=== PATIENT | female | born 1965 | race Caucasian/White ===

== ENCOUNTER 2017-03-25 22:04 | Emergency (ER) | payer OTHER ==
[~2017-03-25] VITALS: Ht 170.2 cm; Wt 72.7 kg
[~2017-03-25 22:04] MED LIST: IBUP-1050 PO; TRAM-10 PO
[2017-03-25 22:07] VITALS: TEMP 36.7; Ht 170.2 cm; Wt 72.7 kg
[2017-03-25] MEDS ORDERED: KETOROLAC TROMETHAMINE 60 MG/2 ML VIAL IM STA (22:15)
[2017-03-25] MEDS ORDERED: MoRPHine SULFATE 10 MG/ML CARP/VIAL IM STA (22:15)
--- NOTE | 2017-03-25 22:40 | EMERGENCY ROOM VISIT NOTE ---
History First contact with patient: 22:10 Chief Complaint: BACK PAIN Stated Complaint: LOW BACK AND LEFT LEG PAIN History of Present Illness The patient is a 52 year old female who presents to the Emergency Room with complaints of low back pain with radiation into the left leg. The patient states that her low back has felt "tight" for the past few days. She states that the pain worsened today and became severe approximately 5 hours prior to arrival. She states that the pain is in the left lower back and radiates into the hip and mid thigh. She states the pain is constant and describes it as a burning sensation. She denies any abdominal pain, urinary symptoms, bowel or bladder dysfunction, numbness or weakness. She does have an extensive history of back issues and states she has had 5 prior laminectomies performed by a surgeon at [place]. She has not had any back issues for the past 1.5 years. She does report a history of renal cell carcinoma and follows with Dr. Murillo locally. She states she has had surgery previously, but had a scan in September of last year which showed "some cancer cells coming back." She denies any fevers/chills. Review of Systems A complete 10 point review of systems was reviewed with the patient with pertinent positives and negatives as per history of present illness. All else were negative. Past Medical/Surgical History Medical Problems: (1) Duodenitis (2) Fall on steps (3) Fall on steps (4) Localized, primary osteoarthritis of the lower leg (5) Prescription refill (6) Renal cell carcinoma of right kidney (7) Right wrist pain (8) Upper abdominal pain Surgical Problems: (1) H/O total knee replacement (2) History of appendectomy Family History Cancer FH: heart disease Kidney disease Kidney stones Social History Smoking Status: Current Every Day Smoker Alcohol Use: occasionally Drug Use: none Marital Status: Housing Status: lives with family Occupation Status: employed Current/Historical Medications Scheduled Acetaminophen (Tylenol), 1,000 MG PO PRN Ibuprofen (Advil), 400 MG PO PRN Allergies Coded Allergies: No Known Allergies (Unverified , 12/07/15) Physical Exam Vital Signs Date Time Temp Pulse Resp B/P Pulse Ox O2 Delivery O2 Flow Rate FiO2 03/25/17 23:11 93 03/25/17 22:07 36.7 19 18 152/93 95 Room Air Physical Exam VITALS: Vitals are noted on the nurse's note and reviewed by myself. No abnormalities noted. GENERAL: This is a 52-year-old female, tearful, appears to be in pain, nondiaphoretic, well-developed well-nourished. SKIN: The skin was without rashes, erythema, edema, or bruising. NECK: Supple without nuchal rigidity. No cervical spine tenderness. HEART: Regular rate and rhythm without murmurs gallops or rubs. LUNGS: Clear to auscultation bilaterally without wheezes, rales or rhonchi. ABDOMEN: Soft, nontender to palpation. MUSCULOSKELETAL: No muscle atrophy, erythema, or edema noted of the back. There is no tenderness over the lumbar spinous processes. There is tenderness over the left lumbar paraspinous muscles. There is no tenderness over the thoracic spine or paraspinous muscles. There are XX muscle spasms present. The patient is slow to move around, but has full range of motion of the spine. Negative straight leg raise test. NEURO: Patient was alert and oriented to person place and time. Normal sensation to light and sharp touch. Deep tendon reflexes 2+ in the lower extremities. Dorsalis pedis pulse 2+ bilaterally. Gait is normal. Medical Decision & Procedures ER Provider Diagnostic Interpretation: CT LUMBAR SPINE: No acute fracture or dislocation. There is multilevel lumbar spondylosis with varying degrees of neural foraminal stenosis, most marked at the left L5-S1 level. Arterial calcifications. Osteoarthritic changes of both sacroiliac joints, left greater than right. Radiologist: Romie Paniagua M.D. Medications Administered Medications (Trade) Dose Ordered Sig/Lucero Route Start Time Stop Time Status Last Admin Dose Admin Ketorolac Tromethamine (Toradol Inj) 60 mg NOW STAT IM 03/25/17 22:15 03/25/17 22:17 DC 03/25/17 22:23 60 MG Morphine Sulfate (MoRPHine SULFATE INJ) 8 mg NOW STAT IM 03/25/17 22:15 03/25/17 22:17 DC 03/25/17 22:23 8 MG ED Course The patient was evaluated as above. Patient was medicated with 8 mg morphine IM and [address] of the lumbar spine was performed and read by radiology as above. Patient was reevaluated and felt much better. Findings were discussed with the patient. Discharge instructions were reviewed with the patient. The patient verbalized understanding of my assessment and treatment plan and was discharged home in good condition. Medical Decision Differential diagnosis includes sciatica, epidural abscess, malignancy, compression fracture, cauda equina syndrome, cord compression, muscular strain, among others. The patient is a 52-year-old female who presents today complaining of left back pain with radiation into the left leg. Her history and physical exam are consistent with left-sided sciatica. However, given the patient's history of renal cell carcinoma, I did choose to perform a CT scan of the lumbar spine to rule out metastasis. This showed neuroforaminal stenosis, most pronounced at L5 -S1, which is consistent with the patient's symptoms. There is no cord compression. There is no evidence of infection. The patient was informed of the findings. She felt much better after being given morphine and Toradol. She will be discharged home on a steroid and with pain medication. She will follow-up with [facility], who she has seen in the past. She was instructed to return here for any numbness, weakness, bowel or bladder incontinence. Based on the patient's presentation and work up, I feel the patient is stable for outpatient treatment. The patient was educated to return to the emergency department for any worsening of their current condition or new/concerning symptoms. She will follow up with her primary care provider and [facility]. [place] Drug Monitoring [place] Search Results: patient reviewed within database, no issues identified Impression Primary Impression: Left lumbar radiculopathy Departure Information Dispostion Home / Self-Care Condition GOOD Prescriptions Oxycodone Ir (Roxicodone Ir) 5 Mg Tab 1-2 TAB PO Q4H Y for Pain, #24 TAB For Initial Treatment Prov: Aleshia Jeffery PA-C 03/25/17 Prednisone (Prednisone) 20 Mg Tab 0 PO DAILY, #18 TAB 3 DAILY FOR 3 DAYS, THEN 2 DAILY FOR 3 DAYS, THEN 1 DAILY FOR 3 DAYS. Prov: Aleshia Jeffery PA-C 03/25/17 Referrals Loraine Murillo MD (PCP) Johnathon Barrios D.O. Patient Instructions My [facility] Additional Instructions You have been treated in the Emergency Department for Back Pain. You have received pain medicine in the emergency department which impairs your ability to operate a vehicle. It is illegal for you to drive after receiving these medicines. You have been prescribed OxyIR to be used for pain control. This is a narcotic medication. You cannot drive or consume alcohol while on this medicine. This medicine should only be used for pain that cannot be controlled with over-the- counter pain medicines. Prednisone as prescribed. Take this medication in the morning as it may make sleeping difficult. For pain control, you can use the following [id number] medicines (if >12 yo): - Regular strength (325mg/tab) Tylenol (acetaminophen) 2 tabs every 4-6 hours as needed. Do not exceed 12 tablets in a 24 hour period. Avoid taking more than 4 grams (4000 mg) of Tylenol per day. This includes any other sources of acetaminophen you may take on a regular basis. - Regular strength (200 mg/tab) Advil (ibuprofen) 1-2 tabs every 4-6 hours as needed. Do not exceed a dose of 3200 mg per day. Apply heating pad to the area of pain. Follow-up with [facility] for further evaluation. Return to the Emergency Department if your current symptoms worsen despite treatment course outlined above, or if you develop any of the following symptoms : intractable pain despite aforementioned treatment course, loss of control of your bowel or bladder, numbness or tingling in your groin, or development of a fever.
[2017-03-25] MEDS ORDERED: PRED20TA PO (23:58)
[2017-03-25] MEDS ORDERED: OXYC1TAB3 PO (23:58)
[2017-03-26] MEDS ORDERED: OXYCODONE IR HOME PACK PO ONE
[2017-03-26 00:07] VITALS: BP 134/70; PULSE 78; O2SAT 98
--- NOTE | 2017-03-26 07:28 | DIAGNOSTIC IMAGING REPORT ---
LUMBAR SPINE CT CT DOSE: 774.87 mGy.cm HISTORY: lumbar radiculopathy, hx renal cell ca TECHNIQUE: Multiaxial CT images of the lumbar spine were performed and reformatted in the sagittal and coronal plane without the use of contrast. COMPARISON: Lumbar spine 12/07/2015. FINDINGS: Straightening of the lumbar spine. No acute fracture or subluxation. Severe disc space narrowing at L3-L4 and L4-L5. Moderate disc space narrowing at L5-S1. Mild to moderate facet degenerative changes seen within the lower lumbar spine. Best seen on axial image 500 there is a 3 mm focal erosion along the right side of the L4 spinous process. This was present on a [address] and therefore is likely benign.. There is a sacrum appears intact. Right-sided nephrolithiasis. No hydronephrosis. Mild/moderate bilateral neural foraminal narrowing at L4-L5 and L5-S1. IMPRESSION: 1. No acute fracture or subluxation within the lumbar spine. 2. Degenerative changes as described above.. 3. There is a 3 mm focal erosion along the right side of the L4 spinous process. This was present on a [address] and therefore is likely benign. Electronically signed by: Anatoly Chaidez M.D. 03/26/2017 7:26 AM Dictated Date/Time: 03/26/2017 7:20 AM
[2017-04-15] MEDS ORDERED: ASPI-428 PO (11:03)
[2017-04-15] MEDS ORDERED: METH4PAK PO (11:03)
[2017-04-15] MEDS ORDERED: GABA1CAP4 PO (11:03)
[2017-04-15] MEDS ORDERED: OXYC-57 PO (11:03)
== END 2017-03-26 00:09 | disposition home or self-care (01) ==
LOC: C.EDB 22:05 → C.EDA 03-26 00:09
DX: M54.16 Radiculopathy, lumbar region (principal); K29.80 Duodenitis without bleeding; C64.1 Malignant neoplasm of right kidney, except renal pelvis; Z82.49 Family history of ischemic heart disease and other diseases of the circulatory system; F17.200 Nicotine dependence, unspecified, uncomplicated

== ENCOUNTER 2017-04-05 06:11 | Emergency (ER) | payer OTHER ==
[~2017-04-05] VITALS: Ht 170.2 cm; Wt 78.0 kg
[~2017-04-05 06:11] MED LIST changes: -IBUP-1050 PO; +OXYC1TAB3 PO; +PRED20TA PO; -TRAM-10 PO
[2017-04-05 06:16] VITALS: TEMP 36.4; Ht 170.2 cm; Wt 78.0 kg
[2017-04-05] MEDS ORDERED: ONDANSETRON INJ 2 MG/ML 2 ML VIAL IV STA (06:32)
[2017-04-05] MEDS ORDERED: MoRPHine SULFATE 10 MG/ML CARP/VIAL IV STA (06:32)
--- NOTE | 2017-04-05 06:33 | EMERGENCY ROOM VISIT NOTE ---
ED Visit Note First contact with patient: 06:28 Resident Physician Supervision Note: I interviewed and examined the patient. Discussed with Dr. Arguelles and agree with findings and plan as documented in the note. Documented By: Philip aTvera Problem List Medical Problems: (1) Duodenitis Status: Chronic (2) Fall on steps Status: Resolved (3) Fall on steps Status: Resolved (4) Localized, primary osteoarthritis of the lower leg Status: Resolved (5) Prescription refill Status: Resolved (6) Renal cell carcinoma of right kidney Status: Chronic (7) Right wrist pain Status: Chronic (8) Upper abdominal pain Status: Chronic Surgical Problems: (1) H/O total knee replacement Status: Resolved (2) History of appendectomy Status: Resolved Current/Historical Medications Scheduled Acetaminophen (Tylenol), 1,000 MG PO PRN Ibuprofen (Advil), 400 MG PO PRN Prednisone (Prednisone), 0 PO DAILY Scheduled PRN Oxycodone Ir (Roxicodone Ir), 1-2 TAB PO Q4H PRN for Pain Allergies Coded Allergies: No Known Allergies (Unverified , 12/07/15) Vital Signs Date Time Temp Pulse Resp B/P Pulse Ox O2 Delivery O2 Flow Rate FiO2 04/05/17 06:16 36.4 61 16 134/94 97 Room Air Departure Information Referrals Loraine Murillo MD (PCP) Patient Instructions My [facility]
[2017-04-05] MEDS ORDERED: OXYC-57 PO (07:06)
--- NOTE | 2017-04-05 07:13 | EMERGENCY ROOM VISIT NOTE ---
History First contact with patient: 06:32 Chief Complaint: BACK PAIN Stated Complaint: BACK PAIN History of Present Illness The patient is a 52 year old female who presents to the Emergency Room with complaints of left sided back pain. The patient was seen in the ED last week and was found to have spinal stenosis on CT scan with no compression. She has a history of 5 spinal surgeries as has a follow up with Dr. Barrios on 04/19/17. She was discharged home with Oxycodone as well as a 9 day steroid taper. The patient said she felt well after 5 days and was standing at work for 4 hours and even moving her desk. She woke up last week and felt like she had just tweaked her back when she woke up in the morning. The pain gradually worsened to the point this morning where she is in excruciating 10/10 pain that radiates down her leg. She denies any loss of bladder or any other next symptoms, just worsening of the previous pain. Review of Systems See HPI for pertinent positives and negatives. A total of ten systems were reviewed and were otherwise negative. Past Medical/Surgical History Medical Problems: (1) Duodenitis (2) Fall on steps (3) Fall on steps (4) Localized, primary osteoarthritis of the lower leg (5) Prescription refill (6) Renal cell carcinoma of right kidney (7) Right wrist pain (8) Upper abdominal pain Surgical Problems: (1) H/O total knee replacement (2) History of appendectomy Family History Cancer FH: heart disease Kidney disease Kidney stones Social History Smoking Status: Current Every Day Smoker Alcohol Use: occasionally Drug Use: none Marital Status: Housing Status: lives with family Occupation Status: employed Current/Historical Medications Scheduled Acetaminophen (Tylenol), 1,000 MG PO PRN Ibuprofen (Advil), 400 MG PO PRN Prednisone (Prednisone), 0 PO DAILY Scheduled PRN Oxycodone Ir (Roxicodone Ir), 1-2 TAB PO Q4H PRN for Pain Oxycodone/Acetaminophen 5MG/325MG (Percocet 5MG/325MG), 1-2 TAB PO Q4H PRN for Pain Allergies Coded Allergies: No Known Allergies (Unverified , 12/07/15) Physical Exam Vital Signs Date Time Temp Pulse Resp B/P Pulse Ox O2 Delivery O2 Flow Rate FiO2 04/05/17 06:16 36.4 61 16 134/94 97 Room Air Physical Exam GENERAL: Awake, alert, in moderate distress HENT: Normocephalic, atraumatic. EYES: Normal conjunctiva. Sclera non-icteric. NECK: Supple. Trachea midline. RESPIRATORY: Clear to auscultation. CARDIAC: Regular rate, normal rhythm. Extremities warm and well perfused. Pulses equal. ABDOMEN: Soft, non-distended. No tenderness to palpation. RECTAL: Deferred. MUSCULOSKELETAL: Severe tenderness with movement. Patient in position and will no straighten legs due to severe pain. Tenderness over paravertebral region of lower back that is consistent with recent imaging. LOWER EXTREMITIES: Calves are equal size bilaterally and non-tender. No edema. No discoloration. NEURO: Normal sensorium. No sensory deficits noted. Unable to obtain motor strength exam due to severe tenderness. SKIN: No rash or jaundice noted. Medical Decision & Procedures Medications Administered Medications (Trade) Dose Ordered Sig/Lucero Route Start Time Stop Time Status Last Admin Dose Admin Morphine Sulfate (MoRPHine SULFATE INJ) 8 mg NOW STAT IV 04/05/17 06:32 04/05/17 06:34 DC 04/05/17 06:56 8 MG Ondansetron HCl (Zofran Inj) 4 mg NOW STAT IV 04/05/17 06:32 04/05/17 06:34 DC 04/05/17 06:56 4 MG Dexamethasone Sodium Phosphate (Decadron Inj) 10 mg NOW ONCE IV 04/05/17 07:15 04/05/17 07:16 DC 04/05/17 07:14 10 MG Medical Decision Patient is a 52 year old female that presents with chronic left sided back pain - Patient given 8mg IV Morphine and 4mg IV Zofran - After given pain medication, pain appears well controlled and patient able to walk on heels as well as toes. Patient denies any saddle anesthesia on exam. - Patient given 10mg IV Decadron - Patient states pain well controlled Patient discharged home with Percocet and instructions to follow up with Dr. Barrios at scheduled appointment Impression Primary Impression: Sciatica Departure Information Dispostion Home / Self-Care Condition GOOD Prescriptions Oxycodone/Acetaminophen 5MG/325MG (PERCOCET 5MG/325MG) Tab 1-2 TAB PO Q4H Y for Pain, #14 TAB Prov: Philip Tavera MD 04/05/17 Referrals Loraine Murillo MD (PCP) Patient Instructions ED Sciatica, My [facility] Problem Qualifiers Primary Impression: Sciatica Laterality: left Qualified Codes: M54.32 - Sciatica, left side
[2017-04-05] MEDS ORDERED: DEXAMETHASONE SOD INJ 10 MG/ML VIAL IV ONE (07:15)
[2017-04-05 08:16] VITALS: BP 107/68; PULSE 73; O2SAT 97
[2017-04-15] MEDS ORDERED: METH4PAK PO (11:03)
[2017-04-15] MEDS ORDERED: ASPI-428 PO (11:03)
[2017-04-15] MEDS ORDERED: GABA1CAP4 PO (11:03)
[2017-04-15] MEDS ORDERED: OXYC-57 PO (11:03)
== END 2017-04-05 08:18 | disposition home or self-care (01) ==
LOC: C.EDB 06:13
DX: M54.32 Sciatica, left side (principal); Z85.528 Personal history of other malignant neoplasm of kidney; Z80.9 Family history of malignant neoplasm, unspecified; Z82.49 Family history of ischemic heart disease and other diseases of the circulatory system; Z84.1 Family history of disorders of kidney and ureter; F17.210 Nicotine dependence, cigarettes, uncomplicated; Z79.52 Long term (current) use of systemic steroids

== ENCOUNTER 2017-04-07 05:50 | Emergency (ER) | payer OTHER ==
[~2017-04-07] VITALS: Ht 170.2 cm; Wt 71.0 kg
[~2017-04-07 05:50] MED LIST changes: +OXYC-57 PO
[2017-04-07 05:53] VITALS: TEMP 36.8; Ht 170.2 cm; Wt 71.0 kg
[2017-04-07] MEDS ORDERED: HYDROmorphone INJ 2 MG/ML SYR/VIAL IM STA (06:03)
[2017-04-07] MEDS ORDERED: KETOROLAC TROMETHAMINE 60 MG/2 ML VIAL IM STA (06:03)
--- NOTE | 2017-04-07 06:12 | EMERGENCY ROOM VISIT NOTE ---
History First contact with patient: 05:58 Chief Complaint: BACK PAIN Stated Complaint: BACK PAIN History of Present Illness The patient is a 52 year old female who presents to the Emergency Room with complaints of ongoing low back pain for the past 2 weeks that radiates down her left leg describes aching, ranging in severity 8 out of 10. Movement makes it worse and nothing makes it better. She has had multiple back surgeries with Dr. Barrios. She has a follow-up appointment on 19 of April for her ongoing back pain. This is the patient's third ER visit for this. Patient denies loss of bowel or bladder control, saddle anesthesia, fever, chills, leg weakness, IV drug abuse, chest pain, dyspnea, abdominal pain. Review of Systems See HPI for pertinent positives & negatives. A total of 10 systems reviewed and were otherwise negative. Past Medical/Surgical History Medical Problems: (1) Duodenitis (2) Fall on steps (3) Fall on steps (4) Localized, primary osteoarthritis of the lower leg (5) Prescription refill (6) Renal cell carcinoma of right kidney (7) Right wrist pain (8) Upper abdominal pain Surgical Problems: (1) H/O total knee replacement (2) History of appendectomy Family History Cancer FH: heart disease Kidney disease Kidney stones Social History Smoking Status: Current Every Day Smoker Alcohol Use: occasionally Drug Use: none Marital Status: Housing Status: lives with family Occupation Status: employed Current/Historical Medications Scheduled Acetaminophen (Tylenol), 1,000 MG PO PRN Ibuprofen (Advil), 400 MG PO PRN Prednisone (Prednisone), 0 PO DAILY Scheduled PRN Oxycodone Ir (Roxicodone Ir), 1-2 TAB PO Q4H PRN for Pain Oxycodone/Acetaminophen 5MG/325MG (Percocet 5MG/325MG), 1-2 TAB PO Q4H PRN for Pain Allergies Coded Allergies: No Known Allergies (Unverified , 12/07/15) Physical Exam Vital Signs Date Time Temp Pulse Resp B/P Pulse Ox O2 Delivery O2 Flow Rate FiO2 04/07/17 05:53 36.8 124 20 155/112 94 Room Air Physical Exam VITALS: Vitals are noted on the nurse's note and reviewed by myself. Vital signs tachycardic. GENERAL: Pleasant female crying in pain, in no acute distress, nondiaphoretic, well-developed well-nourished. SKIN: Capillary reflex less than 2 seconds. HEENT: Normocephalic. PERRLA. EOMI. Nares patent. Mucous membranes moist. Neck is supple without nuchal rigidity. HEART: Regular rate and rhythm without murmurs gallops or rubs. LUNGS: Clear to auscultation bilaterally without wheezes, rales or rhonchi. No retractions or accessory muscle use. ABDOMEN: Positive bowel sounds x 4. Normal tympanic percussion. Soft, nontender, without masses or organomegaly. Helton sign negative. No guarding or rebound tenderness. MUSCULOSKELETAL: No gross musculoskeletal defects. No pedal edema. No calf tenderness. No thoracic or lumbar tenderness on exam. Positive straight leg raise on the left. Patient can walk on toes and heels. NEURO: Patient was alert and oriented to person place and time. Normal sensation to light and sharp touch. Deep tendon reflexes 2+ patella bilaterally. No focal neurological deficits. Medical Decision & Procedures ED Course Prior records/ancillary studies reviewed. Triage Nursing notes reviewed. Additional history obtained from family. The patient's history was concerning for back pain. Differential diagnosis: Etiologies such as musculoskeletal, disc herniation, fracture, aortic disease, metastatic disease, cord compression, discitis, infection, renal colic, gastrointestinal, acute exacerbation of chronic back pain, sciatica, cauda equina, as well as others were entertained. Physical findings: As above. No focal neurologic findings noted. ER treatment provided: Toradol, Dilaudid On reassessment the patient felt better. Diagnostics interpreted by me: Deferred This appears to be consistent with lumbar radiculopathy. This is the patient's third ER visit for this. I had case management consulted in order to contact the patient's back doctor to get an earlier appointment. Patient was advised to stretch the area out take medicines as needed. She is advised to follow-up with her orthopedic spine doctor in a few days or here in the ER sooner for severe pain, inability to walk, worsening signs or symptoms or as needed. Patient was neurovascularly and neurologically intact. No deficits on exam. No fever. No IV drug abuse.. The patient's physical examination and detailed history did not reveal any red flags for back pain such as those listed in the differential diagnosis. Therefore advanced diagnostics and consultations were felt to be unwarranted. By the evaluation outlined above emergent etiologies such as fracture, aortic disease, metastatic disease, infection, renal colic, gastrointestinal, cord compression, cauda equina, as well as others were deemed relatively unlikely. The pt informed about the findings as listed above. All questions were answered and pleased with the treatment. Return instructions were outlined and the patient was discharged in stable condition. Outpatient prescription management: Oxy IR 5mg 1-2 po Q4 hrs prn Referral: The patient was referred back to orthopedic spine and/or primary care physician for follow-up in 2 to 3 days for a recheck of the current condition. Medical Decision As above [place] Drug Monitoring Program Search Results: patient reviewed within database, no issues identified Impression Primary Impression: Lumbar radiculopathy Departure Information Dispostion Home / Self-Care Condition GOOD Referrals Loraine Murillo MD (PCP) Patient Instructions My [facility] Additional Instructions DO NOT drive, drink alcohol, operate machinery, or perform dangerous activities today. You were given medications in the ER that can affect your ability to safely function or operate a vehicle. Oxycodone (OxyIR) 5mg: Take 1-2 pills every four hours for breakthrough pain. Avoid alcohol, operating machinery or dangerous equipment, working on ladders or roofs, DRIVING, or situations where being under the influence may be dangerous. It is recommended to use an [id number] stool softener such as Colace, 100mg twice daily while taking this medication to avoid constipation. Ibuprofen(Motrin, Advil) may be used for fever or pain. Use 600mg every six hours as needed. Take with food. Avoid using more than 2400mg in a 24 hour period. Do not use 2400mg per day for more than three consecutive days without physician direction. Prolonged inappropriate use can lead to stomach upset or ulcers. This medication can be taken if you need to drive, work, or perform activities which may be dangerous when taking narcotic pain medication. (AND/OR) Acetaminophen(Tylenol) may be used for fever or pain. Use 1000mg every six hours as needed. Avoid using more than 3000mg in a 24 hour period. This medication can be taken if you need to drive, work, or perform activities which may be dangerous when taking narcotic pain medication. Rest and avoid heavy lifting until your symptoms resolve and then gradually return to full activity. A good rule of thumb is if it hurts your back to perform a certain activity, then it should be avoided until you are healthy again. A heating pad, warm compresses, or a hot shower may help with tight muscles and can be done several times a day as needed. Continue current medications. Return to the ER immediately for any numbness, tingling, severe pain, loss of control of your bowels or bladder, inability to walk, or as needed. Follow up with your primary care physician/orthopedics spine within 3-5 days for a recheck of your current condition.
[2017-04-07] MEDS ORDERED: OXYCODONE IR HOME PACK PO ONE (06:15)
[2017-04-07 06:38] VITALS: BP 118/77; PULSE 72; O2SAT 94
[2017-04-15] MEDS ORDERED: GABA1CAP4 PO (11:03)
[2017-04-15] MEDS ORDERED: OXYC-57 PO (11:03)
[2017-04-15] MEDS ORDERED: ASPI-428 PO (11:03)
[2017-04-15] MEDS ORDERED: METH4PAK PO (11:03)
== END 2017-04-07 06:40 | disposition home or self-care (01) ==
LOC: C.EDB 05:54
DX: M54.16 Radiculopathy, lumbar region (principal); Z85.528 Personal history of other malignant neoplasm of kidney; Z80.9 Family history of malignant neoplasm, unspecified; Z82.49 Family history of ischemic heart disease and other diseases of the circulatory system; Z84.1 Family history of disorders of kidney and ureter; F17.210 Nicotine dependence, cigarettes, uncomplicated

== ENCOUNTER → 2017-04-08 | Outpatient (CLI) | payer OTHER ==
[~2017-04-08] MED LIST changes: +ACET-1256 PO; +ASPI-428 PO; +CARI350T28 PO; +GABA1CAP4 PO; +GADAVIST IV PRN; +IBUP-1050 PO; +KETO10TA PO; +METH4PAK PO; -OXYC1TAB3 PO
--- NOTE | 2017-04-08 15:56 | DIAGNOSTIC IMAGING REPORT ---
MRI LUMBAR SPINE COMBO CLINICAL HISTORY: Lumbar radiculopathy. COMPARISON STUDY: CT scan of lumbar spine dated 03/25/2017. Abdominal CT dated 01/12/2015. TECHNIQUE: MRI of the lumbar spine is performed utilizing various T1 and T2-weighted sequences in the axial and sagittal planes. Contrast-enhanced images were acquired following the IV administration of 7 cc of Gadavist. FINDINGS: Lumbar spine: Vertebral body height is maintained throughout the lumbar spine. There is minimal retrolisthesis at L4-L5. Alignment is otherwise preserved. There is straightening of the lumbar lordosis. There is no evidence of spondylolysis. Findings suggest previous right hemilaminectomy at L5-S1. A portion of the spinous process at L5 has likely been resected. The remaining spinous processes and transverse processes appear intact. Chronic degenerative endplate change is seen at L4-L5. Milder chronic endplate change is noted at L3-L4 and L5-S1. Tiny anterior osteophytes are seen throughout. No destructive bony process is seen. Intervertebral discs: There is degenerative disc desiccation seen throughout the lumbar spine. Advanced loss of height is present at L3-L4 and L4-L5. Spinal cord: The partially imaged spinal cord is normal in morphology and signal intensity. The conus medullaris terminates at the level of L1. The nerve roots of the cauda equina are normal in morphology. No abnormal cord enhancement is seen. Fatty filum terminale is incidentally noted. L1-L2: There is a small disc extrusion eccentric to the left with annular fissure. There is no significant acquired compromise of the central canal. The neural foramina are patent. L2-L3: There is broad-based disc bulge with a large disc herniation eccentric to the left with a superiorly extruded fragment. The disc fragment measures up to 2.5 cm, this is best seen on axial image 9. The disc herniation abuts the transiting left-sided nerve roots at this level as well as the exiting left L2 nerve root. There is only mild acquired compromise in the central canal at this level with a minimum AP diameter of 9 mm. Bilateral subarticular stenosis is noted. The right neural foramen is widely patent. The disc herniation causes left neural foraminal stenosis. L3-L4: There is a large posterior disc bulge eccentric to the right with annular fissure. The disc bulge likely impinges the exiting right L3 and the transiting right L4 nerve roots. This causes mild acquired compromise of the central canal with a minimum AP diameter of 10 mm. There is bilateral subarticular stenosis, right greater than left. Facet arthropathy causes mild neural foraminal stenosis. L4-L5: There is a small posterior disc bulge with annular fissure. There is no significant acquired compromise of the central canal. Minimal subarticular stenosis is seen. Facet arthropathy causes minimal left neural foraminal stenosis. L5-S1: There is minimal posterior disc bulge. The central canal is patent. Facet arthropathy causes moderate bilateral neural foraminal stenosis. There is mild left-sided subarticular stenosis. Sacrum: The visualized sacrum is normal in morphology and signal intensity. Soft tissues: There is mild fatty atrophy of the paraspinous musculature. The kidneys demonstrate cortical atrophy. Postoperative change is suggested in the right kidney. There is patchy abnormal enhancement within the interpolar right kidney which is of indeterminant significance. No retroperitoneal lymphadenopathy is identified. IMPRESSION: 1. There is a disc herniation eccentric to the left at L2-L3 with a large superiorly extruded fragment. This impinges on the exiting left L2 and the transiting left-sided nerve roots of this level. 2. Multilevel lumbosacral spondylosis at additional levels as detailed above with multilevel acquired compromise of the central canal. See discussion for detailed level by level analysis. 3. Degenerative disc disease with chronic degenerative endplate change as above, greatest at L4-L5. 4. Findings suggest previous right hemilaminotomy at L5-S1. Correlation with the operative history will be required. 5. Postoperative changes are consistent with a history of right partial nephrectomy. There is patchy nonspecific enhancement at the operative site, likely representing scarring. Correlation with any recent abdominal CT scan imaging is recommended. Dictated: 04/08/2017 3:22 PM Transcribed: 04/08/2017 3:55 PM [email or web address]_Dale Electronically signed by: Biju Katz M.D. 04/08/2017 4:00 PM Dictated Date/Time: 04/08/2017 3:22 PM
== END | disposition home or self-care (01) ==
LOC: C.MRI 13:37
PROVIDERS: ATTEND Family Medicine
DX: M54.16 Radiculopathy, lumbar region (principal); M51.26 Other intervertebral disc displacement, lumbar region; M47.27 Other spondylosis with radiculopathy, lumbosacral region; M51.36 Other intervertebral disc degeneration, lumbar region

== ENCOUNTER 2017-04-13 20:22 | Observation (INO) | payer OTHER ==
[~2017-04-13] VITALS: Ht 170.2 cm; Wt 81.3 kg
[~2017-04-13 20:22] MED LIST changes: -ACET-1256 PO; -ASPI-428 PO; -CARI350T28 PO; -GABA1CAP4 PO; -GADAVIST IV PRN; -IBUP-1050 PO; -KETO10TA PO; -METH4PAK PO
[2017-04-13] MEDS ORDERED: CARI350T28 PO (21:33)
[2017-04-13] MEDS ORDERED: PRED20TA PO (21:33)
[2017-04-13] MEDS ORDERED: KETO10TA PO (21:33)
[2017-04-13 21:34] LABS: BASO % 0.5 %; BASO ABS # 0.05 K/uL (0-0.2); COMPLETE YES; EOS % 0.5 %; HEMATOCRIT 42.3 % (37-47); IG% 0.2 %; LYMPH % 26.3 %; LYMPH ABS # 2.88 K/uL (1.2-3.4); MEAN CELL VOLUME 97.9 fL (80-100); MEAN CORPUSCULAR HEMOGLOBIN 32.6 pg (25-34); MEAN CORPUSCULAR HGB CONC 33.3 g/dl (32-36); MEAN PLATELET VOLUME 9.4 fL (7.4-10.4); MONO % 4.2 %; NEUT % 68.3 %; PLATELET COUNT 409 K/uL (130-400); RED BLOOD COUNT 4.32 M/uL (4.2-5.4); WHITE BLOOD COUNT 10.97 K/uL (4.8-10.8)
--- NOTE | 2017-04-13 21:42 | DIAGNOSTIC IMAGING REPORT ---
CT HEAD WITHOUT CONTRAST (CT) CLINICAL HISTORY: Confusion. Hallucinations. COMPARISON STUDY: No previous studies for comparison. TECHNIQUE: Axial CT of the brain is performed from the vertex to the skull base. IV contrast was not administered for this examination. CT DOSE: 537.48 mGy.cm FINDINGS: No intra or extra-axial mass lesions are visualized. There is no CT evidence of acute cortical infarction. There is no evidence of midline shift. There is no acute hemorrhage. No calvarial fractures are visualized. There are minimal white matter hypodensities likely on a small vessel basis. There is no evidence of pathologic ventricular dilatation. There is no evidence of acute sinusitis IMPRESSION: No acute intracranial findings Electronically signed by: Jaren Love M.D. 04/13/2017 9:41 PM Dictated Date/Time: 04/13/2017 9:40 PM
[2017-04-13 21:44] LABS: INR 0.9 (0.9-1.1); PARTIAL THROMBOPLASTIN RATIO 0.9
[2017-04-13 21:56] LABS: ALT/SGPT 24 U/L (12-78); BLOOD UREA NITROGEN 18 mg/dl (7-18); BUN/CREATININE RATIO 19.5 (10-20); CARBON DIOXIDE 25 mmol/L (21-32); CHLORIDE 108 mmol/L (98-107); CREATININE 0.93 mg/dl (0.60-1.20); GLUCOSE 92 mg/dl (70-99); MAGNESIUM 2.4 mg/dl (1.8-2.4); SODIUM 142 mmol/L (136-145)
[2017-04-13 22:03] LABS: CALCIUM 8.4 mg/dl (8.5-10.1)
[2017-04-13 22:07] LABS: ALKALINE PHOSPHATASE 85 U/L (45-117); AST/SGOT 11 U/L (15-37); THYROID STIMULATING HORMONE 0.768 uIu/ml (0.300-4.500)
[2017-04-13] MEDS ORDERED: HYDROmorphone INJ 0.5 MG/0.5 ML SYR IV STA (22:10)
[2017-04-13] MEDS ORDERED: ACET-1256 PO (22:25)
[2017-04-13] MEDS ORDERED: IBUP-1050 PO (22:25)
[2017-04-13] MEDS ORDERED: SODIUM CHLORIDE 0.9% 1000ML 1,000 ML IV STA (23:29)
[2017-04-14] VITALS (12 sets, daily range): BP systolic 119–147; BP diastolic 76–94; PULSE 67–91; TEMP 36.7–37; O2SAT 92–98; Ht 170.2 cm; Wt 81.3 kg
[2017-04-14] MEDS ORDERED: KETOROLAC TROMETHAMINE 30 MG/ML VIAL IV STA (00:28)
[2017-04-14] MEDS ORDERED: KETOROLAC TROMETHAMINE 30 MG/ML VIAL IV PRN (00:30)
[2017-04-14] MEDS ORDERED: PHARMACIST DISCHARGE MED REC CONSULT PRN (01:45)
[2017-04-14] MEDS ORDERED: ACETAMINOPHEN 325 MG TAB PO PRN (01:45)
[2017-04-14] MEDS ORDERED: NITROGLYCERIN 0.4 MG SL PER TAB CHARGE SL PRN (01:45)
[2017-04-14] MEDS ORDERED: IV FLUIDS COMPLETED PRN (03:30)
[2017-04-14] MEDS ORDERED: OXYCODONE/ACETAMINOPHEN 5-325 TAB ONE (03:31)
[2017-04-14] MEDS ORDERED: ASPIRIN 81 MG ECTAB PO ONE (03:51)
[2017-04-14] MEDS ORDERED: LIDODERM (LIDOCAINE) PATCH 5% TD ONE (03:51)
[2017-04-14 04:20] LABS: URINE APPEARANCE CLEAR (CLEAR); URINE BILIRUBIN NEG (NEG); URINE COLOR YELLOW; URINE NITRITE NEG (NEG); URINE SPECIFIC GRAVITY 1.022 (1.000-1.030); UROBILINOGEN NEG (NEG); ZZUR CULT IF INDIC CLEAN CATCH NO
[2017-04-14 04:37] LABS: BENZODIAZEPINE, URINE NEG (NEG); COCAINE,URINE NEG (NEG); PHENCYCLIDINE, URINE NEG (NEG)
[2017-04-14 04:42] LABS: MANUAL MICROSCOPIC REQUIRED? NO; REVIEW REQ? NO
[2017-04-14] MEDS ORDERED: IBUPROFEN 200 MG TAB PO PRN (05:00)
[2017-04-14] MEDS ORDERED: SODIUM CHLORIDE 0.45% 1000ML 1,000 ML IV SCH (05:00)
[2017-04-14] MEDS ORDERED: LORAZEPAM INJ 0.5 MG in SYRINGE 0.75 ML IV PRN (05:00)
[2017-04-14] MEDS ORDERED: ONDANSETRON INJ 2 MG/ML 2 ML VIAL IV PRN (05:00)
[2017-04-14] MEDS ORDERED: LORAZEPAM 2 MG/ML 1 ML VIAL IV PRN (05:00)
[2017-04-14 06:19] LABS: HEMATOCRIT 41.4 % (37-47); MEAN CELL VOLUME 98.6 fL (80-100); MEAN CORPUSCULAR HEMOGLOBIN 32.4 pg (25-34); MEAN CORPUSCULAR HGB CONC 32.9 g/dl (32-36); MEAN PLATELET VOLUME 9.6 fL (7.4-10.4); PLATELET COUNT 405 K/uL (130-400)
[2017-04-14 07:01] LABS: CHOLESTEROL/HDL RATIO 3.7
[2017-04-14] MEDS: ENOXAPARIN 40 MG/0.4 ML SYR SC SCH (07:56)
--- NOTE | 2017-04-14 07:56 | HISTORY & PHYSICAL EXAMINATION ---
DATE OF ADMISSION: 04/14/2017 PRIMARY CARE PHYSICIAN: Dr. Thompson. CHIEF COMPLAINT: Disorientation, hallucinations. HISTORY OF PRESENT ILLNESS: Hx obtained from px and records. Medical history significant for renal cell cancer of right status post partial nephrectomy, chronic back pain status post surgery, ? hx ovarian cancer sp radiation as per records, ongoing tobacco abuse. About 2 weeks ago, the patient noted achy low back pain going down to both knees, more on the left. worse w/ motion No weakness, no numbness or incontinence. No fever, no chills. No hematuria, weight loss. No recent trauma recollection. Px has had 3 Emergency Room visits since for back pain. Recent lumbar spine MRI showed disc herniation eccentric to L2, L3 with large fragment impinging on exiting L2 nerve root, lumbosacral spondylosis, previous right nephrectomy noted. Patient discharged on Oxy-IR. Patient has seen an orthopedic monitoring specialist. Soma, prednisone course later added to px regimen. Patient has a up Ortho spine appointment today to schedule surgery as per px. Some improvement of back pain. Last night, the patient was at a restaurant with a friend, had something to drink, transient disorientation and hallucinating about her father, transient loss of strength on the right arm. No headache, no chest pain, no shortness of breath. Worsening of back pain during transport to the hospital w/c she attributes to "some jessica pulling my leg." MEDICAL HISTORY: As above. SURGERIES: Nephrectomy, lymphadenectomy, back surgery, knee surgery. HOME MEDICATIONS: Include Tylenol, Soma, Advil, Toradol, prednisone. ALLERGIES: No known drug allergies. FAMILY HISTORY: Cancer. PERSONAL AND SOCIAL HISTORY: One-fourth to a half pack daily. No chronic alcoholic beverages. 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 REVIEW OF SYSTEMS: As per HPI, all other ROS negative. PHYSICAL EXAMINATION: VITAL SIGNS: Blood pressure was noted to be 125/86, pulse rate 95, RR 20, temperature 36.7, sats 98TA , no respiratory distress. irate, lying on her R side SKIN: Normal color. HEENT: [place] palpebral conjunctivae. Dry mucosa. NECK: No JVD. Supple. CHEST: Clear to auscultation. HEART: Regular rate and rhythm. ABDOMEN: Soft. BACK : Low back tenderness. NEUROLOGIC: No gross focality. LABS: Hemoglobin was noted to be 14.1, hematocrit 40, white cell count 10.9, platelets 409. Sodium 140, potassium 4, chloride 108, CO2 25, BUN 18, creatinine 0.9, glucose was noted to be 92. alcohol was 45. IMAGING: CT head, no acute intracranial findings, ASSESSMENT: 1. Transient right upper extremity weakness rule out transient ischemic attack 2. transient disorientation/hallucinations possibly from medications (Soma, steroids) w/ concomitant alcohol intake. 3. Worsening low back pain post hospital transport hx back surgery disc herniation recent outpx MRI elective surgery contemplated ff recent outpx Spine Ortho eval 4. History of renal cell cancer, right, sp surgery in 2014. Follow up CT from 2016 did not show any problems as per records. 5. ongoing tobacco abuse PLAN: Observation PCU, neuro checks ASA for now for stroke prevention until stroke ruled out by MRI/MRA brain. Hold Soma for now. analgesia, Lidoderm patch trial. Orthopedics consult. RE Followup eval for worsening of back pain. Nicotine patch. DVT prophylaxis with Lovenox subQ. Full code. MTDD
[2017-04-14] MEDS: HYDROmorphone INJ 1 MG/ML SYR IV PRN ×4 (08:01→22:15)
[2017-04-14] MEDS: OXYCODONE/ACETAMINOPHEN 5-325 TAB PO PRN ×3 (11:47→20:50)
--- NOTE | 2017-04-14 14:03 | CONSULTATION REPORT ---
DATE OF CONSULTATION: 04/14/2017 CHIEF COMPLAINT: Orthopedically and from a spinal perspective, a back and left lower extremity difficulty. She has a documented MRI scan demonstrating a disk herniation at L-L3 with a free fragment on the exiting L3 and possibly L2 nerve root as well. She also has lumbar spondylosis, previous laminectomy and previous surgery, I am not sure of her surgeon, I think they were out of town. Undigested at our patient in the office approximately 48 hours ago discharged from the office on Soma and a Medrol Dosepak along with some Toradol. Evidently, she was at a restaurant yesterday according to the H&P had something to drink and some transient disorientation, hallucination and loss of strength. She is currently being worked up for a TIA as well. PAST MEDICAL HISTORY: Positive for kidney carcinoma. PAST SURGICAL HISTORY: Nephrectomy, lumpectomy, back surgery x3 and knee surgery. HOME MEDICATIONS: Tylenol, Soma, Advil, Toradol and Medrol. FAMILY HISTORY: Carcinoma. ALLERGIES: None. REVIEW OF SYSTEMS: Denies any blurred vision, double vision here to seeing her today around 1:00 in the afternoon. No evidence of chest pain, shortness of breath. No nausea, vomiting. She mostly had back pain and lower extremity difficulty. NEUROLOGIC: She has 5/5 strength of both lower extremities, can lift and both dorsiflexion intact. Good range of motion of the hip and knee. She does have diminished knee jerk reflex on the left compared to the right, the left be graded 1/4, the right 2/4 or even may be 3/4. IMAGES: Reviewed in detail, which was an MRI scan. ASSESSMENT: Disk herniation of the lumbar spine L2-L3 with also other medical concerns. DISPOSITION: We are not moving ahead with surgical intervention, at least in a short run and want to get her quieted down, treated as an outpatient and see her back in the office in 1 week to 2 weeks for evaluation. I will be ordering a consultation with pain management with Dr. Rahman and Dr. Gayle, an injection today or tomorrow may be of benefit as well and I will continue to follow her during her hospital stay. AGUSTINA
--- NOTE | 2017-04-14 14:49 | DIAGNOSTIC IMAGING REPORT ---
MRA OF THE INTRACRANIAL CIRCULATION WITHOUT CONTRAST CLINICAL HISTORY: Possible stroke. Hallucinations. COMPARISON STUDY: Head CT April 13, 2017. TECHNIQUE: Utilizing a 1.5 Ruthann magnet and 3-D [id number] technique, unenhanced MRA of the intracranial circulation was obtained. FINDINGS: The bilateral M1, M2, A1 and A2 segments are patent. There is no abrupt vessel cut off. No intracranial aneurysm is identified on this examination. The posterior circulation is intact. No significant stenosis identified within the major intracranial vessels. IMPRESSION: Normal MRA of the intracranial circulation. Electronically signed by: Hussain Mccain M.D. 04/14/2017 2:47 PM Dictated Date/Time: 04/14/2017 2:45 PM
--- NOTE | 2017-04-14 14:54 | DIAGNOSTIC IMAGING REPORT ---
MRI OF THE BRAIN WITHOUT CONTRAST CLINICAL HISTORY: Possible stroke. Reaction to medication. Hallucinations. COMPARISON STUDY: Head CT April 13, 2017. TECHNIQUE: Utilizing a 1.5 Ruthann magnet and dedicated coil, multiplanar, multiecho imaging of the brain was performed without IV contrast. FINDINGS: There are no areas restricted diffusion. No acute intracranial hemorrhage, midline shift or mass effect is present. Ventricular system is normal. Basilar cisterns are patent. Flow-voids for the major intracranial vessels are present. There is no intracranial mass on this unenhanced exam. There are a few small white matter T2 hyperintense foci which could reflect minimal small vessel disease or sequela of migraine headaches. Calvarial signal is normal. Orbits are unremarkable. Sinuses are clear. IMPRESSION: No acute intracranial findings. Electronically signed by: Hussain Mccain M.D. 04/14/2017 2:53 PM Dictated Date/Time: 04/14/2017 2:49 PM
--- NOTE | 2017-04-14 21:46 | Progress Note ---
Medicine Progress Note Date & Time of Visit: Apr 14, 2017 at 20:30 . Subjective Admitted last night due to altered mental status. No recurrence of symptoms. No headache, visual changes, speech difficulties, focal weakness. Persistent severe low back pain radiating to her left lower extremity. . Objective Last 8 Hrs Date Time Temp Pulse Resp B/P (MAP) Pulse Ox O2 Delivery O2 Flow Rate FiO2 04/14/17 20:34 36.8 69 18 133/88 (103) 94 Room Air 04/14/17 20:00 94 Room Air 04/14/17 19:56 97 04/14/17 15:56 92 Room Air 04/14/17 15:12 36.8 70 20 119/79 (92) 92 Room Air Physical Exam: General- no distress, but uncomfortable with movement Lungs- clear Heart- regular rate and rhythm Abdomen- normal bowel sounds, soft, nontender Back- severe low back pain with left straight leg raising @ 20 degrees Extremities- no pretibial edema or calf tenderness Neuro- alert, oriented; PERRL, EOMI; no facial palsy; no dysarthria; upper extremity motor strength 5/5; motor testing of lower extremities limited due to severe back pain . Laboratory Results: Last 24 Hours Test 04/13/17 23:35 04/14/17 05:55 Urine Color YELLOW Urine Appearance CLEAR Urine pH 5.0 Urine Specific Allred 1.022 Urine Protein NEG Urine Glucose (UA) NEG Urine Ketones NEG Urine Occult Blood NEG Urine Nitrite NEG Urine Bilirubin NEG Urine Urobilinogen NEG Urine Leukocyte Esterase NEG Urine Opiates Screen POS Urine Methadone, Qualitative NEG Urine Barbiturates NEG Urine Phencyclidine (PCP) Level NEG Ur Amphetamine/Methamphetamine NEG MDMA (Ecstasy) Screen NEG Urine Benzodiazepines Screen NEG Urine Cocaine Metabolite NEG Urine Marijuana (THC) NEG White Blood Count 11.20 K/uL Red Blood Count 4.20 M/uL Hemoglobin 13.6 g/dL Hematocrit 41.4 % Mean Corpuscular Volume 98.6 fL Mean Corpuscular Hemoglobin 32.4 pg Mean Corpuscular Hemoglobin Concent 32.9 g/dl RDW Standard Deviation 48.3 fL RDW Coefficient of Variation 13.4 % Platelet Count 405 K/uL Mean Platelet Volume 9.6 fL Triglycerides Level 147 mg/dl Cholesterol Level 202 mg/dl HDL Cholesterol 54 mg/dl LDL Cholesterol, Calculated 119 mg/dl VLDL Cholesterol, Calculated 29 mg/dl Cholesterol/HDL Ratio 3.7 Date/Time Source Procedure Growth Status 04/13/17 23:35 Urine , Clean Catch Urine Culture Pending Received Assessment & Plan ALTERED MENTAL STATUS Patient presented to ED with altered mental status. She was confused and had trouble with word finding. The was concern about possible transient right upper extremity weakness. She just started new medications for her back pain the day prior to admission ( prednisone, Toradol, Soma). The evening of admission she drank less than 1 alcoholic beverage; blood alcohol level was 45 mg/dL. Neuroimaging by CT and MRI did not show any acute vascular event or other abnormalities- minimal small vessel ischemic changes were noted. Altered mental status most likely secondary to combination of meds + alcohol. Neuro status now back to baseline. Patient is a bit young to have small vessel ischemic changes. Consider aspirin, lipid lowering therapy. Recommend smoking cessation. LOW BACK PAIN Experiencing severe low back pain radiating to the left lower extremity. MRI of the lumbar spine demonstrated disc herniation eccentric to the left at L2 -L3 with a large superiorly extruded fragment. Multilevel lumbosacral spondylosis, DJD, postsurgical changes noted. Patient had been seen by Dr. Quiñones for outpatient orthopedic consultation. He started prednisone taper, Toradol, Soma the day prior to admission. Suspect that altered mental status discussed above due to combination of Soma and alcohol consumption. Patient seen earlier today by Dr. Quiñones. He does not recommend surgical intervention at this time. Pain Management consultation ordered. SMOKING Will offer smoking cessation counseling. VTE PROPHYLAXIS SQ enoxaparin. DISPOSITION Probable discharge to home. Outpatient follow-up with Dr. Thompson. . Current Inpatient Medications: Current Inpatient Medications Medications (Trade) Dose Ordered Sig/Lucero Route Start Time Stop Time Status Last Admin Dose Admin Ketorolac Tromethamine (Toradol Inj) 30 mg Q6H PRN IV 04/14/17 00:30 04/19/17 00:29 Miscellaneous Information (Pharmacist Discharge Med Rec Consult) 1 ea UD PRN N/A 04/14/17 01:45 05/14/17 01:44 Enoxaparin Sodium (Lovenox Inj) 40 mg Q24H SC 04/14/17 09:00 05/14/17 08:59 04/14/17 07:56 40 MG Acetaminophen (Tylenol Tab) 650 mg Q4H PRN PO 04/14/17 01:45 05/14/17 01:44 Nitroglycerin (Nitrostat Tab) 0.4 mg UD PRN SL 04/14/17 01:45 05/14/17 01:44 Miscellaneous (Iv Fluids Completed) 1 ea PRN PRN N/A 04/14/17 03:30 04/14/18 03:29 Aspirin (Ecotrin Tab) 81 mg QAM PO 04/15/17 09:00 05/15/17 08:59 Lidocaine (Lidoderm Patch 5%) 1 patch QAM TD 04/15/17 09:00 05/15/17 08:59 Miscellaneous (Remove Lidoderm Patch) 1 ea DAILY@21 N/A 04/14/17 21:00 05/14/17 20:59 04/14/17 21:06 1 EA Ondansetron HCl (Zofran Inj) 4 mg Q4H PRN IV 04/14/17 05:00 05/14/17 04:59 Oxycodone/ Acetaminophen (Percocet 5-325mg Tab) `1-2 tabs for pain 1 tab ... Q4H PRN PO 04/14/17 05:00 04/28/17 04:59 04/14/17 20:50 2 TAB Ibuprofen (Advil Tab) 200 mg Q6H PRN PO 04/14/17 05:00 05/14/17 04:59 Hydromorphone HCl (Dilaudid Inj) 1 mg Q3H PRN IV 04/14/17 05:00 04/28/17 04:59 04/14/17 18:59 1 MG Lorazepam 0.5 mg/ Syringe 1 ml @ 1 mls/min Q4H PRN IV 04/14/17 05:00 05/14/17 04:59 Lorazepam (Ativan Inj) 0.5 mg Q4H PRN IV 04/14/17 05:00 05/14/17 04:59
[2017-04-15] MEDS: OXYCODONE/ACETAMINOPHEN 5-325 TAB PO PRN ×4 (01:30→12:23)
[2017-04-15 03:33] VITALS: O2SAT 94
[2017-04-15] MEDS: HYDROmorphone INJ 1 MG/ML SYR IV PRN ×2 (03:44→08:25)
[2017-04-15 04:00] VITALS: BP 116/71; PULSE 72; TEMP 36.5; O2SAT 92
[2017-04-15 07:51] VITALS: BP 111/70; PULSE 69; TEMP 36.9; O2SAT 91
[2017-04-15] MEDS: ENOXAPARIN 40 MG/0.4 ML SYR SC SCH (08:06)
--- NOTE | 2017-04-15 08:27 | PROGRESS NOTE ---
DATE: 04/15/2017 DATE: 04/15/2017. SUBJECTIVE: She seems moderately comfortable here today. Of course, she is at bedrest. Seems oriented to person, place, time. Pain controlled. No confusion. Denies chest pain, shortness of breath. OBJECTIVE: Still pain with straight leg raising on the left hand side, negative on the right hand side. No neurological deficit. IMAGING demonstrating disc herniation L2-L3 lumbar spine. IMPRESSION: Disc herniation L2-L3 lumbar. DISPOSITION: We are hoping to treat her conservatively. I will try pain management, I am very thankful they can try to see the patient today or tomorrow. If she fails pain management techniques, both in and outpatient procedures, she will be a candidate for surgery for discectomy L2-3 of the lumbar spine. This will be scheduled as an outpatient. Appropriate time for surgery on my skeletal is approximately 12-14 days.
[2017-04-15] MEDS ORDERED: LIDODERM (LIDOCAINE) PATCH 5% TD SCH (09:00)
[2017-04-15] MEDS ORDERED: ASPIRIN 81 MG ECTAB PO SCH (09:00)
[2017-04-15] MEDS ORDERED: METHYLPREDNISOLONE 4MG TAB, 6 DAY TAPER PO SCH (09:00)
[2017-04-15] MEDS ORDERED: GABAPENTIN 300 MG CAP PO SCH (09:00)
--- NOTE | 2017-04-15 10:15 | Pain Management Consultation ---
Pain Management Consultation Date of Consultation Apr 15, 2017. Reason for Consultation Lumbar radiculopathy History Mrs. Gross is a 52 year old white female that is being seen in consultation for lumbar radiculopathy that has been ongoing for 3 weeks without any known injury. Patient states that she has a previous history of low back pain which has required an L5-S1 hemilaminectomy. Patient states that this pain is different. She reports approximately 75% left low back pain and 25% radicular pain along the left lateral thigh. No radiation of pain past the knee. She describes a sharp, burning, and stabbing pain. Patient states that sitting aggravates the pain. Laying supine and standing decrease the pain. She has been seen in the Emergency Department 3 times for the acute low back pain and prescribed Oxycodone and oral steroids. She has been referred to Dr. Quiñones for surgical consultation and it was agreed to try conservative measures first. He prescribed her Toradol, Soma, and Medrol Felipe. Patient admitted to drinking a beer while starting the medications and described extremity weakness and confusion. TIA/CVA workup has been negative and the "episode" is thought to be from taking the prescribed medication with alcohol. Patient rates her pain a 4/10 when laying supine and 9/10 with sitting. She is currently taking Percocet 5/325mg 1-2 tablets PO x 4 hours, lidocaine patch, and has IV Dilaudid for breakthrough pain. She states that her pain is controlled with the current regimen. She denies any leg weakness, foot drop, saddle anesthesia, bowel/ bladder incontinence, or falls. Case discussed with Dr. 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) Allergies Coded Allergies: No Known Allergies (Unverified , 04/07/17) Medications Current Inpatient Medications Medications (Trade) Dose Ordered Sig/Lucero Route Start Time Stop Time Status Last Admin Dose Admin Ketorolac Tromethamine (Toradol Inj) 30 mg Q6H PRN IV 04/14/17 00:30 04/19/17 00:29 Miscellaneous Information (Pharmacist Discharge Med Rec Consult) 1 ea UD PRN N/A 04/14/17 01:45 05/14/17 01:44 Enoxaparin Sodium (Lovenox Inj) 40 mg Q24H SC 04/14/17 09:00 05/14/17 08:59 04/15/17 08:06 40 MG Acetaminophen (Tylenol Tab) 650 mg Q4H PRN PO 04/14/17 01:45 05/14/17 01:44 Nitroglycerin (Nitrostat Tab) 0.4 mg UD PRN SL 04/14/17 01:45 05/14/17 01:44 Miscellaneous (Iv Fluids Completed) 1 ea PRN PRN N/A 04/14/17 03:30 04/14/18 03:29 Aspirin (Ecotrin Tab) 81 mg QAM PO 04/15/17 09:00 05/15/17 08:59 04/15/17 08:05 81 MG Lidocaine (Lidoderm Patch 5%) 1 patch QAM TD 04/15/17 09:00 05/15/17 08:59 04/15/17 08:06 1 PATCH Miscellaneous (Remove Lidoderm Patch) 1 ea DAILY@21 N/A 04/14/17 21:00 05/14/17 20:59 04/14/17 21:06 1 EA Ondansetron HCl (Zofran Inj) 4 mg Q4H PRN IV 04/14/17 05:00 05/14/17 04:59 Oxycodone/ Acetaminophen (Percocet 5-325mg Tab) `1-2 tabs for pain 1 tab ... Q4H PRN PO 04/14/17 05:00 04/28/17 04:59 04/15/17 06:44 2 TAB Ibuprofen (Advil Tab) 200 mg Q6H PRN PO 04/14/17 05:00 05/14/17 04:59 Hydromorphone HCl (Dilaudid Inj) 1 mg Q3H PRN IV 04/14/17 05:00 04/28/17 04:59 04/15/17 08:25 1 MG Lorazepam 0.5 mg/ Syringe 1 ml @ 1 mls/min Q4H PRN IV 04/14/17 05:00 05/14/17 04:59 Lorazepam (Ativan Inj) 0.5 mg Q4H PRN IV 04/14/17 05:00 05/14/17 04:59 Gabapentin (Neurontin Cap) 300 mg BID PO 04/15/17 09:00 05/15/17 08:59 UNV Methylprednisolone (Medrol Dosepak 4mg Tab, 6 Day Taper) 1 ea UD PO 04/15/17 09:00 05/15/17 08:59 UNV Review of Systems Denies any constitutional, cardiac, pulmonary, neurological, GI, , extremity, endocrine, neuro, ENT, dermatological, or musculoskeletal complaints other than stated in HPI Physical Exam Height & Weight: Height 5 feet, 7.00 inches. Weight 81.300 (Kilograms) 179 (Pounds) Last Vital Signs Documentation Date Time Temp Pulse Resp B/P (MAP) Pulse Ox O2 Delivery O2 Flow Rate FiO2 04/15/17 07:51 36.9 69 18 111/70 (84) 91 04/15/17 04:00 Room Air Exam: GENERAL: Mrs. Gross is a 52 y/o white female that appears her stated age. Speech and cognition is intact. Mood and affect is appropriate. She is laying in the hospital bed, in no acute distress. She does appear moderately uncomfortable with positional changes. HEAD: Normocephalic; atraumatic. EYES: Pupils are round, equal, and reactive to light; EOM intact. ENT: No external ear discharge or lesions. No rhinorrhea or epistaxis. No mucosal lesions. CHEST: Regular chest respiration and excursion. EXTREMITIES: 5/5 strength olf the bilateral lower extremities. Positive SLR on the right at 15 degrees. Negative SLR on the left. No tenderness of the bilateral greater trochanters. BACK: Well healed surgical incision of the lumbar spine. There is focal tenderness along the left L2-4 region. No midline or SI joint tenderness. There is no paravertebral, quadratus lumborum muscle spasm or myoneural trigger points. NEURO: CN II-XII grossly intact with no focal deficits noted. SKIN: No lesions, erythema, or rashes noted. Laboratory Laboratory Results (Last CBC): 04/14/17 05:55 Imaging MRI Findings 04/08/17 Lumbar MRI: There is a disc herniation eccentric to the left at L2-L3 with a large superiorly extruded fragment. This impinges on the exiting left L2 and the transiting left-sided nerve roots of this level. [place] Drug Monitoring Program Search Results: patient reviewed within database (There are multiple different prescribers of Percocet, Tramadol, Oxycodone over the last 2 weeks. ) Assessment 1. 2.5cm disc fragment at the left L2-3 region 2. Lumbar radiculitis 3. History of renal and ovarian ca 4. Episode of confusion which is likely related to alcohol consumption and medications Recommendations 1. Recommend a left L2-L3 transforaminal epidural steroid injection for the patient. Risks and benefits were reviewed with the patient. The procedure was explained to the patient and she is understanding. Patient would like to proceed with the procedure. As the patient has already received aspirin and Lovenox this morning the procedure will not be performed today in the hospital. She feels comfortable going home for the weekend with medications and coming into our office for an epidural steroid injection on Tuesday morning. She has been given procedure instructions. She will continue Percocet for pain relief over the weekend. 2. Medrol pack and gabapentin 300 mg twice daily has also been added to the patient's regimen. Thank you for the consultation and should the patient had any questions she has been given our contact information to reach us with any questions or concerns. [employer] Voice Recognition This chart was completed in part utilizing [employer] Voice Recognition Software. Random word insertions, pronoun errors, and incomplete sentences are an occasional consequence of this system due to software limitations and ambient noise. Any questions or concerns about the content, text or information contained within the body of this dictation should be directly addressed to the provider for clarification. Additional Copies To Wagner Thompson III, M.D.
--- NOTE | 2017-04-15 10:58 | Progress Note ---
Medicine Progress Note Date & Time of Visit: Apr 15, 2017 at 10:58 . Subjective No headaches, confusion, or other neurologic symptoms. Low back pain tolerable with Percocet. Seen this morning by Pain Management; arrangements being made for follow-up in Pain Clinic for epidural injection. . Objective Last 8 Hrs Date Time Temp Pulse Resp B/P (MAP) Pulse Ox O2 Delivery O2 Flow Rate FiO2 04/15/17 08:00 Room Air 04/15/17 07:51 36.9 69 18 111/70 (84) 91 04/15/17 04:00 Room Air 04/15/17 04:00 36.5 72 16 116/71 (86) 92 Room Air 04/15/17 03:33 94 Room Air Physical Exam: General- no distress Neuro- alert, oriented; PERRL, EOMI; no facial palsy; no dysarthria; upper extremity motor strength 5/5; motor testing of lower extremities limited due to severe back pain . Assessment & Plan ALTERED MENTAL STATUS Patient presented to ED with altered mental status. She was confused and had trouble with word finding. The was concern about possible transient right upper extremity weakness. She just started new medications for her back pain the day prior to admission ( prednisone, Toradol, Soma). The evening of admission she drank less than 1 alcoholic beverage; blood alcohol level was 45 mg/dL. Neuroimaging by CT and MRI did not show any acute vascular event or other abnormalities- minimal small vessel ischemic changes were noted. Altered mental status most likely secondary to combination of meds + alcohol. Soma discontinued. Neuro status returned to baseline. ABNORMAL NEUROIMAGING CT and MRI demonstrated a few small white matter lesions consistent with minimal small vessel ischemic disease or migraine headaches. Patient is a bit young to have small vessel ischemic changes. Low-dose aspirin and smoking cessation recommended. LDL cholesterol slightly elevated. Will defer lipid management to PCP.. LOW BACK PAIN Has been experiencing severe low back pain radiating to the left lower extremity. MRI of the lumbar spine 04/08/70 demonstrated disc herniation eccentric to the left at L2-L3 with a large superiorly extruded fragment. Multilevel lumbosacral spondylosis, DJD, postsurgical changes also noted. Patient been seen by Dr. Quiñones for outpatient orthopedic consultation. He started prednisone taper, Toradol, Soma the day prior to admission. Suspect that altered mental status discussed above due to combination of Soma and alcohol consumption. Patient seen in consultation by Dr. Quiñones. He does not recommend surgical intervention at this time. Pain Management consulted. Short course of Percocet and initiation of Medrol Dosepak and gabapentin 300 mg twice a day recommended. Arrangements being made for follow-up in Pain Clinic early next week for further management, probable epidural injection. SMOKING Importance of smoking cessation discussed. Patient will reach out to her PCP if she needs assistance. VTE PROPHYLAXIS SQ enoxaparin. DISPOSITION Discharge to home. Outpatient follow-up with Dr. Thompson. Orthopedics follow-up with Dr. Quiñones. Pain Management follow-up with Nakia Turner PA-C. . Consultants: Ortho- Dr. Quiñones Pain Management- CHONG Weber Procedures: CT head MRI brain MRA head . Current Inpatient Medications: Current Inpatient Medications Medications (Trade) Dose Ordered Sig/Lucero Route Start Time Stop Time Status Last Admin Dose Admin Ketorolac Tromethamine (Toradol Inj) 30 mg Q6H PRN IV 04/14/17 00:30 04/19/17 00:29 Miscellaneous Information (Pharmacist Discharge Med Rec Consult) 1 ea UD PRN N/A 04/14/17 01:45 05/14/17 01:44 Enoxaparin Sodium (Lovenox Inj) 40 mg Q24H SC 04/14/17 09:00 05/14/17 08:59 04/15/17 08:06 40 MG Acetaminophen (Tylenol Tab) 650 mg Q4H PRN PO 04/14/17 01:45 05/14/17 01:44 Nitroglycerin (Nitrostat Tab) 0.4 mg UD PRN SL 04/14/17 01:45 05/14/17 01:44 Miscellaneous (Iv Fluids Completed) 1 ea PRN PRN N/A 04/14/17 03:30 04/14/18 03:29 Aspirin (Ecotrin Tab) 81 mg QAM PO 04/15/17 09:00 05/15/17 08:59 04/15/17 08:05 81 MG Lidocaine (Lidoderm Patch 5%) 1 patch QAM TD 04/15/17 09:00 05/15/17 08:59 04/15/17 08:06 1 PATCH Miscellaneous (Remove Lidoderm Patch) 1 ea DAILY@21 N/A 04/14/17 21:00 05/14/17 20:59 04/14/17 21:06 1 EA Ondansetron HCl (Zofran Inj) 4 mg Q4H PRN IV 04/14/17 05:00 05/14/17 04:59 Oxycodone/ Acetaminophen (Percocet 5-325mg Tab) `1-2 tabs for pain 1 tab ... Q4H PRN PO 04/14/17 05:00 04/28/17 04:59 04/15/17 06:44 2 TAB Ibuprofen (Advil Tab) 200 mg Q6H PRN PO 04/14/17 05:00 05/14/17 04:59 Hydromorphone HCl (Dilaudid Inj) 1 mg Q3H PRN IV 04/14/17 05:00 04/28/17 04:59 04/15/17 08:25 1 MG Lorazepam 0.5 mg/ Syringe 1 ml @ 1 mls/min Q4H PRN IV 04/14/17 05:00 05/14/17 04:59 Lorazepam (Ativan Inj) 0.5 mg Q4H PRN IV 04/14/17 05:00 05/14/17 04:59 Gabapentin (Neurontin Cap) 300 mg BID PO 04/15/17 09:00 05/15/17 08:59 UNV Methylprednisolone (Medrol Dosepak 4mg Tab, 6 Day Taper) 1 ea UD PO 04/15/17 09:00 05/15/17 08:59 UNV
[2017-04-15] MEDS ORDERED: ASPI-428 PO (11:03)
[2017-04-15] MEDS ORDERED: METH4PAK PO (11:03)
[2017-04-15] MEDS ORDERED: GABA1CAP4 PO (11:03)
[2017-04-15] MEDS ORDERED: OXYC-57 PO (11:03)
[2017-04-15 11:09] VITALS: BP 111/70; PULSE 69; TEMP 36.9; O2SAT 91
--- NOTE | 2017-04-15 11:32 | Discharge Instructions ---
Discharge Instructions Date of Service Apr 15, 2017. Admission Reason for Admission: confusion . Discharge Discharge Diagnosis / Problem: confusion- no sign of a stroke or ministroke, probably related to meds Discharge Goals Goal(s): Decrease discomfort, Improve function, Increase independence Activity Recommendations Activity Limitations: as noted below Lifting Limitations: no more than 10 pounds Exercise/Sports Limitations: gradually increase as tolerated . Instructions / Follow-Up Instructions / Follow-Up APPOINTMENTS: FAMILY MEDICINE Dr. Thompson as needed. ORTHOPEDICS Dr. Quiñones as scheduled. PAIN MANAGEMENT Nakia Turner PA-C 04/18/17 as scheduled. INSTRUCTIONS: Stop carisoprodol (Soma). It probably caused your confusion. Stop prednisone taper. Use methylprednisolone taper (Medrol Dosepak) as instructed. Start gabapentin (Neurontin) 300 mg twice a day to help with pain. As needed pain medicines: moderate pain acetaminophen (Tylenol Extra Strength) 500 mg pills, 1 pill every 6 hours as needed severe pain ketorolac (Toradol) 10 mg, 1 pill every 6 hours as needed very severe pain acetaminophen / oxycodone (Percocet) 325/5, 2 pills every 6 hours as needed Precautions with pain medicines: Don't use ketorolac (Toradol) and other anti-inflammatory medicines like ibuprofen (Advil) or naproxen (Aleve) at the same time- increased risk of side effects. Don't take more than 3000 mg of acetaminophen in a 24 hour period (present in both Tylenol and Percocet). Don't drive after taking Percocet. Please quit smoking. Dr. Thompson can help you if needed. Suggest taking coated aspirin (Ecotrin) 81 mg daily to help prevent disease in small blood vessels in brain. Hold for scheduled procedures like back injections or back surgery. Seek medical attention if you have: * worsening pain / weakness * abdominal pain, nausea, vomiting * diarrhea, dark stools or bloody stools * any unanswered questions or concerns Call 451 if symptoms are severe. Call if you have any questions or problems. My cell # is [phone]. You can also reach a [facility] hospitalist on duty at [facility] 24 hours a day by calling [phone]. Please take good care of yourself. Wagner Arrington . Current Hospital Diet Patient's current hospital diet: AHA Diet (Heart Healthy) Discharge Diet Recommended Diet: AHA Diet (Heart Healthy) Pending Studies Studies pending at discharge: no Laboratory Results Lipid Panel Test 04/14/17 05:55 Range/Units Triglycerides Level 147 0-150 mg/dl Cholesterol Level 202 H 0-200 mg/dl HDL Cholesterol 54 mg/dl Cholesterol/HDL Ratio 3.7 LDL Cholesterol, Calculated 119 mg/dl Medical Emergencies . Who to Call and When: Medical Emergencies: If at any time you feel your situation is an emergency, please call 911 immediately. . Non-Emergent Contact Non-Emergency issues call your: Primary Care Provider, Hospital Doctor . . "Provider Documentation" section prepared by Wagner Arrington. . VTE Core Measure Inpt VTE Proph given/why not?: Enoxaparin (Lovenox)SQ
[2017-04-15] MEDS ORDERED: METHYLPREDNISOLONE 4 MG TAB PO SCH ×2 (12:00→13:00)
[2017-04-16] MEDS ORDERED: METHYLPREDNISOLONE 4 MG TAB PO SCH ×2 (07:00→21:00)
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
[2017-04-17 03:17] LABS: COD UR NEGATIVE NG/ML (CUTOFF=50); HYDROCOD UR NEGATIVE NG/ML (CUTOFF=50); HYDROMOR UR 992 NG/ML (CUTOFF=50); MORPHINE UR NEGATIVE NG/ML (CUTOFF=50); NORHYDROCODONE CONF UR NEGATIVE NG/ML (CUTOFF=50); OXYMORPH UR 271 NG/ML (CUTOFF=50)
[2017-04-17] MEDS ORDERED: METHYLPREDNISOLONE 4 MG TAB PO SCH (07:00)
[2017-04-18] MEDS ORDERED: METHYLPREDNISOLONE 4 MG TAB PO SCH (07:00)
[2017-04-19] MEDS ORDERED: METHYLPREDNISOLONE 4 MG TAB PO SCH (07:00)
[2017-04-20] MEDS ORDERED: METHYLPREDNISOLONE 4 MG TAB PO SCH (07:00)
--- NOTE | 2017-05-23 23:36 | EMERGENCY ROOM VISIT NOTE ---
History Report prepared by Alessandro: Mehreen Dudley Under the Supervision of: Dr. Wagner Borges M.D. First contact with patient: 20:46 Chief Complaint: OTHER COMPLAINT Stated Complaint: REACTION TO MEDICATION, HALLUCINATIONS History of Present Illness The patient is a 52 year old female who presents to the Emergency Room with complaints of resolved chills and shakiness occurring a few minutes prior to arrival. As per friend, the patient was at baseline around 1915. A few minutes prior to arrival, the patient had been at the bar for about 5 minutes when she started having some shakiness, chills, trouble finding words, and confusion. The episode lasted for about 10-15 minutes. The patient did not lose consciousness. She currently feels at baseline. She denies any history of similar symptoms. She had a small sip of alcohol today at the bar but otherwise denies having any alcoholic drinks. She has been having back pain for the past month. She has a history of herniated discs. She was evaluated by Dr. Quiñones yesterday who placed her on Prednisone, Toradol, and Soma. She is no longer on oxycodone. Pt denies headache, fevers, diaphoresis, visual changes, neck pain, chest pain, breathing difficulties, nausea, vomiting, abdominal pain, melena, hematochezia, urinary symptoms, numbness, weakness, lymphadenopathy, rash, or other complaints. Source of History: patient, friend Onset: a few minutes prior to arrival Position: other (global) Quality: other (chills and shakiness) Timing: resolved Associated Symptoms: + back pain Review of Systems See HPI for pertinent positives and negatives. A total of ten systems were reviewed and were otherwise negative. Past Medical & Surgical Medical Problems: (1) History of ovarian carcinoma (2) History of renal cell carcinoma (3) Lumbar disc disease with radiculopathy (4) Renal cell carcinoma of right kidney Surgical Problems: (1) H/O total knee replacement (2) Status post arthroscopic knee surgery (3) Status post lumbar laminectomy (4) Status post partial nephrectomy Family History Cancer FH: heart disease Kidney disease Kidney stones Social History Smoking Status: Former Smoker Alcohol Use: occasionally Drug Use: none Marital Status: Housing Status: lives with family Occupation Status: employed Current/Historical Medications Scheduled Aspirin (Ecotrin Low Strength), 81 MG PO DAILY Gabapentin (Gabapentin), 300 MG PO BID Scheduled PRN Acetaminophen (Tylenol), 1,000 MG PO Q6H PRN for Pain Ketorolac Tromethamine (Toradol), 10 MG PO UD PRN for Pain Oxycodone/Acetaminophen 5MG/325MG (Percocet 5MG/325MG), 2 TABLETS PO Q6H PRN for severe pain Allergies Coded Allergies: No Known Allergies (Unverified , 04/07/17) Physical Exam Vital Signs Date Time Temp Pulse Resp B/P (MAP) Pulse Ox O2 Delivery O2 Flow Rate FiO2 04/14/17 01:29 68 20 123/94 95 Room Air 04/14/17 00:38 81 20 135/95 95 04/13/17 22:59 95 20 125/86 98 04/13/17 21:12 100 20 123/88 96 Room Air 04/13/17 21:00 96 Room Air 04/13/17 20:39 36.5 108 20 124/85 97 Room Air 04/13/17 20:36 110 Physical Exam GENERAL: Awake, alert, uncomfortable-appearing, in no distress HENT: Normocephalic, atraumatic. Oropharynx unremarkable. EYES: Normal conjunctiva. Sclera non-icteric. NECK: Supple. No nuchal rigidity. FROM. No JVD. RESPIRATORY: Clear to auscultation. CARDIAC: Tachycardic rate, normal rhythm. Extremities warm and well perfused. Pulses equal. ABDOMEN: Soft, non-distended. No tenderness to palpation. No rebound or guarding. No masses. RECTAL: Deferred. MUSCULOSKELETAL: Chest examination reveals no tenderness. The back is symmetrical on inspection without obvious abnormality. There is no CVA tenderness to palpation. No joint edema. LOWER EXTREMITIES: Calves are equal size bilaterally and non-tender. No edema. No discoloration. NEURO: Normal sensorium. No sensory or motor deficits noted. GCS: 15. SKIN: No rash or jaundice noted. Medical Decision & Procedures ER Provider Diagnostic Interpretation: CT: Radiology results as stated below per my review and radiologist interpretation CT HEAD WITHOUT CONTRAST (CT) CLINICAL HISTORY: Confusion. Hallucinations. COMPARISON STUDY: No previous studies for comparison. TECHNIQUE: Axial CT of the brain is performed from the vertex to the skull base. IV contrast was not administered for this examination. CT DOSE: 537.48 mGy.cm FINDINGS: No intra or extra-axial mass lesions are visualized. There is no CT evidence of acute cortical infarction. There is no evidence of midline shift. There is no acute hemorrhage. No calvarial fractures are visualized. There are minimal white matter hypodensities likely on a small vessel basis. There is no evidence of pathologic ventricular dilatation. There is no evidence of acute sinusitis IMPRESSION: No acute intracranial findings Electronically signed by: Jaren Love M.D. 04/13/2017 9:41 PM Dictated Date/Time: 04/13/2017 9:40 PM Laboratory Results 04/13/17 21:24 Test 04/13/17 21:24 04/13/17 23:35 Immature Granulocyte % (Auto) 0.2 % White Blood Count 10.97 K/uL (4.8-10.8) Red Blood Count 4.32 M/uL (4.2-5.4) Hemoglobin 14.1 g/dL (12.0-16.0) Hematocrit 42.3 % (37-47) Mean Corpuscular Volume 97.9 fL (80-100) Mean Corpuscular Hemoglobin 32.6 pg (25-34) Mean Corpuscular Hemoglobin Concent 33.3 g/dl (32-36) Platelet Count 409 K/uL (130-400) Mean Platelet Volume 9.4 fL (7.4-10.4) Neutrophils (%) (Auto) 68.3 % Lymphocytes (%) (Auto) 26.3 % Monocytes (%) (Auto) 4.2 % Eosinophils (%) (Auto) 0.5 % Basophils (%) (Auto) 0.5 % Neutrophils # (Auto) 7.51 K/uL (1.4-6.5) Lymphocytes # (Auto) 2.88 K/uL (1.2-3.4) Monocytes # (Auto) 0.46 K/uL (0.11-0.59) Eosinophils # (Auto) 0.05 K/uL (0-0.5) Basophils # (Auto) 0.05 K/uL (0-0.2) Immature Granulocyte # (Auto) 0.02 K/uL (0.00-0.02) Prothrombin Time 10.0 SECONDS (9.0-12.0) Prothromb Time International Ratio 0.9 (0.9-1.1) Activated Partial Thromboplast Time 24.5 SECONDS (21.0-31.0) Partial Thromboplastin Ratio 0.9 Anion Gap 9.0 mmol/L (3-11) Est Creatinine Clear Calc Drug Dose 74.1 ml/min Estimated GFR () 80.8 Estimated GFR (Non- 69.7 BUN/Creatinine Ratio 19.5 (10-20) Calcium Level 8.4 mg/dl (8.5-10.1) Magnesium Level 2.4 mg/dl (1.8-2.4) Total Bilirubin 0.2 mg/dl (0.2-1) Direct Bilirubin < 0.1 mg/dl (0-0.2) Aspartate Amino Transf (AST/SGOT) 11 U/L (15-37) Alanine Aminotransferase (ALT/SGPT) 24 U/L (12-78) Alkaline Phosphatase 85 U/L (45-117) Troponin I < 0.015 ng/ml (0-0.045) Total Protein 6.8 gm/dl (6.4-8.2) Albumin 3.3 gm/dl (3.4-5.0) Lipase 112 U/L (73-393) Thyroid Stimulating Hormone (TSH) 0.768 uIu/ml (0.300-4.500) Ethyl Alcohol mg/dL 45.0 mg/dl (0-3) Urine Color YELLOW Urine Appearance CLEAR (CLEAR) Urine pH 5.0 (4.5-7.5) Urine Specific [place] 1.022 (1.000-1.030) Urine Protein NEG (NEG) Urine Glucose (UA) NEG (NEG) Urine Ketones NEG (NEG) Urine Occult Blood NEG (NEG) Urine Nitrite NEG (NEG) Urine Bilirubin NEG (NEG) Urine Urobilinogen NEG (NEG) Urine Leukocyte Esterase NEG (NEG) Urine Opiates Screen POS (NEG) Urine Codeine Confirmation (GC/MS) NEGATIVE NG/ML (CUTOFF=50) Urine Morphine Confirm (GC/MS) NEGATIVE NG/ML (CUTOFF=50) Urine Hydrocodone Confirm (GC/MS) NEGATIVE NG/ML (CUTOFF=50) Urine Norhydrocodone NEGATIVE NG/ML (CUTOFF=50) Urine Noroxycodone 170 NG/ML (CUTOFF=50) Urine Oxycodone Confirm (GC/MS) NEGATIVE NG/ML (CUTOFF=50) Urine Oxymorphone Confirm (GC/MS) 271 NG/ML (CUTOFF=50) Urine Methadone, Qualitative NEG (NEG) Urine Hydromorphone Confirm (GC/MS) 992 NG/ML (CUTOFF=50) Urine Barbiturates NEG (NEG) Urine Phencyclidine (PCP) Level NEG (NEG) Ur Amphetamine/Methamphetamine NEG (NEG) MDMA (Ecstasy) Screen NEG (NEG) Urine Benzodiazepines Screen NEG (NEG) Urine Cocaine Metabolite NEG (NEG) Urine Marijuana (THC) NEG (NEG) Date/Time Source Procedure Growth Status 04/13/17 23:35 Urine , Clean Catch Urine Culture - Final MORE THAN THREE TYPES OF ORGANISMS AR... Complete Laboratory results reviewed by me Medications Administered Medications (Trade) Dose Ordered Sig/Lucero Route Start Time Stop Time Status Last Admin Dose Admin Hydromorphone HCl (Dilaudid Inj) 0.5 mg NOW STAT IV 04/13/17 22:10 04/13/17 22:11 DC 04/13/17 22:10 0.5 MG Sodium Chloride 1,000 ml @ 125 mls/hr Q8H STAT IV 04/13/17 23:29 04/14/17 02:29 DC 04/13/17 23:29 125 MLS/HR Ketorolac Tromethamine (Toradol Inj) 30 mg NOW STAT IV 04/14/17 00:28 04/14/17 00:31 DC 04/14/17 00:28 30 MG ECG Indication: other (resolved confusion) Rate (beats per minute): 103 Rhythm: sinus tachycardia Findings: no acute ischemic change, no ectopy ED Course 2045: The patient was evaluated in room B12A. A complete history and physical exam was performed. Medication Reconciliation: I attest that I have personally reviewed the patient' s current medication list 2210: Dilaudid Inj 0.5 mg IV 2158: I reevaluated the patient who is still at baseline. 2329: Sodium Chloride 1000 ml @ 125 mls/hr IV 2333: Upon reexamination, the patient was feeling better. I discussed the test results and treatment plan with her. She is worried about the whole event because it was completely unusual for her. The patient will be evaluated for further management. 2340: I discussed the patient's case with Dr. Yeager, from [facility]. Medical Decision Nursing notes reviewed and agree them. The patient's history was concerning for altered mental status. Differential diagnosis: Etiologies such as CVA, infection, hypoglycemia, electrolyte abnormalities, cardiac sources, intracerebral event, toxicologic, neurologic, as well as others were entertained. Physical examination: As above ER treatment provided: IV Lock Normal saline hydration. Dilaudid On reassessment the patient felt better. Diagnostics interpretation by me: ECG: Sinus tachycardia The labs revealed an unremarkable CBC and chemistry panel. Imaging studies: CT as above. The patient had experienced an episode of expressive aphasia and confusion. A consultation will placed with Internal medicine. Consultation: A consultation was placed with the hospitalist. The case was discussed and diagnostics were reviewed. The patient was evaluated in the ER for further treatment. The chart was completed utilizing [employer] Speech voice recognition software. Grammatical errors, random word insertions, pronoun errors, and incomplete sentences are an occasional consequence of this system due to software limitations, ambient noise, and hardware issues. Any formal questions or concerns about the content, text, or information contained within the body of this dictation should be directly addressed to the physician for clarification. Consults Time Called: 2337 Consulting Physician: Dr. Yeager, from [facility] Returned Call: 2340 I discussed the patient's case with Dr. Yeager, from [facility]. Impression Primary Impression: Altered mental status Scribe Attestation The scribe's documentation has been prepared under my direction and personally reviewed by me in its entirety. I confirm that the note above accurately reflects all work, treatment, procedures, and medical decision making performed by me. Departure Information Dispostion Being Evaluated By Hospitalist Prescriptions Oxycodone/Acetaminophen 5MG/325MG (PERCOCET 5MG/325MG) Tab 2 TABLETS PO Q6H Y for severe pain, #40 TAB Prov: Wagner Arrington M.D. 04/15/17 Aspirin (ECOTRIN LOW STRENGTH) 81 Mg Tab 81 MG PO DAILY, #30 TAB 11 Refills Prov: Wagner Arrington M.D. 04/15/17 Gabapentin (Gabapentin) 300 Mg Cap 300 MG PO BID, #60 CAP 1 Refill Prov: Wagner Arrington M.D. 04/15/17 Referrals Loraine Murillo MD (PCP) Patient Instructions My [facility]
== END 2017-04-15 13:20 | disposition home or self-care (01) ==
LOC: EDBD 20:22 → C.EDB 20:24 → C.MED 04-14 01:43
PROVIDERS: ADMIT Hospitalist; ATTEND Hospitalist
DX: R41.82 Altered mental status, unspecified (principal); M51.16 Intervertebral disc disorders with radiculopathy, lumbar region; F17.210 Nicotine dependence, cigarettes, uncomplicated; Z85.43 Personal history of malignant neoplasm of ovary; Z85.528 Personal history of other malignant neoplasm of kidney; Z79.899 Other long term (current) drug therapy

== ENCOUNTER 2021-09-22 00:31 | Inpatient (IN) ==
[2021-09-22] MEDS ORDERED: KETOROLAC TROMETHAMINE 60 MG/2 ML VIAL IM STA (01:00)
--- NOTE | 2021-09-22 01:09 | Emergency Department Note ---
History of Present Illness General Chief complaint: Back Injury/Pain Stated complaint: RT SIDED LWR BACK PAIN RADIATING DOWN RT LG Time Seen by Provider: 09/22/21 00:46 History of Present Illness Maximum Pain Intensity: 8 This is a 56-year-old female presenting to the emergency department for evaluation of right-sided low back pain radiating down her right leg. The patient has a history of sciatica and this seems consistent with her bad flareups. She has had injections through interventional pain management as well as multiple surgical interventions. The patient states that she had a mechanical fall in her bathroom 1 week ago. She had difficulty getting out of bed for the first few days, but over the weekend she did improve. She takes Percocet on a daily basis, but states that she has not taken any of this in the past 12 hours. She has not had fevers or chills. No difficulty controlling her bladder or bowel movements. Movement makes her symptoms worse. She rates the discomfort an 8/10. Home Medications Medication Instructions Recorded Confirmed Type amlodipine 5 mg tablet 5 mg PO DAILY 09/22/21 09/22/21 History aspirin 81 mg tablet,delayed 81 mg PO DAILY 09/22/21 09/22/21 History release (Aspirin Low Dose) cyclobenzaprine 10 mg tablet 10 mg PO TID 09/22/21 09/22/21 History lisinopril 5 mg tablet 5 mg PO DAILY 09/22/21 09/22/21 History multivit with 1 tab PO DAILY 09/22/21 09/22/21 History vrclkkqo-otzy-MI-lutein 8 mg iron-400 mcg-300 mcg tablet (Multivitamin Women 50 Plus) oxycodone-acetaminophen 5 mg-325 1 - 2 tab PO Q8 PRN MDD 5 tabs 09/22/2108/04 History mg tablet Allergies Allergy/AdvReac Type Severity Reaction Status Date / Time carisoprodol Allergy Unknown Seizure Verified 09/22/21 02:08 Past Med/Surg History Medical History History of renal cell carcinoma "status post partial nephrectomy 2014" Lumbar disc disease with radiculopathy Renal cell carcinoma of right kidney Surgical History Status post arthroscopic knee surgery Status post lumbar laminectomy Social History Smoking Status: Current every day smoker Preferred Language: Latvian Feels Safe at Home: Yes Review of Systems A total of 10 systems reviewed and were otherwise negative Physical Exam Vital Signs Vital Signs - 24 hr 09/22/21 00:34 09/22/21 02:10 09/22/21 05:42 Temperature 36.6 C 36.6 C 36.4 C L Temperature Source Temporal Artery Scan Oral Oral Pulse Rate 99 H Pulse Rate [Right Finger] 78 82 Pulse Rhythm Regular Pulse Rhythm [Right Finger] Regular Regular Pulse Strength Normal Pulse Strength [Right Finger] Normal Normal Respiratory Rate 100 H 16 18 Respiratory Effort / Characteristics Non-Labored Spontaneous Non-Labored Spontaneous Non-Labored Spontaneous Respiratory Depth Normal Normal Normal Respiratory Pattern Regular Blood Pressure 135/87 Blood Pressure [Right Arm] 105/77 139/100 Blood Pressure Mean 103 Blood Pressure Mean [Right Arm] 86 113 Blood Pressure Position Sitting Blood Pressure Position [Right Arm] Lying Pulse Oximetry 98 98 95 Oxygen Delivery Method Room Air Room Air Room Air Sepsis Recent Fever Within 48 Hours No Sepsis New/Unexplained Change in Mental Status N/A Sepsis Action Taken by Nursing No Action Required VITALS: Vitals are noted on the nurse's note and reviewed by myself. Vital signs stable. GENERAL: Well-developed, well-nourished, white female, who is mildly uncomfortable appearing but nontoxic. HEAD: Normocephalic atraumatic. MOUTH: Mucous membranes moist. Tonsils are not enlarged. Pharynx without erythema, blood, or exudate. Uvula midline. Airway patent. NECK: Supple without nuchal rigidity. No lymphadenopathy. No thyromegaly. Cervical spine is nontender. HEART: Regular rate and rhythm without murmurs gallops or rubs. LUNGS: Clear to auscultation bilaterally without wheezes, rales or rhonchi. No retractions or accessory muscle use. BACK: Tenderness along the right side lower lumbar spine is noted. No saddle paresthesias. Positive straight leg raise. ABDOMEN: Positive normal bowel sounds x 4. Soft, nontender, without masses or organomegaly. No guarding or rebound tenderness. MUSCULOSKELETAL: No muscle atrophy, erythema, or edema noted. NEURO: Patient was alert and oriented to person place and time. CN II through XII grossly intact. No focal neurological deficits. Deep tendon reflexes 2+ throughout. Course Administered Medications Sodium Chloride (Nss 1000ml) 1,000 mls @ 100 mls/hr IV .Q10H SOPHIA Stop: 10/22/21 06:29 Last Admin: 09/22/21 06:51 Dose: 100 mls/hr Documented by: [id number] Lidocaine (Lidocaine 5% 1 Patch) 1 patch TD QAM SOPHIA Stop: 10/22/21 06:26 Last Admin: 09/22/21 06:40 Dose: 1 patch Documented by: [id number] Discontinued Medications Hydromorphone HCl (Hydromorphone Inj 1 Mg/Ml Syringe) 1 mg IM NOW STA Stop: 09/22/21 02:23 Last Admin: 09/22/21 02:36 Dose: 1 mg Documented by: [id number] Hydromorphone HCl (Hydromorphone Inj 0.5 Mg/0.5 Ml Syr) 0.5 mg IV Q15M PRN PRN Reason: Pain Stop: 10/06/21 05:32 Last Admin: 09/22/21 05:40 Dose: 0.5 mg Documented by: [id number] Ketorolac Tromethamine (Ketorolac Tromethamine 60 Mg/2 Ml Vial) 60 mg IM NOW STA Stop: 09/22/21 01:01 Last Admin: 09/22/21 01:18 Dose: 60 mg Documented by: [id number] Methylprednisolone (Methylprednisolone 40 Mg/Ml Vial) 125 mg IM NOW STA Stop: 09/22/21 01:01 Last Admin: 09/22/21 01:50 Dose: Not Given Documented by: [id number] Methylprednisolone (Methylprednisolone 125 Mg/2 Ml Vial) Confirm Administered D ose 125 mg .ROUTE .STK-MED ONE Stop: 09/22/21 01:15 Last Admin: 09/22/21 01:18 Dose: 125 mg Documented by: [id number] Medical Decision Making Differential Diagnosis Differential diagnosis: Etiologies such as muscular strain, fracture, metastatic disease, disc herniation, sciatica, epidural abscess, vertebral osteomyelitis, discitis, spinal epidural hematoma, cord compression, cauda equina/conus medullaris syndrome, aortic disease, infection, shingles, renal colic UTI/pyelonephritis, gastrointestinal, acute exacerbation of chronic back pain, as well as others were entertained. Laboratory Data Result diagrams: 09/22/21 04:10 09/22/21 04:10 Lab Results 09/22/21 09/22/21 09/22/21 Range/Units 04:10 04:10 04:18 WBC 13.42 H (4.8-10.8) K/uL RBC 4.02 L (4.2-5.4) M/uL Hgb 13.9 (12.0-16.0) g/dL Hct 40.4 (37-47) % MCV 100.5 H (80-100) fL MCH 34.6 H (25-34) pg MCHC 34.4 (32-36) g/dL RDW Std Deviation 46.5 H (36.4-46.3) fL RDW Coeff of Kelly 12.7 (11.5-14.5) % Plt Count 464 H (130-400) K/uL MPV 10.2 (7.4-10.4) fL Immature Gran % (Auto) 0.3 % Neut % (Auto) 83.7 % Lymph % (Auto) 14.5 % [place] % (Auto) 1.0 % Eos % (Auto) 0.2 % Baso % (Auto) 0.3 % Neut # (Auto) 11.23 H (1.4-6.5) K/uL Lymph # (Auto) 1.95 (1.2-3.4) K/uL [place] # (Auto) 0.13 (0.11-0.59) K/uL Eos # (Auto) 0.03 (0-0.5) K/uL Baso # (Auto) 0.04 (0-0.2) K/uL Immature Gran # (Auto) 0.04 H (0.00-0.02) K/uL Sodium 139 (136-145) mmol/L Potassium 4.4 (3.5-5.1) mmol/L Chloride 107 (98-107) mmol/L Carbon Dioxide 28 (21-32) mmol/L Anion Gap 4.0 (3-11) BUN 23 H (7-18) mg/dl Creatinine 0.83 (0.6-1.2) mg/dl Est Cr Clr Drug Dosing 71.8 ml/min Est GFR ( Amer) 90.1 ml/min Est GFR (Non-Af Amer) 77.7 ml/min BUN/Creatinine Ratio 27.8 H (10-20) Glucose 129 H (70-99) mg/dl Calcium 8.9 (8.5-10.1) mg/dl Magnesium 2.4 Cancelled (1.8-2.4) mg/dl Total Bilirubin 0.3 (0.2-1) mg/dl AST 19 (15-37) U/L ALT 48 (12-78) U/L Alkaline Phosphatase 106 (45-117) U/L Total Protein 7.3 (6.4-8.2) gm/dl Albumin 3.4 (3.4-5.0) gm/dl Globulin 3.9 (2.5-4.0) gm/dl Albumin/Globulin Ratio 0.9 (0.9-2) Urine Color Urine Appearance (Clear) Urine pH (4.5-7.5) Ur Specific [place] (1.000-1.030) Urine Protein (Negative) Urine Glucose (UA) (Negative) Urine Ketones (Negative) Urine Blood (Negative) Urine Nitrite (Negative) Urine Bilirubin (Negative) Urine Urobilinogen (Negative) Ur Leukocyte Esterase (Negative) Urine WBC (Auto) (0-5) /hpf Urine RBC (Auto) (0-4) /hpf U Hyaline Cast (Auto) (0-5) /lpf U Epithel Cells (Auto) (0-5) /lpf Urine Bacteria (Auto) (Negative) COVID-19 Eval Order SARS-CoV-2 (PCR) (Negative) 09/22/21 09/22/21 09/22/21 Range/Units 05:00 05:47 05:47 WBC (4.8-10.8) K/uL RBC (4.2-5.4) M/uL Hgb (12.0-16.0) g/dL Hct (37-47) % MCV (80-100) fL MCH (25-34) pg MCHC (32-36) g/dL RDW Std Deviation (36.4-46.3) fL RDW Coeff of Kelly (11.5-14.5) % Plt Count (130-400) K/uL MPV (7.4-10.4) fL Immature Gran % (Auto) % Neut % (Auto) % Lymph % (Auto) % [place] % (Auto) % Eos % (Auto) % Baso % (Auto) % Neut # (Auto) (1.4-6.5) K/uL Lymph # (Auto) (1.2-3.4) K/uL [place] # (Auto) (0.11-0.59) K/uL Eos # (Auto) (0-0.5) K/uL Baso # (Auto) (0-0.2) K/uL Immature Gran # (Auto) (0.00-0.02) K/uL Sodium (136-145) mmol/L Potassium (3.5-5.1) mmol/L Chloride (98-107) mmol/L Carbon Dioxide (21-32) mmol/L Anion Gap (3-11) BUN (7-18) mg/dl Creatinine (0.6-1.2) mg/dl Est Cr Clr Drug Dosing ml/min Est GFR ( Amer) ml/min Est GFR (Non-Af Amer) ml/min BUN/Creatinine Ratio (10-20) Glucose (70-99) mg/dl Calcium (8.5-10.1) mg/dl Magnesium (1.8-2.4) mg/dl Total Bilirubin (0.2-1) mg/dl AST (15-37) U/L ALT (12-78) U/L Alkaline Phosphatase (45-117) U/L Total Protein (6.4-8.2) gm/dl Albumin (3.4-5.0) gm/dl Globulin (2.5-4.0) gm/dl Albumin/Globulin Ratio (0.9-2) Urine Color [place] Urine Appearance Clear (Clear) Urine pH 5.0 (4.5-7.5) Ur Specific [place] 1.018 (1.000-1.030) Urine Protein Trace H (Negative) Urine Glucose (UA) Negative (Negative) Urine Ketones Trace H (Negative) Urine Blood 3+ H (Negative) Urine Nitrite Negative (Negative) Urine Bilirubin Negative (Negative) Urine Urobilinogen Negative (Negative) Ur Leukocyte Esterase Trace H (Negative) Urine WBC (Auto) 5-10 H (0-5) /hpf Urine RBC (Auto) >30 H (0-4) /hpf U Hyaline Cast (Auto) 1-5 (0-5) /lpf U Epithel Cells (Auto) 10-20 H (0-5) /lpf Urine Bacteria (Auto) Negative (Negative) COVID-19 Eval Order Covid19 at [facility] SARS-CoV-2 (PCR) NEGATIVE (Negative) Imaging Data Radiologist's Impression: Preliminary Findings Only See Final Report For Complete Findings CT L SPINE: Comparison to MRI lumbar spine from April 26, 2018. Partial visualization of an at least 8 mm calculus in the lower right ureter with mild to moderate right hydronephrosis and hydroureter. There is a nonobstructive calyceal calculus in the lower pole of the right kidney measuring at least 8 mm. The lumbar spine vertebral body heights are normally maintained. No compression fracture or burst fracture is seen. Moderate to severe multilevel loss of disc space height throughout the lumbar spine as well as mild multilevel degenerative facet arthrosis. Previous laminectomy at L4-5 and L5-S1. No acute lumbar spine fracture or traumatic subluxation is seen. Axial soft tissue images show seen by findings of the following levels: L1-2: Calcified 5 mm left posterior disc bulge or disc marginal osteophyte formation narrowing the thecal sac to 9 mm. L2-3: Broad-based posterior disc bulge measuring 4-5 mm narrowing the thecal sac to 8-9 mm. L3-4: 3 mm posterior disc marginal osteophyte. The thecal sac is widely patent. L4-5: 3 mm posterior disc marginal osteophyte. The thecal sac is widely patent. There is moderate bilateral neural foraminal narrowing. L5-S1: 2 mm posterior disc marginal osteophyte. The thecal sac is widely patent. There is severe bilateral neural foraminal narrowing. MDM Narrative Physical exam and history were performed. Nursing notes, EMR, and Medication List were personally reviewed. Patient appears to have right-sided back pain after a fall several days ago. The patient does seem quite uncomfortable on presentation. She did drive to the ER, and if possible, would like to drive home. The patient was given IM Toradol and IM Solu-Medrol. Because of the possible traumatic nature of her injury CT scan of the lumbar spine was performed. CT scan was reviewed by myself and radiology as above. The patient does not have acute bony pathology, and does appear to have some chronic disc issues. The patient unexpectedly also seems to have an 8 mm obstructing ureteral calculi on the right. She was given IM Dilaudid. I did update the patient regarding this finding, and she states that she has known kidney stones, and is not sure if this is new versus simply her old stones. She does follow with [facility] urology, however this is mostly for her renal cell carcinoma history. She has had some recent blood work and last CT imaging was in 2019, where she states that she had 4 small intrarenal stones on the right side. Initially I was not able to access the [facility] record, t herefore I did have nurses establish IV access and collect labs. Urine was ordered, however did take the patient about 90 minutes to provide a urine sample. The patient's blood work is as above and was reviewed. She does have a slightly elevated white blood cell count of 13,000. She does not have significant anemia or gross electrolyte imbalance. Glucose is 129. Transaminases are not diagnos tic. She does have 3+ blood and trace ketones and trace esterase in her urine. I did ultimately get access to the patient's [facility] record, and the CT scan that she had in February 2020 did show intrarenal calculi, and not ureteral calculi. Therefore I do suspect that the 8 mm ureteral calculi that she has at this point is a new, and independent from her chronic back pain and not related to her fall. The patient was reevaluated multiple times throughout the course of her stay. She initially had much better improvement of her symptoms with the IV Dilaudid, however she did begin to redevelop increased pain and discomfort. I did place an order for as needed pain medication, and she did much better with this. I did discuss options of care with the patient, and she is worried that her at home pain medication will not handle her pain, and based on the size of her stone this is certainly a reasonable consideration. The patient case was discussed with the on-call hospitalist, who will evaluate the patient at bedside. Case was also discussed with the on-call PA for urology, who also e valuated the patient. Please see their dictations for further patient course, plan, disposition. The chart was completed utilizing [employer] Voice Recognition Software. Grammatical errors, random word insertions, pronoun errors, and incomplete sentences are an occasional consequence of this system due to software limitations, ambient noise, and hardware issues. Any formal questions or conc erns about the content, text, or information contained within the body of this dictation should be directly addressed to the provider for clarification. . Impression & Plan Acute right flank pain, Right ureteral calculus, Hydronephrosis with obstructing calculus Discharge Plan Visit Data Chief Complaint: Back Injury/Pain Stated Complaint: RT SIDED LWR BACK PAIN RADIATING DOWN RT LG ED Provider: Flavio Flores ED Midlevel Provider: Thor Leonard Discharge Problem: Acute right flank pain, Right ureteral calculus, Hydronephrosis with obstructing calculus Forms Stand Alone Forms: [facility] [place] [employer] Prescriptions Prescriptions: No Action lisinopril 5 mg tablet 5 mg PO DAILY RF: 0 cyclobenzaprine 10 mg tablet 10 mg PO TID RF: 0 aspirin [Aspirin Low Dose] 81 mg Tablet,Delayed Release (Dr/Ec) 81 mg PO DAILY RF: 0 Multivitamin Women 50 Plus 8 mg iron-400 mcg-300 mcg Tablet 1 tab PO DAILY RF: 0 amlodipine 5 mg tablet 5 mg PO DAILY RF: 0 oxycodone-acetaminophen 5-325 mg tablet 1 - 2 tab PO Q8 MDD 5 tabs PRN (Reason: Pain) RF: 0 Referrals Referrals: Wagner Thompson MD [Primary Care Provider] -
[2021-09-22] MEDS ORDERED: methylPREDNISolone 125 MG/2 ML VIAL ONE (01:14)
[2021-09-22] MEDS ORDERED: HYDROmorphone INJ 1 MG/ML SYRINGE IM STA (02:22)
[2021-09-22 04:25] LABS: Basophils # (auto) 0.04 K/uL (0-0.2); Basophils % (auto) 0.3 %; Eosinophils # (auto) 0.03 K/uL (0-0.5); Eosinophils % (auto) 0.2 %; Hematocrit (blood only) 40.4 % (37-47); Hemoglobin 13.9 g/dL (12.0-16.0); Immature Granulocytes # (auto) 0.04 K/uL (0.00-0.02); Immature Granulocytes % (auto) 0.3 %; Lymphocytes # (auto) 1.95 K/uL (1.2-3.4); Lymphocytes % (auto) 14.5 %; Mean Corpuscular Hemoglobin 34.6 pg (25-34); Mean Corpuscular Hgb Conc 34.4 g/dL (32-36); Mean Corpuscular Volume 100.5 fL (80-100); Mean Platelet Volume 10.2 fL (7.4-10.4); Monocytes # (auto) 0.13 K/uL (0.11-0.59); Neutrophils # (auto) 11.23 K/uL (1.4-6.5); Neutrophils % (auto) 83.7 %; Platelet Count 464 K/uL (130-400); RDW Coefficient of Variation 12.7 % (11.5-14.5); RDW Standard Deviation 46.5 fL (36.4-46.3); Red Blood Count 4.02 M/uL (4.2-5.4); White Blood Count 13.42 K/uL (4.8-10.8)
[2021-09-22 04:47] LABS: Albumin Level 3.4 gm/dl (3.4-5.0); BUN Creatinine Ratio 27.8 (10-20); Calcium 8.9 mg/dl (8.5-10.1); Creatinine Clr Calc Pharmacy 71.8 ml/min; Est GFR (African American) 90.1 ml/min; Est GFR (Non-African American) 77.7 ml/min; Potassium 4.4 mmol/L (3.5-5.1)
[2021-09-22 04:50] LABS: Albumin Globulin Ratio 0.9 (0.9-2); Bilirubin,Total 0.3 mg/dl (0.2-1); Globulin 3.9 gm/dl (2.5-4.0); Total Protein 7.3 gm/dl (6.4-8.2)
[2021-09-22 05:25] LABS: Appearance Urine Clear (Clear); Bacteria Urine Automated Negative (Negative); Bilirubin Urine Negative (Negative); Blood Urine 3+ (Negative); Color Urine Orange; Glucose Urine UA Negative (Negative); Ketones Urine Trace (Negative); Leukocyte Esterase Urine Trace (Negative); Nitrite Urine Negative (Negative); Protein Urine Trace (Negative); RBC Urine Automated >30 /hpf (0-4); Specific Gravity Urine 1.018 (1.000-1.030); Urobilinogen Urine Negative (Negative)
[2021-09-22] MEDS ORDERED: HYDROmorphone INJ 0.5 MG/0.5 ML SYR IV PRN (05:33)
--- NOTE | 2021-09-22 05:56 | Urology Consultation ---
Date of Consultation September 22, 2021 Assessment & Plan (1) Nephrolithiasis: Patient is being made on the hospital service. We recommend proceeding as follows: Provide analgesics Provide antiemetics Consider adding Flomax for expulsive therapy Hydrate with IV fluids Keep n.p.o. until seen by attending urologist this morning as patient may require cystoscopic intervention. Additional recommendations be forthcoming based on her clinical course as it unfolds Supervising Physician Co-Signing Physician Notes agree with above consultation. plan for cysto and stent placement this morning. can then follow up for outpt treatment with Dr. Ventura History of Present Illness Reason for Consultation: Nephrolithiasis History of Present Illness This 56-year-old female who presented to [facility] emergency department secondary to right-sided back/flank pain. She notes that the pain radiates to her groin. She has had some associated nausea vomiting. She also notes some dysuria as well as urinary frequency and at times has noted hematuria. Patient says that she has a known history of kidney stones but she has never required any surgical intervention for these. She also says she has a history of right renal cell carcinoma and she follows with Dr. Clemente Ventura of [facility] urology. She does report that she is scheduled to have a CT scan of the abdomen and pelvis and a cystoscopy by Dr. Ventura later this month. Because of her pain she presented to the emergency department. In the emergency department patient had labs and imaging which I independently reviewed. Because of her back pain it was initially felt that patient was having sciatica problem so she had a CT scan of the lumbar spine. This scan demonstrated partial visualization of an 8 mm kidney stone in the lower right ureter with moderate right hydronephrosis. She did have labs her white blood cell count is elevated at 13.4. Hemoglobin and hematocrit were both noted to be normal. Her platelet count was elevated at 4 and 64,000. Chemistry profile showed sodium and potassium were normal. Her creatinine was within the normal range. A urinalysis showed 3+ blood and was negative for nitrite. She did have trace leukocyte esterase and 5-10 white blood cells per high-power field and was negative for bacteria. A Covid test is pending. At the time my exam she was resting comfortably in bed in no distress. Allergies Allergy/AdvReac Type Severity Reaction Status Date / Time carisoprodol Allergy Unknown Seizure Verified 09/22/21 02:08 Home Medications Medication Instructions Recorded Confirmed Type amlodipine 5 mg tablet 5 mg PO DAILY 09/22/21 09/22/21 History aspirin 81 mg tablet,delayed 81 mg PO DAILY 09/22/21 09/22/21 History release (Aspirin Low Dose) cyclobenzaprine 10 mg tablet 10 mg PO TID 09/22/21 09/22/21 History lisinopril 5 mg tablet 5 mg PO DAILY 09/22/21 09/22/21 History multivit with 1 tab PO DAILY 09/22/21 09/22/21 History bghrqptn-nmvs-OZ-lutein 8 mg iron-400 mcg-300 mcg tablet (Multivitamin Women 50 Plus) oxycodone-acetaminophen 5 mg-325 1 - 2 tab PO Q8 PRN MDD 5 tabs 09/22/21 09/22/21 History mg tablet Patient History Medical History (Updated 09/22/21 @ 09:37 by Leno James MD) Encounter for pre-operative examination History of renal cell carcinoma "status post partial nephrectomy 2014" Lumbar disc disease with radiculopathy Renal cell carcinoma of right kidney Surgical History Status post arthroscopic knee surgery Status post lumbar laminectomy Social History Smoking Status: Current every day smoker Cigarettes Per Day: 5; Hx Alcohol Use: Yes Alcohol type: beer and hard liquor Hx Substance Use: No Preferred Language: Lithuanian Corrosion Prevention Metal Sprayer Required: No Beliefs That Will Affect Care: None Current Living Situation: Spouse Feels Safe at Home: Yes Safety Concerns: Feels Safe At This Time Assistive Devices: Cane, Glasses and Walker Assistive Devices Comment: readers Review of Systems Constitutional: no fever and no chills Eyes: no diplopia Ear, Nose, Mouth, Throat: no ear pain Respiratory: no cough and no dyspnea Cardiovascular: no chest pain Gastrointestinal: + abdominal pain, + nausea and + vomiting Genitourinary: + dysuria, + urinary frequency, + hematuria and + flank pain (Right sided) Musculoskeletal: + back pain (Right-sided flank pain) Integumentary: no rash Neurologic: no localized weakness Physical Exam Constitutional: well developed and well nourished; no acute distress Eyes: Wears glasses ENMT: Ears: no hearing impairment Neck: trachea midline Respiratory: normal respiratory effort; no respiratory distress and no labored breathing Cardiovascular: Rate/Rhythm: regular rate and regular rhythm Gastrointestinal (Abdomen): Soft and nondistended. There is pain noted with palpation in the right side of the abdomen that radiates to her groin. Musculoskeletal: No calf tenderness Skin: no rashes Neurologic: moves all extremities Results & Data ([facility]) Vital Signs (Past 12 Hours) Vital Signs Temp Pulse Pulse Resp BP BP Pulse Ox 09/22/21 05:42 36.4 C L 82 18 139/100 95 09/22/21 02:10 36.6 C 78 16 105/77 98 09/22/21 00:34 36.6 C 99 H 100 H 135/87 98 PG Care Time/CCT Total # of Minutes Spent Total Time Spent with Patient: Total time spent is greater than 50% in coordination of care (as documented) at patient's floor/unit and/or counseling patient: Coding Level of Care Code 13765 Inpt Consult Level 5 Diagnoses Nephrolithiasis N20.0
--- NOTE | 2021-09-22 06:20 | History & Physical Report ---
Date of Service September 22, 2021 Assessment & Plan (1) Renal colic on right side: Plan: Secondary to obstructive uropathy No sepsis for now renal cell cancer of right status post partial nephrectomy, patient to complete work-up outpatient with [facility] chronic back pain status post surgery, some worsening after a slip at home last week ovarian cancer sp radiation ongoing tobacco abuse. [facility] Analgesia, IVF, strain urine Urology consult Re: Obstructive uropathy Patient already seen by urology provider at the ER. N.p.o. status recommended in anticipation of procedure. Lidoderm patch for musculoskeletal pain Nicotine patch as needed DVT prophylaxis per Lovenox subcu Full code Text document was generated using [employer] voice recognition software. It may contain grammatical or spelling errors. Kindly contact undersigned for clarification of any documentation item in question. History of Present Illness Chief Complaint: Worsening back pain Primary Care Provider: Wagner Thompson MD History obtained from patient, family, and records. 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 Last confinement April 2017 for altered mental status. 2 weeks ago, patient noted hematuria symptoms without unusual back pain complaints. No fever, no chills. Patient seen by [facility] urologist last week. Outpatient urine cytology requested. Cystoscopy and CAT scans contemplated. Patient had a slip at home last week causing a little worsening of chronic back pain with radiation to the right lower extremity. No unusual weakness/numbness, no incontinence symptoms. Patient noted some radiation of pain to be right groin the last few days which is kind of unusual. No fever, no chills, no chest pain, no S OB. Intractable pain at the ER. MEDICAL HISTORY: As above. SURGERIES:Partial right nephrectomy, lymphadenectomy, shoulder surgery, appendectomy, back surgery, knee surgery., FAMILY HISTORY:Heart disease, cirrhosis PERSONAL AND SOCIAL HISTORY: One-fourth to a half pack daily. Almost daily alcohol intake (2 beverages per day) patient denies abuse; disabled. Allergies Allergy/AdvReac Type Severity Reaction Status Date / Time carisoprodol Allergy Unknown Seizure Verified 09/22/21 02:08 Home Medications Medication Instructions Recorded Confirmed Type amlodipine 5 mg tablet 5 mg PO DAILY 09/22/21 09/22/21 History aspirin 81 mg tablet,delayed 81 mg PO DAILY 09/22/21 09/22/21 History release (Aspirin Low Dose) cyclobenzaprine 10 mg tablet 10 mg PO TID 09/22/21 09/22/21 History lisinopril 5 mg tablet 5 mg PO DAILY 09/22/21 09/22/21 History multivit with 1 tab PO DAILY 09/22/21 09/22/21 History mjbtcrtx-wntp-YQ-lutein 8 mg iron-400 mcg-300 mcg tablet (Multivitamin Women 50 Plus) oxycodone-acetaminophen 5 mg-325 1 - 2 tab PO Q8 PRN MDD 5 tabs 09/22/21 09/22/21 History mg tablet Past Med/Surg History Medical History (Updated 09/22/21 @ 09:55 by Chriss Yeager MD) Encounter for pre-operative examination History of renal cell carcinoma "status post partial nephrectomy 2014" Lumbar disc disease with radiculopathy Renal cell carcinoma of right kidney Surgical History Status post arthroscopic knee surgery Status post lumbar laminectomy Social History Smoking Status: Current every day smoker Cigarettes Per Day: 5; Hx Alcohol Use: Yes Alcohol type: beer and hard liquor Hx Substance Use: No Preferred Language: Iraqi [employer]il Off Worker Required: No Beliefs That Will Affect Care: None Current Living Situation: Spouse Feels Safe at Home: Yes Safety Concerns: Feels Safe At This Time Assistive Devices: Cane Assistive Devices Comment: readers Review of Systems Review of Systems: As per HPI, all 10 systems reviewed, all other ROS negative Physical Exam Physical Exam: GENERAL: Slightly uncomfortable, no respiratory distress SKIN: Normal color, warm HEENT: [place] palpebral conjunctivae, no ptosis, dry buccal mucosa NECK : Supple, no tenderness CHEST : CTA, no tenderness HEART : RRR, no obvious murmurs ABDOMEN: no distention, nontender BACK right flank tenderness, SLR right EXTREMITIES : No LE swelling/tenderness, no other conspicuous deformities noted NEUROLOGIC : Coherent, no facial asymmetry, no other gross focality Results & Data Results & Data ([facility]) Vital Signs (Past 12 Hours) Vital Signs Temp Pulse Pulse Resp BP BP Pulse Ox 09/22/21 05:42 36.4 C L 82 18 139/100 95 09/22/21 02:10 36.6 C 78 16 105/77 98 09/22/21 00:34 36.6 C 99 H 100 H 135/87 98 Laboratory Results Laboratory Results WBC 13.42 K/uL (4.8-10.8) H 09/22/21 04:10 RBC 4.02 M/uL (4.2-5.4) L 09/22/21 04:10 Hgb 13.9 g/dL (12.0-16.0) 09/22/21 04:10 Hct 40.4 % (37-47) 09/22/21 04:10 MCV 100.5 fL (80-100) H 09/22/21 04:10 MCH 34.6 pg (25-34) H 09/22/21 04:10 MCHC 34.4 g/dL (32-36) 09/22/21 04:10 RDW Std Deviation 46.5 fL (36.4-46.3) H 09/22/21 04:10 RDW Coeff of Kelly 12.7 % (11.5-14.5) 09/22/21 04:10 Plt Count 464 K/uL (130-400) H 09/22/21 04:10 MPV 10.2 fL (7.4-10.4) 09/22/21 04:10 Immature Gran % (Auto) 0.3 % 09/22/21 04:10 Neut % (Auto) 83.7 % 09/22/21 04:10 Lymph % (Auto) 14.5 % 09/22/21 04:10 Ellis % (Auto) 1.0 % 09/22/21 04:10 Eos % (Auto) 0.2 % 09/22/21 04:10 Baso % (Auto) 0.3 % 09/22/21 04:10 Neut # (Auto) 11.23 K/uL (1.4-6.5) H 09/22/21 04:10 Lymph # (Auto) 1.95 K/uL (1.2-3.4) 09/22/21 04:10 Ellis # (Auto) 0.13 K/uL (0.11-0.59) 09/22/21 04:10 Eos # (Auto) 0.03 K/uL (0-0.5) 09/22/21 04:10 Baso # (Auto) 0.04 K/uL (0-0.2) 09/22/21 04:10 Immature Gran # (Auto) 0.04 K/uL (0.00-0.02) H 09/22/21 04:10 Sodium 139 mmol/L (136-145) 09/22/21 04:10 Potassium 4.4 mmol/L (3.5-5.1) 09/22/21 04:10 Chloride 107 mmol/L (98-107) 09/22/21 04:10 Carbon Dioxide 28 mmol/L (21-32) 09/22/21 04:10 Anion Gap 4.0 (3-11) 09/22/21 04:10 BUN 23 mg/dl (7-18) H 09/22/21 04:10 Creatinine 0.83 mg/dl (0.6-1.2) 09/22/21 04:10 Est Cr Clr Drug Dosing 71.8 ml/min 09/22/21 04:10 Est GFR ( Amer) 90.1 ml/min 09/22/21 04:10 Est GFR (Non-Af Amer) 77.7 ml/min 09/22/21 04:10 BUN/Creatinine Ratio 27.8 (10-20) H 09/22/21 04:10 Glucose 129 mg/dl (70-99) H 09/22/21 04:10 Calcium 8.9 mg/dl (8.5-10.1) 09/22/21 04:10 Total Bilirubin 0.3 mg/dl (0.2-1) 09/22/21 04:10 AST 19 U/L (15-37) 09/22/21 04:10 ALT 48 U/L (12-78) 09/22/21 04:10 Alkaline Phosphatase 106 U/L (45-117) 09/22/21 04:10 Total Protein 7.3 gm/dl (6.4-8.2) 09/22/21 04:10 Albumin 3.4 gm/dl (3.4-5.0) 09/22/21 04:10 Globulin 3.9 gm/dl (2.5-4.0) 09/22/21 04:10 Albumin/Globulin Ratio 0.9 (0.9-2) 09/22/21 04:10 Urine Color [place] 09/22/21 05:00 Urine Appearance Clear (Clear) 09/22/21 05:00 Urine pH 5.0 (4.5-7.5) 09/22/21 05:00 Ur Specific [place] 1.018 (1.000-1.030) 09/22/21 05:00 Urine Protein Trace (Negative) H 09/22/21 05:00 Urine Glucose (UA) Negative (Negative) 09/22/21 05:00 Urine Ketones Trace (Negative) H 09/22/21 05:00 Urine Blood 3+ (Negative) H 09/22/21 05:00 Urine Nitrite Negative (Negative) 09/22/21 05:00 Urine Bilirubin Negative (Negative) 09/22/21 05:00 Urine Urobilinogen Negative (Negative) 09/22/21 05:00 Ur Leukocyte Esterase Trace (Negative) H 09/22/21 05:00 Urine WBC (Auto) 5-10 /hpf (0-5) H 09/22/21 05:00 Urine RBC (Auto) >30 /hpf (0-4) H 09/22/21 05:00 U Hyaline Cast (Auto) 1-5 /lpf (0-5) 09/22/21 05:00 U Epithel Cells (Auto) 10-20 /lpf (0-5) H 09/22/21 05:00 Urine Bacteria (Auto) Negative (Negative) 09/22/21 05:00 COVID-19 Eval Order Covid19 at [facility] 09/22/21 05:[address] abdomen pelvis initial read: Comparison to MRI lumbar spine fromApril 26, 2018. Partial visualization of an at least 8 mmcalculus in the lower right ureter with mild to moderate right hydronephrosis and hydroureter. There is a nonobstructive calyceal calculus in the lower pole of the right kidneymeasuring at least 8 mm. The lumbar spine vertebral bodyheights are normallymaintained. No compression fracture or burst fracture is seen. Moderate to severe multilevel loss of disc space height throughout the lumbar spine aswell as mild multilevel degenerative facet arthrosis. Previous laminectomyat L4-5 and L5-S1. No acute lumbar spine fracture or traumatic subluxation is seen. Axial soft tissue images showseen byfindings of the following levels: L1-2:Calcified 5 mmleft posterior disc bulge or disc marginal osteophyte formation narrowing the thecal sac to 9 mm. L2-3:Broad-based posterior disc bulge measuring 4-5 mmnarrowing the thecal sac to 8-9 mm. L3-4: 3 mmposterior disc marginal osteophyte. The thecal sac iswidelypatent. L4-5: 3 mmposterior disc marginal osteophyte. The thecal sac iswidelypatent. There is moderate bilateral neural foraminal narrowing. L5-S1: 2 mmposterior disc marginal osteophyte. The thecal sac iswidelypatent. There is severe bilateral neural foraminal narrowing.
[2021-09-22] MEDS ORDERED: MoRPHine SULFATE 4 MG/ML 1 ML CARP\\VIAL IV PRN (06:27)
[2021-09-22] MEDS ORDERED: ACETAMINOPHEN 325 MG TAB PO PRN ×2 (06:27→11:24)
[2021-09-22] MEDS ORDERED: PROMETHAZINE HCL 12.5 MG in SODIUM CHLORIDE 0.9% 50 ML IV PRN (06:27)
[2021-09-22] MEDS: LIDOCAINE 5% 1 PATCH TD SCH (06:40)
[2021-09-22 06:44] LABS: Magnesium 2.4 mg/dl (1.8-2.4)
[2021-09-22] MEDS: SODIUM CHLORIDE 0.9% 1000ML 1,000 ML IV SCH ×3 (06:51→16:02)
--- NOTE | 2021-09-22 06:57 | CT Scan Report ---
CT OF THE LUMBAR SPINE CLINICAL HISTORY: fall. right side pain with sciatica COMPARISON STUDY: Lumbar spine CT March 25, 2017. Lumbar spine MRI April 26, 2018. TECHNIQUE: Helical axial images of the lumbar spine were obtained. Sagittal and coronal reconstruct ions were viewed. Automated exposure control was utilized for the study. A dose lowering technique was utilized adhering to the principles of ALARA. FINDINGS: For purposes of numbering on this exam, the L5-S1 disc space is assigned to axial image 299 of 361. There is minimal leftward curvature of the lower lumbar spine. Vertebral body heights are ma intained. No acute lumbar spine fracture. There is mild sclerosis along the superior endplate of T12 which is partially imaged on this exam. This is not acute. No suspicious osseous lesions within the l umbar spine are noted. Posterior decompression within the lower lumbar spine is noted. Central canal and neural foramen are suboptimally assessed by CT. There is left paracentral disc osteophyte complex at L1-L2. There is severe multilevel disc space narrowing. There is multilevel endplate osteophytosi s and vacuum disc phenomenon. There is severe multilevel facet arthrosis. Multilevel neural foraminal stenosis is noted. A 9 mm right renal calculus is noted. There are small right renal calculi. There is mild to moderate right hydronephrosis due to a partially visualized mid right ureteral calculus wh ich measures at least 1.3 x 0.3 cm. IMPRESSION: 1. Mild to moderate right hydroureteronephrosis due to a partially visualized right ureteral calculus which measures at least 1.3 x 0.3 cm. Right-sided nephrolithiasis. 2. No acute lumbar spine fracture or subluxation. 3. Moderate multilevel degenerative changes within the lumbar spine. ACT 112: Negative or not required by law. Electronically signed by: Hussain Mccain M.D. 09/22/2021 6:56 AM
--- NOTE | 2021-09-22 08:21 | Urology Progress Note ---
Date of Service September 22, 2021 Assessment & Plan (1) Acute right flank pain: (2) Right ureteral calculus: (3) Hydronephrosis with obstructing calculus: Plan: 56yo F with intractable right flank/back pain secondary to an obstructing ureteral stone - Afebrile - Labs reviewed, Wbc 13.42, Hgb 13.9, Cr 0.83 - Plan of care reviewed with Dr. Gerardo - Given her intractable right flank/back pain in the context of an obstructing right ureteral stone, will proceed with OR for Cystoscopy, Right ureteral stent placement depending on findings. - Risks and benefits to be reviewed with patient by Dr. Gerardo. OR notified. Covid test negative. Will cover with IV Ciprofloxacin preoperatively. - Keep NPO - Expected clinical course reviewed with patient, she is agreeable to plan, all questions were answered. - Will continue to follow Subjective Pt examined at bedside in the ED. Awake, resting in bed on arrival. Continues right flank/back pain, managing with IV medications. No fevers or chills. Denies nausea of vomiting. Some hematuria No dysuria Review of Systems Constitutional: as per Subjective / HPI Gastrointestinal: as per Subjective / HPI Genitourinary: as per Subjective / HPI Physical Exam Constitutional: well developed and well nourished; no acute distress and not ill appearing Respiratory: normal respiratory effort and able to speak in complete sentences ; no labored breathing and no audible wheezes Gastrointestinal (Abdomen): Inspection/Auscultation: abdomen normal to inspection; abdomen not distended Musculoskeletal: Head/Neck/Chest: normocephalic Skin: No visible rashes or lesions to exposed skin areas Neurologic: moves all extremities and awake Psychiatric: Orientation: alert, oriented x 3 and cooperative Results & Data ([facility]) Vital Signs (Past 12 Hours) Vital Signs Temp Pulse Pulse Resp BP BP Pulse Ox 09/22/21 07:55 84 20 116/86 93 09/22/21 07:19 36.7 C 88 19 129/85 91 09/22/21 07:17 83 20 129/85 93 09/22/21 05:42 36.4 C L 82 18 139/100 95 09/22/21 02:10 36.6 C 78 16 105/77 98 09/22/21 00:34 36.6 C 99 H 100 H 135/87 98 PG Care Time/CCT Total # of Minutes Spent Total Time Spent with Patient: Total time spent is greater than 50% in coordination of care (as documented) at patient's floor/unit and/or counseling patient: Coding Level of Care Code None Diagnoses Acute right flank pain R10.9 Right ureteral calculus N20.1 Hydronephrosis with obstructing calculus N13.2
--- NOTE | 2021-09-22 09:37 | Anesthesiology Consultation ---
Date of Service September 22, 2021 Assessment & Plan (1) Encounter for pre-operative examination: Chart Review Chart Review: Acceptable Risk for Surgery and Patient NOT seen in Pre Admission Testing covid neg 09/22/21 Consults Requested none History Surgery Operation Date: 09/22/21 11:00 Proposed Procedures p Cystoscopy, Right Stent Placement - Juan Daniel Gerardo MD Height/Weight Height: 5 ft 7 in Weight: 65.5 kg Allergies Allergy/AdvReac Type Severity Reaction Status Date / Time carisoprodol Allergy Unknown Seizure Verified 09/22/21 02:08 Medications Home Medications Medication Instructions Recorded Confirmed Last Taken amlodipine 5 mg tablet 5 mg PO DAILY 09/22/21 09/22/21 Unknown aspirin 81 mg tablet,delayed 81 mg PO DAILY 09/22/21 09/22/21 Unknown release (Aspirin Low Dose) cyclobenzaprine 10 mg tablet 10 mg PO TID 09/22/21 09/22/21 Unknown lisinopril 5 mg tablet 5 mg PO DAILY 09/22/21 09/22/21 Unknown multivit with 1 tab PO DAILY 09/22/21 09/22/21 Unknown ibvkdgnm-hmtm-AL-lutein 8 mg iron-400 mcg-300 mcg tablet (Multivitamin Women 50 Plus) oxycodone-acetaminophen 5 mg-325 1 - 2 tab PO Q8 PRN MDD 5 tabs 09/22/21 09/22/21 Unknown mg tablet Active Medications Generic Name Dose Route Start Last Admin Trade Name Freq PRN Reason Stop Dose Admin Sodium Chloride 1,000 mls @ 100 mls/hr 09/22/21 06:30 09/22/21 06:51 Nss 1000ml IV 10/22/21 06:29 100 mls/hr .Q10H SOPHIA Administration Lidocaine 1 patch 09/22/21 06:27 09/22/21 06:40 Lidocaine 5% 1 Patch TD 10/22/21 06:26 1 patch QAM SOPHIA Administration Past Medical History Medical History (Updated 09/22/21 @ 09:55 by Chriss Yeager MD) Encounter for pre-operative examination History of renal cell carcinoma "status post partial nephrectomy 2014" Lumbar disc disease with radiculopathy Renal cell carcinoma of right kidney Past Surgical History Surgical History Status post arthroscopic knee surgery Status post lumbar laminectomy Social History Smoking Status: Current every day smoker tobacco type: cigarettes Smoking cigarettes per day: 5 Hx Alcohol Use: Yes Alcohol type: beer and hard liquor alcohol intake frequency: a few times a week Hx Substance Use: No Physical Exam Vital Signs Last Vital Signs Temp 36.7 C 09/22/21 09:58 Pulse 92 H 09/22/21 09:58 Resp 22 09/22/21 09:58 BP 141/95 H 09/22/21 09:58 Pulse Ox 99 09/22/21 09:58 Testing Laboratory Results 09/22/21 04:10 09/22/21 04:10 Urine Color [place] 09/22/21 05:00 Urine Appearance Clear (Clear) 09/22/21 05:00 Urine pH 5.0 (4.5-7.5) 09/22/21 05:00 Ur Specific [place] 1.018 (1.000-1.030) 09/22/21 05:00 Urine Protein Trace (Negative) H 09/22/21 05:00 Urine Glucose (UA) Negative (Negative) 09/22/21 05:00 Urine Ketones Trace (Negative) H 09/22/21 05:00 Urine Nitrite Negative (Negative) 09/22/21 05:00 Ur Leukocyte Esterase Trace (Negative) H 09/22/21 05:00 Urine WBC (Auto) 5-10 /hpf (0-5) H 09/22/21 05:00 Urine RBC (Auto) >30 /hpf (0-4) H 09/22/21 05:00 U Hyaline Cast (Auto) 1-5 /lpf (0-5) 09/22/21 05:00 U Epithel Cells (Auto) 10-20 /lpf (0-5) H 09/22/21 05:00 Urine Bacteria (Auto) Negative (Negative) 09/22/21 05:00
[2021-09-22] MEDS ORDERED: CIPROFLOXACIN / D5W 400 MG/200 ML BAG IV SCH (09:40)
[2021-09-22] MEDS ORDERED: fentaNYL citrate 100 MCG/2 ML VIAL IV PRN (10:02)
[2021-09-22] MEDS ORDERED: PROMETHAZINE HCL 6.25 MG in SODIUM CHLORIDE 0.9% 50 ML IV PRN (10:02)
[2021-09-22] MEDS ORDERED: ePHEDrine sulfate 50 MG/ML AMP IV PRN (10:02)
[2021-09-22] MEDS ORDERED: ATROPINE SULFATE 0.1 MG/ML 10ML SYR IV PRN (10:02)
[2021-09-22] MEDS ORDERED: ONDANSETRON INJ 2 MG/ML 2 ML VIAL ONE (10:02)
[2021-09-22] MEDS ORDERED: ONDANSETRON INJ 2 MG/ML 2 ML VIAL IV PRN (10:02)
[2021-09-22] MEDS ORDERED: HYDROmorphone INJ 1 MG/ML SYRINGE IV PRN (10:02)
[2021-09-22] MEDS ORDERED: LIDOCAINE 2% 2 ML VIAL/AMP(20MG/ML) INFIL ONE (10:02)
[2021-09-22] MEDS ORDERED: PROPOFOL IV EMULSION 10 MG/ML 20 ML VIAL IV ONE ×2 (10:02→10:33)
[2021-09-22] MEDS ORDERED: MIDAZOLAM HCL 1 MG/ML 2ML VIAL ONE (10:03)
[2021-09-22] MEDS ORDERED: fentaNYL citrate 100 MCG/2 ML VIAL ONE (10:03)
[2021-09-22] MEDS: LACTATED RINGER'S 1,000 ML IV SCH (10:10)
--- NOTE | 2021-09-22 10:47 | Operative Report ---
PG Post Operative Report Pre & Post Diagnosis Operation Date: 09/22/21 11:00 Pre-Op Diagnosis: right ureteral stone Post-Op Diagnosis: right ureteral stone I identified the patient and participated in the time-out.: Yes Procedure Operation Date: 09/22/21 11:00 Actual Procedures p Cystoscopy, Right Stent Placement(Right) - Juan Daniel Gerardo MD Surgeon Demarco Gerardo MD Manufacturers Representative none Estimated Blood Loss 0 Findings Consistent with Post-Op Diagnosis Specimens none Description of Procedure The patient was identified in the preoperative holding area, appropriate informed consents were reviewed and completed and the patient was transferred to the operative suite. Upon arrival, appropriate antibiotics and anesthesia were administered and the patient was placed in dorsal lithotomy position and prepped and draped in sterile fashion. To begin the case I passed a 22 Thai cystoscope with 30 degree lens. Full ins pection of the bladder was conducted revealing no abnormalities. Ureteral orifices were in orthotopic position. I turned my attention of the right UO and cannulated with a sensor wire. Wire advanced to the kidney without difficulty. I then placed a 6 Thai by 24 cm double-J stent over the wire. There was a good curl in the kidney as well as the bladder. Of note, the stone was not definitively visible on fluoroscopic evaluation. At the conclusion of the case I emptied her bladder and she was reversed of anesthesia and taken to the recovery room in stable condition. There were no complications. I attest to the content of the Intraoperative Record and any orders documented therein. Any exceptions are noted below.
--- NOTE | 2021-09-22 10:49 | Fluoroscopy Report ---
FL KUB CLINICAL HISTORY: RIGHT STENT PLACEMENT COMPARISON STUDY: CT of the abdomen and pelvis January 12, 2015. FLUOROSCOPY TIME: 4.7 seconds. FLUOROSCOPIC IMAGES: 1 FINDINGS: Fluoroscopy was noted during placement of a right ureteral stent. Proximal aspect of the st ent projects over the right collecting system. A density projects over the right kidney. This could r eflect a right renal calculus. A density along the proximal aspect of the ureteral stent is noted. Th is could be artifactual. IMPRESSION: Fluoroscopy provided during placement of a right ureteral stent. ACT 112: Negative or not required by law. Electronically signed by: Hussain Mccain M.D. 09/22/2021 10:48 AM
[2021-09-22] MEDS: ASPIRIN 81 MG ECTAB PO SCH (12:43)
[2021-09-22] MEDS: amLODIPine BESYLATE 5 MG TAB PO SCH (12:43)
[2021-09-22] MEDS: lisinopril 5 MG TAB PO SCH (12:44)
[2021-09-22] MEDS: CEROVITE ADV FORMULA TAB PO SCH (12:44)
[2021-09-22] MEDS: CYCLOBENZAPRINE HCL 10 MG TAB PO SCH ×3 (12:44→21:17)
[2021-09-22] MEDS: ENOXAPARIN INJ 30 MG/0.3 ML SYR SQ SCH (14:16)
[2021-09-22] MEDS: oxyCODONE HCL IR 5 MG TAB (IMMEDIATE RELEASE) PO PRN ×2 (14:51→21:17)
--- NOTE | 2021-09-22 15:27 | Anesthesiology Progress Note ---
Date of Service September 22, 2021 Anesthesia Post Procedure Vital Signs Vital Signs: Temp Pulse Pulse Pulse Pulse Resp BP 09/22/21 14:40 36.6 C 77 16 09/22/21 13:12 37.0 C 84 16 09/22/21 12:22 36.7 C 74 16 09/22/21 11:55 36.8 C 76 16 09/22/21 11:24 36.8 C 77 16 09/22/21 11:05 36.4 C L 91 H 13 09/22/21 10:55 36.4 C L 87 15 09/22/21 10:45 36.4 C L 92 H 16 09/22/21 09:58 36.7 C 92 H 22 09/22/21 09:38 36.6 C 83 18 09/22/21 09:05 88 20 158/108 H 09/22/21 07:55 84 20 09/22/21 07:19 36.7 C 88 19 09/22/21 07:17 83 20 09/22/21 05:42 36.4 C L 82 18 09/22/21 02:10 36.6 C 78 16 09/22/21 00:34 36.6 C 99 H 100 H 135/87 BP Pulse Ox 09/22/21 14:40 138/92 97 09/22/21 13:12 127/81 96 09/22/21 12:22 125/83 95 09/22/21 11:55 128/83 95 09/22/21 11:24 120/80 96 09/22/21 11:05 122/78 95 09/22/21 10:55 115/91 96 09/22/21 10:45 129/87 96 09/22/21 09:58 141/95 H 99 09/22/21 09:38 157/92 H 96 09/22/21 09:05 97 09/22/21 07:55 116/86 93 09/22/21 07:19 129/85 91 09/22/21 07:17 129/85 93 09/22/21 05:42 139/100 95 09/22/21 02:10 105/77 98 09/22/21 00:34 98 Pain Intensity Right Back: Pain Intensity: 4 Transfer of Care Handoff Completed per policy Notes Mental Status: alert / awake / arousable and participated in evaluation Patient Amnestic to Procedure: Yes Nausea / Vomiting: adequately controlled Pain: adequately controlled Airway Patency, RR, SpO2: stable & adequate BP & HR: stable & adequate Hydration State: stable & adequate Anesthetic Complications: no major complications apparent and Pt Satisfied with anesthetic care
--- NOTE | 2021-09-22 15:46 | Communication Note ---
Reports the pain isDate of Service: September 22, 2021 S/P Cystoscopy, Right Stent Placement(Right) Overall patient is doing okay.. However, recently she had a fall about 1 week ago and has been having worsening back pain. Concerned about going home today. Can be discharged home tomorrow if patient is stable and pain is well controlled.
[2021-09-23] MEDS ORDERED: CIPROFLOXACIN / D5W 400 MG/200 ML BAG IV SCH (06:00)
[2021-09-23] MEDS: oxyCODONE HCL IR 5 MG TAB (IMMEDIATE RELEASE) PO PRN ×2 (06:29→10:29)
[2021-09-23 06:38] LABS: Basophils # (auto) 0.03 K/uL (0-0.2); Basophils % (auto) 0.3 %; Eosinophils # (auto) 0.03 K/uL (0-0.5); Eosinophils % (auto) 0.3 %; Hematocrit (blood only) 35.4 % (37-47); Hemoglobin 12.4 g/dL (12.0-16.0); Immature Granulocytes # (auto) 0.02 K/uL (0.00-0.02); Immature Granulocytes % (auto) 0.2 %; Lymphocytes # (auto) 4.46 K/uL (1.2-3.4); Lymphocytes % (auto) 41.4 %; Mean Platelet Volume 9.7 fL (7.4-10.4); Monocytes # (auto) 0.61 K/uL (0.11-0.59); Monocytes % (auto) 5.7 %; Neutrophils # (auto) 5.62 K/uL (1.4-6.5); Neutrophils % (auto) 52.1 %; Platelet Count 410 K/uL (130-400); RDW Coefficient of Variation 12.8 % (11.5-14.5); Red Blood Count 3.54 M/uL (4.2-5.4); White Blood Count 10.77 K/uL (4.8-10.8)
[2021-09-23 07:06] LABS: BUN Creatinine Ratio 22.9 (10-20); Calcium 8.7 mg/dl (8.5-10.1); Est GFR (African American) 108.8 ml/min; Est GFR (Non-African American) 93.9 ml/min; Potassium 3.8 mmol/L (3.5-5.1)
[2021-09-23] MEDS: LIDOCAINE 5% 1 PATCH TD SCH (08:20)
[2021-09-23] MEDS: lisinopril 5 MG TAB PO SCH (08:21)
[2021-09-23] MEDS: CYCLOBENZAPRINE HCL 10 MG TAB PO SCH ×2 (08:22→13:54)
[2021-09-23] MEDS: amLODIPine BESYLATE 5 MG TAB PO SCH (08:22)
[2021-09-23] MEDS: ASPIRIN 81 MG ECTAB PO SCH (08:22)
[2021-09-23] MEDS: CEROVITE ADV FORMULA TAB PO SCH (08:23)
--- NOTE | 2021-09-23 08:41 | Urology Progress Note ---
Date of Service September 23, 2021 Assessment & Plan (1) Acute right flank pain: (2) Right ureteral calculus: Plan: 56yo F admitted with intractable right flank/back pain secondary to an obstructing right ureteral calculus - POD #1 s/p Cystoscopy, Right Stent Placement with Dr. Gerardo. - Patient feeling well, tolerating the ureteral stent with minimal bother. - Afebrile, VSS. - Labs reviewed- White count and creatinine are stable. - Voiding without difficulty. - OK for discharge from perspective. - Recommend home with prn pain medication, tamsulosin, and prn pyridium for stent discomfort. - Patient follows with [facility], will arrange follow-up with our service or [facility] for definitive stone and stent management per patient preference. - Thank you for allowing us to participate in the acute care of Ms. Mckayla Darden. - Please reconsult us with additional questions, concerns or changes in patient status. Admission and Anticipated Discharge Date Admission Date: September 22, 2021 Subjective Pt examined at bedside this AM. Awake, resting in bed on arrival. Overall feeling better today. No fevers or chills. No abdominal or flank pain. Has chronic back pain and had a fall about 1 week ago and has been having worsening back pain since then. Denies hematuria or dysuria. Some urgency. Feels she is emptying her bladder well. Tolerating diet, no nausea or vomiting. Eager to go home today. Review of Systems Constitutional: as per Subjective / HPI Gastrointestinal: as per Subjective / HPI Genitourinary: as per Subjective / HPI Physical Exam Constitutional: well developed and well nourished; no acute distress and not ill appearing Respiratory: normal respiratory effort and able to speak in complete sentences; no labored breathing and no audible wheezes Gastrointestinal (Abdomen): Inspection/Auscultation: abdomen normal to inspection; abdomen not distended Percussion/Palpation: abdomen soft; abdomen nontender and no guarding Musculoskeletal: Head/Neck/Chest: normocephalic Skin: No visible rashes or lesions to exposed skin areas Neurologic: moves all extremities and awake Psychiatric: Orientation: alert, oriented x 3 and cooperative Results & Data ([facility]) Vital Signs (Past 12 Hours) Vital Signs Temp Pulse Resp BP Pulse Ox 09/23/21 07:45 36.5 C 72 16 129/86 93 09/23/21 03:28 36.6 C 82 15 106/70 91 09/22/21 22:44 36.7 C 79 15 118/77 91 PG Care Time/CCT Total # of Minutes Spent Total Time Spent with Patient: Total time spent is greater than 50% in coordination of care (as documented) at patient's floor/unit and/or counseling patient: Coding Level of Care Code 76073 Subseq Hosp Care Lvl 2 Diagnoses Acute right flank pain R10.9 Right ureteral calculus N20.1
[2021-09-23] MEDS: LACTATED RINGER'S 1,000 ML IV SCH (10:07)
[2021-09-23] MEDS: ENOXAPARIN INJ 30 MG/0.3 ML SYR SQ SCH (13:54)
--- NOTE | 2021-09-23 15:29 | Discharge Summary ---
Date of Service September 23, 2021 Admission HPI Per Admitting Provider History obtained from patient, family, and records. 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 Last confinement April 2017 for altered mental status. 2 weeks ago, patient noted hematuria symptoms without unusual back pain complaints. No fever, no chills. Patient seen by [facility] u[facility]ist last week. Outpatient urine cytology requested. Cystoscopy and CAT scans contemplated. Patient had a slip at home last week causing a little worsening of chronic back pain with radiation to the right lower extremity. No unusual weakness/numbness, no incontinence symptoms. Patient noted some radiation of pain to be right groin the last few days which is kind of unusual. No fever, no chills, no chest pain, no S OB. Intractable pain at the ER. MEDICAL HISTORY: As above. SURGERIES:Partial right nephrectomy, lymphadenectomy, shoulder surgery, appendectomy, back surgery, knee surgery., FAMILY HISTORY:Heart disease, cirrhosis PERSONAL AND SOCIAL HISTORY: One-fourth to a half pack daily. Almost daily alcohol intake (2 beverages per day) patient denies abuse; disabled. Admission Exam Per Admitting Provider GENERAL: Slightly uncomfortable, no respiratory distress SKIN: Normal color, warm HEENT: [place] palpebral conjunctivae, no ptosis, dry buccal mucosa NECK : Supple, no tenderness CHEST : CTA, no tenderness HEART : RRR, no obvious murmurs ABDOMEN: no distention, nontender BACK right flank tenderness, SLR right EXTREMITIES : No LE swelling/tenderness, no other conspicuous deformities noted NEUROLOGIC : Coherent, no facial asymmetry, no other gross focality Principal Diagnosis Renal colic Discharge Exam Constitutional no acute distress Resting in bed Respiratory normal respiratory effort, lungs clear to auscultation Cardiovascular Rate/Rhythm: regular rate and regular rhythm Vessels: normal peripheral pulses Extremities: no edema Gastrointestinal (Abdomen) Percussion/Palpation: abdomen soft; abdomen nontender Skin no rashes, warm and dry Neurologic moves all extremities; no focal motor deficits Psychiatric A+Ox3, euthymic affect Genitourinary no CVA tenderness Discharge Data Allergies Allergy/AdvReac Type Severity Reaction Status Date / Time carisoprodol Allergy Unknown Seizure Verified 09/22/21 02:08 Consultations Urology, Dr. Gerardo Procedures Performed Operation Date: 09/22/21 11:00 Actual Procedures p Cystoscopy, Right Stent Placement(Right) - Juan Daniel Gerardo MD Ordered Studies 09/22/2021 CT ABD/pelvis IMPRESSION: 1. Mild to moderate right hydroureteronephrosis due to a partially visualized right ureteral calculus which measures at least 1.3 x 0.3 cm. Right-sided nephrolithiasis. 2. No acute lumbar spine fracture or subluxation. 3. Moderate multilevel degenerative changes within the lumbar spine. Hospital Course (1) Renal colic on right side: 56-year-old female with PMH renal cell cancer of right status post partial nephrectomy, chronic back pain status post surgery, hx ovarian cancer sp radiation, history nonobstructing kidney stones on CAT scans, ongoing tobacco abuse Who presented to the ED for evaluation of worsening back pain after a slip at home last week. CT ABD/pelvis showed Mild to moderate right hydroureteronephrosis due to a partially visualized right ureteral calculus which measures at least 1.3 x 0.3 cm. Right-sided nephrolithiasis. UA did not strongly suggest UTI, patient afebrile without leukocytosis, no signs of sepsis. Renal functions remained stable. Patient was evaluated by urology and underwent cystoscopy and right ureteral stent placement on 09/22/2021. Patient was started on Flomax. Pain was well controlled with routine home dosing of Percocet. Per patient preference, she will follow up with [facility] urology for definitive stone management and stent follow-up. Attending Addendum: care coordinated with CRAIG Kelly please refer to her notes for full details, I agree with her notes patient seen and examined, records reviewed by myself as well Torito Ferrell MD Total Time Total Time Spent Total Time Spent (In Minutes): 35 Discharge Plan Discharge Items Patient Disposition: Home - Self-Care Reason For Visit: Back Pain Discharge Diagnosis: Kidney Stone Activity: Resume your previous activity Non-emergency contact: Primary Care Provider Call non-emergency contact if: you have any medication questions, your symptoms worsen, your pain is not controlled and you have a fever Follow-up/Referrals: Clemente Ventura MD [Outside Practitioners] - 10/02/21 3:00 pm (please schedule follow up appointment for 1 week) Wagner Thompson MD [Primary Care Provider] - (Date & Time 09/29/2021 11:00 AM Provider Manuela Blankenship Department [facility] ) Diet: Heart Healthy Addtl Attending Provider Instructions: You came to the hospital for evaluation of back pain and were found to have a right-sided kidney stone. You were evaluated by urology and underwent cystoscopy and stent placement on 09/22. You are being prescribed Flomax at discharge to help with kidney stone management and pain. You may also take your previously prescribed Percocet for pain control. If you develop a fever or worsening pain, call your urologist or present to the emergency room. Please make a follow-up appointment with Dr. Clemente Ventura ([facility] urology per your choice) within 1 week for stone and stent management. It was a pleasure taking care of you. If you need to reach a member of the [facility] Hospitalist team, please call [phone]. CRAIG Hunter Pending Studies at Discharge: No Stand-Alone Forms: [facility], Opioid Pain Management, Work/School Release, Smoking Cessation Medications and DC Order Prescriptions: New tamsulosin 0.4 mg capsule 0.4 mg PO DAILY Qty: 14 RF: 0 Continued lisinopril 5 mg tablet 5 mg PO DAILY RF: 0 cyclobenzaprine 10 mg tablet 10 mg PO TID RF: 0 aspirin [Aspirin Low Dose] 81 mg Tablet,Delayed Release (Dr/Ec) 81 mg PO DAILY RF: 0 Multivitamin Women 50 Plus 8 mg iron-400 mcg-300 mcg Tablet 1 tab PO DAILY RF: 0 amlodipine 5 mg tablet 5 mg PO DAILY RF: 0 oxycodone-acetaminophen 5-325 mg tablet 1 - 2 tab PO Q8 MDD 5 tabs PRN (Reason: Pain) RF: 0 Discharge Orders: Discharge Order (Routine); Ordered 09/23/21 Ordered By: Kristin No Admission Data Admit Date/Time: 09/22/21 06:23 Attending Provider: Torito Ferrell Admit Provider: Chriss Yeager Primary Care Provider: Wagner Thompson Other Providers: Juan Daniel Gerardo ; Abisai Brewer ; Daniel Garza Other Interventions: Discharge Summary Assessment (RN) Last Done: 09/23/21 13:28
== END 2021-09-23 14:26 | disposition home or self-care (01) | DRG 661 ==
LOC: ED 00:31 → 3E 06:23 → SUATTDRO 06:23 → 3E 09:05

== ENCOUNTER 2024-09-19 07:50 | Inpatient (IN) ==
--- NOTE | 2024-09-19 08:14 | Emergency Department Note ---
Impression & Plan Bilateral pneumonia, Hypoxia ED Provider Note NAME: EVA ERICKSON AGE: 59 SEX: F : 1965 ARRIVES VIA: Walk-In INFORMANT: Patient, ED PROVIDER(S): Luis Patel DO CHIEF COMPLAINT: Short of breath HPI: The patient is a 59-year-old female who presented to the emergency department for an evaluation of shortness of breath. The patient had been noticing symptoms over the last few weeks. She was seen at [facility] and a clinic for this. She was started on antibiotics as well as a steroid. She has been taking her medications without relief. She has been noticing coughing especially at night. She denies having any chest pain. She does complain of back pain especially because of all the coughing. The patient denies having any fever or hemoptysis. She denies having any leg swelling. She does use tobacco products but states that she has no history of COPD or asthma. The patient does not normally wear oxygen at home. ROS: See above HPI for pertinent positives & negatives. A total of 10 systems reviewed and were otherwise negative. PAST MEDICAL HISTORY: See Below PAST SURGICAL HISTORY: See Below FAMILY HISTORY: See Below SOCIAL HISTORY: See Below HOME MEDICATIONS: See Below ALLERGIES: See Below VITALS: See Below PHYSICAL EXAMINATION: GENERAL: The is awake and alert. She is very anxious and appears to be uncomfortable. EYES: The conjunctivae are clear. The pupils are round and reactive. EARS, NOSE, MOUTH AND THROAT: The nose is without any evidence of any deformity. NECK: The neck is nontender and supple. RESPIRATORY: Diminished breath sounds are noted throughout. There is expiratory wheezing in both upper lung chauhan. There is mild conversational dyspnea. CARDIOVASCULAR: Tachycardic and regular heart sounds were noted to auscultation. There is no definite murmur. GASTROINTESTINAL: The abdomen is soft. Abdomen is nontender. MUSCULOSKELETAL/EXTREMITIES: There is no evidence of gross deformity full range of motion is noted in the hips and shoulders. SKIN: There is no obvious evidence of any rash. There are no petechiae, pallor or cyanosis noted. NEUROLOGIC: Patient is awake alert and oriented x3 MEDICAL DECISION MAKING: The patient is a 59-year-old female who presented to the emergency department for an evaluation of difficulty breathing. The patient's been having symptoms for a few weeks. The patient's physical exam was consistent with abnormal lung sounds. She was hypoxic and tachycardic. She was treated with steroids as well as bronchodilator therapy. She was also treated with IV fluids for hypotension as well as IV antibiotics. I discussed the patient's laboratory and radiographic studies with her. On reevaluation she was significantly improved however still had an oxygen requirement. This reason I [facility] have agreed to evaluate the patient in the emergency department for further management and disposition. Triage Nursing notes reviewed. Prior medical records reviewed Vital Signs: reviewed and remarkable for tachycardia and hypoxia. Differential diagnosis: Reactive airway disease, pneumonia, pneumothorax, COPD, CHF, infections, cardiac ischemia, pulmonary embolism, musculoskeletal, gastrointestinal, as well as other pathologies. ER treatment provided: See below Diagnostics interpreted by me: ECG: EG was obtained in the emergency department. My interpretation is sinus tachycardia at 119 bpm. There was no ectopy. There was no acute ST segment abnormalities noted. This was compared to a tracing from April 14, 2017. There was an increase in the rate otherwise no specific changes were noted. Cardiac Monitoring: An order was placed for continuous cardiac monitoring. The monitor shows a rate of 110 bpm with sinus tachycardia. Laboratory studies: As stated above and show below. Imaging studies: See below. Radiographic imaging was reviewed by myself Consultation(s): Discussed this case with Radha who [facility] ED COURSE: Procedures: none Critical Care: I have personally spent greater than 55 minutes of critical care time in the direct management of this patient. This includes bedside care, interpretation of diagnostic studies, and testing, discussion with consultants, patient, and family members, and other required patient management activities. This 55 minutes is in excess of all separately billable procedures. Past Med/Surg History Problem List (Updated 09/19/24 @ 11:23 by Luis Patel DO) Hypoxia (Acute) Bilateral pneumonia (Acute) Tobacco abuse Acute bronchitis Bilateral pneumonia Acute hypoxic respiratory failure Status post arthroscopic knee surgery (Chronic) Status post lumbar laminectomy (Chronic) Lumbar disc disease with radiculopathy (Chronic) Renal cell carcinoma of right kidney (Chronic) History of renal cell carcinoma (Chronic) "status post partial nephrectomy 2014" Altered mental status (Acute) Medical History Hydronephrosis with obstructing calculus Right ureteral calculus Nephrolithiasis Social History Smoking Status: Current some day smoker Cigarettes Per Day: 5; Hx Alcohol Use: Yes Alcohol type: beer and hard liquor Hx Substance Use: No Preferred Language: [place] Island[place] [employer] Required: No Beliefs That Will Affect Care: None Current Living Situation: Spouse Feels Safe at Home: Yes Assistive Devices: None Allergies Allergies Allergy/AdvReac Type Severity Reaction Status Date / Time carisoprodol Allergy Unknown Seizure Verified 09/22/21 02:08 Home Meds Home Medications Medication Instructions Recorded Confirmed amlodipine 5 mg tablet 5 mg PO DAILY 09/22/21 09/19/24 cyclobenzaprine 10 mg tablet 10 mg PO TID 09/22/21 09/19/24 lisinopril 5 mg tablet 5 mg PO DAILY 09/22/21 09/19/24 [id number] 8 mg-folic 400 1 tab PO DAILY 09/22/21 09/19/24 mcg-K 50 mcg-lutein 300 mcg tablet (Multivitamin Women 50 Plus) oxycodone-acetaminophen 5 mg-325 1 - 2 tab PO Q8 PRN Pain 09/22/21 09/19/24 mg tablet duloxetine 30 mg capsule,delayed 30 mg PO QAM 09/19/24 09/19/24 release duloxetine 60 mg capsule,delayed 60 mg PO QAM 09/19/24 09/19/24 release Results & Data (ED) Vital Signs Vital Signs - 24 hr 09/19/24 07:58 09/19/24 08:30 09/19/24 08:30 Temperature 36.1 C L Temperature Source Temporal Artery Scan Pulse Rate 130 H Pulse Rate [Apical] 110 H Respiratory Rate 30 H 23 Blood Pressure 108/69 Blood Pressure [Left Arm] 102/76 Blood Pressure Mean 82 Blood Pressure Mean [Left Arm] 84 Pulse Oximetry 88 L 93 94 Oxygen Delivery Method Room Air Nasal Cannula Nasal Cannula Oxygen Flow Rate 6 6 Sepsis New/Unexplained Change in Mental Status No Sepsis Action Taken by Nursing Physician Notified 09/19/24 08:30 09/19/24 08:37 09/19/24 08:42 Temperature Temperature Source Pulse Rate 110 H 108 H Pulse Rate [Apical] 108 H Respiratory Rate 23 23 Blood Pressure Blood Pressure [Left Arm] 98/76 L Blood Pressure Mean Blood Pressure Mean [Left Arm] 83 Pulse Oximetry 94 95 Oxygen Delivery Method Nasal Cannula Oxygen Flow Rate 6 6 Sepsis New/Unexplained Change in Mental Status Sepsis Action Taken by Nursing 09/19/24 08:54 09/19/24 09:34 09/19/24 09:47 Temperature Temperature Source Pulse Rate Pulse Rate [Apical] 105 H 96 H 98 H Respiratory Rate 25 H 29 H 18 Blood Pressure Blood Pressure [Left Arm] 107/71 115/75 114/70 Blood Pressure Mean Blood Pressure Mean [Left Arm] 83 88 84 Pulse Oximetry 97 94 97 Oxygen Delivery Method Nebulizer Nasal Cannula Nasal Cannula Oxygen Flow Rate 15 3 6 Sepsis New/Unexplained Change in Mental Status Sepsis Action Taken by Nursing 09/19/24 10:27 09/19/24 10:31 09/19/24 10:45 Temperature Temperature Source Pulse Rate Pulse Rate [Apical] 94 H 93 H 110 H Respiratory Rate 22 15 21 Blood Pressure Blood Pressure [Left Arm] 131/83 94/64 L 120/81 Blood Pressure Mean Blood Pressure Mean [Left Arm] 99 74 94 Pulse Oximetry 93 96 95 Oxygen Delivery Method Nasal Cannula Nasal Cannula Nasal Cannula Oxygen Flow Rate 6 6 6 Sepsis New/Unexplained Change in Mental Status Sepsis Action Taken by Prison Medications Current Medication List: was personally reviewed by me Laboratory Data Attestation: I reviewed the patient's lab results. 09/19/24 08:34 09/19/24 08:34 Lab Results 09/19/24 09/19/24 09/19/24 Range/Units 08:34 08:57 10:27 WBC 28.24 H (4.8-10.8) K/ul RBC 3.82 L (4.20-5.40) M/uL Hgb 13.5 (12.0-16.0) g/dl Hct 38.1 (37.0-47.0) % MCV 99.7 (80.0-100.0) fL MCH 35.3 H (25.0-34.0) pg MCHC 35.4 (32.0-36.0) g/dL RDW Std Deviation 46.5 H (36.4-46.3) fL RDW Coeff of Kelly 13.9 (11.5-14.5) % Plt Count 626 H (130-400) K/uL MPV 9.2 L (9.4-12.4) fL Immature Gran % (Auto) 0.8 % Neut % (Auto) 80.9 % Lymph % (Auto) 9.1 % [place] % (Auto) 8.9 % Eos % (Auto) 0.1 % Baso % (Auto) 0.2 % Neut # (Auto) 22.83 H (1.40-6.50) K/uL Lymph # (Auto) 2.57 (1.20-3.40) K/uL [place] # (Auto) 2.52 H (0.11-0.59) K/uL Eos # (Auto) 0.02 (0.00-0.50) K/uL Baso # (Auto) 0.07 (0.00-0.20) K/uL Immature Gran # (Auto) 0.23 H (0.01-0.20) K/uL Stomatocytes 1+ Rouleaux 1+ PT 9.8 (9.0-12.0) Seconds INR 0.9 (0.9-1.1) APTT 25 (21-31) Seconds PTT Ratio 0.9 VBG pH 7.48 H (7.36-7.41) VBG pCO2 38 (38-50) mmHg VBG pO2 75 mmHg VBG HCO3 28 mmol/L VBG O2 Saturation 97.7 % VBG Base Excess 4.6 mEq/L Sodium 135 L (136-145) mmol/L Potassium 3.8 (3.5-5.1) mmol/L Chloride 100 (98-107) mmol/L Carbon Dioxide 27 (21-32) mmol/L Anion Gap 8 (3-11) BUN 14 (6-23) mg/dl Creatinine 0.69 (0.6-1.2) mg/dl Est Cr Clr Drug Dosing 95.5 ml/min eGFR 98.68 BUN/Creatinine Ratio 20.3 H (10-20) Glucose 119 H (70-99(Fasting)) mg/dl Lactate 1.4 (0.4-2.0) mmol/L Calcium 9.2 (8.6-10.3) mg/dl Magnesium 1.8 (1.7-2.4) mg/dl Total Bilirubin 0.5 (0.2-1.0) mg/dl Direct Bilirubin 0.1 (0-0.2) mg/dl AST 9 L (13-39) U/L ALT 10 (7-52) U/L Alkaline Phosphatase 107 H (34-104) U/L Troponin I High Sens 11.4 (0-14) pg/ml Total Protein 7.2 (6.0-8.3) gm/dl Albumin 3.8 (3.4-5.0) gm/dl Procalcitonin < 0.02 (0-0.5) ng/ml Urine Color Yellow Urine Appearance Clear (Clear) Urine pH 6.5 (4.5-7.5) Ur Specific [place] 1.005 (1.000-1.030) Urine Protein Negative (Negative) Urine Glucose (UA) Negative (Negative) Urine Ketones Negative (Negative) Urine Blood Negative (Negative) Urine Nitrite Negative (Negative) Urine Bilirubin Negative (Negative) Urine Urobilinogen Negative (Negative) Ur Leukocyte Esterase Negative (Negative) Adenovirus (PCR) Not Detected (NotDetected) B. pertussis DNA (PCR) Not Detected (NotDetected) B.parapertussis DNA PCR Not Detected (NotDetected) C. pneumoniae DNA (PCR) Not Detected (NotDetected) Coronavirus OC43 (PCR) Not Detected (NotDetected) Coronavirus HKU1 (PCR) Not Detected (NotDetected) Coronavirus 229E (PCR) Not Detected (NotDetected) SARS-CoV-2 (PCR) Not Detected (NotDetected) Coronavirus NL63 (PCR) Not Detected (NotDetected) Human Metapneumovir PCR Not Detected (NotDetected) Influenza Type A (PCR) Not Detected (NotDetected) Influenza Type B (PCR) Not Detected (NotDetected) M. pneumoniae (PCR) Not Detected (NotDetected) Parainfluenza 1 (PCR) Not Detected (NotDetected) Parainfluenza 2 (PCR) Not Detected (NotDetected) Parainfluenza 3 (PCR) Not Detected (NotDetected) Parainfluenza 4 (PCR) Not Detected (NotDetected) RSV (PCR) Not Detected (NotDetected) Entero/Rhino (PCR) Not Detected (NotDetected) Administered Medications Discontinued Medications Albuterol (Albut/Ipratrop 3mg/0.5mg Neb 3 Ml Vial) 3 ml NEB NOW STA; Protocol Stop: 09/19/24 08:12 Last Admin: 09/19/24 08:47 Dose: 3 ml Documented By: ANDRY Azithromycin (Azithromycin 250 Mg Tab) 500 mg PO NOW ONE Stop: 09/19/24 08:37 Last Admin: 09/19/24 08:47 Dose: 500 mg Documented By: ANDRY Dexamethasone Sodium Phosphate (DexamethasonePf 10 Mg/Ml Vial) 10 mg IV NOW ONE Stop: 09/19/24 08:12 Last Admin: 09/19/24 08:47 Dose: 10 mg Documented By: ANDRY Sodium Chloride (Nss) 1,000 mls @ 999 mls/hr IV .Q1H1M SOPHIA Stop: 09/19/24 10:45 Last Admin: 09/19/24 10:37 Dose: 999 mls/hr Documented By: Infusion: 09/19/24 10:31 Dose: Infused Documented By: Admin: 09/19/24 09:30 Dose: 999 mls/hr Documented By: ANDRY Ceftriaxone Sodium (Rocephin) 2,000 mg in 50 mls @ 100 mls/hr IV NOW STA Stop: 09/19/24 09:05 Last Infusion: 09/19/24 09:24 Dose: Infused Documented By: Admin: 09/19/24 08:47 Dose: 100 mls/hr Documented By: ANDRY Sodium Chloride (Nss) 500 mls @ 999 mls/hr IV .Q31M ONE Stop: 09/19/24 09:50 Last Infusion: 09/19/24 10:09 Dose: Infused Documented By: Admin: 09/19/24 09:34 Dose: 999 mls/hr Documented By: ANDRY Oxycodone HCl (Oxycodone Hcl Ir 5 Mg Tab (Immediate Release)) 5 mg PO NOW STA Stop: 09/19/24 09:52 Last Admin: 09/19/24 10:36 Dose: 5 mg Documented By: ANDRY Imaging Data Attestation: I personally reviewed and interpreted this imaging study as follows: My Impression: 1 view chest x-ray was obtained in the emergency department. My interpretation of the left lower lobe infiltrate, final report below. Radiologist's Impression: Chest X-Ray 09/19/24 08:06 XR chest 1V portable HISTORY: 59 years-old Female Sepsis COMPARISON: 04/26/2018 TECHNIQUE: AP view the chest FINDINGS: Cardiac silhouette is upper limits of normal in size. Mild chronic interstitial coarsening. Ill-defined left greater than right patchy bibasilar opacities. No pneumothorax or large pleural effusion. Bones appear grossly intact. IMPRESSION: Mild patchy left greater than right bibasilar opacities are suspicious for pneumonia. ACT 112: Negative or not required by law. The above report was generated using voice recognition software. It may contain grammatical, syntax or spelling errors. Electronically signed by: Parag Vallecillo M.D. 09/19/2024 8:[address] 09/19/24 10:03 CT OF THE CHEST WITHOUT IV CONTRAST CLINICAL HISTORY: Acute hypoxic respiratory failure. COMPARISON STUDY: Chest radiographs April 26, 2018 and September 19, 2024. CT DOSE: 660.02 mGy.cm TECHNIQUE: Axial images of the chest were obtained without IV contrast. Images were reviewed in the axial, sagittal, and coronal planes. IV contrast was not administered for this examination. Automated exposure control was utilized for the study. A dose lowering technique was utilized adhering to the principles of ALARA. FINDINGS: Several prominent mediastinal lymph nodes are present. AP window lymph node on image 96 of 257 measures 1.1 x 1 cm. Mildly enlarged left hilar lymph node measures approximately 1.6 x 1 cm. The size of the heart is normal. There is no pericardial effusion. No pneumothorax or pleural effusion is present. Lingular and left lower lobe consolidation is present. In addition, there are innumerable small associated tree-in-bud nodules within the lower lobes and lingula. There is mild right middle lobe opacity. Bronchial wall thickening is present. No central obstructing mass is present. There is no cavitation. No pneumothorax or pleural effusion is present. Visualized portions of the upper abdomen are unremarkable. IMPRESSION: 1. Multifocal airspace opacities, including lingular and left lower lobe foci of consolidation and bilateral lower lobe and lingular tree-in-bud nodules with bronchial wall thickening. The findings favor multifocal pneumonia. A chest CT in 2 months to ensure resolution is recommended. 2. Mildly enlarged left hilar and mediastinal lymph nodes. These are likely reactive but should be assessed on follow-up CT to ensure resolution. 3. No pleural effusions. ACT 112: Negative or not required by law. Electronically signed by: Hussain Mccain M.D. 09/19/2024 11:02 AM Discharge Plan Visit Data Chief Complaint: Shortness of Breath/Dyspnea Stated Complaint: BRONCHITIS, SOB, COUGH ED Provider: Luis Patel Discharge Problem: Bilateral pneumonia, Hypoxia Patient Disposition: Being Evaluated by Hospitalist Forms Stand Alone Forms: My [facility] Prescriptions Prescriptions: No Action lisinopril 5 mg tablet 5 mg PO DAILY cyclobenzaprine 10 mg tablet 10 mg PO TID Rx Instructions: 0600, 1200, 1800 Multivitamin Women 50 Plus 8 mg iron-400 mcg-300 mcg Tablet 1 tab PO DAILY amlodipine 5 mg tablet 5 mg PO DAILY oxycodone-acetaminophen 5-325 mg tablet 1 - 2 tab PO Q8 MDD 5 tabs PRN (Reason: Pain) Rx Instructions: may take extra tablet (6) 3 days per week when she has physical therapy duloxetine 30 mg capsule,delayed release(DR/EC) 30 mg PO QAM Rx Instructions: take with 60 mg to equal 90 mg dose duloxetine 60 mg capsule,delayed release(DR/EC) 60 mg PO QAM Rx Instructions: take with 30 mg to equal 90 mg dose Referrals Referrals: Wagner Thompson MD [Primary Care Provider] - Discharge Problem: Bilateral pneumonia Qualifiers: Pneumonia type: due to unspecified organism Lung location: unspecified part of lung Qualified Code(s): J18.9 - Pneumonia, unspecified organism
--- NOTE | 2024-09-19 08:40 | XRay Report ---
XR chest 1V portable HISTORY: 59 years-old Female Sepsis COMPARISON: 04/26/2018 TECHNIQUE: AP view the chest FINDINGS: Cardiac silhouette is upper limits of normal in size. Mild chronic interstitial coarsening. Ill-defin ed left greater than right patchy bibasilar opacities. No pneumothorax or large pleural effusion. Bon es appear grossly intact. IMPRESSION: Mild patchy left greater than right bibasilar opacities are suspicious for pneumonia. ACT 112: Negative or not required by law. The above report was generated using voice recognition software. It may contain grammatical, syntax o r spelling errors. Electronically signed by: Parag Vallecillo M.D. 09/19/2024 8:39 AM
[2024-09-19] MEDS: dexAMETHasone**PF** 10 MG/ML VIAL IV ONE (08:47)
[2024-09-19] MEDS: AZITHROMYCIN 250 MG TAB PO ONE (08:47)
[2024-09-19] MEDS: cefTRIAXone SODIUM 2,000 MG/50 ML BAG IV STA (08:47)
[2024-09-19] MEDS: ALBUT/IPRATROP 3MG/0.5MG NEB 3 ML VIAL NEB STA (08:47)
[2024-09-19 08:49] LABS: Base Excess VBG 4.6 mEq/L; HCO3 VBG 28 mmol/L; Oxygen Saturation VBG 97.7 %; PCO2 VBG 38 mmHg (38-50); PO2 VBG 75 mmHg; pH VBG 7.48 (7.36-7.41)
[2024-09-19 09:12] LABS: Albumin Level 3.8 gm/dl (3.4-5.0); BUN Creatinine Ratio 20.3 (10-20); Bilirubin Direct 0.1 mg/dl (0-0.2); Bilirubin,Total 0.5 mg/dl (0.2-1.0); Calcium 9.2 mg/dl (8.6-10.3); Creatinine Clr Calc Pharmacy 95.5 ml/min; Magnesium 1.8 mg/dl (1.7-2.4); Potassium 3.8 mmol/L (3.5-5.1); Total Protein 7.2 gm/dl (6.0-8.3)
[2024-09-19 09:18] LABS: Troponin I High Sensitivity 11.4 pg/ml (0-14)
[2024-09-19 09:23] LABS: INR 0.9 (0.9-1.1); Partial Thromboplastin Ratio 0.9; Partial Thromboplastin Time 25 Seconds (21-31); Prothrombin Time 9.8 Seconds (9.0-12.0)
[2024-09-19] MEDS: SODIUM CHLORIDE 0.9% 1,000 ML IV SCH (09:30)
[2024-09-19] MEDS: SODIUM CHLORIDE 0.9% 500 ML IV ONE (09:34)
[2024-09-19 09:37] LABS: Hematocrit (blood only) 38.1 % (37.0-47.0); Hemoglobin 13.5 g/dl (12.0-16.0); Mean Corpuscular Hemoglobin 35.3 pg (25.0-34.0); Mean Corpuscular Hgb Conc 35.4 g/dL (32.0-36.0); Mean Corpuscular Volume 99.7 fL (80.0-100.0); Mean Platelet Volume 9.2 fL (9.4-12.4); Platelet Count 626 K/uL (130-400); RDW Coefficient of Variation 13.9 % (11.5-14.5); RDW Standard Deviation 46.5 fL (36.4-46.3); Red Blood Count 3.82 M/uL (4.20-5.40); White Blood Count 28.24 K/ul (4.8-10.8)
[2024-09-19 09:38] LABS: Basophils # (auto) 0.07 K/uL (0.00-0.20); Basophils % (auto) 0.2 %; Eosinophils # (auto) 0.02 K/uL (0.00-0.50); Eosinophils % (auto) 0.1 %; Immature Granulocytes # (auto) 0.23 K/uL (0.01-0.20); Immature Granulocytes % (auto) 0.8 %; Lymphocytes # (auto) 2.57 K/uL (1.20-3.40); Lymphocytes % (auto) 9.1 %; Monocytes # (auto) 2.52 K/uL (0.11-0.59); Monocytes % (auto) 8.9 %; Neutrophils # (auto) 22.83 K/uL (1.40-6.50); Neutrophils % (auto) 80.9 %; Rouleaux 1+; Stomatocytes 1+
[2024-09-19 10:02] LABS: Adenovirus PCR Not Detected (NotDetected); Bordetella parapertussis PCR Not Detected (NotDetected); Bordetella pertussis PCR Not Detected (NotDetected); Chlamydia pneumoniae PCR Not Detected (NotDetected); Coronavirus 229E PCR Not Detected (NotDetected); Coronavirus CoV-2 (COVID19)PCR Not Detected (NotDetected); Coronavirus HKU1 PCR Not Detected (NotDetected); Coronavirus NL63 PCR Not Detected (NotDetected); Coronavirus OC43PCR Not Detected (NotDetected); Human Metapneumovirus PCR Not Detected (NotDetected); Influenza A PCR Not Detected (NotDetected); Influenza B PCR Not Detected (NotDetected); Mycoplasma pneumoniae PCR Not Detected (NotDetected); Parainfluenza Virus 1 PCR Not Detected (NotDetected); Parainfluenza Virus 2 PCR Not Detected (NotDetected); Parainfluenza Virus 3 PCR Not Detected (NotDetected); Parainfluenza Virus 4 PCR Not Detected (NotDetected); Respiratory Syncytial VirusPCR Not Detected (NotDetected); Rhinovirus/Enterovirus PCR Not Detected (NotDetected)
--- NOTE | 2024-09-19 10:10 | History & Physical Report ---
Date of Service September 19, 2024 Assessment & Plan (1) Acute hypoxic respiratory failure: (2) Bilateral pneumonia: (3) Acute bronchitis: (4) Tobacco abuse: Plan This is a 59-year-old female who has significant past medical history of hypertension, abdominal aortic ectasia, history of renal cell carcinoma status post right nephrectomy in 2014, history of ovarian cancer status post radiation in 1987, chronic pain in setting of multiple chronic injuries on long-term opiates and tobacco abuse who presents to ED secondary to respiratory symptoms x 2 weeks. Pt meets Sepsis criteria 2/2 leukocytosis, tachycardia and evidence of PNA on CXR. Leukocytosis likely exac due to taking oral prednisone. HR elevated likely in setting of respiratory failure Acute hypoxic respiratory failure Possible Sepsis Bilateral pneumonia Acute bronchitis Tobacco abuse admit to PCU continue O2 supplementation, freq respiratory monitoring pulmonary toilet with scheduled nebs, ISP, flutter valve sputum culture, blood culture, urine for legionella IV ceftriaxone 2g daily and Azithromycin 500mg daily x 3 days IV Solumedrol 40mg daily given multifocal PNA encourage smoking cessation Chest CT ordered: . Multifocal airspace opacities, including lingular and left lower lobe foci of consolidation and bilateral lower lobe and lingular tree-in-bud nodules with bronchial wall thickening. The findings favor multifocal pneumonia. A chest CT in 2 months to ensure resolution is recommended. 2. Mildly enlarged left hilar and mediastinal lymph nodes. These are likely reactive but should be assessed on follow-up CT to ensure resolution. ? underlying COPD given life long smoker - recommend pft as outpt when recovered HTN: chronic, stable, hold amlodipine/lisinopril for now as BP adequate, resume as soon as able Thrombocytosis: repeat in a.m., likely reactive, if remains significantly elevated may need heme referral at d/c Chronic pain 2/2 multiple injuries: continue pain regimen, duloxetine, flexeril Hx of RCC s/p R nephrectomy in 2014, hx of Ovarian ca in 1987 s/p XRT DVT ppx: SQ Lovenox FULL CODE PCP: Jay Dispo: admit to PCU Pt was seen and examined in collaboration with Dr. lLoyd, please see addendum I spent a total of 76 minutes reviewing notes, outpatient records, labs, medication, coordinating, documenting and providing care for this patient excluding time spent in the performance of separately billed services. History of Present Illness Chief Complaint: Respiratory sx x 2 weeks. Primary Care Provider: Wagner Thompson MD This is a 59-year-old female who has significant past medical history of hypertension, abdominal aortic ectasia, history of renal cell carcinoma status post right nephrectomy in 2014, history of ovarian cancer status post radiation in 1987, chronic pain in setting of multiple chronic injuries on long-term opiates and tobacco abuse who presents to ED secondary to respiratory symptoms x 2 weeks. Approximately 2 weeks ago she started with a scratchy throat and postnasal drip. They progressed into feeling feverish, chills and then a cough. Her cough has been persistent resulting in wheezing, productive purulent sputum and shortness of breath with chest heaviness while coughing. On 09/10 she went to see her primary care provider who prescribed her oral cefdinir as well as prednisone taper. She has been taking this as prescribed which is to finish in 2 days. Her symptoms have been progressively worsening without any improvement. She denies ever having anything like this in the past. She reports having a bronchitis as a child. She denies being diagnosed with any history of asthma or COPD. She is a lifelong smoker. She reports staying in a hotel 1 month ago, but other than that no recent travel. She denies sick contacts. Allergies Allergy/AdvReac Type Severity Reaction Status Date / Time carisoprodol Allergy Unknown Seizure Verified 09/22/21 02:08 Home Medications Medication Instructions Recorded Confirmed Type amlodipine 5 mg tablet 5 mg PO DAILY 09/22/21 09/19/24 History cyclobenzaprine 10 mg tablet 10 mg PO TID 09/22/21 09/19/24 History lisinopril 5 mg tablet 5 mg PO DAILY 09/22/21 09/19/24 History yhdazpme-qwnl-pdnc 8 mg-folic 400 1 tab PO DAILY 09/22/21 09/19/24 History mcg-K 50 mcg-lutein 300 mcg tablet (Multivitamin Women 50 Plus) oxycodone-acetaminophen 5 mg-325 1 - 2 tab PO Q8 PRN Pain 09/22/21 09/19/24 History mg tablet duloxetine 30 mg capsule,delayed 30 mg PO QAM 09/19/24 09/19/24 History release duloxetine 60 mg capsule,delayed 60 mg PO QAM 09/19/24 09/19/24 History release Past Med/Surg History Problem List (Updated 09/19/24 @ 11:23 by Luis Patel DO) Hypoxia (Acute) Bilateral pneumonia (Acute) Tobacco abuse Acute bronchitis Bilateral pneumonia Acute hypoxic respiratory failure Status post arthroscopic knee surgery (Chronic) Status post lumbar laminectomy (Chronic) Lumbar disc disease with radiculopathy (Chronic) Renal cell carcinoma of right kidney (Chronic) History of renal cell carcinoma (Chronic) "status post partial nephrectomy 2015" Altered mental status (Acute) Medical History Hydronephrosis with obstructing calculus Right ureteral calculus Nephrolithiasis Social History Smoking Status: Current some day smoker Cigarettes Per Day: 5; Hx Alcohol Use: Yes Alcohol type: beer and hard liquor Hx Substance Use: No Preferred Language: Pashto Order Processing Specialist Required: No Beliefs That Will Affect Care: None Current Living Situation: Spouse Feels Safe at Home: Yes Assistive Devices: None Review of Systems Review of Systems: All systems reviewed & are unremarkable except as noted in HPI & below Physical Exam Physical Exam: Constitutional: WD/WN, vitals as above, NAD, sitting up in bed, pleasant, conversing easily Head: Normocephalic, Atraumatic Eyes: PERRL, conjunctivae normal, anicteric sclerae ENMT: external ear and nose normal, oropharynx normal Neck: trachea midline, no thyromegaly normal visual inspection Respiratory: normal respiratory effort on 6L O2 via NC, b/l exp wheeze with b/l rhonchi throughout. no accessory muscle use Cardiovascular: Tachycardic rate, RR, no murmur, no edema Vessels: no JVD or carotid bruit Chest: normal inspection of chest Abdomen: normal bowel sounds, soft, nontender, no hepatosplenomegaly Musculoskeletal: no cyanosis or clubbing, extremities motor strength 5/5 Skin: no rashes, warm and dry normal turgor Neurologic: PERRL, EOMI, accommodation nl, no face palsy, no dysarthria CN's II-XI intact bilaterally and moves all extremities Psychiatric: A+Ox3, euthymic affect Lymphatic: no cervical or axillary lymphadenopathy : deferred Results & Data Results & Data Vital Signs (Past 12 Hours) Vital Signs Temp Pulse Pulse Resp BP BP Pulse Ox 09/19/24 09:47 98 H 18 114/70 97 09/19/24 09:34 96 H 29 H 115/75 94 09/19/24 08:54 105 H 25 H 107/71 97 09/19/24 08:42 108 H 09/19/24 08:37 108 H 23 98/76 L 95 09/19/24 08:30 110 H 23 94 09/19/24 08:30 110 H 23 102/76 94 09/19/24 08:30 93 09/19/24 07:58 36.1 C L 130 H 30 H 108/69 88 L O2 Del Method O2 Flow Rate 09/19/24 09:47 Nasal Cannula 6 09/19/24 09:34 Nasal Cannula 3 09/19/24 08:54 Nebulizer 15 09/19/24 08:42 09/19/24 08:37 Nasal Cannula 6 09/19/24 08:30 6 09/19/24 08:30 Nasal Cannula 6 09/19/24 08:30 Nasal Cannula 6 09/19/24 07:58 Room Air Laboratory Results I have independently reviewed and interpreted patient's admitting labs including CBC, CMP, vbg, lactate, procal, biofire Diagnostic Findings Chest X-Ray 09/19/24 08:06 XR chest 1V portable HISTORY: 59 years-old Female Sepsis COMPARISON: 04/26/2018 TECHNIQUE: AP view the chest FINDINGS: Cardiac silhouette is upper limits of normal in size. Mild chronic interstitial coarsening. Ill-defined left greater than right patchy bibasilar opacities. No pneumothorax or large pleural effusion. Bones appear grossly intact. IMPRESSION: Mild patchy left greater than right bibasilar opacities are suspicious for pneumonia. ACT 112: Negative or not required by law. The above report was generated using voice recognition software. It may contain grammatical, syntax or spelling errors. Electronically signed by: Parag Vallecillo M.D. 09/19/2024 8:39 AM Medications Administered Medication List Sodium Chloride (Nss) 1,000 mls @ 999 mls/hr IV .Q1H1M SOPHIA Stop: 09/19/24 10:45 Last Admin: 09/19/24 09:30 Dose: 999 mls/hr Documented By: ANDRY Discontinued Medications Albuterol (Albut/Ipratrop 3mg/0.5mg Neb 3 Ml Vial) 3 ml NEB NOW STA; Protocol Stop: 09/19/24 08:12 Last Admin: 09/19/24 08:47 Dose: 3 ml Documented By: ANDRY Azithromycin (Azithromycin 250 Mg Tab) 500 mg PO NOW ONE Stop: 09/19/24 08:37 Last Admin: 09/19/24 08:47 Dose: 500 mg Documented By: ANDRY Dexamethasone Sodium Phosphate (DexamethasonePf 10 Mg/Ml Vial) 10 mg IV NOW ONE Stop: 09/19/24 08:12 Last Admin: 09/19/24 08:47 Dose: 10 mg Documented By: ANDRY Ceftriaxone Sodium (Rocephin) 2,000 mg in 50 mls @ 100 mls/hr IV NOW STA Stop: 09/19/24 09:05 Last Infusion: 09/19/24 09:24 Dose: Infused Documented By: Admin: 09/19/24 08:47 Dose: 100 mls/hr Documented By: ANDRY Sodium Chloride (Nss) 500 mls @ 999 mls/hr IV .Q31M ONE Stop: 09/19/24 09:50 Last Infusion: 09/19/24 10:09 Dose: Infused Documented By: Admin: 09/19/24 09:34 Dose: 999 mls/hr Documented By: ANDRY ECG Additional Comments: I have independently reviewed and interpreted patient's admitting EKG which revealed: 118 ST, no st or t wave changes COVID-19 Results Results COVID-19 Adm Lab Results: RBC 3.82 M/uL (4.20-5.40) L 09/19/24 WBC 28.24 K/ul (4.8-10.8) H 09/19/24 Hgb 13.5 g/dl (12.0-16.0) 09/19/24 Hct 38.1 % (37.0-47.0) 09/19/24 Plt Count 626 K/uL (130-400) H 09/19/24 Neutrophils (%) (Auto) 80.9 % 09/19/24 Lymphocytes (%) (Auto) 9.1 % 09/19/24 Monocytes # (Auto) 2.52 K/uL (0.11-0.59) H 09/19/24 Eosinophils # (Auto) 0.02 K/uL (0.00-0.50) 09/19/24 Immature Granulocyte % (Auto) 0.8 % 09/19/24 Neutrophils # (Auto) 22.83 K/uL (1.40-6.50) H 09/19/24 Lymphocytes # (Auto) 2.57 K/uL (1.20-3.40) 09/19/24 Monocytes # (Auto) 2.52 K/uL (0.11-0.59) H 09/19/24 Eosinophils # (Auto) 0.02 K/uL (0.00-0.50) 09/19/24 Basophils # (Auto) 0.07 K/uL (0.00-0.20) 09/19/24 Immature Granulocyte # (Auto) 0.23 K/uL (0.01-0.20) H 09/19 Stomatocytes 1+ 09/19/24 Rouleau 1+ 09/19/24 Na 135 mmol/L (136-145) L 09/19/24 K 3.8 mmol/L (3.5-5.1) 09/19/24 Cl 100 mmol/L (98-107) 09/19/24 CO2 27 mmol/L (21-32) 09/19/24 Anion Gap 8 (3-11) 09/19/24 BUN 14 mg/dl (6-23) 09/19/24 Creatinine 0.69 mg/dl (0.6-1.2) 09/19/24 BUN/Creatinine Ratio 20.3 (10-20) H 09/19/24 Glucose Level 119 mg/dl (70-99(Fasting)) H 09/19/24 Ca 9.2 mg/dl (8.6-10.3) 09/19/24 Total Bilirubin 0.5 mg/dl (0.2-1.0) 09/19/24 Direct Bilirubin 0.1 mg/dl (0-0.2) 09/19/24 AST/SGOT 9 U/L (13-39) L 09/19/24 ALT/SGPT 10 U/L (7-52) 09/19/24 Alkaline Phosphatase 107 U/L (34-104) H 09/19/24 Total Protein 7.2 gm/dl (6.0-8.3) 09/19/24 Albumin 3.8 gm/dl (3.4-5.0) 09/19/24 Procalcitonin < 0.02 ng/ml (0-0.5) 09/19/24 PTT 25 Seconds (21-31) 09/19/24 INR 0.9 (0.9-1.1) 09/19/24 Adenovirus (PCR) Not Detected (NotDetected) 09/19/24 B. parapertussis DNA (PCR) Not Detected (NotDetected) 05/07 B. pertussis DNA (PCR) Not Detected (NotDetected) 09/19/24 C. pneumoniae DNA (PCR) Not Detected (NotDetected) 4 Coronavirus Type OC43 (PCR) Not Detected (NotDetected) 05/07 Coronavirus Type HKU1 (PCR) Not Detected (NotDetected) 05/07 Coronavirus Type 229E (PCR) Not Detected (NotDetected) 05/07 COVID-19 PCR Not Detected (NotDetected) 09/19/24 Coronavirus Type NL63 (PCR) Not Detected (NotDetected) 05/07 Human Metapneumovirus (PCR) Not Detected (NotDetected) 05/07 Influenza Virus Type A (PCR) Not Detected (NotDetected) Influenza Virus Type B (PCR) Not Detected (NotDetected) M. pneumoniae (PCR) Not Detected (NotDetected) 09/19/24 Parainfluenza Type 1 (PCR) Not Detected (NotDetected) 05/07 Parainfluenza Type 2 (PCR) Not Detected (NotDetected) 05/07 Parainfluenza Type 3 (PCR) Not Detected (NotDetected) 05/07 Parainfluenza Type 4 (PCR) Not Detected (NotDetected) 05/07 RSV (PCR) Not Detected (NotDetected) 09/19/24 Enterovirus/Rhinovirus (PCR) Not Detected (NotDetected) Chest CT 09/19/24 Chest X-Ray 09/19/24 Code Status & VTE Plan Code Status FULL CODE VTE Prophylaxis Plan VTE Prophylaxis will be ordered: Yes Supervising Physician Co-Signing Physician Notes Patient is a 59-year-old female with history of hypertension, renal cell carcinoma, ovarian cancer, tobacco use disorder and other medical problems presents with worsening shortness of breath associated with cough and expectoration, chest discomfort with cough and postnasal drip since 2 weeks duration. Also reports intermittent fever and currently on cefdinir, prednisone taper course prescribed by PCP. While in ED patient was found to be hypoxic in 80s and requiring 4 to 5 L supplemental oxygen to maintain saturations. Please review HPI for complete details of presentation. I personally reviewed blood work, imaging studies and EKG. Chest CT suggestive of multifocal pneumonia, enlarged hilar, mediastinal lymph nodes. Normal lactate, procalcitonin levels. EKG showed findings suggestive of sinus tachycardia, nonspecific ST-T wave changes. Physical Exam: Vitals signs as noted above General Appearance:Moderately built and nourished, no apparent distress Head: normocephalic, Atraumatic Eyes: normal inspection, EOMI Neck: supple, Trachea midline Respiratory/Chest: Decreased breath sounds, scattered wheezes, crackles No accessory muscle use Cardiovascular: S1, S2, No murmur, tachycardia Abdomen/GI:Soft, Non tender, Bowel sounds present Extremities/Musculoskeletal:normal inspection, no edema Neurologic/Psych:AAOX3, grossly no focal neurological deficits Skin: normal color, warm Acute respiratory failure with hypoxia Sepsis secondary to multifocal pneumonia Ongoing tobacco use Clinically dehydrated BioFire negative Blood, sputum cultures pending Check MRSA screen Agree with IV antibiotics, nebs, Solu-Medrol Received IV fluids Hold antihypertensives as blood pressure relatively low Pulmonary hygiene with Mucinex, incentive spirometer, flutter Will recheck EKG tomorrow I personally interviewed and examined at bedside. Patient's care is coordinated with Radha Brandt PA-C. I have reviewed the advanced practitioner's documentation, and I agree with plan of care. Please refer to the documentation above for details of patient's presentation and for discussion of other issues. I spent a total of36 minutes coordinating, documenting, and providing care for this patient excluding time spent in the performance of separately billed services.
[2024-09-19 10:36] LABS: Appearance Urine Clear (Clear); Bilirubin Urine Negative (Negative); Blood Urine Negative (Negative); Color Urine Yellow; Glucose Urine UA Negative (Negative); Ketones Urine Negative (Negative); Leukocyte Esterase Urine Negative (Negative); Nitrite Urine Negative (Negative); Protein Urine Negative (Negative); Specific Gravity Urine 1.005 (1.000-1.030); Urobilinogen Urine Negative (Negative); pH Urine 6.5 (4.5-7.5)
[2024-09-19] MEDS: oxyCODONE HCL IR 5 MG TAB (IMMEDIATE RELEASE) PO STA (10:36)
--- NOTE | 2024-09-19 11:04 | CT Scan Report ---
CT OF THE CHEST WITHOUT IV CONTRAST CLINICAL HISTORY: Acute hypoxic respiratory failure. COMPARISON STUDY: Chest radiographs April 26, 2018 and September 19, 2024. CT DOSE: 660.02 mGy.cm TECHNIQUE: Axial images of the chest were obtained without IV contrast. Images were reviewed in the axial, sagittal, and coronal planes. IV contrast was not administered for this examination. Automat ed exposure control was utilized for the study. A dose lowering technique was utilized adhering to t he principles of ALARA. FINDINGS: Several prominent mediastinal lymph nodes are present. AP window lymph node on image 96 of 257 measures 1.1 x 1 cm. Mildly enlarged left hilar lymph node measures approximately 1.6 x 1 cm. Th e size of the heart is normal. There is no pericardial effusion. No pneumothorax or pleural effusion is present. Lingular and left lower lobe consolidation is present. In addition, there are innumerable small associated tree-in-bud nodules within the lower lobes and lingula. There is mild right middle lobe opacity. Bronchial wall thickening is present. No central obstructing mass is present. There is no cavitation. No pneumothorax or pleural effusion is present. Visualized portions of the upper abdom en are unremarkable. IMPRESSION: 1. Multifocal airspace opacities, including lingular and left lower lobe foci of consolidation and bi lateral lower lobe and lingular tree-in-bud nodules with bronchial wall thickening. The findings favo r multifocal pneumonia. A chest CT in 2 months to ensure resolution is recommended. 2. Mildly enlarged left hilar and mediastinal lymph nodes. These are likely reactive but should be as sessed on follow-up CT to ensure resolution. 3. No pleural effusions. ACT 112: Negative or not required by law. Electronically signed by: Hussain Mccain M.D. 09/19/2024 11:02 AM
[2024-09-19] MEDS ORDERED: FAMOTIDINE 20 MG TAB PO PRN (13:15)
[2024-09-19] MEDS ORDERED: ONDANSETRON INJ 2 MG/ML 2 ML VIAL IV PRN (13:15)
[2024-09-19] MEDS ORDERED: ACETAMINOPHEN 325 MG TAB PO PRN (13:15)
[2024-09-19] MEDS ORDERED: POLYETHYLENE (MIRALAX) 17 GM PACK PO PRN (13:15)
--- OUTSIDE RECORDS SUMMARY | 2024-09-19 13:17 | External Medical Summary | Summary of Care ---
Author Name Unknown Organization [facility] Address [address] [place] [address] Phone [phone] Care Team Providers Care Portfolio Manager Name Role Phone Jay KAMARA MD, Wagner Goldman Primary Care Provider [phone] Reason for Visit * Reason Comments Dosage Adjustment Via Phone (anticoag Cl inic) Encounter Details Date Type Department Care Team (Late st Contact Info) Description 09/12/2024 6:10 PM EDT Pharmacy Pharmacy, [facility] [address] [facility] [place] [place] [address] Pharmacist2, [facility] [address] [facility] [place] [address] Encounter for long-term (current) use of medications* Allergies Active Allergy Reactions Criticality Noted Date Comments Carisoprodol Seizure High 03/12/2019 documented as of this encounter (statuses as of 09/12/2024) Medications Medication Sig Dispensed Refills Start Date End Date Status Acetaminophen 325 MG Oral Tablet 2 tablets as needed for pain Active Multiple Vitamins-Minerals (MULTIVITAMIN WOMENS 50+ ADV) TABS Take by mouth daily. Active DULoxetine HCl 30 MG Oral Capsule Delayed Release Particles (Cymbalta)Indication s:Lumbar degenerative disc disease Take 1 Capsule by mouth in the morning. Take in addition to 60mg dose for 90mg total.. 30 Capsule 11 01/11/2024 Active DULoxetine HCl 60 MG Oral Capsule Delayed Release Particles (Cymbalta)Indication s:Lumbar degenerative disc disease Take 1 Capsule by mouth in the morning. Take in addition to 30mg dose for 90mg total.. 30 Capsule 11 02/08/2024 Active Lisinopril 5 MG Oral Tablet (Prinivil) TAKE 1 TABLET BY MOUTH EVERY DAY IN THE MORNING 90 Tablet 3 04/03/2024 Active amLODIPine Besylate 5 MG Oral Tablet (Norvasc) TAKE 1 TABLET BY MOUTH EVERY DAY IN THE MORNING 90 Tablet 1 04/13/2024 Active Cyclobenzaprine HCl 10 MG Oral Tablet (Flexeril)Indication s:Lumbar degenerative disc disease,Sacroiliitis , not elsewhere classified (HCC) TAKE 1 TABLET BY MOUTH IN THE MORNING AT AT NOON AND BEFORE BEDTIME 30 Tablet 1 08/28/2024 Active oxyCODONE-Acetaminop hen 5-325 MG Oral Tablet (Endocet)Indications :Lumbar degenerative disc disease,Lumbar radiculopathy Take 1-2 Tablets by mouth every 8 hours as needed for Pain, Moderate or Pain, Severe. max 5 per day- may take extra tablet (6) 3 days per week when she has physical therapy - earliest fill 08/30/24 81 Tablet 08/28/2024 Active Cefdinir 300 MG Oral Capsule (Omnicef)Indications :Acute bronchitis, unspecified organism Take 1 Capsule by mouth in the morning and 1 Capsule before bedtime. Do all this for 10 days. 20 Capsule 09/10/2024 09/20/2024 Active predniSONE 10 MG Oral Tablet (Deltasone)Indicatio ns:Acute bronchitis, unspecified organism 4tab x 3d, 3tab x 3d, 2tab x 3d, 1tab x 3d 30 Tablet 09/10/2024 Active Benzonatate 200 MG Oral CapsuleIndications:A cute bronchitis, unspecified organism Take 1 Capsule by mouth 3 times a day as needed for Cough. 30 Capsule 1 09/10/2024 Active Ventolin HFA 108 (90 Base) MCG/ACT Inhalation Aerosol SolutionIndications: Acute bronchitis, unspecified organism Inhale 2 Puffs by mouth every 4 hours as needed for Wheezing. 18 g 09/10/2024 Active documented as of this encounter (statuses as of 09/12/2024) Active Problems Problem Noted Date Diagnosed Date Abdominal aortic ectasia 03/16/2023 Atherosclerosis of aorta 03/16/2023 HTN, goal below 130/80 11/16/2021 History of kidney stones 09/14/2021 Sacroiliitis, not elsewhere classified 0 H/O laminectomy 06/23/2018 Lumbar degenerative disc disease 06/23/2018 Controlled substance agreement signed 09/06/2017 History of renal carcinoma 09/06/2017 documented as of this encounter (statuses as of 09/12/2024) Resolved Problems Problem Noted Date Diagnosed Date Resolved Date Nephrolithiasis 09/29/2021 10/12/2023 Cancer of right kidney 03/12/201902/04 Low back pain radiating to left leg 09/06/2017 11/16/2021 Renal cell cancer 09/03/2015 09/06/2017 Renal mass 02/11/2015 09/06/2017 documented as of this encounter (statuses as of 09/12/2024) Immunizations Name Administration Dates Next Due COVID-19 mRNA, LNP-s, No Pre serve, 2-Dose Series (ExceleraRx) 02/12/2021,01/22/2021 COVID-19, mRNA, LNP-s, PF, B ooster, 100mcg/0.5mg (Moderna) 11/02/2021 Covid-19, Mrna, Lnp-s, Pf, B ivalent, 50 Mcg, IM, 12 yrs and above (Moderna) 08/08/2022 Pneumococcal Conjugate Vaccine, 20-valent (Prevn ar20) 12/14/2022 Seasonal Influenza, PF, 6 M & above, IM , (FluLaval or Fluzone) 09/12/2022 Seasonal Influenza, QUAD, wi th Preserv, 6 mons & Above, 0.5 mL, IM 08/23/2021 Seasonal Influenza, Quadrivalent, No Preserve, I M 08/14/2020 TD, Preservative Free 09/06/2017 Zoster Vaccine Recombinant (Shingrix) 12/19/2021 ,03/28/2021 documented as of this encounter Social History Tobacco Use Types Packs/Day Years Used Date Smoking Tobacco: Every Day Cigarettes 0.3 26 Smokeless Tobacco: Never Alcohol Use Standard Drinks/Week Comments Yes 0 (1 standard drink = 0.6 oz pur e alcohol) once a week PHQ-2 Answer Date Recorded PHQ Adult Total Score 1 02/04/2021 Hunger Vital Sign Answer Date Recorded Within the past 12 months, y ou worried that your food would run out before you got the money to buy more. Never true 06/06/20 23 Within the past 12 months, t he food you bought just didn't last and you didn't have money to get more. Never true 06/06/2023 Childcare Answer Date Recorded Do you feel overwhelmed with taking care of a child, family member or friend? No 06/06/2023 Does your family need help f inding childcare? (Household - for ages 0-17 years) Not on file 06/06/2023 Clothing Answer Date Recorded Have you been unable to get clothing when it was really needed? No 06/06/2023 Is your family able to get c lothes or diapers when needed? (Household - for ages 0-17 years) Not on file 06/06/2023 Personal Safety Answer Date Recorded Do you feel unsafe or have concerns for your saf ety? No 06/06/2023 Do you have concerns for you r family's safety? (Household - for ages 0-17 years) Not on file 06/06/2023 Utilities Answer Date Recorded Do you have trouble paying y our heating, water, or electric bill? (Adult - for ages 18 years and over) Not on file 06/07/2024 Is your family able to pay t he heat, water, or electric bill? (Household - for ages 0-17 years) Not on file 06/07/2024 Does your family have access to good internet? (Household - for ages 0-17 years) Not on file 06/07/2024 Employment Status Answer Date Recorded Are you unemployed or without regular income? No 06/06/2023 Does the household have a re gular source of income? (Household - for ages 0-17 years) Not on file 06/06/2023 Social Connections Answer Date Recorded How often do you feel lonely or isolated from those around you? (Adult - for ages 18 years and over) Not on file 06/07/2024 Financial Resource Strain Answer Date R ecorded Do you have any trouble payi ng for your medications, or do you think you might in the future? No 06/06/2023 Does your family have troubl e paying for medicine? (Household - for ages 0-17 years) Not on file 06/06/2023 Transportation Needs Answer Date Record ed READ ONLY Do you have troubl e getting a ride to medical visits or work? Sometimes True 06/06/2023 Does your family have a hard time getting a ride to doctors visits? (Household - for ages 0-17 years) Not on file 06/06/2023 Has lack of transportation k ept you from medical appointments, meetings, work, or from getting things needed for daily living? Check all that apply. (Adult - for ages 18 years and over) Not on file 06/06/2023 Do you (or your family) have trouble finding or paying for a ride (transportation)? (Household - for ages 0-17 years) Not on file 06/06/2023 Housing Stability Answer Date Recorded Do you currently live in a s helter or have no steady place to sleep at night? No 06/06/2023 READ ONLY Do you think you a re at risk of becoming homeless? No 06/06/2023 Does your family worry about paying for your home or becoming homeless? (Household - for ages 0-17 years) Not on file 0 06/06/2023 Are you homeless or worried that you might be in the future? (Adult - for ages 18 years and over) Not on file Are you (or your family) masha eless or worried that you might be in the future? (Household - for ages 0-17 years) Not on file Food Insecurity Answer Date Recorded Do you need food for this week? No 06/06/2023 Are you able to get enough f ood for your family? (Household - for ages 0-17 years) Not on file 06/06/2023 Does your family need food t his week? (Household - for ages 0-17 years) Not on file 06/06/2023 Do you always have enough fo od for your family? (Household - for ages 0-17 years) Not on file 06/06/2023 Sex and Gender Information Value Date Recorded Sex Assigned at Female 04/13/2022 10:49 AM EDT Gender Identity Female 04/13/2022 10:49 AM EDT Sexual Orientation Straight 04/13/2022 10 :49 AM EDT Job Start Date Occupation Industry Not on file Not on file Not on file documented as of this encounter Functional Status Functional Status Response Date of Assess ment Are you deaf or do you have serious difficulty h earing? No 02/11/2015 Are you blind or do you have serious difficulty seeing, even when wearing glasses? No 02/11/2015 Do you have serious difficul ty walking or climbing stairs? (5 years old or older) No 02/11/2015 Do you have difficulty dress ing or bathing? (5 years old or older) No 02/11/2015 Because of a physical, menta l, or emotional condition, do you have difficulty doing errands alone such as visiting a doctor s office or shopping? (15 years old or older) No 02/12/20 15 Cognitive Status Response Date of Assessm ent Because of a physical, menta l, or emotional condition, do you have serious difficulty concentrating, remembering, or making decisions? (5 years old or older) No 02/11/2015 documented as of this encounter Progress Notes * Nerissa Gamboa CPhT - 09/12/2024 10:31 AM EDT Patient Phone Numbers Spoke with patient to schedule MTDM appointment for pain management. Appointment scheduled as notedbelow. 09/26/2024 Thank you, Nerissa Gamboa CPhT [facility] [address] [place] [address] [address] S[place] Finn [address] [id number] 09/12/2024,10:31 AM documented in this encounter Plan of Treatment Upcoming Encounters Date Type Department Care Team (Late st Contact Info) Description 09/26/2024 7:30 AM EST Office Visit Pharmacy, [facility] [address] [place] [address] Pharmacist2, [facility] [address] [place] [address] 02/04/2025 9:45 AM EDT Imaging Radiology [facility] 2nd [facility] [place] [address] [facility] [place] [id number] Scheduled Procedures Name Priority Associated Diagnoses Date/Ti me COLONOSCOPY FLEXIBLE PROXIMAL DIAGNOSTIC Recall History of colon polyps Health Maintenance Due Date Last Done Comments Pap Smear 01/28/1984 Cervical Cancer Screening 1993 HPV/Co-Test 1993 Fecal Occult Blood Test 01/28/2008 Sigmoidoscopy 01/28/2008 Depression Screening 02/04/2022 02/04/2021 Mammogram 01/01/2023 01/01/2022, 12/15, 12/01/2021, Additional history exists Cologuard 06/27/2023 06/27/2020, 03/2020, 06/18/2020 Colonoscopy 07/17/2023 07/17/2020, 07/17/2020 Colorectal Cancer Screening 07/17/2023 COVID-19 Vaccine ( season) 2024 08/08/2022, 11/02/2021, 02/12/2021, Additional history exists Influenza Vaccine (FLU shot) (#1) 2024 09/12/2022, 08/23/2021, 08/14/2020 GFR 07/04/2025 07/04/2024, 08/14, 12/14/2022, Additional history exists Albumin/Creatinine Ratio 08/10/2025 08/10/2022 Diabetes Screening 07/04/2027 07/04/2024, 1 , 12/14/2022, Additional history exists DTap/Tdap Vaccines (3 - Td or Tdap) 09/06/2027 09/06/2017, 01/21/2015 (Done elsewhere) Zoster Vaccines Completed 12/19/2021, 03/28/2021 Pneumococcal Vaccine: Pediatrics (0 to 5 Years) and At-Risk Patients (6 to 64 Years) Completed 12/14/2022 HPV (Gardasil) Vaccine Aged Out No lo nger eligible based on patient's age to complete this topic Hepatitis B Vaccine Aged Out No longe r eligible based on patient's age to complete this topic MENINGOCOCCAL (MENACTRA/MENVEO) Aged Out No longer eligible based on patient's age to complete this topic documented as of this encounter Medical Devices Not on filedocumented as of this encounter Visit Diagnoses Diagnosis Encounter for long-term (current) use of medications- Primary Encounter for long-term (current) use of other medications documented in this encounter Advance Directives * Full Code (Latest Code Status on File) Date Activated Date Inactivated Comments 10/12/2021 12:12 PM 10/12/2021 5:23 PM This ord er reflects the patients wishes and were consensually agreed upon. * Full Code Date Activated Date Inactivated Comments 10/12/2021 9:45 AM 10/12/2021 12:12 PM This orde r reflects the patients wishes and were consensually agreed upon. * Full Code Date Activated Date Inactivated Comments 02/11/2015 1:14 PM 02/14/2015 4:36 PM This order re flects the patients wishes and were consensually agreed upon. Care Teams Portfolio Manager Relationship Specialty Start Date End Date Wagner Thompson III, MD [address] [place] [address] PCP - General Family Medicine 07/13/23 documented as of this encounter
--- OUTSIDE RECORDS SUMMARY | 2024-09-19 13:17 | External Medical Summary | Summary of Care ---
Author Name Unknown Organization [facility] Address [address] [place] [address] Phone [phone] Care Team Providers Care Diamond Wheel Molder Name Role Phone Jay KAMARA MD, Wagner Goldman Primary Care Provider [phone] Reason for Visit * Reason Onset Date Comments Med Request 09/12/2024 Encounter Details Date Type Department Care Team (Late st Contact Info) Description 09/12/2024 Telephone General Internal Medicine [facility] [address] [facility] [place] [address] Chriss Nguyen [address] [place] [address] Med Request Allergies Active Allergy Reactions Criticality Noted Date [...] mRNA, LNP-s, No Pre serve, 2-Dose Series (MMIT) 02/12/2021,01/22/2021 COVID-19, mRNA, LNP-s, PF, B ooster, [...] No 02/11/2015 documented as of this encounter Miscellaneous Notes * Telephone Encounter - Tiny De Luna CPhT - 09/12/2024 9:31 AM EDT Pt is calling regarding Benzonatate 200 MG Oral Capsule that was recently sent to the pharmacy. Caller states her insurance will not cover that medication and it is too expensive. Pt is asking if there is an alternative that can be sent instead. Please send if appropriate. Thank you, Cyn De Luna CPhT Pricing Clerk III [facility] [address] [place] [address], [address] [place] [phone] documented in this encounter Plan of Treatment Upcoming Encounters Date Type Department Care Team (Late st Contact Info) Description 09/12/2024 6:10 PM EDT Pharmacy Pharmacy, [facility] [address] [place] [address] Pharmacist2, [facility] [address] [place] [address] 02/04/2025 9:45 AM EDT Imaging Radiology [facility] 2nd [facility], [place] [address] [facility] [place] [id number] Scheduled Procedures Name Priority Associated Diagnoses Date/Ti [...] Not on filedocumented as of this encounter Advance Directives * Full Code (Latest Code Status on File) Date Activated Date Inactivated Comments 10/12/2021 12:12 PM 10/12/2021 5:23 PM This orde r reflects the patients [...] and were consensually agreed upon. Care Teams Diamond Wheel Molder Relationship Specialty Start Date End Date Wagner Thompson III, MD [address] [place] [address] PCP - General Family Medicine 07/13/23 documented as of this encounter
--- OUTSIDE RECORDS SUMMARY | 2024-09-19 13:17 | External Medical Summary | Summary of Care ---
Author Name Unknown Organization [facility] Address [address] [facility] [place] [address] Phone [phone] Care Team Providers Care Range Examiner Name Role Phone Jay KAMARA MD, Wagner Goldman Primary Care Provider [phone] Reason for Visit * Reason Onset Date Comments Med Request 09/12/2024 Encounter Details Date Type Department Care Team (Late st Contact Info) Description 09/12/2024 Telephone General Internal Medicine [facility] [address] [facility] [address] Chriss Nguyen [address] [place] [address] Med Request Allergies Active Allergy Reactions Criticality Noted Date Comments Carisoprodol Seizure High 03/12/2019 documented as of this encounter (statuses as of 09/17/2024) Medications Medication Sig Dispensed Refills Start Date End Date Status Acetaminophen 325 MG Oral Tablet 2 tablets as needed for pain Active Multiple Vitamins-Minerals (MULTIVITAMIN WOMENS 50+ ADV) TABS Take by mouth daily. Active DULoxetine HCl 30 MG Oral Capsule Delayed Release Particles (Cymbalta)Indicatio ns:Lumbar degenerative disc disease Take 1 Capsule by mouth in the morning. Take in addition to 60mg dose for 90mg total.. 30 Capsule 11 01/11/2024 Active DULoxetine HCl 60 MG Oral Capsule Delayed Release Particles (Cymbalta)Indicatio ns:Lumbar degenerative disc disease Take 1 Capsule by [...] Active Cyclobenzaprine HCl 10 MG Oral Tablet (Flexeril)Indicatio ns:Lumbar degenerative disc disease,Sacroiliiti s, not elsewhere classified (HCC) TAKE 1 TABLET BY MOUTH IN THE MORNING AT AT NOON AND BEFORE BEDTIME 30 Tablet 1 08/28/2024 Active Cefdinir 300 MG Oral Capsule (Omnicef)Indication s:Acute bronchitis, unspecified organism Take 1 Capsule by mouth in the morning and 1 Capsule before bedtime. Do all this for 10 days. 20 Capsule 09/10/2024 4 Active predniSONE 10 MG Oral Tablet (Deltasone)Indicati ons:Acute bronchitis, unspecified organism 4tab x 3d, 3tab x 3d, 2tab x 3d, 1tab x 3d 30 Tablet 09/10/2024 Active Benzonatate 200 MG Oral CapsuleIndications: Acute bronchitis, unspecified organism Take 1 Capsule by mouth 3 times a day as needed for Cough. 30 Capsule 1 09/10/2024 Active Ventolin HFA 108 (90 Base) MCG/ACT Inhalation Aerosol SolutionIndications :Acute bronchitis, unspecified organism Inhale 2 Puffs by mouth every 4 hours as needed for Wheezing. 18 g 09/10/2024 Active oxyCODONE-Acetamino phen 5-325 MG Oral Tablet (Endocet)Indication s:Lumbar degenerative disc disease,Lumbar radiculopathy Take 1-2 Tablets by mouth every 8 hours as needed for Pain, Moderate or Pain, Severe. max 5 per day- may take extra tablet (6) 3 days per week when she has physical therapy - earliest fill 08/30/24 81 Tablet 08/28/2024 4 Discontinue d(Refill) documented as of this encounter (statuses as of 09/17/2024) Active Problems Problem Noted Date Diagnosed Date Abdominal aortic ectasia 03/16/2023 Atherosclerosis of aorta 03/16/2023 HTN, goal below 130/80 11/16/2021 History of kidney stones 09/14/2021 Sacroiliitis, not elsewhere classified 0 H/O laminectomy 06/23/2018 Lumbar degenerative disc disease 06/23/2018 Controlled substance agreement signed 09/06/2017 History of renal carcinoma 09/06/2017 documented as of this encounter (statuses as of 09/17/2024) Resolved Problems Problem Noted Date Diagnosed Date Resolved Date Nephrolithiasis 09/29/2021 10/12/2023 Cancer of right kidney 03/12/201902/04 Low back pain radiating to left leg 09/06/2017 11/16/2021 Renal cell cancer 09/03/2015 09/06/2017 Renal mass 02/11/2015 09/06/2017 documented as of this encounter (statuses as of 09/17/2024) Immunizations Name Administration Dates Next Due COVID-19 mRNA, LNP-s, No Pre serve, 2-Dose Series (EzFlop - A First of Its Kind Flip Flop) 02/12/2021,01/22/2021 COVID-19, mRNA, LNP-s, PF, B ooster, [...] encounter Miscellaneous Notes * Telephone Encounter - Gerri Ricci LPN - 09/17/2024 3:12 PM EST Left message for pt to call back. Please see how pt is feeling & if she still needs a different cough medicine * Telephone Encounter - Jeny Galarza RN - 09/12/2024 3:[address] Nguyen on 09/10/24. * Telephone Encounter - Tiny De Luna [...] appropriate. Thank you, Cyn De Luna CPhT Geophysical Manager III [facility] [address] [place] [address], [address] [place] [phone] documented in this encounter Plan of Treatment Upcoming Encounters Date Type Department Care Team (Late st Contact Info) Description 09/26/2024 7:30 AM EST Office Visit Pharmacy, [facility] [address] [facility] [place] [address] Pharmacist2, [facility] [address] [facility] [place] [address] 09/28/2024 7:40 AM EST Office Visit Family Practice [facility] [address] [facility] [place] [address] Wagner Thompson III, MD [address] [facility] [place] [address] 02/04/2025 9:45 AM EDT Imaging Radiology [facility] 2nd [facility] [place] [address] [facility] [place] [address] Scheduled Procedures Name Priority Associated Diagnoses Date/Ti [...] and were consensually agreed upon. Care Teams Range Examiner Relationship Specialty Start Date End Date Wagner Thompson III, MD [address] [facility] [address] PCP - General Family Medicine 07/13/23 documented as of this encounter
--- OUTSIDE RECORDS SUMMARY | 2024-09-19 13:17 | External Medical Summary | Summary of Care ---
Author Name Unknown Organization [facility] Address [address] [place] [place] [facility] [place] [address] Phone [phone] Care Team Providers Care Complaint Inspector Name Role Phone Jay KAMARA MD, Wagner Goldman Primary Care Provider [phone] Reason for Visit * Reason Onset Date Comments Med Request 09/12/2024 Encounter Details Date Type Department Care Team (Late st Contact Info) Description 09/12/2024 Telephone General Internal Medicine [facility] [address] [facility] [place] [address] Chriss Nguyen [address] [place] [address] Med Request Allergies Active Allergy Reactions Criticality [...] mRNA, LNP-s, No Pre serve, 2-Dose Series (RotaBan) 02/12/2021,01/22/2021 COVID-19, mRNA, LNP-s, PF, B ooster, [...] encounter Miscellaneous Notes * Telephone Encounter - Jeny Galarza RN [...] appropriate. Thank you, Cyn De Luna CPhT Occ Therapy Asst III [facility] [address] [place] [address], [address] [place] [phone] documented in this encounter Plan of Treatment Upcoming Encounters Date Type Department Care Team (Late st Contact Info) Description 09/12/2024 6:10 PM EDT Pharmacy Pharmacy, [facility] [place] [address] [address] Pharmacist2, [facility] [address] [facility] [place] [address] Encounter for long-term (current) use of medications* 09/26/2024 7:30 AM EST Office Visit Pharmacy, [facility] [address] [facility] [place] [address] Pharmacist2, [facility] [address] [facility] [place] [address] 02/04/2025 9:45 AM EDT Imaging Radiology [address] [place] [address] Scheduled Procedures Name Priority Associated Diagnoses Date/Ti [...] and were consensually agreed upon. Care Teams Complaint Inspector Relationship Specialty Start Date End Date Wagner Thompson III, MD [address] [place] [address] PCP - General Family Medicine 07/13/23 documented as of this encounter
--- OUTSIDE RECORDS SUMMARY | 2024-09-19 13:17 | External Medical Summary | Summary of Care ---
Author Name Unknown Organization [facility] Address [address] [place] [address] Phone [phone] Care Team Providers Care Heavy Duty Mechanic Farm Equipment Name Role Phone Jay KAMARA MD, Wagner Goldman Primary Care Provider [phone] Reason for Visit * Reason Onset Date Comments Med Request 09/12/2024 Encounter Details Date Type Department Care Team (Late st Contact Info) Description 09/12/2024 Telephone General Internal Medicine [facility] 200 [facility] [place] [address] Chriss Nguyen 200 [place] [address] Med Request Allergies Active Allergy Reactions Criticality [...] mRNA, LNP-s, No Pre serve, 2-Dose Series ([employer]) 02/12/2021,01/22/2021 COVID-19, mRNA, LNP-s, PF, B ooster, [...] encounter Miscellaneous Notes * Telephone Encounter - Richie Weaver LPN - 09/17/2024 4:08 PM EST Patient returning call. She is still on Cefdinir and Prednisone and cough continues. Insurance will not cover Benzonatate. Please send new cough medication to pharmacy [facility] #[id number] * Telephone Encounter - Gerri Ricci LPN [...] appropriate. Thank you, Cyn De Luna CPhT Drier Operator Head III [facility] [address] [place] [address], [address] [place] [address] [phone] documented in this encounter Plan of Treatment Upcoming Encounters Date Type Department Care Team (Late st Contact Info) Description 09/26/2024 7:30 AM EST Office Visit Pharmacy, [facility] [address] [facility] [place] [address] Pharmacist2, [facility] [address] [facility] [place] [address] 09/28/2024 7:40 AM EST Office Visit Family Practice [facility] [address] [facility] [place] [address] Wagner Thompson III, MD 200 [facility] [place] [address] 02/04/2025 9:45 AM EDT Imaging Radiology [facility] 2nd [facility] [address] Scheduled Procedures Name Priority Associated Diagnoses Date/Ti [...] and were consensually agreed upon. Care Teams Heavy Duty Mechanic Farm Equipment Relationship Specialty Start Date End Date Wagner Thompson III, MD 200 [facility] [place] [address] PCP - General Family Medicine 07/13/23 documented as of this encounter
--- OUTSIDE RECORDS SUMMARY | 2024-09-19 13:17 | External Medical Summary | Summary of Care ---
Author Name Unknown Organization [facility] Address [address] [facility] [place] [address] Phone [phone] Care Team Providers Care Applications Programmer Name Role Phone Jay KAMARA MD, Wagner Goldman Primary Care Provider [phone] Reason for Visit * Reason Onset Date Comments Med Request 09/12/2024 Encounter Details Date Type Department Care Team (Late st Contact Info) Description 09/12/2024 Telephone General Internal Medicine [facility] 200 [facility] [place] [address] Chriss Hunt 200 [place] [address] Med Request Allergies Active Allergy Reactions Criticality [...] 1tab x 3d 30 Tablet 09/10/2024 Active Ventolin HFA 108 (90 Base) MCG/ACT Inhalation Aerosol SolutionIndications :Acute bronchitis, unspecified organism Inhale 2 Puffs by mouth every 4 hours as needed for Wheezing. 18 g 09/10/2024 Active Promethazine-DM 6.25-15 MG/5ML Oral SyrupIndications:Ac [place] bronchitis, unspecified organism Take 5 mL by mouth 4 times a day as needed for Cough. 120 mL 1 09/17/2024 Active oxyCODONE-Acetamino phen 5-325 MG Oral Tablet (Endocet)Indication s:Lumbar degenerative disc disease,Lumbar radiculopathy Take 1-2 Tablets by mouth every 8 hours as needed for Pain, Moderate or Pain, Severe. max 5 per day- may take extra tablet (6) 3 days per week when she has physical therapy - earliest fill 08/30/24 81 Tablet 08/28/2024 4 Discontinue d(Refill) Benzonatate 200 MG Oral CapsuleIndications: Acute bronchitis, unspecified organism Take 1 Capsule by mouth 3 times a day as needed for Cough. 30 Capsule 1 09/10/2024 4 Discontinue d(Medicatio n List Clean Up) documented as of this encounter (statuses as [...] mRNA, LNP-s, No Pre serve, 2-Dose Series ([employer]) 02/12/2021,01/22/2021 COVID-19, mRNA, LNP-s, PF, B ooster, [...] as of this encounter Miscellaneous Notes * Addendum Note - Chriss Hunt DO - 09/17/2024 6:05 PM ESTAddended by: CHRISS HUNT on: 09/17/2024 06:05 PM Modules accepted: Orders * Telephone Encounter - Chriss Hunt DO - 09/17/2024 6:04 PM EST Promethazine DM cough syrup called into pharmacy. 5 mL up to 4 times daily as needed for cough. Should monitor for any drowsiness * Telephone Encounter - Richie Weaver LPN - 09/17/2024 4:08 PM EST Patient returning call. She is still on Cefdinir and Prednisone and cough continues. Insurance will not cover Benzonatate. Please send new cough medication to pharmacy [facility][id number] [address] [facility] * Telephone Encounter - Gerri Ricci LPN - 09/17/2024 3:12 PM EST Left message for pt to call back. Please see how pt is feeling & if she still needs a different cough medicine * Telephone Encounter - Jeny Galarza RN - 09/12/2024 3:[address] Hunt on 09/10/24. * Telephone Encounter - Tiny [...] appropriate. Thank you, Cyn De Luna CPhT Plywood Patcher III [facility]) [address] [place] [address], [address] [phone] documented in this encounter Plan of Treatment Upcoming Encounters Date Type Department Care Team (Late st Contact Info) Description 09/26/2024 7:30 AM EST Office Visit Pharmacy, [facility] [place] [address] [place] [address] [address] Pharmacist2, [facility] [address] [place] [address] 09/28/2024 7:40 AM EST Office Visit Family Practice [facility] 200 [facility] [place] [address] Wagner Thompson III, MD [address] [place] [facility] [place] [address] 02/04/2025 9:45 AM EDT Imaging Radiology [facility] 2nd [facility], [place] 132 [facility] [place] [address] Scheduled Procedures Name Priority Associated Diagnoses Date/Ti [...] as of this encounter Visit Diagnoses Diagnosis Acute bronchitis, unspecified organism- Primary documented in this encounter Advance Directives * [...] and were consensually agreed upon. Care Teams Applications Programmer Relationship Specialty Start Date End Date Wagner Thompson III, MD 200 [place] [address] PCP - General Family Medicine 07/13/23 documented as of this encounter
--- OUTSIDE RECORDS SUMMARY | 2024-09-19 13:17 | External Medical Summary | Summary of Care ---
Author Name Unknown Organization [facility] Address [address] [place] [address] Phone [phone] Care Team Providers Care Radar Air Traffic Controller Name Role Phone Jay KAMARA MD, Noemi Goldman Primary Care Provider [phone] Reason for Referral * Medication Prior Authorization - Closed Specialty Diagnoses / Procedures Referred By Contcrow t Referred To Contact Diagnoses Lumbar degenerative disc disease Lumbar radiculopathy Noemi Mondragon III, MD 200 [facility] [place], [place] [address] Referral ID Status Reason Start Date Expiration Date Visits Re quested Visits Authorized [id number] Closed 999 999 Reason for Visit * Reason Onset Date Comments Medication Refill 09/11/2024 Encounter Details Date Type Department Care Team (Late st Contact Info) Description 09/11/2024 Refill [facility] [address] [place] [address] Noemi Mondragon III, MD 200 [facility] [place] [address] Lumbar degenerative disc disease; Lumbar radiculopathy Allergies Active Allergy Reactions Criticality Noted Date [...] this for 10 days. 20 Capsule 09/10/2024 Active predniSONE 10 MG Oral Tablet (Deltasone)Indicati [...] therapy - earliest fill 08/30/24 81 Tablet 09/12/2024 Active oxyCODONE-Acetamino phen 5-325 MG Oral Tablet [...] mRNA, LNP-s, No Pre serve, 2-Dose Series ([employer]) 02/12/2021,01/22/2021 COVID-19, mRNA, LNP-s, PF, B ooster, [...] 18 years and over) Not on file 07/24/202 3 Are you (or your family) masha eless [...] encounter Miscellaneous Notes * Telephone Encounter - Noemi Mondragon III, MD - 09/12/2024 10:59 AM EDTSigned Prescriptions: Disp Refills oxyCODONE-Acetaminophen 5-325 MG Oral Tabl*81 Tab*0 Sig: Take 1-2 Tablets by mouth every 8 hours as needed for Pain, Moderate or Pain, Severe. max 5 per day- may take extra tablet (6) 3 days per week when she has physical therapy - earliest fill 08/30/24Authorizing Provider: NOEMI MONDRAGON III * Telephone Encounter - Shabbir Smith, [facility] - 09/12/2024 10:46 AM EDT Pending Prescriptions: Disp Refills oxyCODONE-Acetaminophen 5-325 MG Oral Tabl*81 Tab*0 Sig: Take 1-2 Tablets by mouth every 8 hours as needed for Pain, Moderate or Pain, Severe. max 5 per day- may take extra tablet (6) 3 days per week when she has physical therapy - earliest fill 08/30/24 < BR> * Telephone Encounter - Sherry Diane [facility] - 09/12/2024 8:34 AM EDTPending Prescriptions: Disp Refills oxyCODONE-Acetaminophen 5-325 MG Oral Tabl*81 Tab*0 Sig: Take 1-2 Tablets by mouth every 8 hours as needed for Pain, Moderate or Pain, Severe. max 5 per day- may take extra tablet (6) 3 days per week when she has physical therapy - earliest fill 08/30/24 < BR> * Telephone Encounter - Sherry Diane RPh - 09/12/2024 8:34 AM EDT I have reviewed the patients controlled substance dispensing history in the Prescription Drug Monitoring Program in compliance with the [facility] regulations before prescribing a controlled substance. PDMP checked on 09/12/2024. Pending Prescriptions: Disp Refills oxyCODONE-Acetaminophen 5-325 MG Oral Tab*81 Tab*0 Sig: Take 1-2 Tablets by mouth every 8 hours as needed for Pain, Moderate or Pain, Severe. max 5 per day- may take extra tablet (6) 3 days per week when she has physical therapy - earliest fill 08/30/24 Last Visit: 10/31/2023 (in office), 11/06/2020 (telemedicine) Next Visit: Visit date not found Date medication was last filled: 08/30/24 Date medication is due for refill: 09/13/24 Pharmacy: [facility][id number][facility] [address] [facility] Is this request for a controlled substance? Yes and Urine Drug Screen was completed Toxicology results: Results for orders placed or performed in visit on 05/02/24 PAIN MANAGEMENT DRUG PANEL, URINE W/ INTERPRETATION Result Value Compliance Interpretation Based on the medication information provided: The positive oxycodone screening result is CONSISTENT with oxycodone use. Confirmatory testing is available upon request. Amphetamines Screen, U Negative Benzodiazepines Screen, U Negative Cannabinoids Screen, U Negative Cocaine Metabolite Screen, U Negative Fentanyl Screen, U Negative Hydrocodone Screen, U Negative Methadone Metabolite Screen, U Negative Morphine/Codeine Screen, U Negative Oxycodone Screen, U Positive (A) Valid Interpretation Normal Creatinine, U 117 Narrative Cutoff Concentrations: Drug Level Amphetamines 500 ng/mL Benzodiazepines 100 ng/mL Cannabinoids 50 ng/mL Cocaine Metabolite 150 ng/mL Fentanyl 1 ng/mL Hydrocodone / Hydromorphone 300 ng/mL Methadone Metabolite 100 ng/mL Morphine / Codeine 300 ng/mL Oxycodone / Oxymorphone 100 ng/mL Screening results are presumptive and can only be used for medical purposes. Confirmatory testing is available upon request. Results for orders placed or performed in visit on 05/11/21 TOXICOLOGY, URINE SCREEN W/ CONFIRMATION Result Value Amphetamines Screen, U Negative Benzodiazepines Screen, U Negative Cannabinoids Screen, U Negative Cocaine Metabolite Screen, U Negative Hydrocodone Screen, U Positive (A) Methadone Metabolite Screen, U Negative Morphine/Codeine Screen, U Negative Oxycodone Screen, U Positive (A) Narrative Cutoff Concentrations: Drug Level Amphetamines 500 ng/mL Benzodiazepines 100 ng/mL Cannabinoids 50 ng/mL Cocaine Metabolite 150 ng/mL Hydrocodone / Hydromorphone 100 ng/mL Methadone Metabolite 100 ng/mL Morphine / Codeine 300 ng/mL Oxycodone / Oxymorphone 100 ng/mL Screening results are presumptive and can only be used for medical purposes. Positive screening results are reflexed to confirmatory testing. Please approve if appropriate. Thanks, Sherry Diane Clinical Pharmacist [facility]) [phone] 09/12/2024, 8:34 AM * Telephone Encounter - Brianne Marroquin CPhT - 09/12/2024 8:21 AM EDT Pt is leaving [facility]. Pt calling to check on status of rx. Caller can be reached at [phone]. Thank you, Brianne Marroquin CPhT Solder Sprayer II [facility]) 09/12/2024,8:21 AM * Telephone Encounter - Warren Donnelly criminal justice department chair - 09/11/2024 7:35 AM EDT Did you pend patient's preferred pharmacy and medication before forwarding?yes Pharmacy: [id number] [address] [place] [address] Pending Prescriptions: Disp Refills oxyCODONE-Acetaminophen 5-325 MG Oral Tab*81 Tab*0 Sig: Take 1-2 Tablets by mouth every 8 hours as needed for Pain, Moderate or Pain, Severe. max 5 per day- may take extra tablet (6) 3 days per week when she has physical therapy - earliest fill 08/30/24 Last Visit: 10/31/2023 (in office), 11/06/2020 (telemedicine) Next Visit: Visit date not found If no future appointments scheduled, and last appointment is greater than a year ago, please schedule patient for a follow-up appointment Last date the medication was ordered: 08/28/24 Is this request for a controlled substance?Yes, What was the last refill date 08/28/24 w/ quantity 81 and dosage 5-325 mg and Urine Drug Screen was completed Urine Drug Screen: Results for orders placed or performed in visit on 05/02/24 PAIN MANAGEMENT DRUG PANEL, URINE W/ INTERPRETATION Result Value Compliance Interpretation Based on the medication information provided: The positive oxycodone screening result is CONSISTENT with oxycodone use. Confirmatory testing is available upon request. Amphetamines Screen, U Negative Benzodiazepines Screen, U Negative Cannabinoids Screen, U Negative Cocaine Metabolite Screen, U Negative Fentanyl Screen, U Negative Hydrocodone Screen, U Negative Methadone Metabolite Screen, U Negative Morphine/Codeine Screen, U Negative Oxycodone Screen, U Positive (A) Valid Interpretation Normal Creatinine, U 117 Narrative Cutoff Concentrations: Drug Level Amphetamines 500 ng/mL Benzodiazepines 100 ng/mL Cannabinoids 50 ng/mL Cocaine Metabolite 150 ng/mL Fentanyl 1 ng/mL Hydrocodone / Hydromorphone 300 ng/mL Methadone Metabolite 100 ng/mL Morphine / Codeine 300 ng/mL Oxycodone / Oxymorphone 100 ng/mL Screening results are presumptive and can only be used for medical purposes. Confirmatory testing is available upon request. Results for orders placed or performed in visit on 05/11/21 TOXICOLOGY, URINE SCREEN W/ CONFIRMATION Result Value Amphetamines Screen, U Negative Benzodiazepines Screen, U Negative Cannabinoids Screen, U Negative Cocaine Metabolite Screen, U Negative Hydrocodone Screen, U Positive (A) Methadone Metabolite Screen, U Negative Morphine/Codeine Screen, U Negative Oxycodone Screen, U Positive (A) Narrative Cutoff Concentrations: Drug Level Amphetamines 500 ng/mL Benzodiazepines 100 ng/mL Cannabinoids 50 ng/mL Cocaine Metabolite 150 ng/mL Hydrocodone / Hydromorphone 100 ng/mL Methadone Metabolite 100 ng/mL Morphine / Codeine 300 ng/mL Oxycodone / Oxymorphone 100 ng/mL Screening results are presumptive and can only be used for medical purposes. Positive screening results are reflexed to confirmatory testing. Patient Phone Numbers Labs: Lab Results Component Value Date/Time CREAT 0.8 07/04/2024 08:16 AM CREAT 0.83 09/22/2021 12:00 AM CREAT 0.8 02/14/2020 09:54 AM POTASSIUM 4.9 07/04/2024 08:16 AM POTASSIUM 4.4 09/22/2021 12:00 AM POTASSIUM 5.1 02/14/2020 09:54 AM LDL 164 (H) 09/01/2023 10:30 AM LDL 139 (H) 11/04/2017 11:26 AM LDL NOT APPLICABLE 11/04/2017 11:26 AM ALT 21 09/01/2023 10:30 AM ALT 13 11/04/2017 11:21 AM documented in this encounter Plan of Treatment Upcoming Encounters Date Type Department Care Team (Late st Contact Info) Description 09/12/2024 6:10 PM EDT Pharmacy Pharmacy, [facility] 200 [facility] [place] [address] Pharmacist2, [facility] [address] [place] [address] Encounter for long-term (current) use of medications* 09/26/2024 7:30 AM EST Office Visit Pharmacy, [facility] [address] [place] [address] Pharmacist2, [facility] [address] [place] [address] 02/04/2025 9:45 AM EDT Imaging Radiology [facility] 2nd [facility], [place] 132 [facility] [place] [address] Scheduled Procedures Name Priority Associated Diagnoses Date/Ti me COLONOSCOPY FLEXIBLE PROXIMAL DIAGNOSTIC Recall History of colon polyps Health Maintenance Due Date Last Done Comments Pap Smear 01/28/1984 Cervical Cancer Screening 1993 HPV/Co-Test 1993 Fecal Occult Blood Test 01/28/2008 Sigmoidoscopy 01/28/2008 Depression Screening 02/04/2022 02/04/2021 Mammogram 01/01/2023 01/01/2022, 12/15, 12/01/2021, Additional history exists Cologuard 06/27/2023 06/27/2020, 0803/2020, 06/18/2020 Colonoscopy 07/17/2023 07/17/2020, 07/17/2020 Colorectal Cancer [...] as of this encounter Visit Diagnoses Diagnosis Lumbar degenerative disc disease Degeneration of lumbar or lumbosacral intervertebral disc Lumbar radiculopathy Thoracic or lumbosacral neuritis or radiculitis, unspecified Encounter for long-term (current) use of medications- [...] and were consensually agreed upon. Care Teams Radar Air Traffic Controller Relationship Specialty Start Date End Date Noemi Mondragon III, MD 200 [place] [address] PCP - General Family Medicine 07/13/23 documented as of this encounter
--- OUTSIDE RECORDS SUMMARY | 2024-09-19 13:18 | External Medical Summary | Summary of Care ---
Author Name Unknown Organization [facility] Address [address] [place] [address] Phone [phone] Care Team Providers Care Vice President Global Digital Marketing Name Role Phone Jay KAMARA MD, Wagner Goldman Primary Care Provider [phone] Reason for Referral * Medication Prior Authorization - Closed Specialty Diagnoses / Procedures Referred By Contac t Referred To Contact Diagnoses Lumbar degenerative disc disease Lumbar radiculopathy Elyse Pereira MD [address] [place] [address] Referral ID Status Reason Start Date Expiration Date Visits Re quested Visits Authorized [id number] Closed 999 999 Reason for Visit * Reason Onset Date Comments Medication Refill 08/28/2024 Status Check 08/29/2024 Encounter Details Date Type Department Care Team (Late st Contact Info) Description 08/28/2024 Refill Family Practice State [facility] [address] [place] [address] Wagner Thompson III, MD [address] [place] [address] Lumbar degenerative disc disease; Lumbar radiculopathy Allergies Active Allergy Reactions Criticality Noted Date Comments Carisoprodol Seizure High 03/12/2019 documented as of this encounter (statuses as of 08/29/2024) Medications Medication Sig Dispensed Refills Start Date End Date Status Acetaminophen 325 MG Oral Tablet 2 tablets as needed for pain Active Multiple Vitamins-Minerals (MULTIVITAMIN WOMENS 50+ ADV) TABS Take by mouth daily. Active Aspirin Low Dose 81 MG Oral Tablet Delayed Release (aspirin enteric coated) TAKE 1 TABLET BY MOUTH EVERY DAY 100 Tab 3 07/15/2021 Active Additional Information Patient not taking.Reported on 12/26/2023 DULoxetine HCl 30 MG Oral Capsule Delayed Release Particles (Cymbalta)Indicati ons:Lumbar degenerative disc disease Take 1 Capsule by mouth in the morning. Take in addition to 60mg dose for 90mg total.. 30 Capsule 11 01/11/2024 Active DULoxetine HCl 60 MG Oral Capsule Delayed Release Particles (Cymbalta)Indicati ons:Lumbar degenerative disc disease Take 1 Capsule by [...] THE MORNING 90 Tablet 1 04/13/2024 Active oxyCODONE-Acetamin ophen 5-325 MG Oral Tablet (Endocet)Indicatio ns:Lumbar degenerative disc disease,Lumbar radiculopathy Take 1-2 Tablets by mouth every 8 hours as needed for Pain, Moderate or Pain, Severe. max 5 per day- may take extra tablet (6) 3 days per week when she has physical therapy - earliest fill 08/30/24 81 Tablet 08/28/2024 Active oxyCODONE-Acetamin ophen 5-325 MG Oral Tablet (Endocet)Indicatio ns:Lumbar degenerative disc disease,Lumbar radiculopathy Take 1-2 Tablets by mouth every 8 hours as needed for Pain, Moderate or Pain, Severe. max 5 per day- may take extra tablet (6) 3 days per week when she has physical therpy 81 Tablet 08/02/2024 4 Discontinue d(Refill) documented as of this encounter (statuses as of 08/29/2024) Active Problems Problem Noted Date Diagnosed Date Abdominal aortic ectasia 03/16/2023 Atherosclerosis of aorta 03/16/2023 HTN, goal below 130/80 11/16/2021 History of kidney stones 09/14/2021 Sacroiliitis, not elsewhere classified 0 H/O laminectomy 06/23/2018 Lumbar degenerative disc disease 06/23/2018 Controlled substance agreement signed 09/06/2017 History of renal carcinoma 09/06/2017 documented as of this encounter (statuses as of 08/29/2024) Resolved Problems Problem Noted Date Diagnosed Date Resolved Date Nephrolithiasis 09/29/2021 10/12/2023 Cancer of right kidney 03/12/201902/04 Low back pain radiating to left leg 09/06/2017 11/16/2021 Renal cell cancer 09/03/2015 09/06/2017 Renal mass 02/11/2015 09/06/2017 documented as of this encounter (statuses as of 08/29/2024) Immunizations Name Administration Dates Next Due COVID-19 mRNA, LNP-s, No Pre serve, 2-Dose Series ([employer]) 02/12/2021,01/22/2021 COVID-19, mRNA, LNP-s, PF, B ooster, [...] encounter Miscellaneous Notes * Telephone Encounter - Enrique Alvarez online advertising manager - 08/29/2024 1:43 PM EDT Patient calling to check on status of new prescription/early refill. Pt will be leaving [facility] by 0600 tomorrow to fly out of [place]. Pt's pharmacy open until 8pm tonight. Thank you, Enrique Alvarez Passenger Conductor I [facility] 08/29/2024,1:43 PM * Telephone Encounter - Tanya Aragon CPhT - 08/29/2024 10:44 AM EDT Patient calling to have fill date on oxyCODONE-Acetaminophen 5-325 MG Oral Tablet (Endocet) RX changed to be able to fill today , she has a flight tomorrow AM and needs her med Thank you, Tanay Aragon Book Salesman II [facility] ([facility] (formerly Telepharmacy) 08/29/2024 10:44 AM * Telephone Encounter - Lyle Ramirez [facility] - 08/29/2024 5:11 AM EDT Signed Prescriptions: Disp Refills oxyCODONE-Acetaminophen 5-325 MG Oral Tabl*81 Tab*0 Sig: Take 1-2 Tablets by mouth every 8 hours as needed for Pain, Moderate or Pain, Severe. max 5 per day- may take extra tablet (6) 3 days per week when she has physical therapy - earliest fill 08/30/24Authorizing Provider: ELYSE PEREIRA * Telephone Encounter - Elyse Pereira MD - 08/28/2024 6:59 PM EDTSigned Prescriptions: Disp Refills oxyCODONE-Acetaminophen 5-325 MG Oral Tabl*81 Tab*0 Sig: Take 1-2 Tablets by mouth every 8 hours as needed for Pain, Moderate or Pain, Severe. max 5 per day- may take extra tablet (6) 3 days per week when she has physical therapy - earliest fill 08/30/24 Authorizing Provider: ELYSE PEREIRA * Telephone Encounter - Richard Vee [facility] - 08/28/2024 3:28 PM EDTPending Prescriptions: Disp Refills oxyCODONE-Acetaminophen 5-325 MG Oral Tabl*81 Tab*0 Sig: Take 1-2 Tablets by mouth every 8 hours as needed for Pain, Moderate or Pain, Severe. max 5 per day- may take extra tablet (6) 3 days per week when she has physical therpy * Telephone Encounter - Richard Vee [facility] - 08/28/2024 3:27 PM EDT I have reviewed the patients controlled substance dispensing history in the Prescription Drug Monitoring Program in compliance with the [facility] regulations before prescribing a controlled substance. PDMP checked on 08/28/2024. Pending Prescriptions: Disp Refills oxyCODONE-Acetaminophen 5-325 MG Oral Tab*81 Tab*0 Sig: Take 1-2 Tablets by mouth every 8 hours as needed for Pain, Moderate or Pain, Severe. max 5 per day- may take extra tablet (6) 3 days per week when she has physical therpy Last Visit: 10/31/2023 (in office), 11/06/2020 (telemedicine) Next Visit: Visit date not found Date medication was last filled: 08/16/24 Date medication is due for refill: 08/30/24 Pharmacy: [id number] Is this request for a controlled substance? [...] to confirmatory testing. Please approve if appropriate. Thank You, Richard Ulloa [facility] Clinical Pharmacist [facility] 08/28/2024, 3:27 PM * Telephone Encounter - Jenny Griffith online advertising manager - 08/28/2024 3:24 PM EDT Patient calling in because she needs this sent in as soon as possible due to going on vacation. Jenny Davis Book Salesman II [facility] 08/28/2024 3:24 PM * Telephone Encounter - Christine Almeida CPhT - 08/28/2024 7:32 AM EDT Did you pend patient's preferred pharmacy and medication before forwarding?yes Pharmacy: [id number] [address] [place] [address] Pending Prescriptions: Disp Refills oxyCODONE-Acetaminophen 5-325 MG Oral Tab*81 Tab*0 Sig: Take 1-2 Tablets by mouth every 8 hours as needed for Pain, Moderate or Pain, Severe. max 5 per day- may take extra tablet (6) 3 days per week when she has physical therpy Last Visit: 10/31/2023 (in office), 11/06/2020 (telemedicine) Next Visit: Visit date not found If no future appointments scheduled, and last appointment is greater than a year ago, please schedule patient for a follow-up appointment Last date the medication was ordered: 08/02/24 Is this request for a controlled substance?Yes, What was the last refill date 08/02/24 w/ quantity 81 and dosage 1-2 tabs every 8 hrs prn and Urine Drug Screen was completed Urine [...] Care Team (Late st Contact Info) Description 02/04/2025 9:45 AM EDT Imaging Radiology [address] [address] Scheduled Procedures Name Priority Associated Diagnoses Date/Ti [...] Thoracic or lumbosacral neuritis or radiculitis, unspecified documented in this encounter Advance Directives * [...] and were consensually agreed upon. Care Teams Vice President Global Digital Marketing Relationship Specialty Start Date End Date Wagner Thompson III, MD [address] [facility] [place] [address] PCP - General Family Medicine 07/13/23 documented as of this encounter
--- OUTSIDE RECORDS SUMMARY | 2024-09-19 13:18 | External Medical Summary | Summary of Care ---
Author Name Unknown Organization [facility] Address [address] [place] [address] Phone [phone] Care Team Providers Care Terra Cotta Mason Name Role Phone Jay KAMARA MD, Wagner Goldman Primary Care Provider [phone] Reason for Referral * Medication Prior Authorization - Closed Specialty Diagnoses / Procedures Referred By Contac t Referred To Contact Diagnoses Lumbar degenerative disc disease Lumbar radiculopathy Vania Pereira MD [address] [facility] [place] [address] Referral ID Status Reason Start Date Expiration Date Visits Re quested Visits Authorized [id number] Closed [phone] Reason for Visit * Reason Onset Date Comments Medication Refill 08/28/2024 Encounter Details Date Type Department Care Team (Late st Contact Info) Description 08/28/2024 Refill Family Practice State [facility] [address] [place] [address] Wagner Thompson III, MD [address] [facility] [place] [address] Lumbar degenerative disc disease; Lumbar radiculopathy Allergies [...] mRNA, LNP-s, No Pre serve, 2-Dose Series ([employer]) 02/12/2021,01/22/2021 COVID-19, mRNA, LNP-s, PF, B ooster, [...] encounter Miscellaneous Notes * Telephone Encounter - Tanya Aragon CPhT - 08/29/2024 10:44 AM EDT Patient calling to have fill date on oxyCODONE-Acetaminophen 5-325 MG Oral Tablet (Endocet) RX changed to be able to fill today , she has a flight tomorrow AM and needs her med Thank you, Tanya Aragon Environmental Resource Specialist II [facility] (formerly Tele[facility]acy) 08/29/2024 10:44 AM * Telephone Encounter - Lyle Ramirez [facility] - 08/29/2024 5:11 AM EDT Signed Prescriptions: Disp Refills oxyCODONE-Acetaminophen 5-325 MG Oral Tabl*81 Tab*0 Sig: Take 1-2 Tablets by mouth every 8 hours as needed for Pain, Moderate or Pain, Severe. max 5 per day- may take extra tablet (6) 3 days per week when she has physical therapy - earliest fill 08/30/24Authorizing Provider: VANIA PEREIRA * Telephone Encounter - Vania Pereira MD - 08/28/2024 6:59 PM EDTSigned Prescriptions: Disp Refills oxyCODONE-Acetaminophen 5-325 MG Oral Tabl*81 Tab*0 Sig: Take 1-2 Tablets by mouth every 8 hours as needed for Pain, Moderate or Pain, Severe. max 5 per day- may take extra tablet (6) 3 days per week when she has physical therapy - earliest fill 08/30/24 Authorizing Provider: VANIA PEREIRA * Telephone Encounter - Richard Vee [facility] - 08/28/2024 3:28 PM EDTPending Prescriptions: Disp Refills oxyCODONE-Acetaminophen 5-325 MG Oral Tabl*81 Tab*0 Sig: Take 1-2 Tablets by mouth every 8 hours as needed for Pain, Moderate or Pain, Severe. max 5 per day- may take extra tablet (6) 3 days per week when she has physical therpy * Telephone Encounter - Richard Vee [facility] - 08/28/2024 3:27 PM EDT I have reviewed the patients controlled substance dispensing history in the Prescription Drug Monitoring Program in compliance with the [facility] regulations before prescribing a controlled substance. PDMP [...] is due for refill: 08/30/24 [id number] [address] [place] [address] Is this request for a controlled substance? [...] approve if appropriate. Thank You, Richard Ulloa [facility] Clinical Pharmacist [facility]) 08/28/2024, 3:27 PM * Telephone Encounter - Jenny Griffith PHARM Tech - 08/28/2024 3:24 PM EDT Patient calling in because she needs this sent in as soon as possible due to going on vacation. Jenny Davis Environmental Resource Specialist II [facility] 08/28/2024 3:24 PM * Telephone Encounter - Christine Almeida CPhT - 08/28/2024 7:32 AM EDT Did you pend patient's preferred pharmacy and medication before forwarding?yes Pharmacy: [id number] [address] [facility] Pending Prescriptions: Disp Refills oxyCODONE-Acetaminophen 5-325 MG [...] reflexed to confirmatory testing. Patient Phone Numbers [employer] [phone] Labs: Lab Results Component Value Date/Time CREAT [...] Description 02/04/2025 9:45 AM EDT Imaging Radiology [address] [place] [address] Scheduled Procedures Name Priority Associated Diagnoses Date/Ti [...] and were consensually agreed upon. Care Teams Terra Cotta Mason Relationship Specialty Start Date End Date Wagner Thompson III, MD [address] [place] [address] PCP - General Family Medicine 07/13/23 documented as of this encounter
--- OUTSIDE RECORDS SUMMARY | 2024-09-19 13:18 | External Medical Summary | Summary of Care ---
Author Name Unknown Organization [facility] Address [address] [place] [address] Phone [phone] Care Team Providers Care Electrical Controls Assembler Name Role Phone Jay KAMARA MD, John E Primary Care Provider [phone] Reason for Visit * Reason Onset Date Comments Medication Refill 08/01/2024 Encounter Details Date Type Department Care Team (Late st Contact Info) Description 08/01/2024 Refill Family Practice [facility] [address] [facility] [place] [address] Noemi Mondragon III, MD [address] [place] [address] Lumbar degenerative disc disease; Lumbar radiculopathy Allergies Active Allergy Reactions Criticality Noted Date Comments Carisoprodol Seizure High 03/12/2019 documented as of this encounter (statuses as of 08/02/2024) Medications Medication Sig Dispensed Refills Start Date [...] Active Cyclobenzaprine HCl 10 MG Oral Tablet (Flexeril)Indicati ons:Lumbar degenerative disc disease,Sacroiliit is, not elsewhere classified (HCC) Take 1 Tablet by mouth in the morning and 1 Tablet at noon and 1 Tablet before bedtime. 30 Tablet 1 07/18/2024 Active oxyCODONE-Acetamin ophen 5-325 MG Oral Tablet (Endocet)Indicatio ns:Lumbar degenerative disc disease,Lumbar radiculopathy Take 1-2 Tablets by mouth every 8 hours as needed for Pain, Moderate or Pain, Severe. max 5 per day- may take extra tablet (6) 3 days per week when she has physical therpy 81 Tablet 08/02/2024 Active oxyCODONE-Acetamin ophen 5-325 MG Oral Tablet (Endocet)Indicatio ns:Lumbar degenerative disc disease,Lumbar radiculopathy Take 1-2 Tablets by mouth every 8 hours as needed for Pain, Moderate or Pain, Severe. max 5 per day- may take extra tablet(6) 3 days per week when she has physical therpy 81 Tablet 07/21/2024 4 Discontinue d(Refill) oxyCODONE-Acetamin ophen 5-325 MG Oral Tablet (Endocet)Indicatio ns:Lumbar degenerative disc disease,Lumbar radiculopathy Take 1-2 Tablets by mouth every 8 hours as needed for Pain, Moderate or Pain, Severe. max 5 per day- may take extra tablet(6) 3 days per week when she has physical therpy 81 Tablet 08/02/2024 4 Discontinue d(Refill) oxyCODONE-Acetamin ophen 5-325 MG Oral Tablet (Endocet)Indicatio ns:Lumbar degenerative disc disease,Lumbar radiculopathy Take 1-2 Tablets by mouth every 8 hours as needed for Pain, Moderate or Pain, Severe. max 5 per day- may take extra tablet(6) 3 days per week when she has physical therpy 81 Tablet 08/02/2024 4 Discontinue d(Refill) documented as of this encounter (statuses as of 08/02/2024) Active Problems Problem Noted Date Diagnosed Date Abdominal aortic ectasia 03/16/2023 Atherosclerosis of aorta 03/16/2023 HTN, goal below 130/80 11/16/2021 History of kidney stones 09/14/2021 Sacroiliitis, not elsewhere classified 0 H/O laminectomy 06/23/2018 Lumbar degenerative disc disease 06/23/2018 Controlled substance agreement signed 09/06/2017 History of renal carcinoma 09/06/2017 documented as of this encounter (statuses as of 08/02/2024) Resolved Problems Problem Noted Date Diagnosed Date Resolved Date Nephrolithiasis 09/29/2021 10/12/2023 Cancer of right kidney 03/12/201902/04 Low back pain radiating to left leg 09/06/2017 11/16/2021 Renal cell cancer 09/03/2015 09/06/2017 Renal mass 02/11/2015 09/06/2017 documented as of this encounter (statuses as of 08/02/2024) Immunizations Name Administration Dates Next Due COVID-19 mRNA, LNP-s, No Pre serve, 2-Dose Series ([employer]) 02/12/2021,01/22/2021 COVID-19, mRNA, LNP-s, PF, B ooster, [...] encounter Miscellaneous Notes * Telephone Encounter - Shana Miller PHARM Tech - 08/02/2024 1:05 PM EDT Pt having problem with script not reaching pharmacy. I reached out to clinic nurse and she will askprovider to fax script to pharmacy. Thank you, Shana Miller A/C Tech I [facility] ([facility]) 08/02/2024,1:06 PM * Telephone Encounter - Brionna Barlow CMA - 08/02/2024 1:03 PM EDT Spoke with pharmacy staff, patient urgently needs rx within the hour before she leaves for her tripand pharmacy is stating they are not receiving. Requested fax of prescription to fill. Rx is e-prescribed and order would need re-signed to print for patient to pharmacy picking technician. Dr. Mondragon has left the clinicfor the day. * Telephone Encounter - Kristen Gibson CPhT - 08/02/2024 12:48 PM EDT Pt calling to request oxyCODONE-Acetaminophen 5-325 MG Oral Tablet (Endocet) . Informed pt that RX is available at their pharmacy. Pt verbalized understanding and stated they will check with their pharmacy regarding this medication. Thank you, Kristen Gibson CPhT A/C Tech II [facility] Services ([facility]) (Formerly Telepharmacy) 08/02/2024,12:48 PM * Telephone Encounter - Becka Banerjee [facility] - 08/02/2024 11:48 AM EDT Please resend Rx to [id number] [address] [place] [address]. Confirmed pharmacydid not receive original prescription. I have reviewed the patients controlled substance dispensing history in the Prescription Drug Monitoring Program in compliance with the [facility] regulations before prescribing a controlled substance. PDMP checked on 08/02/2024. Signed Prescriptions: Disp Refills oxyCODONE-Acetaminophen 5-325 MG Oral Tabl*81 Tab*0 Sig: Take 1-2 Tablets by mouth every 8 hours as needed for Pain, Moderate or Pain, Severe. max 5 per day- may take extra tablet (6) 3 days per week when she has physical therpy Authorizing Provider: NOEMI MONDRAGON III Last Visit: 10/31/2023 (in office), 11/06/2020 (telemedicine) Next Visit: Visit date not found Date medication was last filled: 07/21/24 Date medication is due for refill: 08/02/24 [id number] [address] [facility] Is this request for a [...] to confirmatory testing. Please approve if appropriate. ThanksBecka [facility] Clinical Pharmacist Centralized Clinical Pharmacy Services ([facility]PS) [phone] * Telephone Encounter - Karla Huddleston PHARM Tech - 08/02/2024 11:45 AM EDT Called Becka [facility] and she advised the pharmacy should have received it but she will route this to the pcp again. Please resend Rx to [id number] [address] [facility]. Confirmed pharmacydid not receive original prescription. Signed Prescriptions: Disp Refills oxyCODONE-Acetaminophen 5-325 MG Oral Tabl*81 Tab*0 Sig: Take 1-2 Tablets by mouth every 8 hours as needed for Pain, Moderate or Pain, Severe. max 5 per day- may take extra tablet (6) 3 days per week when she has physical therpy Authorizing Provider: NOEMI MONDRAGON III Last Visit: 10/31/2023 (in office), 11/06/2020 (telemedicine) Visit date not found If no future appointments scheduled, and last appointment is greater than a year ago, please schedule patient for a follow-up appointment Last date the medication was ordered: 08/02/2024 Patient Phone Numbers [facility] [phone] Labs: Lab Results Component Value Date/Time CREAT [...] 10:30 AM ALT 13 11/04/2017 11:21 AM * Telephone Encounter - Noemi Mondragon III, MD - 08/02/2024 11:20 AM EDTSigned Prescriptions: Disp Refills oxyCODONE-Acetaminophen 5-325 MG Oral Tabl*81 Tab*0 Sig: Take 1-2 Tablets by mouth every 8 hours as needed for Pain, Moderate or Pain, Severe. max 5 per day- may take extra tablet (6) 3 days per week when she has physical therpyAuthorizing Provider: NOEMI MONDRAGON III * Addendum Note - Noemi Mondragon III, MD - 08/02/2024 11:20 AM EDTAddended by: NOEMI MONDRAGON on: 08/02/2024 11:20 AM Modules accepted: Orders * Telephone Encounter - Kristen Gibson CPhT - 08/02/2024 11:12 AM EDT Pt calling to check on status of oxyCODONE-Acetaminophen 5-325 MG Oral Tablet (Endocet) . Caller can be reached at [phone]. Spoke with [facility] will sent message over doctor stating Pharmacy has not received prescription . Thank you, Kristen Gibson CPhT A/C Tech II [facility] Services ([facility]) (Formerly Telepharmacy) 08/02/2024,11:12 AM * Addendum Note - Milagro Weiss [facility] - 08/02/2024 11:09 AM EDT Addended by: MILAGRO WEISS on: 08/02/2024 11:09 AM Modules accepted: Orders * Telephone Encounter - Milagro Weiss [facility] - 08/02/2024 11:08 AM EDT Images from the original note were not included. E-scribing failed. Please resubmit if appropriate. Thank you, Milagro Weiss PharmD Clinical Pharmacist [facility] ([facility]) 08/02/24 11:08 AM [phone] * Addendum Note - Noemi Mondragon III, MD - 08/02/2024 10:14 AM EDTAddended by: NOEMI MONDRAGON on: 08/02/2024 10:14 AM Modules accepted: Orders * Telephone Encounter - Karla Huddleston reconstructive dentist - 08/02/2024 9:30 AM EDT Pt is requesting high priority. Pt advised the pharmacy wont release oxyCODONE-Acetaminophen 5-325 MG Oral Tablet (Endocet) to her today because the prescriber wrote on the note not to fill until 08/03/2024. Pt is leaving for vacation on a cruise at 6:30am tomorrow and can not pick it up then. [facility] advised if the pcp resends the rxwithout the request for hold until 08/03/2024 they can fill it today. Pt wants to know if Dr Mondragon can remove the note on the rx and resend to E [id number] * Telephone Encounter - Ceci Pickett CPhT - 08/02/2024 7:47 AM EDT Pt calling to request oxyCODONE-Acetaminophen 5-325 MG Oral Tablet (Endocet) . Informed pt that RX is available at their pharmacy. Pt verbalized understanding and stated they will check with their pharmacy regarding this medication. Thank you, Nan Pickett CPhT Jaw Skinner II [facility] Services ([facility]) 08/02/2024,7:47 AM * Telephone Encounter - Noemi Mondragon III, MD - 08/02/2024 7:32 AM EDTSigned Prescriptions: Disp Refills oxyCODONE-Acetaminophen 5-325 MG Oral Tabl*81 Tab*0 Sig: Take 1-2 Tablets by mouth every 8 hours as needed for Pain, Moderate or Pain, Severe. max 5 per day- may take extra tablet(6) 3 days per week when she has physical therpyAuthorizing Provider: NOEMI MONDRAGON III * Telephone Encounter - Delia Alvarez [facility] - 08/01/2024 9:29 AM EDT Pending Prescriptions: Disp Refills oxyCODONE-Acetaminophen 5-325 MG Oral Tabl*81 Tab*0 Sig: Take 1-2 Tablets by mouth every 8 hours as needed for Pain, Moderate or Pain, Severe. max 5 per day- may take extra tablet(6) 3 days per week when she has physical therpy * Telephone Encounter - Delia Alvarez [facility] - 08/01/2024 9:28 AM EDT I have reviewed the patients controlled substance dispensing history in the Prescription Drug Monitoring Program in compliance with the [facility] regulations before prescribing a controlled substance. PDMP checked on 08/01/2024. Pending Prescriptions: Disp Refills oxyCODONE-Acetaminophen 5-325 MG Oral Tab*81 Tab*0 Sig: Take 1-2 Tablets by mouth every 8 hours as needed for Pain, Moderate or Pain, Severe. max 5 per day- may take extra tablet(6) 3 days per week when she has physical therpy Last Visit: 10/31/2023 (in office), 11/06/2020 (telemedicine) Next Visit: Visit date not found Date medication was last filled: 07/21 Date medication is due for refill: 08/05 Pharmacy: [id number] [address] [facility] Is this request for a [...] confirmatory testing. Please approve if appropriate. Thank you, Delia Alvarez, PharmD. Clinical Pharmacist [facility] Clinical Pharmacy Services ([facility]) 08/01/2024, 9:28 AM * Telephone Encounter - Christine AlmeidaAniket - 08/01/2024 9:15 AM EDT Pt leaving on vacation Did you pend patient's preferred pharmacy and medication before forwarding?yes Pharmacy: [id number] [address] [facility] Pending Prescriptions: Disp Refills oxyCODONE-Acetaminophen 5-325 MG Oral Tab*81 Tab*0 Sig: Take 1-2 Tablets by mouth every 8 hours as needed for Pain, Moderate or Pain, Severe. max 5 per day- may take extra tablet(6) 3 days per week when she has physical therpy Last Visit: 10/31/2023 (in office), 11/06/2020 (telemedicine) Next Visit: Visit date not found If no future appointments scheduled, and last appointment is greater than a year ago, please schedule patient for a follow-up appointment Last date the medication was ordered: 07/21/24 Is this request for a controlled substance?Yes, What was the last refill date 07/21/24 w/ quantity 81and dosage 1-2 every 8 hours with an extra daily and Urine Drug Screen was completed Urine [...] reflexed to confirmatory testing. Patient Phone Numbers [facility] [phone] Labs: Lab Results Component Value Date/Time CREAT [...] Care Team (Late st Contact Info) Description 08/29/2024 7:30 AM EDT Office Visit Pharmacy, [place] [facility] [address] [place] [address] Pharmacist2, [facility] [address] [place] [address] [address] 02/04/2025 9:45 AM EDT Imaging Radiology [facility] [address] [facility] [place] [address] [place] [address] Scheduled Procedures Name Priority Associated Diagnoses Date/Ti [...] and were consensually agreed upon. Care Teams Electrical Controls Assembler Relationship Specialty Start Date End Date Noemi Mondragon III, MD [address] [facility] [place] [address] PCP - General Family Medicine 07/13/23 documented as of this encounter
--- OUTSIDE RECORDS SUMMARY | 2024-09-19 13:18 | External Medical Summary | Summary of Care ---
Author Name Unknown Organization [facility] Address [address] [facility] [place] [address] Phone [phone] Care Team Providers Care Adult Psychiatrist Name Role Phone Jay KAMARA MD, Wagner Goldman Primary Care Provider [phone] Reason for Visit * Reason Onset Date Comments Pre Op Discussion 05/22/2024 Encounter Details Date Type Department Care Team (Late st Contact Info) Description 05/22/2024 Telephone OR [facility], Operating Room [facility] [address] [place] [address] Chase Law MD [address] [place] [address] Pre Op Discussion Allergies Active Allergy Reactions Criticality Noted Date Comments Carisoprodol Seizure High 03/12/2019 documented as of this encounter (statuses as of 08/21/2024) Medications Medication Sig Dispensed Refills Start Date [...] 1 Tablet before bedtime. 30 Tablet 1 05/04/2024 4 Discontinue d(Refill) oxyCODONE-Acetamin ophen 5-325 MG Oral Tablet (Endocet)Indicatio ns:Lumbar degenerative disc disease,Lumbar radiculopathy Take 1-2 Tablets by mouth every 8 hours as needed for Pain, Moderate or Pain, Severe. max 5 per day- may take extra tablet(6) 3 days per week when she has physical therpy 81 Tablet 05/18/2024 4 Discontinue d(Refill) documented as of this encounter (statuses as of 08/21/2024) Active Problems Problem Noted Date Diagnosed Date Abdominal aortic ectasia 03/16/2023 Atherosclerosis of aorta 03/16/2023 HTN, goal below 130/80 11/16/2021 History of kidney stones 09/14/2021 Sacroiliitis, not elsewhere classified 0 H/O laminectomy 06/23/2018 Lumbar degenerative disc disease 06/23/2018 Controlled substance agreement signed 09/06/2017 History of renal carcinoma 09/06/2017 documented as of this encounter (statuses as of 08/21/2024) Resolved Problems Problem Noted Date Diagnosed Date Resolved Date Nephrolithiasis 09/29/2021 10/12/2023 Cancer of right kidney 03/12/201902/04 Low back pain radiating to left leg 09/06/2017 11/16/2021 Renal cell cancer 09/03/2015 09/06/2017 Renal mass 02/11/2015 09/06/2017 documented as of this encounter (statuses as of 08/21/2024) Immunizations Name Administration Dates Next Due COVID-19 mRNA, LNP-s, No Pre serve, 2-Dose Series ([employer]) 02/12/2021,01/22/2021 COVID-19, mRNA, LNP-s, PF, B ooster, [...] No 06/06/2023 Does the household have a [facility] source of income? (Household - for ages [...] encounter Miscellaneous Notes * Telephone Encounter - Noreen Torres RN - 05/22/2024 2:59 PM EDT Called patient for pre anesthesia evaluation for upcoming procedure ,no answer. Left message on machine /request return call /sent My G documented in this encounter Plan of Treatment Upcoming Encounters Date Type Department Care Team (Late st Contact Info) Description 08/29/2024 7:30 AM EDT Office Visit Pharmacy, [facility] [address] [facility] [place] [address] Pharmacist2, [facility] [address] [facility] [place] [address] 02/04/2025 9:45 AM EDT Imaging Radiology [address] [facility] [place] [address] Scheduled Procedures Name Priority Associated Diagnoses Date/Ti [...] and were consensually agreed upon. Care Teams Adult Psychiatrist Relationship Specialty Start Date End Date Wagner Thompson III, MD [address] [facility] [place] [address] PCP - General Family Medicine 07/13/23 documented as of this encounter
--- OUTSIDE RECORDS SUMMARY | 2024-09-19 13:18 | External Medical Summary | Summary of Care ---
Author Name Unknown Organization [facility] Address [address] [place] [address] Phone [phone] Care Team Providers Care Emergency Department Technician Name Role Phone Jay KAMARA MD, Wagner Goldman Primary Care Provider [phone] Reason for Referral * Medication Prior Authorization - Closed Specialty Diagnoses / Procedures Referred By Contac t Referred To Contact Diagnoses Lumbar degenerative disc disease Lumbar radiculopathy Vania Pereira MD [address] [facility] [place] [address] Referral ID Status Reason Start Date Expiration Date Visits Re quested Visits Authorized [id number] Closed 999 999 Reason for Visit * Reason Onset Date Comments Medication Refill 08/28/2024 Encounter Details Date Type Department Care Team (Late st Contact Info) Description 08/28/2024 Refill Family Practice [place] [facility] [address] [place] [address] Wagner Thompson III, MD [address] [facility] [place] [address] Lumbar degenerative disc disease; Lumbar radiculopathy Allergies Active Allergy Reactions Criticality Noted Date Comments Carisoprodol Seizure High 03/12/2019 documented as of this encounter (statuses as of 08/28/2024) Medications Medication Sig Dispensed Refills Start Date [...] as of this encounter (statuses as of 08/28/2024) Active Problems Problem Noted Date Diagnosed Date Abdominal aortic ectasia 03/16/2023 Atherosclerosis of aorta 03/16/2023 HTN, goal below 130/80 11/16/2021 History of kidney stones 09/14/2021 Sacroiliitis, not elsewhere classified 0 H/O laminectomy 06/23/2018 Lumbar degenerative disc disease 06/23/2018 Controlled substance agreement signed 09/06/2017 History of renal carcinoma 09/06/2017 documented as of this encounter (statuses as of 08/28/2024) Resolved Problems Problem Noted Date Diagnosed Date Resolved Date Nephrolithiasis 09/29/2021 10/12/2023 Cancer of right kidney 03/12/201902/04 Low back pain radiating to left leg 09/06/2017 11/16/2021 Renal cell cancer 09/03/2015 09/06/2017 Renal mass 02/11/2015 09/06/2017 documented as of this encounter (statuses as of 08/28/2024) Immunizations Name Administration Dates Next Due COVID-19 mRNA, LNP-s, No Pre serve, 2-Dose Series ([employer]) 02/12/2021,01/22/2021 COVID-19, mRNA, LNP-s, PF, B ooster, [...] encounter Miscellaneous Notes * Telephone Encounter - Vania Pereira MD [...] VANIA PEREIRA * Telephone Encounter - Richard Vee, [facility] - 08/28/2024 3:28 PM EDTPending Prescriptions: Disp Refills oxyCODONE-Acetaminophen 5-325 MG Oral Tabl*81 Tab*0 Sig: Take 1-2 Tablets by mouth every 8 hours as needed for Pain, Moderate or Pain, Severe. max 5 per day- may take extra tablet (6) 3 days per week when she has physical therpy * Telephone Encounter - Richard Vee [facility] - 08/28/2024 3:27 PM EDT I have reviewed the patients controlled substance dispensing history in the Prescription Drug Monitoring Program in compliance with the [facility] regulations before prescribing a controlled substance. PDMP [...] due for refill: 08/30/24 Pharmacy: [id number] [address] [facility] Is this request for a controlled substance? [...] approve if appropriate. Thank You, Richard Ulloa [facility] Clinical Pharmacist Centralized Clinical Pharmacy Services (CCPS) 08/28/2024, 3:27 PM * Telephone Encounter - Jenny Griffith glass block bender - 08/28/2024 3:24 PM EDT Patient calling in because she needs this sent in as soon as possible due to going on vacation. Jenny Davis Radio Presenter II [facility] Pharmacy Services 08/28/2024 3:24 PM * Telephone Encounter - Christine Almeida CPhT - 08/28/2024 7:32 AM EDT Did you pend patient's preferred pharmacy and medication before forwarding?yes Pharmacy: [id number] [address] [facility] Pending Prescriptions: Disp Refills oxyCODONE-Acetaminophen 5-325 MG [...] Description 02/04/2025 9:45 AM EDT Imaging Radiology [address] [place] [address] Scheduled Procedures Name Priority Associated Diagnoses [...] and were consensually agreed upon. Care Teams Emergency Department Technician Relationship Specialty Start Date End Date Wagner Thompson III, MD [address] [facility] [place] [address] PCP - General Family Medicine 07/13/23 documented as of this encounter
--- OUTSIDE RECORDS SUMMARY | 2024-09-19 13:18 | External Medical Summary | Summary of Care ---
Author Name Unknown Organization [facility] Address [address] [place] [address] Phone [phone] Care Team Providers Care [employer] Consultant Name Role Phone aJy KAMARA MD, Wagner Goldman Primary Care Provider [phone] Reason for Referral * Medication Prior Authorization - Closed Specialty Diagnoses / Procedures Referred By Contac t Referred To Contact Diagnoses Lumbar degenerative disc disease Lumbar radiculopathy Elyse Pereira MD [address] [place] [address] Referral ID Status Reason Start Date Expiration Date Visits Re quested Visits Authorized [id number] Closed 999 999 Reason for Visit * Reason Onset Date Comments Medication Refill 08/28/2024 Status Check 08/29/2024 Encounter Details Date Type Department Care Team (Late st Contact Info) Description 08/28/2024 Refill Family Practice [facility] [address] [place] [address] Wagner Thompson III, MD [address] [place] [address] Lumbar degenerative disc disease; Lumbar radiculopathy Allergies [...] mRNA, LNP-s, No Pre serve, 2-Dose Series ([facility]) 02/12/2021,01/22/2021 COVID-19, mRNA, LNP-s, PF, B ooster, [...] encounter Miscellaneous Notes * Telephone Encounter - Monserrat Beckham CPhT - 08/29/2024 4:10 PM EDT Pt calling again to check the status of new script. Still pending. Thank you, Monserrat Beckham CPhT Scrap Iron Cutter [facility]) 08/29/2024,4:11 PM * Telephone Encounter - Enrique Alvarez hotel director - 08/29/2024 1:43 PM EDT Patient calling to check on status of new prescription/early refill. Pt will be leaving [facility] by 0600 tomorrow to fly out of [place]. Pt's pharmacy open until 8pm tonight. Thank you, Enrique Alvarez Reports Analyst I [facility] ([facility]) 08/29/2024,1:43 PM * Telephone Encounter - Tanya Aragon CPhT - 08/29/2024 10:44 AM EDT Patient calling to have fill date on oxyCODONE-Acetaminophen 5-325 MG Oral Tablet (Endocet) RX changed to be able to fill today , she has a flight tomorrow AM and needs her med Thank you, Tanya Aragon Scrap Iron Cutter II [facility] ([facility]) (formerly Telepharmacy) 08/29/2024 10:44 AM * Telephone Encounter - Lyle Ramirez [facility] - 08/29/2024 5:11 AM EDT [...] ELYSE PEREIRA * [facility] 08/28/2024 3:28 PM EDTPending Prescriptions: Disp Refills oxyCODONE-Acetaminophen 5-325 MG Oral Tabl*81 Tab*0 Sig: Take 1-2 Tablets by mouth every 8 hours as needed for Pain, Moderate or Pain, Severe. max 5 per day- may take extra tablet (6) 3 days per week when she has physical therpy * Telephone Encounter - [facility] - 08/28/2024 3:27 PM EDT I have reviewed the patients controlled substance dispensing history in the Prescription Drug Monitoring Program in compliance with the [facility] regulations before prescribing a controlled substance. [...] due for refill: 08/30/24 Pharmacy: [id number] [facility] Is this request for a controlled [...] approve if appropriate. Thank You, Richard Ulloa [facility] Clinical Pharmacist [facility] ([facility]) 08/28/2024, 3:27 PM * Telephone Encounter - Jenny Griffith PHARM Tech - 08/28/2024 3:24 PM EDT Patient calling in because she needs this sent in as soon as possible due to going on vacation. Jenny Davis Scrap Iron Cutter II [facility] 08/28/2024 3:24 PM * Telephone Encounter - Christine Almeida CPhT - 08/28/2024 7:32 AM EDT Did you pend patient's preferred pharmacy and medication before forwarding?yes Pharmacy: [id number] [address] [facility] Pending Prescriptions: Disp Refills oxyCODONE-Acetaminophen 5-325 [...] reflexed to confirmatory testing. Patient Phone Numbers [employer] [phone] Labs: Lab Results Component Value Date/Time CREAT [...] Description 02/04/2025 9:45 AM EDT Imaging Radiology [facility] [address]nd [address] [address] Scheduled Procedures Name Priority Associated Diagnoses Date/Ti me COLONOSCOPY FLEXIBLE PROXIMAL DIAGNOSTIC Recall History of colon polyps Health Maintenance Due Date Last Done Comments Pap Smear 01/28/1984 Cervical Cancer Screening 1993 HPV/Co-Test 1993 Fecal Occult Blood Test 01/28/2008 Sigmoidoscopy 01/28/2008 Depression Screening 02/04/2022 02/04/2021 Mammogram 01/01/2023 01/01/2022, 12/15, 12/01/2021, Additional history exists Cologuard 06/27/2023 06/27/2020, 08/03/2020, 06/18/2020 Colonoscopy 07/17/2023 07/17/2020, 07/17/2020 Colorectal Cancer [...] and were consensually agreed upon. Care Teams [employer] Consultant Relationship Specialty Start Date End Date Wagner Thompson III, MD [address] [place] [address] PCP - General Family Medicine 07/13/23 documented as of this encounter
--- OUTSIDE RECORDS SUMMARY | 2024-09-19 13:18 | External Medical Summary | Summary of Care ---
Author Name Unknown Organization [facility] Address [address] [place] [address] Phone [phone] Care Team Providers Care Ring Facer Name Role Phone Jay KAMARA MD, John E Primary Care Provider [phone] Reason for Visit * Reason Onset Date Comments Medication Refill 08/01/2024 Encounter Details Date Type Department Care Team (Late st Contact Info) Description 08/01/2024 Refill Family Practice [facility] [address] [place] [address] Noemi Mondragon III, MD [address] [place] [address] Lumbar degenerative disc disease; Lumbar radiculopathy Allergies [...] mRNA, LNP-s, No Pre serve, 2-Dose Series ([employer]) 02/12/2021,01/22/2021 COVID-19, mRNA, LNP-s, PF, B ooster, [...] 18 years and over) Not on file 3 Are you (or your family) masha [...] encounter Miscellaneous Notes * Telephone Encounter - Brionna Barlow CMA - 08/02/2024 1:26 PM EDT Spoke with staff at pharmacy, confirmed that e-script is not being received. They state that the patient is always early to pick her prescription up which they allow, but they cannot fill it earlier than tomorrow. Dr. Blankenship re-signed the rx for print out for the patient to cone picker. Pharmacy staff are familiar with patient and state that she needs to be made aware that she cannot have script until tomorrow because they do not want her to come in and have to deal with her. The only way it will be filled early is if she speaks with the doctor directly, who is no longer in the office. Called patient to make her aware. She was very agitated and stated that she was going to have to cancel her entire trip "thanks to me and the pharmacy". She does not understand why she can't cone picker today as "today is 2 days early like every other time", I told her I am unaware of that as I only have the direct instruction from the pharmacy that it cannot be before tomorrow. I advised patient that her prescription will be at the front office help to be picked up and that the pharmacy okay'd the refill for tomorrow if she can take the script there before she leaves. She states she will cone picker before the end ofday. She hung up on me after saying that. * Addendum Note - Jere Blankenship DO - 08/02/2024 1:20 PM EDTAddended by: JERE BLANKENSHIP on: 08/02/2024 01:20 PM Modules accepted: Orders * Telephone Encounter - Shana Miller PHARM Tech - 08/02/2024 1:05 PM EDT Pt having problem with script not reaching pharmacy. I reached out to clinic nurse and she will askprovider to fax script to pharmacy. Thank you, Shana Miller Disc Inspector I [facility] ([facility]) 08/02/2024,1:06 PM * Telephone Encounter - Brionna Barlow CMA - 08/02/2024 1:03 PM EDT Spoke with pharmacy staff, patient urgently needs rx within the hour before she leaves for her tripand pharmacy is stating they are not receiving. Requested fax of prescription to fill. Rx is e-prescribed and order would need re-signed to print for patient to cone picker. Dr. Mondragon has left the clinicfor the day. * Telephone Encounter - Kristen Gibson CPhT - 08/02/2024 12:48 PM EDT Pt calling to request oxyCODONE-Acetaminophen 5-325 MG Oral Tablet (Endocet) . Informed pt that RX is available at their pharmacy. Pt verbalized understanding and stated they will check with their pharmacy regarding this medication. Thank you, Kristen Gibson CPhT Disc Inspector II [facility] ([facility]) (Formerly Telepharmacy) 08/02/2024,12:48 PM * Telephone Encounter - Becka Banerjee [facility] - 08/02/2024 11:48 AM EDT Please [id number] [facility]. Confirmed pharmacydid not receive original prescription. I have reviewed the patients controlled substance dispensing history in the Prescription Drug Monitoring Program in compliance with the [facility] regulations before prescribing a controlled substance. PDMP [...] medication is due for refill: 08/02/24 Pharmacy: [id number] Is this request for a controlled [...] to confirmatory testing. Please approve if appropriate. Becka Hahn [facility] Clinical Pharmacist [facility] ([facility]) [phone] * Telephone Encounter - Karla Huddleston PHARM Tech - 08/02/2024 11:45 AM EDT Called Becka [facility] and she advised the pharmacy should have received it but she will route this to the pcp again. Please [id number] [facility]. Confirmed pharmacydid not receive original prescription. Signed [...] medication was ordered: 08/02/2024 Patient Phone Numbers Labs: Lab Results Component [...] (Endocet) . Caller can be reached at [phone]. Spoke with [facility] will sent message over doctor stating Pharmacy has not received prescription . Thank you, Kristen Gibson CPhT Disc Inspector II [facility] ([facility]) (Formerly Telepharmacy) 08/02/2024,11:12 AM * Addendum Note - Milagro Weiss [facility] - 08/02/2024 11:09 AM EDT Addended by: MILAGRO WEISS on: 08/02/2024 11:09 AM Modules accepted: Orders * Telephone Encounter - Milagro Weiss [facility] - 08/02/2024 11:08 AM EDT Images from the original note were not included. E-scribing failed. Please resubmit if appropriate. Thank you, Maria Isabel MorilloD Clinical Pharmacist [facility] ([facility]) 08/02/24 11:08 AM [phone] * Addendum Note - Noemi Mondragon III, MD - 08/02/2024 10:14 AM EDTAddended by: NOEMI MONDRAGON on: 08/02/2024 10:14 AM Modules accepted: Orders * Telephone Encounter - Karla Huddleston PHARM Tech - 08/02/2024 9:30 AM EDT Pt is requesting high priority. Pt advised the pharmacy wont release oxyCODONE-Acetaminophen 5-325 MG Oral Tablet (Endocet) to her today because the prescriber wrote on the note not to fill until 08/03/2024. Pt is leaving for vacation on a cruise at 6:30am tomorrow and can not pick it up then. [facility] advised if the pcp resends the rxwithout the request for hold until 08/03/2024 they can fill it today. Pt wants to know if Dr Mondragon can remove the note on the rx and [facility] to [id number] [address] * Telephone Encounter - Ceci Pickett CPhT - 08/02/2024 7:47 AM EDT Pt calling to request oxyCODONE-Acetaminophen 5-325 MG Oral Tablet (Endocet) . Informed pt that RX is available at their pharmacy. Pt verbalized understanding and stated they will check with their pharmacy regarding this medication. Thank you, Nan Pickett CPhT Reel Blade Bender Furnace Tender II [facility] ([facility]) 08/02/2024,7:47 [...] III * Telephone Encounter - Delia Alvarez [facility] - 08/01/2024 9:29 AM EDT Pending Prescriptions: Disp Refills oxyCODONE-Acetaminophen 5-325 MG Oral Tabl*81 Tab*0 Sig: Take 1-2 Tablets by mouth every 8 hours as needed for Pain, Moderate or Pain, Severe. max 5 per day- may take extra tablet(6) 3 days per week when she has physical therpy * Telephone Encounter - Delia Alvarez [facility] - 08/01/2024 9:28 AM EDT I have reviewed the patients controlled substance dispensing history in the Prescription Drug Monitoring Program in compliance with the [facility] regulations before prescribing a controlled substance. PDMP [...] is due for refill: 08/05 Pharmacy: [id number] Is this request for a controlled substance? [...] 9:28 AM * Telephone Encounter - Christine Almeida CPhT - 08/01/2024 9:15 AM EDT Pt leaving on vacation Did you pend patient's preferred pharmacy and medication before forwarding?yes Pharmacy: [id number] [address] [place] [address] Pending Prescriptions: Disp Refills oxyCODONE-Acetaminophen 5-325 MG [...] reflexed to confirmatory testing. Patient Phone Numbers [employer] [phone] Labs: Lab Results Component Value Date/Time CREAT [...] 08/29/2024 7:30 AM EDT Office Visit Pharmacy, [facility] [place] [address] [place] [address] Pharmacist2, [facility] [address] [place], [place] [address] 02/04/2025 9:45 AM EDT Imaging Radiology [facility] 2nd [facility], [place] [address] [place] [address] Scheduled Procedures Name Priority Associated Diagnoses Date/Ti [...] and were consensually agreed upon. Care Teams Ring Facer Relationship Specialty Start Date End Date Noemi Mondragon III, MD [address] [place] [address] PCP - General Family Medicine 07/13/23 documented as of this encounter
--- OUTSIDE RECORDS SUMMARY | 2024-09-19 13:18 | External Medical Summary | Summary of Care ---
Author Name Unknown Organization [facility] Address [address] [place] [address] Phone [phone] Care Team Providers Care Quality Liaison Name Role Phone Jay KAMARA MD, John E Primary Care Provider [phone] Reason for Visit * Reason Onset Date Comments Medication Refill 08/01/2024 Encounter Details Date Type Department Care Team (Late st Contact Info) Description 08/01/2024 Refill Family Practice [facility] [address] [facility] [place] [address] Noemi Mondragon III, MD [address] [place] [address] Lumbar degenerative disc disease; Lumbar radiculopathy Allergies [...] mRNA, LNP-s, No Pre serve, 2-Dose Series ([employer]) 02/12/2021,01/22/2021 COVID-19, mRNA, LNP-s, PF, B ooster, [...] encounter Miscellaneous Notes * Addendum Note - Jere Blankenship DO - 08/02/2024 1:20 PM EDTAddended by: JERE BLANKENSHIP on: 08/02/2024 01:20 PM Modules accepted: Orders * Telephone Encounter - Shana Miller PHARM Tech - 08/02/2024 1:05 PM EDT Pt having problem with script not reaching pharmacy. I reached out to clinic nurse and she will askprovider to fax script to pharmacy. Thank you, Shana Miller Fiberglass Pipe Covering Supervisor I [facility] ([facility]) 08/02/2024,1:06 PM * Telephone Encounter - Brionna Barlow CMA - 08/02/2024 1:03 PM EDT Spoke with pharmacy staff, patient urgently needs rx within the hour before she leaves for her tripand pharmacy is stating they are not receiving. Requested fax of prescription to fill. Rx is e-prescribed and order would need re-signed to print for patient to pickle solution maker. Dr. Mondragon has left the clinicfor the day. * Telephone Encounter - Kristen Gibson CPhT - 08/02/2024 12:48 PM EDT Pt calling to request oxyCODONE-Acetaminophen 5-325 MG Oral Tablet (Endocet) . Informed pt that RX is available at their pharmacy. Pt verbalized understanding and stated they will check with their pharmacy regarding this medication. Thank you, Kristen Gibson CPhT Fiberglass Pipe Covering Supervisor II [facility] ([facility]) (Formerly Telepharmacy) 08/02/2024,12:48 PM * Telephone Encounter - Becka Banerjee RP - 08/02/2024 11:48 AM EDT [id number] Confirmed pharmacydid not receive original prescription. I have reviewed the patients controlled substance dispensing history in the Prescription Drug Monitoring Program in compliance with the [facility] regulations before prescribing a controlled [...] is due for refill: 08/02/24 [id number] Is this request for a [...] confirmatory testing. Please approve if appropriate. Thanks, Becka Banerjee [facility] Clinical Pharmacist [facility] ([facility]) [phone] * Telephone Encounter - Karla Huddleston PHARM Tech - 08/02/2024 11:45 AM EDT Called Becka [facility] and she advised the pharmacy should have received it but she will route this to the pcp again. Please [id number] [address] [place] [address]. Confirmed pharmacydid not receive original prescription. Signed [...] (Endocet) . Caller can be reached at [phone]. Spoke with [facility] will sent message over doctor stating Pharmacy has not received prescription . Thank you, Kristen Gibson CPhT Fiberglass Pipe Covering Supervisor II [facility] ([facility]) (Formerly Telepharmacy) 08/02/2024,11:12 AM * Addendum Note - Milagro Weiss [facility] - 08/02/2024 11:09 AM EDT Addended by: MILAGRO WEISS on: 08/02/2024 11:09 AM Modules accepted: Orders * Telephone Encounter - Milagro Weiss [facility] - 08/02/2024 11:08 AM EDT Images from the original note were not included. E-scribing failed. Please resubmit if appropriate. Thank you, Milagro Weiss PharmD Clinical Pharmacist [facility] ([facility]) 08/02/24 11:08 AM [phone] * Addendum Note - Noemi Mondragon III, [...] and can not pick [facility] then. [facility] if the [facility]cp resends the rxwithout the request for hold until 08/03/2024 they can fill it today. Pt wants to know if Dr Mondragon can remove the note on the rx and [facility]end to [id number] [address] * Telephone Encounter - Ceci Pickett CPhT - 08/02/2024 7:47 AM EDT Pt calling to request oxyCODONE-Acetaminophen 5-325 MG Oral Tablet (Endocet) . Informed pt that RX is available at their pharmacy. Pt verbalized understanding and stated they will check with their pharmacy regarding this medication. Thank you, Nan Pickett CPhT Facilities Custodian II [facility] ([facility]) 08/02/2024,7:47 [...] III * Telephone Encounter - Delia Alvarez [facility] - 08/01/2024 9:29 AM EDT Pending Prescriptions: Disp Refills oxyCODONE-Acetaminophen 5-325 MG Oral Tabl*81 Tab*0 Sig: Take 1-2 Tablets by mouth every 8 hours as needed for Pain, Moderate or Pain, Severe. max 5 per day- may take extra tablet(6) 3 days per week when she has physical therpy * Telephone Encounter - Delia Alvarez RPh - 08/01/2024 9:28 AM EDT I have reviewed the patients controlled substance dispensing history in the Prescription Drug Monitoring Program in compliance with the [facility] regulations before prescribing a controlled [...] is due for refill: 08/05 Pharmacy: [id number] [address] [facility] Is this request for a [...] pharmacy and medication before forwarding?yes Pharmacy: E [id number] [address] [facility] Pending Prescriptions: Disp Refills oxyCODONE-Acetaminophen [...] reflexed to confirmatory testing. Patient Phone Numbers [employer] [phone] Labs: Lab Results Component Value Date/Time CREAT [...] 08/29/2024 7:30 AM EDT Office Visit Pharmacy, [facility] [address] [facility] [place] [address] Pharmacist2, [facility] [address] [place] [address] 02/04/2025 9:45 AM EDT Imaging Radiology [facility] 2nd [facility] [address] [facility] [place] [address] Scheduled Procedures Name Priority Associated Diagnoses Date/Ti [...] and were consensually agreed upon. Care Teams Quality Liaison Relationship Specialty Start Date End Date Noemi Mondragon III, MD [address] [place] [address] PCP - General Family Medicine 07/13/23 documented as of this encounter
--- OUTSIDE RECORDS SUMMARY | 2024-09-19 13:18 | External Medical Summary | Summary of Care ---
Author Name Unknown Organization [facility] Address [address] [place] [address] Phone [phone] Care Team Providers Care Clothing Sales Assistant Name Role Phone Jay KAMARA MD, Wagner Goldman Primary Care Provider [phone] Reason for Referral * Medication Prior Authorization - Pending Review Specialty Diagnoses / Procedures Referred By Jeronimo [email or web address] Referred To Contact Diagnoses Acute bronchitis, unspecified organism Chriss Nguyen DO [address] [place] [address] Referral ID Status Reason Start Date Expiration Date V isits Requested Visits Authorized [id number] Pending Review 999 999 Reason for Visit * Reason Comments Cough Fever Wheezing Encounter Details Date Type Department Care Team (Late st Contact Info) Description 09/10/2024 3:00 PM EDT Office Visit General Internal Medicine [facility] [address] [place] [address] Chriss Nguyen DO [address] [place] [address] Acute bronchitis, unspecified organism* Allergies Active Allergy Reactions Criticality Noted Date Comments Carisoprodol Seizure High 03/12/2019 documented as of this encounter (statuses as of 09/10/2024) Medications Medication Sig Dispensed Refills Start Date [...] BEFORE BEDTIME 30 Tablet 1 08/28/2024 Active oxyCODONE-Acetamino phen 5-325 MG Oral Tablet [...] needed for Wheezing. 18 g 09/10/2024 Active Aspirin Low Dose 81 MG Oral Tablet Delayed Release (aspirin enteric coated) TAKE 1 TABLET BY MOUTH EVERY DAY 100 Tab 3 07/15/2021 4 Discontinue d(Patient preference/ discontinua tion) documented as of this encounter (statuses as of 09/10/2024) Active Problems Problem Noted Date Diagnosed Date Abdominal aortic ectasia 03/16/2023 Atherosclerosis of aorta 03/16/2023 HTN, goal below 130/80 11/16/2021 History of kidney stones 09/14/2021 Sacroiliitis, not elsewhere classified 0 H/O laminectomy 06/23/2018 Lumbar degenerative disc disease 06/23/2018 Controlled substance agreement signed 09/06/2017 History of renal carcinoma 09/06/2017 documented as of this encounter (statuses as of 09/10/2024) Resolved Problems Problem Noted Date Diagnosed Date Resolved Date Nephrolithiasis 09/29/2021 10/12/2023 Cancer of right kidney 03/12/201902/04 Low back pain radiating to left leg 09/06/2017 11/16/2021 Renal cell cancer 09/03/2015 09/06/2017 Renal mass 02/11/2015 09/06/2017 documented as of this encounter (statuses as of 09/10/2024) Immunizations Name Administration Dates Next Due COVID-19 mRNA, LNP-s, No Pre serve, 2-Dose Series (Vidavee) 02/12/2021,01/22/2021 COVID-19, mRNA, LNP-s, PF, B ooster, [...] Day Cigarettes 0.3 26 Smokeless Tobacco: Never Tobacco Cessation:Ready to Q uit: Not Asked; Counseling Given: Not Answered Alcohol Use Standard Drinks/Week Comments Yes 0 [...] on file documented as of this encounter Last Filed Vital Signs Vital Sign Reading Time Taken Comments Blood Pressure 112/70 09/10/2024 3:05 PM EDT Pulse 106 09/10/2024 3:05 PM EDT Temperature 37.2 C (99 F) 09/10/2024 3:05 PM EDT Respiratory Rate - - Oxygen Saturation 94% 09/10/2024 3:05 PM EDT Inhaled Oxygen Concentration - - Weight 83.6 kg (184 lb 4.8 oz) 09/10/2024 3:05 P M EDT Height 170.2 cm (5' 7.01") 09/10/2024 3:05 PM ED T Body Mass Index 28.86 09/10/2024 3:05 PM EDT documented in this encounter Functional Status Functional Status Response [...] as of this encounter Progress Notes * Ryanneaaron Chriss Oates, DO - 09/10/2024 2:58 PM EDT Subjective Jaz Gross is a 59 year old female. Chief Complaint Patient presents with Cough Fever Wheezing Text in this note was generated using an [employer] documentation service. I discussed the use of a device to record and summarize our discussion today. All persons present during the encounter consented to its use. HPI: History of Present Illness The patient presents with a week-long history of respiratory symptoms, starting with a 'scratchy throat' and progressing to cough and 'junky' chest congestion. By Tuesday night, she developed a low-grade fever which persisted into . By Tuesday, she felt 'wiped out' and experienced increasing difficulty taking deep breaths and walking upstairs. She has been in close contact with seven grandchildren, aged two months to thirteen years, who have been frequently ill. Has continued with cough, chest congestion. Has started noting some wheezing as well. Difficult to do things such as walking upstairs. Still feels very fatigue. No swelling in legs or abdomen. Has tried Mucinex as well as OTC decongestant without much relief. PMH: Patient Active Problem List Diagnosis Controlled substance agreement signed History of renal carcinoma H/O laminectomy Lumbar degenerative disc disease Sacroiliitis, not elsewhere classified (HCC) HTN, goal below 130/80 Abdominal aortic ectasia (HCC) Atherosclerosis of aorta (HCC) History of kidney stones Current Outpatient Medications Medication Sig Dispense Refill Acetaminophen 325 MG Oral Tablet 2 tablets as needed for pain Multiple Vitamins-Minerals (MULTIVITAMIN WOMENS 50+ ADV) TABS Take by mouth daily. Aspirin Low Dose 81 MG Oral Tablet Delayed Release (aspirin enteric coated) TAKE 1 TABLET BY MOUTH EVERY DAY (Patient not taking: Reported on 12/26/2023) 100 Tab 3 DULoxetine HCl 30 MG Oral Capsule Delayed Release Particles (Cymbalta) Take 1 Capsule by mouth in the morning. Take in addition to 60mg dose for 90mg total.. 30 Capsule 11 DULoxetine HCl 60 MG Oral Capsule Delayed Release Particles (Cymbalta) Take 1 Capsule by mouth in the morning. Take in addition to 30mg dose for 90mg total.. 30 Capsule 11 Lisinopril 5 MG Oral Tablet (Prinivil) TAKE 1 TABLET BY MOUTH EVERY DAY IN THE MORNING 90 Tablet 3 amLODIPine Besylate 5 MG Oral Tablet (Norvasc) TAKE 1 TABLET BY MOUTH EVERY DAY IN THE MORNING 90 Tablet 1 Cyclobenzaprine HCl 10 MG Oral Tablet (Flexeril) TAKE 1 TABLET BY MOUTH IN THE MORNING AT AT NOON AND BEFORE BEDTIME 30 Tablet 1 oxyCODONE-Acetaminophen 5-325 MG Oral Tablet (Endocet) Take 1-2 Tablets by mouth every 8 hours as needed for Pain, Moderate or Pain, Severe. max 5 per day- may take extra tablet (6) 3 days per week when she has physical therapy - earliest fill 08/30/24 81 Tablet 0 No current facility-administered medications for this visit. Past Medical History: Diagnosis Date Arthropathy, traumatic, knee H/O laminectomy H/O ovarian cancer tx with radiation Nephrolithiasis Ovarian cancer (HCC) 1987 Renal mass S/P total knee arthroplasty SLAP lesion of shoulder Smoker Past Surgical History: Procedure Laterality Date COLONOSCOPY, DIAGNOSTIC (RECTUM) 07/17/2020 hyperplastic & serrated adenomatous polyps, repeat 3 yrs / COLONOSCOPY FLEXIBLE PROXIMAL DIAGNOSTIC performed by Luis Keating MD at ENDOSCOPY [facility] CYSTO/URETERO W/LITHOTRIPSY Right 10/12/2021 CYSTOURETHROSCOPY URETEROSCOPY WITH LITHOTRIPSY AND STENT INSERTION performed by Clemente Ventura MD at OR [facility] INFORMATION Left knee surgery multiple INFORMATION Right knee surgery multiple INFORMATION lumbar laminectomy x 5 INFORMATION Right shoulder surgery INFORMATION appendectomy LAP,SURG-PARTIAL NEPHRECTOMY Right 02/11/2015 ROBOTIC LAPAROSCOPIC PARTIAL NEPHRECTOMY performed by Blu Darden MD at OR [facility] REMOVE ABDOMEN LYMPH NODES Right 02/11/2015 ROBOTIC LYMPHADENECTOMY RETROPERITONEAL performed by Blu Darden MD at OR [facility] Review of patient's allergies indicates: Allergen Reactions Carisoprodol Seizure Family History Problem Relation Name Age of Onset Cancer Mother pancreatic 54 Cancer Father esophageal 67 No Past Hx Brother No Past Hx Sister Heart Disorder Grandmother (Maternal) [place] in 60s Cancer Grandfather (Maternal) larynx, Heart Disorder Grandfather (Maternal) [place] in 60s Breast Cancer Grandmother (Paternal) Other (cirrhosis, alchoholism) Grandfather (Paternal) No Past Hx Brother Family Status Relation Status Mo (Not Specified) Fa (Not Specified) Bro (Not Specified) Sis (Not Specified) MGMA (Not Specified) MGFA (Not Specified) MGFA (Not Specified) PGMA (Not Specified) PGFA (Not Specified) Bro (Not Specified) Social History Socioeconomic History Marital status: Spouse name: Not on file Number of children: Not on file Years of education: Not on file Highest education level: Not on file Occupational History Not on file Tobacco Use Smoking status: Every Day Current packs/day: 0.25 Average packs/day: 0.3 packs/day for 26.0 years (6.5 ttl pk-yrs) Types: Cigarettes Smokeless tobacco: Never Vaping Use Vaping status: Never Used Substance and Sexual Activity Alcohol use: Yes Comment: once a week Drug use: No Sexual activity: Not on file Other Topics Concern Not on file Social History Narrative Not on file Social Determinants of Health Financial Resource Strain: Low Risk (06/06/2023) Financial Resource Strain Do you have any trouble paying for your medications, or do you think you might in the future? (Adult - for ages 18 years and over): No Does your family have trouble paying for medicine? (Household - for ages 0-17 years): Not on file Food Insecurity: No Food Insecurity (06/06/2023) Food Insecurity Do you need food for this week? (Adult - for ages 18 years and over): No Are you able to get enough food for your family? (Household - for ages 0-17 years): Not on file Does your family need food this week? (Household - for ages 0-17 years): Not on file Do you always have enough food for your family? (Household - for ages 0-17 years): Not on file Transportation Needs: Unmet Transportation Needs (06/06/2023) Transportation Needs Do you have trouble getting a ride to medical visits or work? (Adult - for ages 18 years and over):Sometimes True Does your family have a hard time getting a ride to doctors visits? (Household - for ages 0-17 years): Not on file Has lack of transportation kept you from medical appointments, meetings, work, or from getting things needed for daily living? Check all that apply. (Adult - for ages 18 years and over): Not on file Do you (or your family) have trouble finding or paying for a ride (transportation)? (Household - for ages 0-17 years): Not on file Social Connections: Unknown (06/07/2024) Social Connections How often do you feel lonely or isolated from those around you? (Adult - for ages 18 years and over): Not on file Housing Stability: Low Risk (06/06/2023) Housing Stability Do you currently live in a senior living or have no steady place to sleep at night? (Adult - for ages 18 years and over): No Do you think you are at risk of becoming homeless? (Adult - for ages 18 years and over): No Does your family worry about paying for your home or becoming homeless? (Household - for ages 0-17 years): Not on file Are you homeless or worried that you might be in the future? (Adult - for ages 18 years and over): Not on file Are you (or your family) homeless or worried that you might be in the future? (Household - for ages0-17 years): Not on file Review of Systems Constitutional: Negative for chills and fever. HENT: Positive for congestion and postnasal drip. Negative for sore throat. Eyes: Negative for photophobia and itching. Respiratory: Positive for cough, chest tightness, shortness of breath and wheezing. Negative for apnea. Cardiovascular: Negative for chest pain, palpitations and leg swelling. Gastrointestinal: Negative for abdominal distention, abdominal pain, nausea and vomiting. Genitourinary: Negative for dysuria and frequency. Musculoskeletal: Negative for arthralgias and myalgias. Skin: Negative for pallor and rash. Neurological: Negative for dizziness, light-headedness and headaches. Psychiatric/Behavioral: Negative for sleep disturbance. The patient is not nervous/anxious. Objective There were no vitals taken for this visit. Physical Exam Constitutional: General: She is not in acute distress. Appearance: She is not ill-appearing. HENT: Head: Normocephalic and atraumatic. Right Ear: Tympanic membrane, ear canal and external ear normal. Left Ear: Tympanic membrane, ear canal and external ear normal. Nose: Nose normal. No congestion or rhinorrhea. Mouth/Throat: Mouth: Mucous membranes are moist. Pharynx: Oropharynx is clear. Eyes: General: No scleral icterus. Extraocular Movements: Extraocular movements intact. Conjunctiva/sclera: Conjunctivae normal. Pupils: Pupils are equal, round, and reactive to light. Cardiovascular: Rate and Rhythm: Normal rate and regular rhythm. Pulses: Normal pulses. Heart sounds: Normal heart sounds. No murmur heard. No friction rub. No gallop. Pulmonary: Effort: Pulmonary effort is normal. No respiratory distress. Breath sounds: No stridor. Rhonchi present. No wheezing or rales. Chest: Chest wall: No tenderness. Abdominal: General: Bowel sounds are normal. There is no distension. Palpations: Abdomen is soft. There is no mass. Tenderness: There is no abdominal tenderness. There is no right CVA tenderness or left CVA tenderness. Musculoskeletal: General: No deformity. Normal range of motion. Cervical back: Normal range of motion and neck supple. Right lower leg: No edema. Left lower leg: No edema. Lymphadenopathy: Cervical: No cervical adenopathy. Skin: General: Skin is warm and dry. Coloration: Skin is not jaundiced. Findings: No rash. Neurological: General: No focal deficit present. Mental Status: She is oriented to person, place, and time. Cranial Nerves: No cranial nerve deficit. Sensory: No sensory deficit. Motor: No weakness. Psychiatric: Mood and Affect: Mood normal. Behavior: Behavior normal. ASSESSMENT/PLAN: Acute bronchitis, unspecified organism (Primary) - Cefdinir 300 MG Oral Capsule (Omnicef); Take 1 Capsule by mouth in the morning and 1 Capsule before bedtime. Do all this for 10 days. - predniSONE 10 MG Oral Tablet (Deltasone); 4tab x 3d, 3tab x 3d, 2tab x 3d, 1tab x 3d - Benzonatate 200 MG Oral Capsule; Take 1 Capsule by mouth 3 times a day as needed for Cough. - Ventolin HFA 108 (90 Base) MCG/ACT Inhalation Aerosol Solution; Inhale 2 Puffs by mouth every 4 hours as needed for Wheezing. Plan: Assessment & Plan Acute Bronchitis Symptoms started last Tuesday with a scratchy throat, progressing to congestion, low-grade fever, fatigue, and difficulty taking deep breaths. No known allergies to medications. -Start Omnicef 300mg twice daily for 10 days. -Start Prednisone taper until finished. -Use Albuterol inhaler as needed, up to 2 puffs four times daily. -Benzonatate 200mg TID PRN cough. Albuterol HFA 2 puff QID PRN v -If symptoms worsen or high fevers develop, contact the office for possible chest x-ray. -counseled patient on common side effects which to monitor with taking each of the medications Follow Up: Return if symptoms worsen or fail to improve, for Follow up next routine with PCP as scheduled. | For: Follow up next routine with PCP as scheduled | Check-out note: Follow up as needed ifno improvement on meds Chriss Nguyen DO documented in this encounter Nursing Notes * Brionna Barlow CMA - 09/10/2024 3:04 PM EDT Patient presents today with complaints of cough, wheezing, head pressure and fever since last Tuesday. Nothing OTC has helped. She states it is getting harder to breathe and her chest is getting heavier and tighter. documented in this encounter Plan of Treatment Upcoming Encounters Date Type Department Care Team (Late st Contact Info) Description 09/12/2024 6:10 PM EDT Pharmacy Pharmacy, [facility] [address] [place] [address] Pharmacist2, [facility] [address] [place] [address] 02/04/2025 9:45 AM EDT Imaging Radiology [facility] [address] [facility] [address] [facility] [place] [id number] Scheduled Procedures Name Priority Associated Diagnoses Date/Ti [...] and were consensually agreed upon. Care Teams Clothing Sales Assistant Relationship Specialty Start Date End Date Wagner Thompson III, MD [address] [facility], [place] [id number] PCP - General Family Medicine 07/13/23 documented as of this encounter
--- OUTSIDE RECORDS SUMMARY | 2024-09-19 13:18 | External Medical Summary | Summary of Care ---
Author Name Unknown Organization [facility] Address [address] [place] [address] Phone [phone] Care Team Providers Care Senior Recruiter Name Role Phone Jay KAMARA MD, Wagner Goldman Primary Care Provider [phone] Reason for Visit * Reason Comments eRx-Medication Refill Encounter Details Date Type Department Care Team (Late st Contact Info) Description 08/26/2024 Refill Family Practice [facility] [address] [facility] [place] [address] Charis Cheek PA-C [address] [facility] [place] [address] Lumbar degenerative disc disease; Sacroiliitis, not elsewhere classified (HCC) Allergies Active Allergy Reactions Criticality Noted Date [...] BY MOUTH EVERY DAY 100 Tab 3 1 Active Additional Information Patient not taking.Reported on 12/26/2023 DULoxetine HCl 30 MG Oral Capsule Delayed Release Particles (Cymbalta)Indicati ons:Lumbar degenerative disc disease Take 1 Capsule by mouth in the morning. Take in addition to 60mg dose for 90mg total.. 30 Capsule 11 4 Active DULoxetine HCl 60 MG Oral Capsule Delayed Release Particles (Cymbalta)Indicati ons:Lumbar degenerative disc disease Take 1 Capsule by mouth in the morning. Take in addition to 30mg dose for 90mg total.. 30 Capsule 11 4 Active Lisinopril 5 MG Oral Tablet (Prinivil) TAKE 1 TABLET BY MOUTH EVERY DAY IN THE MORNING 90 Tablet 3 4 Active amLODIPine Besylate 5 MG Oral Tablet (Norvasc) TAKE 1 TABLET BY MOUTH EVERY DAY IN THE MORNING 90 Tablet 1 4 Active oxyCODONE-Acetamin ophen 5-325 MG Oral Tablet (Endocet)Indicatio ns:Lumbar degenerative disc disease,Lumbar radiculopathy Take 1-2 Tablets by mouth every 8 hours as needed for Pain, Moderate or Pain, Severe. max 5 per day- may take extra tablet (6) 3 days per week when she has physical therpy 81 Tablet 4 Active Cyclobenzaprine HCl 10 MG Oral Tablet (Flexeril)Indicati ons:Lumbar degenerative disc disease,Sacroiliit is, not elsewhere classified (HCC) TAKE 1 TABLET BY MOUTH IN THE MORNING AT AT NOON AND BEFORE BEDTIME 30 Tablet 1 4 Active Cyclobenzaprine HCl 10 MG Oral Tablet (Flexeril)Indicati ons:Lumbar degenerative disc disease,Sacroiliit is, not elsewhere classified (HCC) Take 1 Tablet by mouth in the morning and 1 Tablet at noon and 1 Tablet before bedtime. 30 Tablet 1 4 08/28/20 24 Discontinued documented as of this encounter (statuses as [...] mRNA, LNP-s, No Pre serve, 2-Dose Series (Cebix) 02/12/2021,01/22/2021 COVID-19, mRNA, LNP-s, PF, B ooster, [...] 06/06/2023 Does the household have a re lar source of income? (Household - for ages [...] encounter Miscellaneous Notes * Telephone Encounter - Jenny Griffith product development engineer - 08/28/2024 3:23 PM EDT Patient calling in because she needs this sent in as soon as possible due to going on vacation. Jenny Davis Parcel [employer] [facility] 08/28/2024 3:23 PM * Telephone Encounter - Jose Jose RP - 08/28/2024 10:21 AM EDTPending Prescriptions: Disp Refills Cyclobenzaprine HCl 10 MG Oral Tablet [Pha*30 Tab*1 Sig: TAKE 1 TABLET BY MOUTH IN THE MORNING AT AT NOON AND BEFORE BEDTIME * Telephone Encounter - Jose Jose RP - 08/28/2024 10:21 AM EDT Refill pharmacists currently not authorized to approve refills for the pended medication(s) per refill protocol. Please approve if appropriate. Pending Prescriptions: Disp Refills Cyclobenzaprine HCl 10 MG Oral Tablet [Pha*30 Tab*1 Sig: TAKE 1 TABLET BY MOUTH IN THE MORNING AT AT NOON AND BEFORE BEDTIME Last Visit: 10/31/2023 (in office), 11/06/2020 (telemedicine) Next Visit: Visit date not found If no future appointments scheduled, and last appointment is greater than a year ago, please schedule patient for a follow-up appointment Last date the medication was ordered: 07-18-24 Pharmacy: [id number] [facility] Is this request for a controlled substance?No Urine Drug Screen: Results for orders placed [...] 10:30 AM ALT 13 11/04/2017 11:21 AM Michell Long.Ph. Clinical Pharmacist [facility] [address] [place] [address], [address] [place] [address] MC: [id number] 08/28/2024,10:21 AM documented in this encounter Plan of Treatment Upcoming Encounters Date Type Department Care Team (Late st Contact Info) Description 02/04/2025 9:45 AM EDT [address] Radiology [address] [address] Scheduled Procedures Name Priority Associated Diagnoses Date/Ti [...] Degeneration of lumbar or lumbosacral intervertebral disc Sacroiliitis, not elsewhere classified (HCC) Sacroiliitis, not elsewhere classified documented in this encounter Advance Directives * [...] and were consensually agreed upon. Care Teams Senior Recruiter Relationship Specialty Start Date End Date Wagner Thompson III, MD [address] [place] [address] PCP - General Family Medicine 07/13/23 documented as of this encounter
--- OUTSIDE RECORDS SUMMARY | 2024-09-19 13:18 | External Medical Summary | Summary of Care ---
Author Name Unknown Organization [facility] Address [address] [place] [address] Phone [phone] Care Team Providers Care Elementary Science Teacher Name Role Phone Jay KAMARA MD, John E Primary Care Provider [phone] Reason for Visit * Reason Onset Date Comments Medication Refill 08/01/2024 Encounter Details Date Type Department Care Team (Late st Contact Info) Description 08/01/2024 Refill Family Practice [facility] [address] [place] [address] Noemi Mondragon III, MD [address] [place] [address] Lumbar degenerative disc disease; Lumbar radiculopathy Allergies [...] mRNA, LNP-s, No Pre serve, 2-Dose Series ([employer]) 02/12/2021,01/22/2021 COVID-19, mRNA, LNP-s, PF, B ooster, [...] script to pharmacy. Thank you, Shana Miller Burial Needs Salesperson I Centralized Clinical Pharmacy Services (CCPS) 08/02/2024,1:06 PM * Telephone Encounter - Brionna Barlow CMA - 08/02/2024 1:03 PM EDT Spoke with pharmacy staff, patient urgently needs rx within the hour before she leaves for her tripand pharmacy is stating they are not receiving. Requested fax of prescription to fill. Rx is e-prescribed and order would need re-signed to print for patient to flower picker. Dr. Mondragon has left the clinicfor the day. * Telephone Encounter - Kristen Gibson CPhT - 08/02/2024 12:48 PM EDT Pt calling to request oxyCODONE-Acetaminophen 5-325 MG Oral Tablet (Endocet) . Informed pt that RX is available at their pharmacy. Pt verbalized understanding and stated they will check with their pharmacy regarding this medication. Thank you, Kristen Gibson CPhT Burial Needs Salesperson II Centralized Clinical Pharmacy Services (CCPS) (Formerly Telepharmacy) 08/02/2024,12:48 PM * Telephone Encounter - Becka Banerjee [facility] - 08/02/2024 11:48 AM EDT Please [id number] [address] [place] [address]. Confirmed pharmacydid not receive original prescription. I have reviewed the patients controlled substance dispensing history in the Prescription Drug Monitoring Program in compliance with the [facility] regulations before prescribing a controlled substance. PDMP [...] due for refill: 08/02/24 [id number] [address] [facility] Is this request for a controlled [...] confirmatory testing. Please approve if appropriate. ThanksBecka [facility] Clinical Pharmacist Centralized Clinical Pharmacy Services (CCPS) [phone] * Telephone Encounter - Karla Huddleston PHARM Tech - 08/02/2024 11:45 AM EDT Called Becka [facility] and she advised the pharmacy should have received it but she will route this to the pcp again. Please [facility]end Rx to [id number] [address] [facility]. Confirmed pharmacydid not receive original prescription. [...] medication was ordered: 08/02/2024 Patient Phone Numbers [employer] [phone] Labs: Lab Results Component Value Date/Time CREAT [...] (Endocet) . Caller can be reached at [phone]. Spoke with [facility] will sent message over doctor stating Pharmacy has not received prescription . Thank you, Kristen Gibson CPhT Burial Needs Salesperson II Centralized Clinical Pharmacy Services (CCPS) (Formerly Telepharmacy) 08/02/2024,11:12 AM * Addendum Note - Milagro Weiss [facility] - 08/02/2024 11:09 AM EDT Addended by: MILAGRO WEISS on: 08/02/2024 11:09 AM Modules accepted: Orders * Telephone Encounter - Milagro Weiss [facility] - 08/02/2024 11:08 AM EDT Images from the original note were not included. E-scribing failed. Please resubmit if appropriate. Thank you, Milagro Weiss PharmD Clinical Pharmacist Centralized Clinical Pharmacy Services (CCPS) 08/02/24 11:08 AM [phone] * Addendum Note - Noemi Mondragon III, MD - 08/02/2024 10:14 AM EDTAddended by: NOEMI MONDRAGON on: 08/02/2024 10:14 AM Modules accepted: Orders * Telephone Encounter - Karla Huddleston museum exhibit designer - 08/02/2024 9:30 AM EDT Pt is requesting high priority. Pt advised the pharmacy wont release oxyCODONE-Acetaminophen 5-325 MG Oral Tablet (Endocet) to her today because the prescriber wrote on the note not to fill until 08/03/2024. Pt is leaving for vacation on a cruise at 6:30am tomorrow and can not pick it up then. [facility] advised if the pcp resends the rxwithout the request for hold until 08/03/2024 they can fill it today. Pt wants to know if Dr Mondragon can remove the note on the rx and resend to E [facility] [id number] * Telephone Encounter - Ceci Pickett CPhT - 08/02/2024 7:47 AM EDT Pt calling to request oxyCODONE-Acetaminophen 5-325 MG Oral Tablet (Endocet) . Informed pt that RX is available at their pharmacy. Pt verbalized understanding and stated they will check with their pharmacy regarding this medication. Thank you, Nan Pickett CPhT Waterfront Director II Centralized Clinical Pharmacy Services (CCPS) 08/02/2024,7:47 [...] III * Telephone Encounter - Delia Alvarez [facility] - 08/01/2024 9:29 AM EDT Pending Prescriptions: Disp Refills oxyCODONE-Acetaminophen 5-325 MG Oral Tabl*81 Tab*0 Sig: Take 1-2 Tablets by mouth every 8 hours as needed for Pain, Moderate or Pain, Severe. max 5 per day- may take extra tablet(6) 3 days per week when she has physical therpy * Telephone Encounter - Delia Alvarez [facility] - 08/01/2024 9:28 AM EDT I have reviewed the patients controlled substance dispensing history in the Prescription Drug Monitoring Program in compliance with the [facility] regulations before prescribing a controlled substance. PDMP [...] is due for refill: 08/05 Pharmacy: [id number] [address] [facility] Is this request for a controlled [...] before forwarding?yes Pharmacy: [id number] [address] [facility] Pending Prescriptions: Disp Refills oxyCODONE-Acetaminophen 5-325 [...] reflexed to confirmatory testing. Patient Phone Numbers [employer] [phone] Labs: Lab Results Component Value Date/Time CREAT [...] State Viola Garland [address] [place] [address] Pharmacist2, [facility] [address] [place] [address] [address] 02/04/2025 9:45 AM EDT Imaging Radiology [facility] 2nd [facility] [address] [place] [address] Scheduled Procedures Name Priority Associated Diagnoses Date/Ti [...] and were consensually agreed upon. Care Teams Elementary Science Teacher Relationship Specialty Start Date End Date Noemi Mondragon III, MD [address] [place] [address] PCP - General Family Medicine 07/13/23 documented as of this encounter
--- OUTSIDE RECORDS SUMMARY | 2024-09-19 13:18 | External Medical Summary | Summary of Care ---
Author Name Unknown Organization [facility] Address [address] [place] [address] Phone [phone] Care Team Providers Care Bridge Manager Name Role Phone Jay KAMARA MD, John E Primary Care Provider [phone] Reason for Visit * Reason Onset Date Comments Medication Refill 08/01/2024 Encounter Details Date Type Department Care Team (Late st Contact Info) Description 08/01/2024 Refill Family Practice [facility] [address] [place] [address] Noemi Mondragon III, MD [address] [place] [address] Lumbar degenerative disc disease; Lumbar radiculopathy Allergies [...] mRNA, LNP-s, No Pre serve, 2-Dose Series ([employer] 02/12/2021,01/22/2021 COVID-19, mRNA, LNP-s, PF, B ooster, [...] Encounter - Brionna Barlow CMA - 08/02/2024 4:24 PM EDT Patient came to office to pick script up. Again told patient that this was not able to be filled until tomorrow and she verbalized understanding. * Telephone Encounter - Brionna Barlow CMA - 08/02/2024 1:26 PM EDT Spoke with staff at pharmacy, confirmed that e-script is not being received. They state that the patient is always early to pick her prescription up which they allow, but they cannot fill it earlier than tomorrow. Dr. Blankenship re-signed the rx for print out for the patient to picking machine operator helper. Pharmacy staff are familiar with patient and [...] She does not understand why she can't picking machine operator helper today as "today is 2 days early like every other time", I told her I am unaware of that as I only have the direct instruction from the pharmacy that it cannot be before tomorrow. I advised patient that her prescription will be at the assistant front desk manager to be picked up and that the pharmacy okay'd the refill for tomorrow if she can take the script there before she leaves. She states she will picking machine operator helper before the end ofday. She hung up [...] script to pharmacy. Thank you, Shana Miller Operations Superintendent I Centralized Clinical Pharmacy Services (CCPS) 08/02/2024,1:06 PM * Telephone Encounter - Brionna Barlow CMA - 08/02/2024 1:03 PM EDT Spoke with pharmacy staff, patient urgently needs rx within the hour before she leaves for her tripand pharmacy is stating they are not receiving. Requested fax of prescription to fill. Rx is e-prescribed and order would need re-signed to print for patient to picking machine operator helper. Dr. Mondragon has left the clinicfor the day. * Telephone Encounter - Kristen Gibson CPhT - 08/02/2024 12:48 PM EDT Pt calling to request oxyCODONE-Acetaminophen 5-325 MG Oral Tablet (Endocet) . Informed pt that RX is available at their pharmacy. Pt verbalized understanding and stated they will check with their pharmacy regarding this medication. Thank you, Kristen Gibson CPhT Operations Superintendent II Centralized Clinical Pharmacy Services (CCPS) (Formerly Telepharmacy) 08/02/2024,12:48 PM * Telephone Encounter - Becka Banerjee [facility] - 08/02/2024 11:48 AM EDT Please [id number] Confirmed pharmacydid not receive original prescription. [...] is due for refill: 08/02/24 Pharmacy: [id number] [address] [place] [address] Is this request for a controlled substance? [...] Please approve if appropriate. Thanks, Becka Banerjee [facility] Clinical Pharmacist Centralized Clinical Pharmacy Services (CCPS) [phone] * Telephone Encounter - Karla Huddleston PHARM Tech - 08/02/2024 11:45 AM EDT Called Becka [facility] and she advised the pharmacy should have received it but she will route this to the pcp again. Please resend Rx to [id number] [address] [facility]. Confirmed pharmacydid not receive original prescription. [...] medication was ordered: 08/02/2024 Patient Phone Numbers [employer] [phone] Labs: Lab Results Component Value Date/Time CREAT [...] 11:21 AM * Telephone Encounter - Noemi Mondragno III, MD - 08/02/2024 11:20 AM EDTSigned [...] (Endocet) . Caller can be reached at [phone]. Spoke with [facility] will sent message over doctor stating Pharmacy has not received prescription . Thank you, Kristen Gibson CPhT Operations Superintendent II Centralized Clinical Pharmacy Services (CCPS) (Formerly Telepharmacy) 08/02/2024,11:12 AM * Addendum Note - Milagro Weiss [facility] - 08/02/2024 11:09 AM EDT Addended by: MILAGRO WEISS on: 08/02/2024 11:09 AM Modules accepted: Orders * Telephone Encounter - Milagro Weiss RPh - 08/02/2024 11:08 AM EDT Images from the original note were not included. E-scribing failed. Please resubmit if appropriate. Thank you, Milagro Weiss PharmD Clinical Pharmacist Centralized Clinical Pharmacy Services (CCPS) 08/02/24 11:08 AM [phone] * Addendum Note - Noemi Mondragon III, MD - 08/02/2024 10:14 AM EDTAddended by: NOEMI MONDRAGON on: 08/02/2024 10:14 AM Modules accepted: Orders * Telephone Encounter - Karla Huddleston strategic planning manager - 08/02/2024 9:30 AM EDT Pt is [...] rx and [id number] [address] [place] [address] * Telephone Encounter - Ceci Pickett CPhT - 08/02/2024 7:47 AM EDT Pt calling to request oxyCODONE-Acetaminophen 5-325 MG Oral Tablet (Endocet) . Informed pt that RX is available at their pharmacy. Pt verbalized understanding and stated they will check with their pharmacy regarding this medication. Thank you, Nan Pickett CPhT Mri Special Procedures Technologist II [facility] Clinical Pharmacy Services (CCPS) 08/02/2024,7:47 AM * [...] III * Telephone Encounter - Delia Alvarez [facility] - 08/01/2024 9:29 AM EDT Pending Prescriptions: Disp Refills oxyCODONE-Acetaminophen 5-325 MG Oral Tabl*81 Tab*0 Sig: Take 1-2 Tablets by mouth every 8 hours as needed for Pain, Moderate or Pain, Severe. max 5 per day- may take extra tablet(6) 3 days per week when she has physical therpy * Telephone Encounter - Delia Alvarez, [facility] - 08/01/2024 9:28 AM EDT I have reviewed the patients controlled substance dispensing history in the Prescription Drug Monitoring Program in compliance with the [facility] regulations before prescribing a controlled substance. [...] is due for refill: 08/05 Pharmacy: [id number] [address] [facility] Is this request for a controlled [...] forwarding?yes Pharmacy: [id number] [address] [facility] Pending Prescriptions: Disp Refills oxyCODONE-Acetaminophen 5-325 [...] reflexed to confirmatory testing. Patient Phone Numbers [employer] [phone] Labs: Lab Results Component Value Date/Time CREAT [...] 08/29/2024 7:30 AM EDT [facility] [address] [facility] [place] [address] Pharmacist2, [facility] [address] [facility] [place] [address] 02/04/2025 9:45 AM EDT Imaging Radiology [facility] 2nd [facility] [address] [facility] [address] Scheduled Procedures Name Priority [...] and were consensually agreed upon. Care Teams Bridge Manager Relationship Specialty Start Date End Date Noemi Mondragon III, MD [address] [place] [address] PCP - General Family Medicine 07/13/23 documented as of this encounter
--- OUTSIDE RECORDS SUMMARY | 2024-09-19 13:19 | External Medical Summary | Summary of Care ---
Author Name Unknown Organization [facility] Address [address] [place] [address] Phone [phone] Care Team Providers Care Research Soil Scientist Name Role Phone Jay KAMARA MD, Noemi Goldman Primary Care Provider [phone] Reason for Referral * Medication Prior Authorization - Closed Specialty Diagnoses / Procedures Referred By Contcrow t Referred To Contact Diagnoses Lumbar degenerative disc disease Lumbar radiculopathy Noemi Mondragon III, MD 200 [facility] [place], [place] [address] Referral ID Status Reason Start Date Expiration Date Visits Re quested Visits Authorized [id number] Closed 999 999 Reason for Visit * Reason Onset Date Comments Medication Refill 08/01/2024 Encounter Details Date Type Department Care Team (Late st Contact Info) Description 08/01/2024 Refill Family Practice [facility] [place] [address] [place] [address] Noemi Mondragon III, MD 200 [facility] [place] [address] Lumbar degenerative disc disease; Lumbar radiculopathy Allergies [...] mRNA, LNP-s, No Pre serve, 2-Dose Series ([employer]) 02/12/2021,01/22/2021 COVID-19, mRNA, LNP-s, PF, B ooster, [...] encounter Miscellaneous Notes * Addendum Note - Noemi Mondragon III, [...] and can not pick it up then. [facility] advised if the pcp resends the rxwithout the request for hold until 08/03/2024 they can fill it today. Pt wants to know if Dr Mondragon can remove the note on the rx and resend to E [facility]ARMACY #[id number] * Telephone Encounter - Ceci Pickett CPhT - 08/02/2024 7:47 AM EDT Pt calling to request oxyCODONE-Acetaminophen 5-325 MG Oral Tablet (Endocet) . Informed pt that RX is available at their pharmacy. Pt verbalized understanding and stated they will check with their pharmacy regarding this medication. Thank you, Nan Pickett CPhT Shipping Specialist II Centralized Clinical Pharmacy Services (CCPS) 08/02/2024,7:47 [...] therpy * Telephone Encounter - Delia Alvarez [facility] - 08/01/2024 9:28 AM EDT I have reviewed the patients controlled substance dispensing history in the Prescription Drug Monitoring Program in compliance with the [facility] regulations before prescribing a controlled substance. [...] is due for refill: 08/05 Pharmacy: [id number] [address] [facility] Is this request for a controlled substance? [...] pharmacy and medication before forwarding?yes Pharmacy: E [facility] #[id number] Pending Prescriptions: Disp Refills oxyCODONE-Acetaminophen 5-325 MG [...] 7:30 AM EDT Office Visit Pharmacy, [facility] 200 [facility] [place] [address] Pharmacist2, [facility] [address] [facility] [place] [address] 02/04/2025 9:45 AM EDT Imaging Radiology [facility] 2nd [facility] 132 [facility] [place] [address] Scheduled Procedures Name Priority Associated Diagnoses Date/Ti [...] and were consensually agreed upon. Care Teams Research Soil Scientist Relationship Specialty Start Date End Date Noemi Mondragon III, MD [address] [place], [place] [id number] PCP - General Family Medicine 07/13/23 documented as of this encounter
--- OUTSIDE RECORDS SUMMARY | 2024-09-19 13:19 | External Medical Summary | Summary of Care ---
Author Name Unknown Organization [facility] Address [address] [place] [address] Phone [phone] Care Team Providers Care Mission Systems Engineer Name Role Phone Jay KAMARA MD, John E Primary Care Provider [phone] Reason for Visit * Reason Onset Date Comments Medication Refill 08/01/2024 Encounter Details Date Type Department Care Team (Late st Contact Info) Description 08/01/2024 Refill Family Practice [facility] [address] [facility] [address] Noemi Mondragon III, MD 200 [place] [address] Lumbar degenerative disc disease; Lumbar radiculopathy Allergies [...] mRNA, LNP-s, No Pre serve, 2-Dose Series ([employer]) 02/12/2021,01/22/2021 COVID-19, mRNA, LNP-s, PF, B ooster, [...] encounter Miscellaneous Notes * Telephone Encounter - Kristen Gibson CPhT - 08/02/2024 12:48 PM EDT Pt calling to request oxyCODONE-Acetaminophen 5-325 MG Oral Tablet (Endocet) . Informed pt that RX is available at their pharmacy. Pt verbalized understanding and stated they will check with their pharmacy regarding this medication. Thank you, Kristen Gibson CPhT Shop Firer/Fireman II Centralized Clinical Pharmacy Services (CCPS) (Formerly Telepharmacy) 08/02/2024,12:48 PM * Telephone Encounter - Becka Banerjee, [facility] - 08/02/2024 11:48 AM EDT Please resend Rx to E [facility]Y #[id number] Confirmed pharmacydid not receive original prescription. I have reviewed the patients controlled substance dispensing history in the Prescription Drug Monitoring Program in compliance with the [facility] regulations before prescribing a controlled [...] is due for refill: 08/02/24 Pharmacy: E [id number] [address] [place] [address] Is this request for a controlled substance? [...] Please approve if appropriate. Thanks, Becka Banerjee [facility] Clinical Pharmacist Centralized Clinical Pharmacy Services (CCPS) [phone] * Telephone Encounter - Karla Huddleston PHARM Tech - 08/02/2024 11:45 AM EDT Called Becka [facility] and she advised the pharmacy should have received it but she will route this to the pcp again. [id number] [address] [place] [address]. Confirmed pharmacydid not receive original prescription. Signed [...] (Endocet) . Caller can be reached at [phone]. Spoke with [facility] will sent message over doctor stating Pharmacy has not received prescription . Thank you, Kristen Gibson CPhT Shop Firer/Fireman II Centralized Clinical Pharmacy Services (CCPS) (Formerly Telepharmacy) 08/02/2024,11:12 AM * Addendum Note - Milagro Weiss [facility] - 08/02/2024 11:09 AM EDT Addended by: MILAGRO WEISS on: 08/02/2024 11:09 AM Modules accepted: Orders * Telephone Encounter - Milagro Weiss RP - 08/02/2024 11:08 AM EDT Images from the original note were not included. E-scribing failed. Please resubmit if appropriate. Thank you, Milagro Weiss PharmD Clinical Pharmacist [facility] Clinical Pharmacy Services ([facility]) 08/02/24 11:08 AM [phone] * Addendum Note - Noemi Mondragon III, [...] on the rx and resend to E [id number] [place] [address] [facility] * Telephone Encounter - Ceci Pickett CPhT - 08/02/2024 7:47 AM EDT Pt calling to request oxyCODONE-Acetaminophen 5-325 MG Oral Tablet (Endocet) . Informed pt that RX is available at their pharmacy. Pt verbalized understanding and stated they will check with their pharmacy regarding this medication. Thank you, Nan Pickett CPhT Soubrette II Centralized Clinical Pharmacy Services (CCPS) 08/02/2024,7:47 [...] Telephone Encounter - Delia Alvarez [facility] - 08/01/2024 9:29 AM EDT Pending Prescriptions: Disp Refills oxyCODONE-Acetaminophen 5-325 MG Oral Tabl*81 Tab*0 Sig: Take 1-2 Tablets by mouth every 8 hours as needed for Pain, Moderate or Pain, Severe. max 5 per day- may take extra tablet(6) 3 days per week when she has physical therpy * Telephone Encounter - Delia Alvarez [facility] - 08/01/2024 9:28 AM EDT I have reviewed the patients controlled substance dispensing history in the Prescription Drug Monitoring Program in compliance with the [facility] regulations before prescribing a controlled [...] is due for refill: 08/05 Pharmacy: [id number] [address] [facility] Is this request for a controlled substance? [...] pharmacy and medication before forwarding?yes Pharmacy: E [id number] [address] [facility] Pending Prescriptions: Disp Refills oxyCODONE-Acetaminophen 5-325 MG [...] reflexed to confirmatory testing. Patient Phone Numbers [employer] [phone] Labs: Lab Results Component Value Date/Time CREAT [...] 08/29/2024 7:30 AM EDT Office Visit Pharmacy, [facility] [address] [facility] [place] [address] Pharmacist2, [facility] [address] [facility] [place] [address] 02/04/2025 9:45 AM EDT Imaging Radiology [address] [facility] [place] [address] Scheduled Procedures Name Priority Associated Diagnoses Date/Ti [...] and were consensually agreed upon. Care Teams Mission Systems Engineer Relationship Specialty Start Date End Date Noemi Mondragon III, MD [address] [place] [address] PCP - General Family Medicine 07/13/23 documented as of this encounter
--- OUTSIDE RECORDS SUMMARY | 2024-09-19 13:19 | External Medical Summary | Summary of Care ---
Author Name Unknown Organization [facility] Address [address] [place] [address] Phone [phone] Care Team Providers Care Groundhand Name Role Phone Jay KAMARA MD, Noemi Goldman Primary Care Provider [phone] Reason for Referral * Medication Prior Authorization - Closed Specialty Diagnoses / Procedures Referred By Contcrow t Referred To Contact Diagnoses Lumbar degenerative disc disease Lumbar radiculopathy Noemi Mondragon III, MD 200 [facility] [place] [address] Referral ID Status Reason Start Date Expiration Date Visits Re quested Visits Authorized [id number] Closed 999 999 Reason for Visit * Reason Onset Date Comments Medication Refill 08/01/2024 Encounter Details Date Type Department Care Team (Late st Contact Info) Description 08/01/2024 Refill Family Practice [facility] [address] [place] [address] Noemi Mondragon III, MD [address] [place] [address] Lumbar degenerative disc disease; Lumbar radiculopathy Allergies [...] therpy 81 Tablet 07/21/2024 4 Discontinue d(Refill) documented as of this [...] mRNA, LNP-s, No Pre serve, 2-Dose Series ([employer]) 02/12/2021,01/22/2021 COVID-19, mRNA, LNP-s, PF, B ooster, [...] encounter Miscellaneous Notes * Telephone Encounter - Ceci Pickett CPhT - 08/02/2024 7:47 AM EDT Pt calling to request oxyCODONE-Acetaminophen 5-325 MG Oral Tablet (Endocet) . Informed pt that RX is available at their pharmacy. Pt verbalized understanding and stated they will check with their pharmacy regarding this medication. Thank you, Nan Pickett CPhT Chemical Waste Management Technician II Centralized Clinical Pharmacy Services (CCPS) 08/02/2024,7:47 AM * Telephone Encounter - Jay III, Noemi Goldman MD - 08/02/2024 7:32 AM EDTSigned Prescriptions: Disp Refills oxyCODONE-Acetaminophen 5-325 MG Oral Tabl*81 Tab*0 Sig: Take 1-2 Tablets by mouth every 8 hours as needed for Pain, Moderate or Pain, Severe. max 5 per day- may take extra tablet(6) 3 days per week when she has physical therpyAuthorizing Provider: NOEMI MONDRAGON III * Telephone Encounter - Delia Alvarez [facility] - 08/01/2024 9:29 AM EDT Pending Prescriptions: Disp Refills oxyCODONE-Acetaminophen 5-325 MG Oral Tabl*81 Tab*0 Sig: Take 1-2 Tablets by mouth every 8 hours as needed for Pain, Moderate or Pain, Severe. max 5 per day- may take extra tablet(6) 3 days per week when she has physical therpy * Telephone Encounter - Delia Alvarez [facility] - 08/01/2024 9:28 AM EDT I [...] is due for refill: 08/05 Pharmacy: [id number] [address] [facility] Is this request for a controlled substance? [...] approve if appropriate. Thank you, Delia Alvarez, Maria IsabelD. Clinical Pharmacist Centralized Clinical Pharmacy Services (CCPS) 08/01/2024, 9:28 AM * Telephone Encounter - Christine Almeida CPhT - 08/01/2024 9:15 AM EDT Pt leaving on vacation Did you pend patient's preferred pharmacy and medication before forwarding?yes Pharmacy: E [id number] [address] [facility] Pending Prescriptions: Disp Refills oxyCODONE-Acetaminophen 5-325 MG [...] reflexed to confirmatory testing. Patient Phone Numbers Anna Lozabai [phone] Labs: Lab Results Component Value Date/Time CREAT [...] 08/29/2024 7:30 AM EDT Office Visit Pharmacy, [facility] [address] [place] [address] Pharmacist2, [facility] [address] [place] [address] 02/04/2025 9:45 AM EDT Imaging Radiology [facility] 2nd [facility] [place] [address] [facility] [place] [address] Scheduled Procedures Name Priority Associated Diagnoses Date/Ti [...] and were consensually agreed upon. Care Teams Groundhand Relationship Specialty Start Date End Date Noemi Mondragon III, MD 200 [place] [address] PCP - General Family Medicine 07/13/23 documented as of this encounter
--- OUTSIDE RECORDS SUMMARY | 2024-09-19 13:19 | External Medical Summary | Summary of Care ---
Author Name Unknown Organization [facility] Address [address] [place] [address] Phone [phone] Care Team Providers Care Superintendent Distribution Name Role Phone Jay KAMARA MD, Noemi Goldman Primary Care Provider [phone] Reason for Referral * Medication Prior Authorization - Closed Specialty Diagnoses / Procedures Referred By Contcrow t Referred To Contact Diagnoses Lumbar degenerative disc disease Lumbar radiculopathy Noemi Mondragon III, MD 200 [facility] [place] [place] [address] Referral ID Status Reason Start Date Expiration Date Visits Re quested Visits Authorized [id number] Closed 999 999 Reason for Visit * Reason Onset Date Comments Medication Refill 08/01/2024 Encounter Details Date Type Department Care Team (Late st Contact Info) Description 08/01/2024 Refill Family Practice [place] [facility] [place] [address] [place] [address] Noemi Mondragon III, MD [address] [place] [address] Lumbar degenerative disc disease; Lumbar radiculopathy Allergies [...] mRNA, LNP-s, No Pre serve, 2-Dose Series ([employer]) 02/12/2021,01/22/2021 COVID-19, mRNA, LNP-s, PF, B ooster, [...] this medication. Thank you, Nan Pickett CPhT Music Artist II Centralized Clinical Pharmacy Services (CCPS) 08/02/2024,7:47 [...] III * Telephone Encounter - Delia Alvarez [facility] - 08/01/2024 9:29 AM EDT Pending Prescriptions: Disp Refills oxyCODONE-Acetaminophen 5-325 MG Oral Tabl*81 Tab*0 Sig: Take 1-2 Tablets by mouth every 8 hours as needed for Pain, Moderate or Pain, Severe. max 5 per day- may take extra tablet(6) 3 days per week when she has physical therpy * Telephone Encounter - Delia Alvarez [facility] - 08/01/2024 9:28 AM EDT I have [...] is due for refill: 08/05 Pharmacy: [id number] [address] [facility] Is this request for a controlled [...] pharmacy and medication before forwarding?yes Pharmacy: E [facility][id number] [address] [facility] Pending Prescriptions: Disp Refills oxyCODONE-Acetaminophen 5-325 [...] reflexed to confirmatory testing. Patient Phone Numbers [employer] [phone] Labs: Lab Results Component Value Date/Time CREAT [...] 08/29/2024 7:30 AM EDT Office Visit Pharmacy, [facility] [address] [place] [address] Pharmacist2, [facility] [address] [place] [address] 02/04/2025 9:45 AM EDT Imaging Radiology [facility] 2nd [facility] [place] 132 [facility] [place] [address] Scheduled Procedures Name Priority Associated Diagnoses Date/Ti [...] and were consensually agreed upon. Care Teams Superintendent Distribution Relationship Specialty Start Date End Date Noemi Mondragon III, MD 200 [place] [address] PCP - General Family Medicine 07/13/23 documented as of this encounter
--- OUTSIDE RECORDS SUMMARY | 2024-09-19 13:19 | External Medical Summary | Summary of Care ---
Author Name Unknown Organization [facility] Address [address] [place] [address] Phone [phone] Care Team Providers Care Insole Coverer Name Role Phone Jay KAMARA MD, Noemi Goldman Primary Care Provider [phone] Reason for Referral * Medication Prior Authorization - Closed Specialty Diagnoses / Procedures Referred By Contcrow t Referred To Contact Diagnoses Lumbar degenerative disc disease Lumbar radiculopathy Noemi Mondragon III, MD 200 [facility] [place] [place] [address] Referral ID Status Reason Start Date Expiration Date Visits Re quested Visits Authorized [id number] Closed 999 999 Reason for Visit * Reason Onset Date Comments Medication Refill 08/01/2024 Encounter Details Date Type Department Care Team (Late st Contact Info) Description 08/01/2024 Refill Family Practice State [facility] Gar[place] [address] [place] [address] Noemi Mondragon III, MD [address] [place] [address] Lumbar degenerative disc disease; Lumbar radiculopathy Allergies [...] mRNA, LNP-s, No Pre serve, 2-Dose Series ([employer]) 02/12/2021,01/22/2021 COVID-19, mRNA, LNP-s, PF, B ooster, [...] encounter Miscellaneous Notes * Telephone Encounter - Karla Huddleston PHARM [...] rx and [facility] to [id number] [place] [facility] * Telephone Encounter - Ceci Pickett CPhT - 08/02/2024 7:47 AM EDT Pt calling to request oxyCODONE-Acetaminophen 5-325 MG Oral Tablet (Endocet) . Informed pt that RX is available at their pharmacy. Pt verbalized understanding and stated they will check with their pharmacy regarding this medication. Thank you, Nan Pickett CPhT Vp Outcomes II Centralized Clinical Pharmacy Services (CCPS) 08/02/2024,7:47 [...] III * Telephone Encounter - Delia Alvarez RPh - 08/01/2024 9:29 AM EDT Pending Prescriptions: [...] Drug Monitoring Program in compliance with the [facility] regulations before prescribing a controlled substance. PDMP [...] is due for refill: 08/05 Pharm[facility]: [id number] [address] [place] [address] Is this request for a controlled substance? [...] pharmacy and medication before forwarding?yes Pharmacy: E [id number] [address] [place] [address] Pending Prescriptions: Disp Refills oxyCODONE-Acetaminophen 5-325 MG [...] reflexed to confirmatory testing. Patient Phone Numbers [facility] [phone] Labs: Lab Results Component Value Date/Time CREAT [...] 08/29/2024 7:30 AM EDT Office Visit Pharmacy, [facility] 200 [facility] [place] [address] Pharmacist2, [facility] 200 [facility] [place] [address] 02/04/2025 9:45 AM EDT Imaging Radiology [facility] 2nd [facility] 132 [facility] [place] [address] Scheduled Procedures Name Priority Associated Diagnoses Date/Ti [...] and were consensually agreed upon. Care Teams Insole Coverer Relationship Specialty Start Date End Date Noemi Mondragon III, MD 200 [place] [address] PCP - General Family Medicine 07/13/23 documented as of this encounter
--- OUTSIDE RECORDS SUMMARY | 2024-09-19 13:19 | External Medical Summary | Summary of Care ---
Author Name Unknown Organization [facility] Address [address] [place] [address] Phone [phone] Care Team Providers Care Lapel Padder Blindstitch Name Role Phone Jay KAMARA MD, Noemi Goldman Primary Care Provider [phone] Reason for Referral * Medication Prior Authorization - Closed Specialty Diagnoses / Procedures Referred By Contcrow t Referred To Contact Diagnoses Lumbar degenerative disc disease Lumbar radiculopathy Noemi Mondragon III, MD 200 [facility] [place], [place] [address] Referral ID Status Reason Start Date Expiration Date Visits Re quested Visits Authorized [id number] Closed 999 999 Reason for Visit * Reason Onset Date Comments Medication Refill 08/01/2024 Encounter Details Date Type Department Care Team (Late st Contact Info) Description 08/01/2024 Refill Family Practice [facility] [place] [address] [place] [address] Noemi Mondragon III, MD 200 [facility] [place] [address] Lumbar degenerative disc disease; Lumbar radiculopathy Allergies [...] mRNA, LNP-s, No Pre serve, 2-Dose Series ([employer]) 02/12/2021,01/22/2021 COVID-19, mRNA, LNP-s, PF, B ooster, [...] encounter Miscellaneous Notes * Addendum Note - Milagro Weiss RPh - 08/02/2024 11:09 AM EDT Addended by: MILAGRO WEISS on: 08/02/2024 11:09 AM Modules accepted: Orders * Telephone Encounter - Milagro Weiss RPh - 08/02/2024 11:08 AM EDT Images from the original note were not included. E-scribing failed. Please resubmit if appropriate. Thank you, Milagro Weiss PharmD Clinical Pharmacist Centralized Clinical Pharmacy Services (CCPS) 08/02/24 11:08 AM [phone] * Addendum Note - Noemi Mondragon III, [...] and can not pick it up then. [facility] advised if the pcp resends the rxwithout the request for hold until 08/03/2024 they can fill it today. Pt wants to know if Dr Mondragon can remove the note on the rx and [id number] [address] [place] [address] * Telephone Encounter - Ceci Pickett CPhT - 08/02/2024 7:47 AM EDT Pt calling to request oxyCODONE-Acetaminophen 5-325 MG Oral Tablet (Endocet) . Informed pt that RX is available at their pharmacy. Pt verbalized understanding and stated they will check with their pharmacy regarding this medication. Thank you, aNn Pickett CPhT Fixture Repairer Fabricator II Centralized Clinical Pharmacy Services (CCPS) 08/02/2024,7:47 [...] III * Telephone Encounter - Delia Alvarez [facility] - 08/01/2024 9:29 AM EDT Pending Prescriptions: Disp Refills oxyCODONE-Acetaminophen 5-325 MG Oral Tabl*81 Tab*0 Sig: Take 1-2 Tablets by mouth every 8 hours as needed for Pain, Moderate or Pain, Severe. max 5 per day- may take extra tablet(6) 3 days per week when she has physical therpy * Telephone Encounter - Delia Alvarez [facility] - 08/01/2024 9:28 AM EDT I have reviewed the patients controlled substance dispensing history in the Prescription Drug Monitoring Program in compliance with the [facility] regulations before prescribing a controlled substance. [...] is due for refill: 08/05 Pharmacy: [id number] [address] [facility] Is this request for a controlled [...] pharmacy and medication before forwarding?yes Pharmacy: E [id number] Pending Prescriptions: Disp Refills oxyCODONE-Acetaminophen 5-325 [...] reflexed to confirmatory testing. Patient Phone Numbers [employer] [phone] Labs: Lab Results Component Value Date/Time CREAT [...] AM EDT Office Visit Pharmacy, [address] [place], [place] [address] Pharmacist2, [facility] [address] [place] [address] 02/04/2025 9:45 AM EDT Imaging Radiology [facility] 2nd [facility] [place] [address] [place] [address] Scheduled Procedures Name Priority Associated Diagnoses Date/Ti [...] and were consensually agreed upon. Care Teams Lapel Padder Blindstitch Relationship Specialty Start Date End Date Noemi Mondragon III, MD 200 [place] [address] PCP - General Family Medicine 07/13/23 documented as of this encounter
--- OUTSIDE RECORDS SUMMARY | 2024-09-19 13:19 | External Medical Summary | Summary of Care ---
Author Name Unknown Organization [facility] Address [address] [place] [address] Phone [phone] Care Team Providers Care Technical Sales Representative Name Role Phone Jay KAMARA MD, John E Primary Care Provider [phone] Reason for Visit * Reason Onset Date Comments Medication Refill 08/01/2024 Encounter Details Date Type Department Care Team (Late st Contact Info) Description 08/01/2024 Refill Family Practice [facility] 200 [place] [address] Noemi Mondragon III, MD 200 [place] [address] Lumbar degenerative disc disease; Lumbar radiculopathy Allergies [...] mRNA, LNP-s, No Pre serve, 2-Dose Series ([employer]) 02/12/2021,01/22/2021 COVID-19, mRNA, LNP-s, PF, B ooster, [...] encounter Miscellaneous Notes * Telephone Encounter - Becka Banerjee, [facility] - 08/02/2024 11:48 AM EDT Please res[facility] to [id number] [address] [facility]. Confirmed pharmacydid not receive original prescription. I have reviewed the patients controlled substance dispensing history in the Prescription Drug Monitoring Program in compliance with the [facility] regulations before prescribing a controlled substance. [...] is due for refill: 08/02/24 Pharmacy: [id number] Is this request for a controlled [...] Please approve if appropriate. Thanks, Becka Banerjee RP Clinical Pharmacist Centralized Clinical Pharmacy Services (CCPS) [phone] * Telephone Encounter - Karla Huddleston PHARM Tech - 08/02/2024 11:45 AM EDT Please resend Rx to [id number] [address] [facility]. Confirmed pharmacydid not receive original prescription. Signed [...] (Endocet) . Caller can be reached at [phone]. Spoke with [facility] will sent message over doctor stating Pharmacy has not received prescription . Thank you, Kristen Gibson CPhT Evs Tech II Centralized Clinical Pharmacy Services (CCPS) (Formerly Telepharmacy) 08/02/2024,11:12 AM * Addendum Note - Milagro Weiss [facility] - 08/02/2024 11:09 AM EDT Addended by: MILAGRO WEISS on: 08/02/2024 11:09 AM Modules accepted: Orders * Telephone Encounter - Milagro Weiss [facility] - 08/02/2024 11:08 AM EDT Images from the original note were not included. E-scribing failed. Please resubmit if appropriate. Thank you, Milagro Weiss PharmD Clinical Pharmacist Centralized Clinical Pharmacy Services (CCPS) 08/02/24 11:08 AM [phone] * Addendum Note - Noemi Mondragon III, [...] and resend to [id number] [place] [address] [place] [address] * Telephone Encounter - Ceci Pickett CPhT - 08/02/2024 7:47 AM EDT Pt calling to request oxyCODONE-Acetaminophen 5-325 MG Oral Tablet (Endocet) . Informed pt that RX is available at their pharmacy. Pt verbalized understanding and stated they will check with their pharmacy regarding this medication. Thank you, Nan Pickett CPhT Nursing Attendant II Centralized Clinical Pharmacy Services (CCPS) 08/02/2024,7:47 [...] * Telephone Encounter - Delia Alvarez [facility] - 08/01/2024 9:29 AM EDT Pending Prescriptions: Disp Refills oxyCODONE-Acetaminophen 5-325 MG Oral Tabl*81 Tab*0 Sig: Take 1-2 Tablets by mouth every 8 hours as needed for Pain, Moderate or Pain, Severe. max 5 per day- may take extra tablet(6) 3 days per week when she has physical therpy * Telephone Encounter - Delia Alvarez [facility] - 08/01/2024 9:28 AM EDT I have reviewed the patients controlled substance dispensing history in the Prescription Drug Monitoring Program in compliance with the [facility] regulations before prescribing a controlled substance. [...] due for refill: 08/05 Pharm[id number] Is this request for a controlled substance? [...] pharmacy and medication before forwarding?yes Pharmacy: E [id number] [address] [place] [address] Pending Prescriptions: Disp Refills oxyCODONE-Acetaminophen 5-325 MG [...] reflexed to confirmatory testing. Patient Phone Numbers [employer] [phone] Labs: Lab Results Component Value Date/Time CREAT [...] 7:30 AM EDT [facility] [address] [facility] [place] [address] Pharmacist2, [facility] [address] [place] [address] 02/04/2025 9:45 AM EDT Imaging Radiology [facility] 2nd [facility] 132 [facility] [place] [address] Scheduled Procedures Name Priority Associated Diagnoses Date/Ti [...] and were consensually agreed upon. Care Teams Technical Sales Representative Relationship Specialty Start Date End Date Noemi Mondragon III, MD 200 [place] [address] PCP - General Family Medicine 07/13/23 documented as of this encounter
--- OUTSIDE RECORDS SUMMARY | 2024-09-19 13:19 | External Medical Summary | Summary of Care ---
Author Name Unknown Organization [facility] Address [address] [place] [address] Phone [phone] Care Team Providers Care Journeyman Lineman Name Role Phone Jay KAMARA MD, Noemi Goldman Primary Care Provider [phone] Reason for Referral * Medication Prior Authorization - Closed Specialty Diagnoses / Procedures Referred By Contcrow t Referred To Contact Diagnoses Lumbar degenerative disc disease Lumbar radiculopathy Noemi Mondragon III, MD 200 [facility] [place], [place] [address] Referral ID Status Reason Start Date Expiration Date Visits Re quested Visits Authorized [id number] Closed [phone] Reason for Visit * Reason Onset Date Comments Medication Refill 08/01/2024 Encounter Details Date Type Department Care Team (Late st Contact Info) Description 08/01/2024 Refill Family Practice [facility] [place] [address] [place] [address] Noemi Mondragon III, MD 200 [facility] [place] [address] Lumbar degenerative disc disease; Lumbar radiculopathy Allergies [...] mRNA, LNP-s, No Pre serve, 2-Dose Series ([employer]) 02/12/2021,01/22/2021 COVID-19, mRNA, LNP-s, PF, B ooster, [...] (Endocet) . Caller can be reached at [phone]. Spoke with [facility] will sent message over doctor stating Pharmacy has not received prescription . Thank you, Kristen Gibson CPhT Cylinder Steamer II Centralized Clinical Pharmacy Services (CCPS) (Formerly Telepharmacy) 08/02/2024,11:12 AM * Addendum Note - Milagro Weiss [facility] - 08/02/2024 11:09 AM EDT Addended by: MILAGRO WEISS on: 08/02/2024 11:09 AM Modules accepted: Orders * Telephone Encounter - Milagro Weiss [facility] - 08/02/2024 11:08 AM EDT Images from the original note were not included. E-scribing failed. Please resubmit if appropriate. Thank you, Milagro Weiss, Stephanie Clinical Pharmacist Centralized Clinical Pharmacy Services (CCPS) 08/02/24 11:08 AM [phone] * Addendum Note - Noemi Mondragon III, [...] rx and [facility]end to [id number] [address] * Telephone Encounter - Ceci Pickett CPhT - 08/02/2024 7:47 AM EDT Pt calling to request oxyCODONE-Acetaminophen 5-325 MG Oral Tablet (Endocet) . Informed pt that RX is available at their pharmacy. Pt verbalized understanding and stated they will check with their pharmacy regarding this medication. Thank you, Nan Pickett CPhT Home Extension Agent II Centralized Clinical Pharmacy Services (CCPS) 08/02/2024,7:47 [...] Delia Alvarez [facility] - 08/01/2024 9:29 AM EDT Pending Prescriptions: [...] Drug Monitoring Program in compliance with the [facility] regulations before prescribing a controlled substance. [...] due for refill: 08/05 Pharmacy: [id number] Is [...] pharmacy and medication before forwarding?yes Pharmacy: E [facility][id number][facility] [address] [facility] [...] reflexed to confirmatory testing. Patient Phone Numbers mobile [phone] Labs: Lab Results Component Value Date/Time CREAT [...] AM EDT Office Visit Pharmacy, [facility] 200 [facility] [place] [address] Pharmacist2, [facility] 200 [facility] [place] [address] 02/04/2025 9:45 AM EDT Imaging Radiology [facility] 2nd [facility] 132 [place] [address] Scheduled Procedures Name Priority Associated Diagnoses Date/Ti [...] and were consensually agreed upon. Care Teams Journeyman Lineman Relationship Specialty Start Date End Date Noemi Mondragon III, MD [address] [place] [address] PCP - General Family Medicine 07/13/23 documented as of this encounter
--- OUTSIDE RECORDS SUMMARY | 2024-09-19 13:19 | External Medical Summary | Summary of Care ---
Author Name Unknown Organization [facility] Address [address] [place] [address] Phone [phone] Care Team Providers Care Compliance Investigator Name Role Phone Jay KAMARA MD, John E Primary Care Provider [phone] Reason for Visit * Reason Onset Date Comments Medication Refill 08/01/2024 Encounter Details Date Type Department Care Team (Late st Contact Info) Description 08/01/[address] [facility] 200 [facility] [place] [address] Noemi Mondragon III, MD [address] [place] [address] Lumbar degenerative disc disease; Lumbar radiculopathy Allergies [...] mRNA, LNP-s, No Pre serve, 2-Dose Series (Blitsy) 02/12/2021,01/22/2021 COVID-19, mRNA, LNP-s, PF, B ooster, [...] Notes * Telephone Encounter - Becka Banerjee, [facility] - 08/02/2024 11:48 AM EDT [id number] [facility]. Confirmed pharmacydid not receive original prescription. I have reviewed the patients controlled substance dispensing history in the Prescription Drug Monitoring Program in compliance with the [facility] regulations before prescribing a [...] is due for refill: 08/02/24 Pharmacy: [facility] #[id number] Is this request for a controlled [...] if appropriate. Thanks, Becka Banerjee [facility] Clinical Pharmacist Centralized Clinical Pharmacy Services (CCPS) [phone] * Telephone Encounter - Karla Huddleston PHARM Tech - 08/02/2024 11:45 AM EDT Called Becka [facility] and she advised the pharmacy should have received it but she will route this to the pcp again. Please [facility] Rx [id number] [address] [place] [address]. Confirmed pharmacydid not receive original prescription. Signed [...] (Endocet) . Caller can be reached at [phone]. Spoke with [facility] will sent message over doctor stating Pharmacy has not received prescription . Thank you, Kristen Gibson CPhT Computer Engineering Technologist II Centralized Clinical Pharmacy Services (CCPS) (Formerly Telepharmacy) 08/02/2024,11:12 AM * Addendum Note - Milagro Weiss [facility] - 08/02/2024 11:09 AM EDT Addended by: MILAGRO WEISS on: 08/02/2024 11:09 AM Modules accepted: Orders * Telephone Encounter - Milagro Weiss RPh - 08/02/2024 11:08 AM EDT Images from the original note were not included. E-scribing failed. Please resubmit if appropriate. Thank you, Milagro Weiss PharmD Clinical Pharmacist Centralized Clinical Pharmacy Services (CCPS) 08/02/24 11:08 AM [phone] * Addendum Note - Noemi Mondragon III, [...] rx and [facility]end to [id number] [address] * Telephone Encounter - Ceci Pickett CPhT - 08/02/2024 7:47 AM EDT Pt calling to request oxyCODONE-Acetaminophen 5-325 MG Oral Tablet (Endocet) . Informed pt that RX is available at their pharmacy. Pt verbalized understanding and stated they will check with their pharmacy regarding this medication. Thank you, Nan Pickett CPhT Business Line Controller II Centralized Clinical Pharmacy Services (CCPS) 08/02/2024,7:47 [...] Telephone Encounter - Delia Alvarez [facility] - 08/01/2024 9:29 AM EDT Pending Prescriptions: Disp Refills oxyCODONE-Acetaminophen 5-325 MG Oral Tabl*81 Tab*0 Sig: Take 1-2 Tablets by mouth every 8 hours as needed for Pain, Moderate or Pain, Severe. max 5 per day- may take extra tablet(6) 3 days per week when she has physical therpy * Telephone Encounter - Delia Alvarez RP - 08/01/2024 9:28 AM EDT I have reviewed the patients controlled substance dispensing history in the Prescription Drug Monitoring Program in compliance with the [facility] regulations before prescribing a [...] due for refill: 08/05 Pharmacy: [id number] [address] [facility] Is this request [...] and medication before forwarding?yes Pharmacy: [id number] Pending Prescriptions: Disp Refills oxyCODONE-Acetaminophen [...] reflexed to confirmatory testing. Patient Phone Numbers [employer] [phone] Labs: Lab Results Component Value Date/Time CREAT [...] 7:30 AM EDT Office Visit Pharmacy, [facility] 200 [facility] [place] [address] Pharmacist2, [facility] 200 [facility] [place] [address] 02/04/2025 9:45 AM EDT Imaging Radiology [address] [place] [address] Scheduled Procedures Name Priority Associated Diagnoses Date/Ti [...] and were consensually agreed upon. Care Teams Compliance Investigator Relationship Specialty Start Date End Date Noemi Mondragon III, MD 200 [facility] [place], [place] [address] PCP - General Family Medicine 07/13/23 documented as of this encounter
--- OUTSIDE RECORDS SUMMARY | 2024-09-19 13:19 | External Medical Summary | Summary of Care ---
Author Name Unknown Organization [facility] Address [address] [place] [address] Phone [phone] Care Team Providers Care Drug Safety Associate Name Role Phone Jay KAMARA MD, John E Primary Care Provider [phone] Reason for Visit * Reason Onset Date Comments Medication Refill 08/01/2024 Encounter Details Date Type Department Care Team (Late st Contact Info) Description 08/01/2024 Refill Family Practice [facility] 200 [facility] [place] [address] Noemi Mondragon III, MD 200 [place] [address] Lumbar degenerative disc disease; Lumbar radiculopathy Allergies [...] mRNA, LNP-s, No Pre serve, 2-Dose Series (Humanoid) 02/12/2021,01/22/2021 COVID-19, mRNA, LNP-s, PF, B ooster, [...] (Endocet) . Caller can be reached at [phone]. Spoke with [facility] will sent message over doctor stating Pharmacy has not received prescription . Thank you, Kristen Gibson CPhT Regenerator Operator II Centralized Clinical Pharmacy Services (CCPS) (Formerly Telepharmacy) 08/02/2024,11:12 AM * Addendum Note - Milagro Weiss [facility] - 08/02/2024 11:09 AM EDT Addended by: MILAGRO WEISS on: 08/02/2024 11:09 AM Modules accepted: Orders * Telephone Encounter - Milagro Weiss [facility] - 08/02/2024 11:08 AM EDT Images from the original note were not included. E-scribing failed. Please resubmit if appropriate. Thank you, Milagro Weiss, PharmD Clinical Pharmacist Centralized Clinical Pharmacy Services (CCPS) 08/02/24 11:08 AM [phone] * Addendum Note - Noemi Mondragon III, MD - 08/02/2024 10:14 AM EDTAddended by: NOEMI MONDRAGON on: 08/02/2024 10:14 AM Modules accepted: Orders * Telephone Encounter - Karla Huddleston credit operations processor - 08/02/2024 9:30 AM EDT Pt is [...] the rx and resend to [id number] * Telephone Encounter - Ceci Pickett CPhT - 08/02/2024 7:47 AM EDT Pt calling to request oxyCODONE-Acetaminophen 5-325 MG Oral Tablet (Endocet) . Informed pt that RX is available at their pharmacy. Pt verbalized understanding and stated they will check with their pharmacy regarding this medication. Thank you, Nan Pickett CPhT Gantry Rigger II Centralized Clinical Pharmacy Services (CCPS) 08/02/2024,7:47 [...] MONDRAGON III * [facility]01/[facility]24 9:29 AM EDT Pending Prescriptions: Disp Refills oxyCODONE-Acetaminophen 5-325 MG Oral Tabl*81 Tab*0 Sig: Take 1-2 Tablets by mouth every 8 hours as needed for Pain, Moderate or Pain, Severe. max 5 per day- may take extra tablet(6) 3 days per week when she has physical therpy * Telephone Encounter - Delia Alvarez [facility] - 08/01/2024 9:28 AM EDT I have [...] due for refill: 08/05 [id number] Is this request for a [...] Please approve if appropriate. Thank you, Delia Alvarez PharmD. Clinical Pharmacist Centralized Clinical Pharmacy Services (CCPS) 08/01/2024, 9:28 AM * Telephone Encounter - Christine Almeida, machine stemmer - 08/01/2024 9:15 AM EDT Pt leaving on vacation Did you pend patient's preferred pharmacy and medication before forwarding?yes Pharmacy: [id number] [address] [facility] Pending Prescriptions: Disp Refills oxyCODONE-Acetaminophen [...] to confirmatory testing. Patient Phone Numbers [employer] [phone] Labs: Lab Results Component Value Date/Time CREAT [...] AM EDT Office Visit Pharmacy, [facility] [place] [address] [place] [address] [address] Pharmacist2, [facility] [address] [place] [address] 02/04/2025 9:45 AM EDT Imaging Radiology [facility] 2nd [facility], [address] [place] [id number] Scheduled Procedures Name Priority Associated Diagnoses Date/Ti [...] and were consensually agreed upon. Care Teams Drug Safety Associate Relationship Specialty Start Date End Date Noemi Mondragon III, MD 200 [facility] [place] [address] PCP - General Family Medicine 07/13/23 documented as of this encounter
--- OUTSIDE RECORDS SUMMARY | 2024-09-19 13:19 | External Medical Summary | Summary of Care ---
Author Name Unknown Organization [facility] Address [address] [place] [address] Phone [phone] Care Team Providers Care Welder Name Role Phone Jay KAMARA MD, John E Primary Care Provider [phone] Reason for Visit * Reason Onset Date Comments Medication Refill 08/01/2024 Encounter Details Date Type Department Care Team (Late st Contact Info) Description 08/01/2024 Refill Family Practice [facility] 200 [facility] [place] [address] Noemi Mondragon III, MD [address] [place] [address] Lumbar degenerative disc disease; Lumbar radiculopathy Allergies [...] mRNA, LNP-s, No Pre serve, 2-Dose Series (Array Storm) 02/12/2021,01/22/2021 COVID-19, mRNA, LNP-s, PF, B ooster, [...] script to pharmacy. Thank you, Shana Miller Dispatcher Street Department I Centralized Clinical Pharmacy Services (CCPS) 08/02/2024,1:06 PM * Telephone Encounter - Brionna Barlow CMA - 08/02/2024 1:03 PM EDT Spoke with pharmacy staff, patient urgently needs rx within the hour before she leaves for her tripand pharmacy is stating they are not receiving. Requested fax of prescription to fill. * Telephone Encounter - Kristen Gibson CPhT - 08/02/2024 12:48 PM EDT Pt calling to request oxyCODONE-Acetaminophen 5-325 MG Oral Tablet (Endocet) . Informed pt that RX is available at their pharmacy. Pt verbalized understanding and stated they will check with their pharmacy regarding this medication. Thank you, Kristen Gibson CPhT Dispatcher Street Department II Centralized Clinical Pharmacy Services (CCPS) (Formerly Telepharmacy) 08/02/2024,12:48 PM * Telephone Encounter - Becka Banerjee [facility] - 08/02/2024 11:48 AM EDT Please resend Rx to E [facility] #[id number] Confirmed pharmacydid not receive original prescription. [...] due for refill: 08/02/24 [id number] [address] [place] [address] Is this request for a controlled substance? [...] testing. Please approve if appropriate. Becka Hahn [facility] Clinical Pharmacist Centralized Clinical Pharmacy Services (CCPS) [phone] * Telephone Encounter - Karla Huddleston PHARM Tech - 08/02/2024 11:45 AM EDT Called Becka elio and she advised the pharmacy should have received it but she will route this to the pcp again. Please resend Rx to [id number] [address] [facility]. Confirmed pharmacydid not receive original prescription. Signed [...] (Endocet) . Caller can be reached at [phone]. Spoke with [facility] will sent message over doctor stating Pharmacy has not received prescription . Thank you, Kristen Gibson CPhT Dispatcher Street Department II Centralized Clinical Pharmacy Services (CCPS) (Formerly Telepharmacy) 08/02/2024,11:12 AM * Addendum Note - Milagro Weiss [facility] - 08/02/2024 11:09 AM EDT Addended by: MILAGRO WEISS on: 08/02/2024 11:09 AM Modules accepted: Orders Electronically signed by Milagro Weiss [facility] at 08/02/2024 11:09 AM EDT * Telephone Encounter - Milagro Weiss [facility] - 08/02/2024 11:08 AM EDT Images from the original note were not included. E-scribing failed. Please resubmit if appropriate. Thank you, Milagro Weiss, PharmD Clinical Pharmacist Centralized Clinical Pharmacy Services (CCPS) 08/02/24 11:08 AM [phone] Electronically signed by Milagro Weiss [facility] at 08/02/2024 11:09 AM EDT * Addendum Note - Noemi Mondragon III, MD - 08/02/2024 10:14 AM EDTAddended by: NOEMI MONDRAGON on: 08/02/2024 10:14 AM Modules accepted: Orders * Telephone Encounter - Karla Huddleston lithographic platemaker - 08/02/2024 9:30 AM EDT Pt is [...] the rx and resend to [id number] * Telephone Encounter - Ceci Pickett CPhT - 08/02/2024 7:47 AM EDT Pt calling to request oxyCODONE-Acetaminophen 5-325 MG Oral Tablet (Endocet) . Informed pt that RX is available at their pharmacy. Pt verbalized understanding and stated they will check with their pharmacy regarding this medication. Thank you, Nan Pickett CPhT Metal Casket Assembler II Centralized Clinical Pharmacy Services (CCPS) 08/02/2024,7:47 [...] III * Telephone Encounter - Delia Alvarez [facility] - 08/01/2024 9:29 AM EDT Pending Prescriptions: Disp Refills oxyCODONE-Acetaminophen 5-325 MG Oral Tabl*81 Tab*0 Sig: Take 1-2 Tablets by mouth every 8 hours as needed for Pain, Moderate or Pain, Severe. max 5 per day- may take extra tablet(6) 3 days per week when she has physical therpy Electronically signed by Delia Alvarez [facility] at 08/01/2024 9:29 AM EDT * Telephone Encounter - Delia Alvarez [facility] - 08/01/2024 9:28 AM EDT I [...] refill: 08/05 Pharmacy: [id number] [address] [facility] Is this request for a controlled substance? [...] pharmacy and medication before forwarding?yes Pharmacy: [id number] [address] [facility] Pending Prescriptions: Disp Refills oxyCODONE-Acetaminophen 5-325 MG [...] reflexed to confirmatory testing. Patient Phone Numbers [employer] [phone] Labs: Lab Results Component Value Date/Time CREAT [...] Office Visit Pharmacy, [place] [place] 200 [facility] [place] [address] Pharmacist2, [facility] [address] [place] [address] 02/04/2025 9:45 AM EDT Imaging Radiology [facility] [address] [place] [address] Scheduled Procedures Name [...] and were consensually agreed upon. Care Teams Welder Relationship Specialty Start Date End Date Noemi Mondragon III, MD [address] [place] [address] PCP - General Family Medicine 07/13/23 documented as of this encounter
--- OUTSIDE RECORDS SUMMARY | 2024-09-19 13:20 | External Medical Summary | Summary of Care ---
Author Name Unknown Organization [facility] Address [address] [place] [address] Phone [phone] Care Team Providers Care Supervisor Type Disk Quality Control Name Role Phone Jay KAMARA MD, Noemi Goldman Primary Care Provider [phone] Reason for Referral * Medication Prior Authorization - Closed Specialty Diagnoses / Procedures Referred By Jeronimo t Referred To Contact Diagnoses Lumbar degenerative disc disease Lumbar radiculopathy Noemi Mondragon III, MD [address] [place] [address] Referral ID Status Reason Start Date Expiration Date Visits Re quested Visits Authorized [id number] Closed 999 999 Reason for Visit * Reason Onset Date Comments Medication Refill 07/09/2024 Status Check 07/09/2024 Encounter Details Date Type Department Care Team (Late st Contact Info) Description 07/09/2024 Refill Family Practice [facility] [address] [place] [address] Noemi Mondragon III, MD [address] [place] [address] Lumbar degenerative disc disease; Lumbar radiculopathy Allergies Active Allergy Reactions Criticality Noted Date Comments Carisoprodol Seizure High 03/12/2019 documented as of this encounter (statuses as of 07/10/2024) Medications Medication Sig Dispensed Refills Start Date [...] Tablet before bedtime. 30 Tablet 1 05/04/2024 Active oxyCODONE-Acetamin ophen 5-325 MG Oral Tablet (Endocet)Indicatio ns:Lumbar degenerative disc disease,Lumbar radiculopathy Take 1-2 Tablets by mouth every 8 hours as needed for Pain, Moderate or Pain, Severe. max 5 per day- may take extra tablet(6) 3 days per week when she has physical therpy 81 Tablet 07/10/2024 Active oxyCODONE-Acetamin ophen 5-325 MG Oral Tablet (Endocet)Indicatio ns:Lumbar degenerative disc disease,Lumbar radiculopathy Take 1-2 Tablets by mouth every 8 hours as needed for Pain, Moderate or Pain, Severe. max 5 per day- may take extra tablet(6) 3 days per week when she has physical therpy 81 Tablet 06/27/2024 4 Discontinue d(Refill) documented as of this encounter (statuses as of 07/10/2024) Active Problems Problem Noted Date Diagnosed Date Abdominal aortic ectasia 03/16/2023 Atherosclerosis of aorta 03/16/2023 HTN, goal below 130/80 11/16/2021 History of kidney stones 09/14/2021 Sacroiliitis, not elsewhere classified 0 H/O laminectomy 06/23/2018 Lumbar degenerative disc disease 06/23/2018 Controlled substance agreement signed 09/06/2017 History of renal carcinoma 09/06/2017 documented as of this encounter (statuses as of 07/10/2024) Resolved Problems Problem Noted Date Diagnosed Date Resolved Date Nephrolithiasis 09/29/2021 10/12/2023 Cancer of right kidney 03/12/201902/04 Low back pain radiating to left leg 09/06/2017 11/16/2021 Renal cell cancer 09/03/2015 09/06/2017 Renal mass 02/11/2015 09/06/2017 documented as of this encounter (statuses as of 07/10/2024) Immunizations Name Administration Dates Next Due COVID-19 mRNA, LNP-s, No Pre serve, 2-Dose Series ([employer]) 02/12/2021,01/22/2021 COVID-19, mRNA, LNP-s, PF, B ooster, [...] encounter Miscellaneous Notes * Telephone Encounter - Savi Trimble RP - 07/10/2024 1:50 PM EDTSigned Prescriptions: Disp Refills oxyCODONE-Acetaminophen 5-325 MG Oral Tabl*81 Tab*0 Sig: Take 1-2 Tablets by mouth every 8 hours as needed for Pain, Moderate or Pain, Severe. max 5 per day- may take extra tablet(6) 3 days per week when she has physical therpy Authorizing Provider: NOEMI MONDRAGON III * Telephone Encounter - Tiny De Luna CPhT - 07/10/2024 12:41 PM EDT Pt calling to check on status of oxyCODONE-Acetaminophen 5-325 MG Oral Tablet (Endocet) . Caller can be reached at [phone]. Thank you, Cyn De Luna CPhT [facility] [address] [place] [address], [address] 38-74 * Telephone Encounter - Mynor Dyer excellence consultant - 07/10/2024 10:59 AM EDT Patient will not have a vehicle for several days starting at about noon today because her is leaving [facility] for work and taking their only car. Thank you, Hayes Dyer, Pit Hoist Operator [facility] ([facility]) (Formerly Telepharmacy) 07/10/2024,11:00 AM * Telephone Encounter - Delia Alvarez [facility] - 07/10/2024 8:30 AM EDT Pending Prescriptions: Disp Refills oxyCODONE-Acetaminophen 5-325 MG Oral Tabl*81 Tab*0 Sig: Take 1-2 Tablets by mouth every 8 hours as needed for Pain, Moderate or Pain, Severe. max 5 per day- may take extra tablet(6) 3 days per week when she has physical therpy * Telephone Encounter - Delia Alvarez [facility] - 07/10/2024 8:30 AM EDT I have reviewed the patients controlled substance dispensing history in the Prescription Drug Monitoring Program in compliance with the [facility] regulations before prescribing a controlled substance. PDMP checked on 07/10/2024. Pending Prescriptions: Disp Refills oxyCODONE-Acetaminophen 5-325 MG Oral Tab*81 Tab*0 Sig: Take 1-2 Tablets by mouth every 8 hours as needed for Pain, Moderate or Pain, Severe. max 5 per day- may take extra tablet(6) 3 days per week when she has physical therpy Last Visit: 10/31/2023 (in office), 11/06/2020 (telemedicine) Next Visit: Visit date not found Date medication was last filled: 06/27 Date medication is due for refill: 07/10 [facility]: [id number] Is this request for a controlled substance? [...] Clinical Pharmacist [facility]) 07/10/2024, 8:30 AM * Telephone Encounter - Warren Donnelly excellence consultant - 07/10/2024 8:20 AM EDT Pt calling to see if this request can be sent high priority, Pt needs this today due to transportation issues. Pt calling to check on status of oxyCODONE-Acetaminophen 5-325 MG Oral Tablet (Endocet) . Caller can be reached at [phone]. Thank you, Warren Donnelly [facility]) 07/10/2024,8:20 AM * Telephone Encounter - Shana Miller PHARM Tech - 07/09/2024 8:11 AM EDT Did you pend patient's preferred pharmacy and medication before forwarding?yes Pharmacy: [id number] [address] [facility] Pending Prescriptions: Disp Refills oxyCODONE-Acetaminophen 5-325 MG [...] appointment Last date the medication was ordered: 06/27/2024 Is this request for a controlled substance?Yes, What was the last refill date 06/27/2024 w/ [id number] and dosage 5-325 mg and Urine Drug [...] reflexed to confirmatory testing. Patient Phone Numbers [employer] [phone] Labs: Lab Results Component Value Date/Time CREAT 0.8 07/04/2024 08:16 AM CREAT 0.83 09/22/2021 12:00 AM CREAT 0.8 02/14/2020 09:54 AM POTASSIUM 4.9 07/04/2024 08:16 AM POTASSIUM 4.4 09/22/2021 12:00 AM POTASSIUM 5.1 02/14/2020 09:54 AM LDLCALC 164 (H) 09/01/2023 10:30 AM LDLCALC 139 (H) 11/04/2017 11:26 AM LDLDIRECT NOT APPLICABLE 11/04/2017 11:26 AM ALT 21 09/01/2023 10:30 AM ALT 13 11/04/2017 11:21 AM documented in this encounter Plan of Treatment Upcoming Encounters Date Type Department Care Team (Late st Contact Info) Description 08/29/2024 7:30 AM EDT Office Visit Pharmacy, [facility] [place] [address] Pharmacist2, [facility] 200 [facility] [place] [address] 02/04/2025 9:45 AM EDT Imaging Radiology [facility] 2nd [facility] [address] [facility] [place] [id number] Scheduled Procedures Name Priority Associated Diagnoses Date/Ti me COLONOSCOPY FLEXIBLE PROXIMAL DIAGNOSTIC Recall History of colon polyps Health Maintenance Due Date Last Done Comments Pap Smear 01/28/1984 Cervical Cancer Screening 1993 HPV/Co-Test 1993 Fecal Occult Blood Test 01/28/2008 Sigmoidoscopy 01/28/2008 Depression Screening 02/04/2022 02/04/2021 Mammogram 01/01/2023 01/01/2022, 12/15, 12/01/2021, Additional history exists Cologuard 06/27/2023 06/27/2020, 03/2020, 06/18/2020 COVID-19 Vaccine ( season) 2023 08/08/2022, 11/02/2021, 02/12/2021, Additional history exists Colonoscopy 07/17/2023 07/17/2020, 07/17/2020 Colorectal Cancer Screening 07/17/2023 Influenza Vaccine (FLU shot) (#1) 2024 09/12/2022, [...] and were consensually agreed upon. Care Teams Supervisor Type Disk Quality Control Relationship Specialty Start Date End Date Jay KAMARA, Noemi Goldman MD [address] [place] [address], [place] [address] PCP - General Family Medicine 07/13/23 documented as of this encounter
--- OUTSIDE RECORDS SUMMARY | 2024-09-19 13:20 | External Medical Summary | Summary of Care ---
Author Name Unknown Organization [facility] Address [address] [place] [address] Phone [phone] Care Team Providers Care Conference Organizer Name Role Phone Jay KAMARA MD, Noemi Goldman Primary Care Provider [phone] Reason for Referral * Medication Prior Authorization - Closed Specialty Diagnoses / Procedures Referred By Contcrow t Referred To Contact Diagnoses Lumbar degenerative disc disease Lumbar radiculopathy Noemi Mondragon III, MD [address] [facility] [place] [address] Referral ID Status Reason Start Date Expiration Date Visits Re quested Visits Authorized [id number] Closed 999 999 Reason for Visit * Reason Onset Date Comments Medication Refill 08/01/2024 Encounter Details Date Type Department Care Team (Late st Contact Info) Description 08/01/2024 Refill Family Practice [facility] [address] [place] [address] Noemi Mondragon III, MD [address] [place] [address] Lumbar degenerative disc disease; Lumbar radiculopathy Allergies [...] mRNA, LNP-s, No Pre serve, 2-Dose Series ([employer]) 02/12/2021,01/22/2021 COVID-19, mRNA, LNP-s, PF, B ooster, [...] this medication. Thank you, Nan Pickett CPhT Industrial Energy Engineer II [facility]) 08/02/2024,7:47 [...] - Delia Alvarez [facility] - 08/01/2024 9:29 AM EDT Pending Prescriptions: Disp Refills oxyCODONE-Acetaminophen 5-325 MG Oral Tabl*81 Tab*0 Sig: Take 1-2 Tablets by mouth every 8 hours as needed for Pain, Moderate or Pain, Severe. max 5 per day- may take extra tablet(6) 3 days per week when she has physical therpy * Telephone Encounter - Delia Alvarez [facility] - 08/01/2024 9:28 AM EDT I have [...] is due for refill: 08/05 Pharmacy: [id number] [facility] Is this request for a controlled [...] pharmacy and medication before forwarding?yes Pharmacy: [id number] [address] [facility] Pending Prescriptions: Disp Refills oxyCODONE-Acetaminophen 5-325 [...] reflexed to confirmatory testing. Patient Phone Numbers [employer] [phone] Labs: Lab Results Component Value Date/Time CREAT [...] 08/29/2024 7:30 AM EDT Office Visit Pharmacy, [facility] [address] [place] [address] Pharmacist2, [facility] [address] [place] [address] 02/04/2025 9:45 AM EDT Imaging Radiology [facility] 2nd [facility] [place] [address] [facility] [place] [address] Scheduled Procedures Name Priority Associated Diagnoses Date/Ti [...] and were consensually agreed upon. Care Teams Conference Organizer Relationship Specialty Start Date End Date Noemi Mondragon III, MD [address] [place] [address] PCP - General Family Medicine 07/13/23 documented as of this encounter
--- OUTSIDE RECORDS SUMMARY | 2024-09-19 13:20 | External Medical Summary | Summary of Care ---
Author Name Unknown Organization [facility] Address [address] [place] [address] Phone [phone] Care Team Providers Care Physician Ophthalmologist Name Role Phone Jay KAMARA MD, John E Primary Care Provider [phone] Reason for Visit * Reason Onset Date Comments Medication Refill 07/21/2024 Encounter Details Date Type Department Care Team (Late st Contact Info) Description 07/21/2024 Refill Family Practice [facility] 200 [place] [address] Wagner Thompson III, MD [address] [place] [address] Lumbar degenerative disc disease; Lumbar radiculopathy Allergies Active Allergy Reactions Criticality Noted Date Comments Carisoprodol Seizure High 03/12/2019 documented as of this encounter (statuses as of 07/21/2024) Medications Medication Sig Dispensed Refills Start Date [...] she has physical therpy 81 Tablet 07/21/2024 Active oxyCODONE-Acetamin ophen 5-325 MG Oral Tablet (Endocet)Indicatio ns:Lumbar degenerative disc disease,Lumbar radiculopathy Take 1-2 Tablets by mouth every 8 hours as needed for Pain, Moderate or Pain, Severe. max 5 per day- may take extra tablet(6) 3 days per week when she has physical therpy 81 Tablet 07/10/2024 4 Discontinue d(Refill) documented as of this encounter (statuses as of 07/21/2024) Active Problems Problem Noted Date Diagnosed Date Abdominal aortic ectasia 03/16/2023 Atherosclerosis of aorta 03/16/2023 HTN, goal below 130/80 11/16/2021 History of kidney stones 09/14/2021 Sacroiliitis, not elsewhere classified 0 H/O laminectomy 06/23/2018 Lumbar degenerative disc disease 06/23/2018 Controlled substance agreement signed 09/06/2017 History of renal carcinoma 09/06/2017 documented as of this encounter (statuses as of 07/21/2024) Resolved Problems Problem Noted Date Diagnosed Date Resolved Date Nephrolithiasis 09/29/2021 10/12/2023 Cancer of right kidney 03/12/201902/04 Low back pain radiating to left leg 09/06/2017 11/16/2021 Renal cell cancer 09/03/2015 09/06/2017 Renal mass 02/11/2015 09/06/2017 documented as of this encounter (statuses as of 07/21/2024) Immunizations Name Administration Dates Next Due COVID-19 mRNA, LNP-s, No Pre serve, 2-Dose Series ([employer]) 02/12/2021,01/22/2021 COVID-19, mRNA, LNP-s, PF, B ooster, [...] encounter Miscellaneous Notes * Telephone Encounter - Tisha Orourke CRNP - 07/21/2024 2:15 PM EDTSigned Prescriptions: Disp Refills oxyCODONE-Acetaminophen 5-325 MG Oral Tabl*81 Tab*0 Sig: Take 1-2 Tablets by mouth every 8 hours as needed for Pain, Moderate or Pain, Severe. max 5 per day- may take extra tablet(6) 3 days per week when she has physical therpyAuthorizing Provider: MARY JANE OROURKE * Telephone Encounter - Liana Dumont MD - 07/21/2024 1:35 PM EDTPending Prescriptions: Disp Refills oxyCODONE-Acetaminophen 5-325 MG Oral Tabl*81 Tab*0 Sig: Take 1-2 Tablets by mouth every 8 hours as needed for Pain, Moderate or Pain, Severe. max 5 per day- may take extra tablet(6) 3 days per week when she has physical therpy * Telephone Encounter - Zainab Rosen RN - 07/21/2024 11:43 AM EDTPending Prescriptions: Disp Refills oxyCODONE-Acetaminophen 5-325 MG Oral Tabl*81 Tab*0 Sig: Take 1-2 Tablets by mouth every 8 hours as needed for Pain, Moderate or Pain, Severe. max 5 per day- may take extra tablet(6) 3 days per week when she has physical therpy * Telephone Encounter - Zainab Rosen RN - 07/21/2024 11:42 AM EDT Leaving Tuesday for vacation. Requests refill. * Telephone Encounter - Jolene Kulkarni [facility] - 07/21/2024 8:35 AM EDT Pending Prescriptions: Disp Refills oxyCODONE-Acetaminophen 5-325 MG Oral Tabl*81 Tab*0 Sig: Take 1-2 Tablets by mouth every 8 hours as needed for Pain, Moderate or Pain, Severe. max 5 per day- may take extra tablet(6) 3 days per week when she has physical therpy * Telephone Encounter - Jolene Kulkarni, [facility] - 07/21/2024 8:31 AM EDT I have reviewed the patients controlled substance dispensing history in the Prescription Drug Monitoring Program in compliance with the [facility] regulations before prescribing a controlled substance. PDMP checked on 07/21/2024. Pending Prescriptions: Disp Refills oxyCODONE-Acetaminophen 5-325 MG Oral Tab*81 Tab*0 Sig: Take 1-2 Tablets by mouth every 8 hours as needed for Pain, Moderate or Pain, Severe. max 5 per day- may take extra tablet(6) 3 days per week when she has physical therpy Last Visit: 10/31/2023 (in office), 11/06/2020 (telemedicine) Next Visit: Visit date not found Date medication was last filled: 07/10/24 Date medication is due for refill: 07/23/24 Pharmacy: [id number] Is this request for [...] testing. Please approve if appropriate. Thank you, Jolene Kulkarni, PharmD, HIRO Clinical Pharmacist [facility]) 07/21/24 8:31 AM [phone] * Telephone Encounter - StoneValeria ambriz [facility] - 07/21/2024 8:18 AM EDT Did you pend patient's preferred pharmacy and medication before forwarding?yes Pharmacy: [id number] [address] [facility] Needs for Tuesday for vacation Pending Prescriptions: Disp Refills oxyCODONE-Acetaminophen 5-325 MG [...] appointment Last date the medication was ordered: 07.10.24 Is this request for a controlled substance?Yes, What was the last refill date 07.10.24 w/ quantity 81 and dosage 1-2q8 and Urine Drug Screen Not completed Urine Drug Screen: Results for orders [...] reflexed to confirmatory testing. Patient Phone Numbers [employer] [phone] Labs: Lab Results Component Value Date/Time CREAT [...] 08/29/2024 7:30 AM EDT [facility] [address] [facility] [place] [address] Pharmacist2, [facility] [address] [facility] [place] [address] 02/04/2025 9:45 AM EDT Imaging Radiology [facility] 2nd [facility] [address] [employer] [place] [address] Scheduled Procedures Name Priority Associated Diagnoses Date/Ti [...] and were consensually agreed upon. Care Teams Physician Ophthalmologist Relationship Specialty Start Date End Date Wagner Thompson III, MD 200 [facility] [place] [address] PCP - General Family Medicine 07/13/23 documented as of this encounter
--- OUTSIDE RECORDS SUMMARY | 2024-09-19 13:20 | External Medical Summary | Summary of Care ---
Author Name Unknown Organization [facility] Address [address] [place] [address] Phone [phone] Care Team Providers Care Home Health Outreach Coordinator Name Role Phone Jay KAMARA MD, John E Primary Care Provider [phone] Reason for Visit * Reason Onset Date Comments Order Request 04/23/2024 Encounter Details Date Type Department Care Team (Late st Contact Info) Description 04/23/2024 Telephone Family Practice [facility] 200 [place] [address] Wagner Thompson III, MD [address] [place] [address] Order Request Allergies Active Allergy Reactions Criticality Noted Date Comments Carisoprodol Seizure High 03/12/2019 documented as of this encounter (statuses as of 07/23/2024) Medications Medication Sig Dispensed Refills Start Date [...] THE MORNING 90 Tablet 1 04/13/2024 Active documented as of this encounter (statuses as of 07/23/2024) Active Problems Problem Noted Date Diagnosed Date Abdominal aortic ectasia 03/16/2023 Atherosclerosis of aorta 03/16/2023 HTN, goal below 130/80 11/16/2021 History of kidney stones 09/14/2021 Sacroiliitis, not elsewhere classified 0 H/O laminectomy 06/23/2018 Lumbar degenerative disc disease 06/23/2018 Controlled substance agreement signed 09/06/2017 History of renal carcinoma 09/06/2017 documented as of this encounter (statuses as of 07/23/2024) Resolved Problems Problem Noted Date Diagnosed Date Resolved Date Nephrolithiasis 09/29/2021 10/12/2023 Cancer of right kidney 03/12/201902/04 Low back pain radiating to left leg 09/06/2017 11/16/2021 Renal cell cancer 09/03/2015 09/06/2017 Renal mass 02/11/2015 09/06/2017 documented as of this encounter (statuses as of 07/23/2024) Immunizations Name Administration Dates Next Due COVID-19 mRNA, LNP-s, No Pre serve, 2-Dose Series ([employer]) 02/12/2021,01/22/2021 COVID-19, mRNA, LNP-s, PF, B ooster, [...] encounter Miscellaneous Notes * Telephone Encounter - Rajwinder NazaninLUCAS guerra - 04/23/2024 5:03 PM EDT Patient's current Rx is to take 1-2 tabs by mouth every 8 hours with a max of 5 per day and able totake one extra tablet 3 days a week when she has PT. She was d/c'd from PT on 11/30/22. Please advise. Did you pend patient's preferred pharmacy and medication before forwarding?yes Pharmacy: [id number] [address] [facility] Pending Prescriptions: Disp Refills oxyCODONE-Acetaminophen [...] appointment Last date the medication was ordered: 04/10/24 Is this request for a controlled substance?Yes, What was the last refill date 04/10/24 w/ quantity 81 and dosage 1-2 tabs Q8 hours and Urine Drug Screen was completed Urine Drug Screen: Results for orders placed or performed in visit on 01/11/24 PAIN MANAGEMENT DRUG PANEL, URINE W/ INTERPRETATION [...] Positive (A) Valid Interpretation Normal Creatinine, U 135 Narrative Cutoff Concentrations: Drug Level Amphetamines 500 [...] Labs: Lab Results Component Value Date/Time CREAT 0.7 09/01/2023 10:30 AM CREAT 0.83 09/22/2021 12:00 AM CREAT 0.8 02/14/2020 09:54 AM POTASSIUM 4.6 09/01/2023 10:30 AM POTASSIUM 4.4 09/22/2021 12:00 AM POTASSIUM 5.1 02/14/2020 09:54 AM LDLCALC 164 (H) 09/01/2023 10:30 AM LDLCALC 139 (H) 11/04/2017 11:26 AM LDLDIRECT NOT APPLICABLE 11/04/2017 11:26 AM ALT 21 09/01/2023 10:30 AM ALT 13 11/04/2017 11:21 AM * Telephone Encounter - Jaymie Paulino OSA - 04/23/2024 4:11 PM EDT Pt. Needs regular script for Oxy that she gets every 2 weeks. She was told and Dr. Colin Are both out of the office. Pt needs medication that was supposed to be sent in today. Because she has to leave very early in the AM. Please check Pt chart for history.Call Pt. @ [phone]. documented in this encounter Plan of Treatment Upcoming Encounters Date Type Department Care Team (Late st Contact Info) Description 08/29/2024 7:30 AM EDT Office Visit Pharmacy, [facility] [address] [place], [place] [address] Pharmacist2, [facility] [address] [place] [address] 02/04/2025 9:45 AM EDT Imaging Radiology [facility] 2nd [facility] [place] [address] [place] [address] Scheduled Procedures Name Priority Associated Diagnoses Date/Ti [...] and were consensually agreed upon. Care Teams Home Health Outreach Coordinator Relationship Specialty Start Date End Date Wagner Thompson III, MD 200 [facility] [place] [address] PCP - General Family Medicine 07/13/23 documented as of this encounter
--- OUTSIDE RECORDS SUMMARY | 2024-09-19 13:20 | External Medical Summary | Summary of Care ---
Author Name Unknown Organization [facility] Address [address] [place] [address] Phone [phone] Care Team Providers Care Investment Trader Name Role Phone Jay KAMARA MD, Wagner Goldman Primary Care Provider Reason for Visit * Reason Comments Dosage Adjustment In Person (Anticoag Cl inic) Pain Encounter Details Date Type Department Care Team (Late st Contact Info) Description 07/04/2024 8:00 AM EDT Office Visit Pharmacy, [facility] [address] [facility] [place] [address] Pharmacist2, [facility] [address] [facility] [place] [address] Lumbar degenerative disc disease*; Controlled substance agreement signed Allergies Active Allergy Reactions Criticality Noted Date Comments Carisoprodol Seizure High 03/12/2019 documented as of this encounter (statuses as of 07/04/2024) Medications Medication Sig Dispensed Refills Start Date [...] disc disease,Sacroiliitis , not elsewhere classified (HCC) Take 1 Tablet by mouth in the morning and 1 Tablet at noon and 1 Tablet before bedtime. 30 Tablet 1 05/04/2024 Active oxyCODONE-Acetaminop hen 5-325 MG Oral Tablet (Endocet)Indications :Lumbar degenerative disc disease,Lumbar radiculopathy Take 1-2 Tablets by mouth every 8 hours as needed for Pain, Moderate or Pain, Severe. max 5 per day- may take extra tablet(6) 3 days per week when she has physical therpy 81 Tablet 06/27/2024 Active documented as of this encounter (statuses as of 07/04/2024) Active Problems Problem Noted Date Diagnosed Date Abdominal aortic ectasia 03/16/2023 Atherosclerosis of aorta 03/16/2023 HTN, goal below 130/80 11/16/2021 History of kidney stones 09/14/2021 Sacroiliitis, not elsewhere classified 0 H/O laminectomy 06/23/2018 Lumbar degenerative disc disease 06/23/2018 Controlled substance agreement signed 09/06/2017 History of renal carcinoma 09/06/2017 documented as of this encounter (statuses as of 07/04/2024) Resolved Problems Problem Noted Date Diagnosed Date Resolved Date Nephrolithiasis 09/29/2021 10/12/2023 Cancer of right kidney 03/12/201902/04 Low back pain radiating to left leg 09/06/2017 11/16/2021 Renal cell cancer 09/03/2015 09/06/2017 Renal mass 02/11/2015 09/06/2017 documented as of this encounter (statuses as of 07/04/2024) Immunizations Name Administration Dates Next Due COVID-19 [...] as of this encounter Progress Notes * Demarco aHley, [facility] - 07/04/2024 7:38 AM EDT Images from the original note were not included. Medication Therapy Disease Management Clinic - Chronic Pain Management Progress Note 07/04/2024 Jaz Gross, identified by name and date of , is a 59 year old female being seen for chronic pain management/education. Patient presents to pain MTM clinic for return visit. Referring Physician: Wagner Thompson III, MD Medication Use Agreement: On file (02/04/21) Patient's Pharmacy: [facility] CHIEF COMPLAINT: Left sided mid-back pain and left leg pain HPI: Today: Pt reports back pain remains the same but her hip pain is worse She does plan to call this week regarding her hip replacement BMP ordered today. Last visit: Pt reports pain isn't necessarily better during the day. However overnight pain appears improved and quality of sleep has improved as well. Pt does note that her currently pain is more related to her right hip which needs to be replaced and she has had to put it off due to her husbands surgeries recently. Last visit: Pt reports doing better recently, reports making progress at getting back in to the pool. Pt now interested in increasing dose of cymbalta to 90mg (had discussed this previously) Last visit: Patient dealing with an acute pain on the lower left side of her back. The patient believes it may be associated with a kidney stone (she has had them in the past and it is very similar in presentation). Patient reports that other giordano her pain is well controlled outside of the acute pain. Patient reports being a lot more active prior to this flair up, in the pool 4-5 times/week. Last visit: Had a flair up of pain 2 weeks ago. Pain shooting down the right leg. However before this pain was doing well. Was in the therapy pool 3-5 days per week Patient believes that this flair up is improving and would like to continue on her current regimen without any changes until the next visit. Pain described as: mid back pain is constant (dull). Shooting when walking. Burning pain occurs when spasms are worse. Sleep: Wakes up every 45min-90min over night. Palliating factors: Water Therapy Exacerbating factors: Walking, bending over, heavy lifting. Other interventions tried: Injections/Nerve Block Physical Therapy Surgery Worst time of day for pain: First thing in the morning Imaging: MRI L spine 2021: IMPRESSION 1. Status post prior L5 laminectomy with good decompression of the spinal canal at L4-5 and L5-S1 levels. 2. Multilevel multifactorial degenerative changes throughout the lumbar spine with prominent disc herniations (extrusions) at L1-2 and L2-3 levels contributing to moderate spinal canal stenosis. 3. Neural foraminal narrowing of different degree at multiple levels, including most significant moderate narrowing of the bilateral L5-S1 foramina. 4. Fatty filum terminale. 5. Mild lumbar levoscoliosis. 6. Status post prior partial right nephrectomy. Psychiatric Hx: Denies Neurological Hx: Denies Cardiac Hx: Denies Renal Hx: 65% right nephrectomy, kidney stones Hepatic Hx: Denies Other: None Exercise/Activity: Therapy pool. Tobacco Use: Current Alcohol Use: denies Illicit Substance/Rx Abuse: Denies CONTROLLED SUBSTANCE COMPLIANCE MONITORING: Opioid Risk Assessment Tool (BRQ): Total score: 0-2 points (Low risk) CAGE-AID (01/12/2023): Total score: 0 points (problem unlikely) Daily MME: 37.5 MME PDMP Reviewed (07/04/2024): Urine Toxicology Screens: Passed 12-14-22 Pill Count: N/A Functional Goal: QOL Most recent answers to PEG-3 scale: What number best describes your pain on average in the past week?: 8 (05/02/2024 8:00 AM) What number best describes how, during the past week, pain has interfered with your enjoyment of life?: 5 (05/02/2024 8:00 AM) What number best describes how, during the past week, pain has interfered with your general activity?: 7 (05/02/2024 8:00 AM) PEG Pain Total Score: 6.67 (05/02/2024 8:00 AM) Past Pain Medications: Gabapentin (didn't help) Current Pain Medications: Flexeril 10mg TID prn Percocet 5/325, 1-2 tabs Q8H prn Max 5 tabs/day Cymbalta 90mg once daily Creatinine Clearance: Creatinine clearance cannot be calculated (Patient's most recent lab result is older than the maximum 180 days allowed.) Creatinine Results: Recent Labs Units 09/01/23 1030 12/14/22 0835 CREATININE - [facility] mg/dL 0.7 0.8 Hepatic Function (ALT): Recent Labs Units 09/01/23 1030 ALT - [facility] U/L 21 Comprehensive Metabolic Panel Results: Results for orders placed or performed in visit on 09/01/23 COMPREHENSIVE METABOLIC PANEL Result Value Ref Range BUN 11 6 - 20 mg/dL Creatinine 0.7 0.5 - 1.0 mg/dL Estimated Glomerular Filtration Rate >90 >=60 mL/min Sodium 139 135 - 146 mmol/L Potassium 4.6 3.5 - 5.1 mmol/L Chloride 103 98 - 107 mmol/L CO2 26 22 - 32 mmol/L Anion Gap 10 7 - 15 mmol/L Glucose 99 70 - 120 mg/dL Albumin 4.3 3.8 - 5.0 g/dL AST 14 10 - 35 U/L Alkaline Phosphatase 103 35 - 130 U/L Bilirubin, Total 0.4 <=1.2 mg/dL Calcium 10.2 8.4 - 10.2 mg/dL Protein 7.0 6.0 - 8.3 g/dL ALT 21 10 - 35 U/L ASSESSMENT: Patient aware MTM is a clinical pharmacist visit, with focus on medication options for current diagnoses referred by Primary Care Provider for review and optimization. Focus of this visit is Medication Optimization. Current concerns: Pt states she is planning to call and scheduled her right hip replacement this week. Adherence: Reviewed current regimen, patient is adherent to regimen. Treatment options: Pt requests no changes at this time. Treatment concerns: Monitor for adverse effects caused by cymbalta, BMP ordered today. Education provided: n/a PLAN: BMP ordered today No med changes Medication changes: no change Pain Medications: Flexeril 10mg TID prn Percocet 5/325, 1-2 tabs Q8H prn Max 5 tabs/day Cymbalta 90mg once daily Patient verbalized understanding of the plan. Contact clinic with any issues. I spent a total of 20-29 minutes (exact time 25 mins) on the date of service in preparation, delivery, and documentation of the care provided to Jaz Darden excluding any time spent in the performance of separately billed services or time spent by another provider/QHP. FOLLOW UP: Return to clinic in 8 weeks Visit date not found Demarco Haley [facility] Clinical Pharmacist - Legal Librarian Medication Therapy Management Clinic 07/04/2024, 7:39 AM documented in this encounter Plan of Treatment Upcoming Encounters Date Type Department Care Team (Late st Contact Info) Description 08/29/2024 7:30 AM EDT Office Visit Pharmacy, [facility] [address] [facility] [place] [address] Pharmacist2, [facility] [address] [facility] [place] [address] 02/04/2025 9:45 AM EDT Imaging Radiology [address] [facility] [address] Pending Results Name Type Priority Associated Diagnoses Date /Time BASIC METABOLIC PANEL Lab Routine Lumbar degenerative disc disease 07/04/2024 8:16 AM EDT Scheduled Orders Name Type Priority Associated Diagnoses Orde r Schedule BASIC METABOLIC PANEL Lab Routine Lumbar degenerative disc disease Expected: 07/04/2024 (Approximate), Expires: 07/04/2025 Scheduled Procedures Name Priority Associated Diagnoses Date/Ti [...] shot) (#1) 2024 09/12/2022, 08/23/2021, 08/14/2020 GFR 09/01/2024 09/01/2023, 11/16, 11/16/2021, Additional history exists Albumin/Creatinine Ratio 08/10/2025 08/10/2022 Diabetes Screening 09/01/2026 09/01/2023, 0 12/14/2022, 09/30/2021, Additional history exists DTaP,Tdap,and Td Vaccines (3 - Td or Tdap) 09/06/2027 [...] encounter Visit Diagnoses Diagnosis Lumbar degenerative disc disease- Primary Degeneration of lumbar or lumbosacral intervertebral disc Controlled substance agreement signed Encounter for long-term (current) use of other [...] and were consensually agreed upon. Care Teams Investment Trader Relationship Specialty Start Date End Date Wagner Thompson III, MD [address] [facility] [place] [address] PCP - General Family Medicine 07/13/23 documented as of this encounter
--- OUTSIDE RECORDS SUMMARY | 2024-09-19 13:20 | External Medical Summary | Summary of Care ---
Author Name Unknown Organization [facility] Address [address] [place] [address] Phone [phone] Care Team Providers Care Chief Of Service Name Role Phone Jay KAMARA MD, Wagner Goldman Primary Care Provider [phone] Encounter Details Date Type Department Care Team (Late st Contact Info) Description 07/31/2024 Orders Only Outcomes Research Department [address] [place] [address] Jaz Stuart CHRA MyCode Research Other*[id number] Allergies Active Allergy Reactions Criticality Noted Date Comments Carisoprodol Seizure High 03/12/2019 documented as of this encounter (statuses as of 07/31/2024) Medications Medication Sig Dispensed Refills Start Date [...] before bedtime. 30 Tablet 1 07/18/2024 Active oxyCODONE-Acetaminop hen 5-325 MG Oral Tablet (Endocet)Indications :Lumbar degenerative disc disease,Lumbar radiculopathy Take 1-2 Tablets by mouth every 8 hours as needed for Pain, Moderate or Pain, Severe. max 5 per day- may take extra tablet(6) 3 days per week when she has physical therpy 81 Tablet 07/21/2024 Active documented as of this encounter (statuses as of 07/31/2024) Active Problems Problem Noted Date Diagnosed Date Abdominal aortic ectasia 03/16/2023 Atherosclerosis of aorta 03/16/2023 HTN, goal below 130/80 11/16/2021 History of kidney stones 09/14/2021 Sacroiliitis, not elsewhere classified 0 H/O laminectomy 06/23/2018 Lumbar degenerative disc disease 06/23/2018 Controlled substance agreement signed 09/06/2017 History of renal carcinoma 09/06/2017 documented as of this encounter (statuses as of 07/31/2024) Resolved Problems Problem Noted Date Diagnosed Date Resolved Date Nephrolithiasis 09/29/2021 10/12/2023 Cancer of right kidney 03/12/201902/04 Low back pain radiating to left leg 09/06/2017 11/16/2021 Renal cell cancer 09/03/2015 09/06/2017 Renal mass 02/11/2015 09/06/2017 documented as of this encounter (statuses as of 07/31/2024) Immunizations Name Administration Dates Next Due COVID-19 [...] No 02/11/2015 documented as of this encounter Plan of Treatment Upcoming Encounters Date Type Department Care Team (Late st Contact Info) Description 08/29/2024 7:30 AM EDT [facility] [address] [place] [address] Pharmacist2, [facility] [address] [place] [address] 02/04/2025 9:45 AM EDT Imaging Radiology [facility] [address] [facility] [address] [facility] [address] Scheduled Orders Name Type Priority Associated Diagnoses Orde r Schedule MYCODE SUBSEQUENT ADULT Lab Routine MyCode Research Other*[id number] Every 6 Months for 2 Occurrences starting 07/31/2024 until 08/20/2025 Scheduled Procedures Name Priority Associated Diagnoses Date/Ti [...] as of this encounter Visit Diagnoses Diagnosis MyCode Research Other*[id number] documented in this encounter Advance Directives * [...] and were consensually agreed upon. Care Teams Chief Of Service Relationship Specialty Start Date End Date Wagner Thompson III, MD [address] [place] [address] PCP - General Family Medicine 07/13/23 documented as of this encounter
--- OUTSIDE RECORDS SUMMARY | 2024-09-19 13:20 | External Medical Summary | Summary of Care ---
Author Name Unknown Organization [facility] Address [address] [place] [address] Phone [phone] Care Team Providers Care Buckle Stapler Name Role Phone Jay KAMARA MD, John E Primary Care Provider [phone] Reason for Visit * Reason Onset Date Comments Health Maintenance 06/15/2024 Encounter Details Date Type Department Care Team (Late st Contact Info) Description 06/15/2024 Telephone Family Practice [facility] [address] [place] [address] Wagner Thompson III, MD [address] [place] [address] Health Maintenance Allergies Active Allergy Reactions Criticality Noted Date [...] when she has physical therpy 81 Tablet 06/13/2024 4 Discontinue d(Refill) documented as of this [...] No 06/06/2023 Does the household have a [facility] source [facility] income? (Household - for [...] encounter Miscellaneous Notes * Telephone Encounter - Christine Aden LPN - 07/23/2024 2:08 PM EDT letter * Telephone Encounter - Christine Aden LPN - 06/15/2024 9:23 AM EDT Care Gaps Comprehensive Care Outreach Last Office/Telemedicine Visit: 10/31/2023 (in office), 11/06/2020 (telemedicine) Next Office Visit: Visit date not found Hemoglobin AIC Results: No results found for: "HEMOGLOBIN A1C" BP Readings from Last 1 Encounters: 10/31/23 118/74 Reviewed Health Maintenance below: Health Maintenance Topic Date Due Cervical Cancer Screening Never done Depression Screening 02/04/2022 Mammogram 01/01/2023 COVID-19 Vaccine ( season) 2023 Colorectal Cancer Screening 07/17/2023 Influenza Vaccine (FLU shot) (1) 07/15/2024 GFR 09/01/2024 Recapture Ov Pap Mamm colon Care Gap Outreach Action Taken: Left message and MyChart message sent documented in this encounter Plan of Treatment Upcoming Encounters Date Type Department Care Team (Late st Contact Info) Description 08/29/2024 7:30 AM EDT Office Visit Pharmacy, [facility] [place] [facility] [address] [place] [address] [address] Pharmacist2, [facility] [address] [place] [address] [address] 02/04/2025 9:45 AM EDT Imaging Radiology [facility] [address] [facility] [place] [address] [facility] [place] [address] Scheduled Procedures Name Priority Associated Diagnoses Date/Ti [...] and were consensually agreed upon. Care Teams Buckle Stapler Relationship Specialty Start Date End Date Jay KAMARA, Wagner Goldman MD [address] [place] [address] PCP - General Family Medicine 07/13/23 documented as of this encounter
--- OUTSIDE RECORDS SUMMARY | 2024-09-19 13:20 | External Medical Summary ---
Author Name Unknown Address Unknown Organization K09:[facility] [place] [place] [address] Laboratory Report Ordering Provider Test Date Status TANA DAVIS 07/04/2024 08:16:56 Final Observation Date Value Abnormality Reference (Units ) Status BUN 07/04/2024 08:16:56 11 6-20 (mg/dL) Final Creatinine 07/04/2024 08:16:56 0.8 0.5-1.0 (mg/dL) Final Glomerular filtration rate/1.73 sq M.predicted [Volume Rate/Area] in Serum, Plasma or Blood by Creatinine-based formula (CKD-EPI) 07/04/2024 08:16:56 88 >=60 (mL/min) Final eGFR is calculated based on the CKD-EPI 2020 equation. Sodium 07/04/2024 08:16:56 138 135-146 (m mol/L) Final Potassium 07/04/2024 08:16:56 4.9 3.5-5.1 (m mol/L) Final Cl 07/04/2024 08:16:56 103 98-107 (mm ol/L) Final CO2 07/04/2024 08:16:56 25 22-32 (mmo l/L) Final Anion gap 07/04/2024 08:16:56 10 7-15 (mmol /L) Final Glucose 07/04/2024 08:16:56 110 70-120 (mg /dL) Final Calcium 07/04/2024 08:16:56 9.6 8.4-10.2 ( mg/dL) Final Performing Location [facility] [place] [address]
--- OUTSIDE RECORDS SUMMARY | 2024-09-19 13:20 | External Medical Summary | Summary of Care ---
Author Name Unknown Organization [facility] Address [address] [place] [address] Phone [phone] Care Team Providers Care Web Ui Developer Name Role Phone Jay KAMARA MD, Noemi Goldman Primary Care Provider [phone] Reason for Referral * Medication Prior Authorization - Closed Specialty Diagnoses / Procedures Referred By Jeronimo t Referred To Contact Diagnoses Lumbar degenerative disc disease Lumbar radiculopathy Noemi Mondragon III, MD [address] [place] [address] [address] Referral ID Status Reason Start Date Expiration Date Visits Re quested Visits Authorized [id number] Closed 999 999 Reason for Visit * Reason Onset Date Comments Medication Refill 07/09/2024 Status Check 07/09/2024 Encounter Details Date Type Department Care Team (Late st Contact Info) Description 07/09/2024 Refill Family Practice [facility] [address] [place] [address] [address] Noemi Mondragon III, MD [address] [place] [address] [address] Lumbar degenerative disc disease; Lumbar radiculopathy Allergies Active Allergy Reactions Criticality Noted Date Comments Carisoprodol Seizure High 03/12/2019 documented as of this encounter (statuses as of 07/11/2024) Medications Medication Sig Dispensed Refills Start Date [...] as of this encounter (statuses as of 07/11/2024) Active Problems Problem Noted Date Diagnosed Date Abdominal aortic ectasia 03/16/2023 Atherosclerosis of aorta 03/16/2023 HTN, goal below 130/80 11/16/2021 History of kidney stones 09/14/2021 Sacroiliitis, not elsewhere classified 0 H/O laminectomy 06/23/2018 Lumbar degenerative disc disease 06/23/2018 Controlled substance agreement signed 09/06/2017 History of renal carcinoma 09/06/2017 documented as of this encounter (statuses as of 07/11/2024) Resolved Problems Problem Noted Date Diagnosed Date Resolved Date Nephrolithiasis 09/29/2021 10/12/2023 Cancer of right kidney 03/12/201902/04 Low back pain radiating to left leg 09/06/2017 11/16/2021 Renal cell cancer 09/03/2015 09/06/2017 Renal mass 02/11/2015 09/06/2017 documented as of this encounter (statuses as of 07/11/2024) Immunizations Name Administration Dates Next Due COVID-19 mRNA, LNP-s, No Pre serve, 2-Dose Series (SurePeak) 02/12/2021,01/22/2021 COVID-19, mRNA, LNP-s, PF, B ooster, [...] Encounter - Noemi Mondragon III, MD - 07/11/2024 8:04 AM EDTSigned Prescriptions: Disp Refills oxyCODONE-Acetaminophen 5-325 MG Oral Tabl*81 Tab*0 Sig: Take 1-2 Tablets by mouth every 8 hours as needed for Pain, Moderate or Pain, Severe. max 5 per day- may take extra tablet(6) 3 days per week when she has physical therpyAuthorizing Provider: NOEMI MONDRAGON III * Telephone Encounter - Noemi Mondragon III, MD - 07/11/2024 2:42 AM EDTSigned Prescriptions: Disp Refills oxyCODONE-Acetaminophen 5-325 MG Oral Tabl*81 Tab*0 Sig: Take 1-2 Tablets by mouth every 8 hours as needed for Pain, Moderate or Pain, Severe. max 5 per day- may take extra tablet(6) 3 days per week when she has physical therpyAuthorizing Provider: NOEMI MONDRAGON III * Telephone Encounter - Savi Trimble [facility] - 07/10/2024 1:50 PM EDTSigned Prescriptions: Disp [...] (Endocet) . Caller can be reached at [phone]. Thank you, Cyn De Luna CPhT Supervisor [facility] ([facility]) [address] [place] [address], [address] [address] * Telephone Encounter - Mynor Dyer ice cream shop associate - 07/10/2024 10:59 AM EDT Patient will not have a vehicle for several days starting at about noon today because her is leaving town for work and taking their only car. Thank you, Hayes Dyer, Carbonizer Tester Supervisor [facility] ([facility]) ([facility] 07/10/2024,11:00 AM * Telephone Encounter - Delia Alvarez [facility] - 07/10/2024 8:30 AM EDT Pending Prescriptions: Disp Refills oxyCODONE-Acetaminophen 5-325 MG Oral Tabl*81 Tab*0 Sig: Take 1-2 Tablets by mouth every 8 hours as needed for Pain, Moderate or Pain, Severe. max 5 per day- may take extra tablet(6) 3 days per week when she has physical therpy * Telephone Encounter - Delia Alvarez [facility] - 07/10/2024 8:30 AM EDT I have [...] is due for refill: 07/10 [id number] [address] [facility] Is this request for a controlled [...] AM * Telephone Encounter - Warren Donnelly PHARM Tech - 07/10/2024 8:20 AM EDT Pt calling to see if this request can be sent high priority, Pt needs this today due to transportation issues. Pt calling to check on status of oxyCODONE-Acetaminophen 5-325 MG Oral Tablet (Endocet) . Caller can be reached at [phone]. Thank you, Warren Donnelly Supervisor [facility] ([facility]) 07/10/2024,8:20 AM * Telephone Encounter - Shana Miller PHARM Tech - 07/09/2024 8:11 AM EDT Did you pend patient's preferred pharmacy and medication before forwarding?yes Pharmacy: [id number] [address] [facility] Pending Prescriptions: Disp Refills oxyCODONE-Acetaminophen 5-325 [...] was the last refill date 06/27/2024 w/ [id number] and dosage 5-325 mg and Urine Drug [...] reflexed to confirmatory testing. Patient Phone Numbers [employer] [phone] Labs: Lab Results Component Value Date/Time CREAT [...] 08/29/2024 7:30 AM EDT Office Visit Pharmacy, [facility] [address] [place] [address] Pharmac[address], [facility] [address] [facility] [place] [address] 02/04/2025 9:45 AM EDT Imaging Radiology [facility] 2nd [facility] [address] [facility] [address] Scheduled Procedures Name Priority [...] and were consensually agreed upon. Care Teams Web Ui Developer Relationship Specialty Start Date End Date Noemi Mondragon III, MD [address] [place] [address] PCP - General Family Medicine 07/13/23 documented as of this encounter
--- OUTSIDE RECORDS SUMMARY | 2024-09-19 13:20 | External Medical Summary | Summary of Care ---
Author Name Unknown Organization [facility] Address [address] [place] [address] Phone [phone] Care Team Providers Care Parts Counter Specialist Name Role Phone Jay KAMARA MD, John E Primary Care Provider [phone] Reason for Visit * Reason Onset Date Comments Medication Refill 07/18/2024 Encounter Details Date Type Department Care Team (Late st Contact Info) Description 07/18/2024 Refill Family Practice [facility] [address] [place] [address] Wagner Thompson III, MD [address] [place] [address] Lumbar degenerative disc disease; Sacroiliitis, not elsewhere classified (HCC) Allergies Active Allergy Reactions Criticality Noted Date Comments Carisoprodol Seizure High 03/12/2019 documented as of this encounter (statuses as of 07/18/2024) Medications Medication Sig Dispensed Refills Start Date [...] has physical therpy 81 Tablet 07/10/2024 Active Cyclobenzaprine HCl 10 MG Oral Tablet (Flexeril)Indicati ons:Lumbar degenerative disc disease,Sacroiliit is, not elsewhere classified (HCC) Take 1 Tablet by mouth in the morning and 1 Tablet at noon and 1 Tablet before bedtime. 30 Tablet 1 07/18/2024 Active Cyclobenzaprine HCl 10 MG Oral Tablet (Flexeril)Indicati ons:Lumbar degenerative disc disease,Sacroiliit is, not elsewhere classified (HCC) Take 1 Tablet by mouth in the morning and 1 Tablet at noon and 1 Tablet before bedtime. 30 Tablet 1 05/04/2024 4 Discontinue d(Refill) documented as of this encounter (statuses as of 07/18/2024) Active Problems Problem Noted Date Diagnosed Date Abdominal aortic ectasia 03/16/2023 Atherosclerosis of aorta 03/16/2023 HTN, goal below 130/80 11/16/2021 History of kidney stones 09/14/2021 Sacroiliitis, not elsewhere classified 0 H/O laminectomy 06/23/2018 Lumbar degenerative disc disease 06/23/2018 Controlled substance agreement signed 09/06/2017 History of renal carcinoma 09/06/2017 documented as of this encounter (statuses as of 07/18/2024) Resolved Problems Problem Noted Date Diagnosed Date Resolved Date Nephrolithiasis 09/29/2021 10/12/2023 Cancer of right kidney 03/12/201902/04 Low back pain radiating to left leg 09/06/2017 11/16/2021 Renal cell cancer 09/03/2015 09/06/2017 Renal mass 02/11/2015 09/06/2017 documented as of this encounter (statuses as of 07/18/2024) Immunizations Name Administration Dates Next Due COVID-19 mRNA, LNP-s, No Pre serve, 2-Dose Series ([employer]) 02/12/2021,01/22/2021 COVID-19, mRNA, LNP-s, PF, B ooster, [...] encounter Miscellaneous Notes * Telephone Encounter - Charis Cheek PA-C - 07/18/2024 1:29 PM EDTSigned Prescriptions: Disp Refills Cyclobenzaprine HCl 10 MG Oral Tablet (Fle*30 Tab*1 Sig: Take 1 Tablet by mouth in the morning and 1 Tablet at noon and 1 Tablet before bedtime. Authorizing Provider: CHARIS CHEEK * Telephone Encounter - Brianne Marroquin sack filler - 07/18/2024 12:01 PM EDT Did you pend patient's preferred pharmacy and medication before forwarding?yes Pharmacy: E [id number] Pending Prescriptions: Disp Refills Cyclobenzaprine HCl 10 MG Oral Tablet (Fl*30 Tab*1 Sig: Take 1 Tablet by mouth in the morning and 1 Tablet at noon and 1 Tablet before bedtime. Last Visit: 10/31/2023 (in office), 11/06/2020 (telemedicine) Next Visit: Visit date not found If no future appointments scheduled, and last appointment is greater than a year ago, please schedule patient for a follow-up appointment Last date the medication was ordered: 05/04/24 Is this request for a controlled substance?No [...] to confirmatory testing. Patient Phone Numbers mobile [phone] Labs: Lab Results Component Value Date/Time CREAT [...] 08/29/2024 7:30 AM EDT Office Visit Pharmacy, [facility] [address] [place] [address] Pharmacist2, [facility] [address] [facility] [place] [address] 02/04/2025 9:45 AM EDT Imaging Radiology [facility] 2nd [facility] [place] [address] [facility] [place] [address] Scheduled Procedures Name Priority Associated Diagnoses Date/Ti [...] and were consensually agreed upon. Care Teams Parts Counter Specialist Relationship Specialty Start Date End Date Wagner Thompson III, MD [address] [facility] [place], [place] [address] PCP - General Family Medicine 07/13/23 documented as of this encounter
--- OUTSIDE RECORDS SUMMARY | 2024-09-19 13:20 | External Medical Summary | Summary of Care ---
Author Name Unknown Organization [facility] Address [address] [place] [address] Phone [phone] Care Team Providers Care Software Programmer Name Role Phone Jay KAMARA MD, John E Primary Care Provider [phone] Reason for Visit * Reason Onset Date Comments Health Maintenance 07/06/2024 Encounter Details Date Type Department Care Team (Late st Contact Info) Description 07/06/2024 Telephone Family Practice [facility] [address] [facility] [place] [address] Wagner Thompson III, MD [address] [place] [address] Health Maintenance Allergies Active Allergy Reactions Criticality Noted Date Comments Carisoprodol Seizure High 03/12/2019 documented as of this encounter (statuses as of 07/06/2024) Medications Medication Sig Dispensed Refills Start Date [...] as of this encounter (statuses as of 07/06/2024) Active Problems Problem Noted Date Diagnosed Date Abdominal aortic ectasia 03/16/2023 Atherosclerosis of aorta 03/16/2023 HTN, goal below 130/80 11/16/2021 History of kidney stones 09/14/2021 Sacroiliitis, not elsewhere classified 0 H/O laminectomy 06/23/2018 Lumbar degenerative disc disease 06/23/2018 Controlled substance agreement signed 09/06/2017 History of renal carcinoma 09/06/2017 documented as of this encounter (statuses as of 07/06/2024) Resolved Problems Problem Noted Date Diagnosed Date Resolved Date Nephrolithiasis 09/29/2021 10/12/2023 Cancer of right kidney 03/12/201902/04 Low back pain radiating to left leg 09/06/2017 11/16/2021 Renal cell cancer 09/03/2015 09/06/2017 Renal mass 02/11/2015 09/06/2017 documented as of this encounter (statuses as of 07/06/2024) Immunizations Name Administration Dates Next Due COVID-19 [...] Telephone Encounter - Christine Aden LPN - 07/06/2024 8:37 AM EDT Care Gaps Comprehensive Care Outreach [...] 07/17/2023 Influenza Vaccine (FLU shot) (1) 07/15/2024 Just reached out Care Gap Outreach Action Taken: Outreach not indicated documented in this encounter Plan of Treatment Upcoming Encounters Date Type Department Care Team (Late st Contact Info) Description 08/29/2024 7:30 AM EDT Office Visit Pharmacy, [facility] [address] [facility] [place] [address] Pharmacist2, [facility] [address] [facility] [place] [address] 02/04/2025 9:45 AM EDT Imaging Radiology [facility] 2nd [facility] [address] [facility] [place] [id number] Scheduled Procedures Name Priority Associated Diagnoses Date/Ti me COLONOSCOPY FLEXIBLE PROXIMAL DIAGNOSTIC Recall History of colon polyps Health Maintenance Due Date Last Done Comments Pap Smear 01/28/1984 Cervical Cancer Screening 1993 HPV/Co-Test 1993 Fecal Occult Blood Test 01/28/2008 Sigmoidoscopy 01/28/2008 Depression Screening 02/04/2022 02/04/2021 Mammogram 01/01/2023 01/01/2022, 12/15, 12/01/2021, Additional history exists Cologuard 06/27/2023 06/27/2020, 08/03/2020, 06/18/2020 COVID-19 Vaccine ( season) 2023 08/08/2022, 11/02/2021, 02/12/2021, Additional history exists Colonoscopy 07/17/2023 07/17/2020, 07/17/2020 Colorectal Cancer Screening 07/17/2023 Influenza Vaccine (FLU shot) (#1) 2024 09/12/2022, 08/23/2021, 08/14/2020 GFR 07/04/2025 07/04/2024, 08/14, 12/14/2022, Additional history exists Albumin/Creatinine Ratio 08/10/2025 08/10/2022 Diabetes Screening 07/04/2027 07/04/2024, 1 , 12/14/2022, Additional history exists DTaP,Tdap,and Td Vaccines (3 [...] and were consensually agreed upon. Care Teams Software Programmer Relationship Specialty Start Date End Date Wagner Thompson III, MD [address] [facility] [place] [address] PCP - General Family Medicine 07/13/23 documented as of this encounter
--- OUTSIDE RECORDS SUMMARY | 2024-09-19 13:20 | External Medical Summary | Summary of Care ---
Author Name Unknown Organization [facility] Address [address] [place] [address] Phone [phone] Care Team Providers Care Health And Safety Inspector Name Role Phone Jay KAMARA MD, John E Primary Care Provider [phone] Reason for Visit * Reason Onset Date Comments Medication Refill 07/18/2024 Encounter Details Date Type Department Care Team (Late st Contact Info) Description 07/18/2024 Refill Family Practice [facility] [address] [facility] [place] [address] Wagner Thompson III, MD [address] [place] [address] Lumbar degenerative disc disease; Sacroiliitis, not elsewhere [...] mRNA, LNP-s, No Pre serve, 2-Dose Series ([employer]) 02/12/2021,01/22/2021 COVID-19, mRNA, LNP-s, PF, B [...] encounter Miscellaneous Notes * Telephone Encounter - Brianne Marroquin CPhT - 07/18/2024 1:52 PM EDT Pt calling to request Cyclobenzaprine. Informed pt that RX is available at their pharmacy. Pt verbalized understanding and stated they will check with their pharmacy regarding this medication. Thank you, Brianne Marroquin CPhT Command Post Craftsman II [facility] 07/18/2024,1:52 PM * Telephone Encounter - Charis Cheek PA-C - 07/18/2024 1:29 PM EDTSigned Prescriptions: Disp Refills Cyclobenzaprine HCl 10 MG Oral Tablet (Fle*30 Tab*1 Sig: Take 1 Tablet by mouth in the morning and 1 Tablet at noon and 1 Tablet before bedtime. Authorizing Provider: CHARIS CHEEK * Telephone Encounter - Brianne Marroquin CPhT - 07/18/2024 12:01 PM EDT Did you pend patient's preferred pharmacy and medication before forwarding?yes Pharmacy: [id number] [address] [facility] Pending Prescriptions: Disp Refills Cyclobenzaprine HCl 10 [...] 08/29/2024 7:30 AM EDT Office Visit Pharmacy, [facility] [address] [facility] [place] [address] Pharmacist2, [facility] [address] [facility] [place] [address] 02/04/2025 9:45 AM EDT Imaging Radiology [facility] 2nd [facility] [address] [facility] [place] [address] Scheduled Procedures Name Priority Associated Diagnoses Date/Ti [...] and were consensually agreed upon. Care Teams Health And Safety Inspector Relationship Specialty Start Date End Date Wagner Thompson III, MD [address] [place] [address] PCP - General Family Medicine 07/13/23 documented as of this encounter
--- OUTSIDE RECORDS SUMMARY | 2024-09-19 13:21 | External Medical Summary | Summary of Care ---
Author Name Unknown Organization [facility] Address [address] [place] [address] Phone [phone] Care Team Providers Care Club Room Attendant Name Role Phone Jay KAMARA MD, John E Primary Care Provider [phone] Reason for Visit * Reason Onset Date Comments Health Maintenance 06/15/2024 Encounter Details Date Type Department Care Team (Late st Contact Info) Description 06/15/2024 Telephone Family Practice [facility] [address] [facility] [place] [address] Wagner Thompson III, MD [address] [place] [address] Health Maintenance Allergies Active Allergy Reactions Criticality Noted Date Comments Carisoprodol Seizure High 03/12/2019 documented as of this encounter (statuses as of 06/15/2024) Medications Medication Sig Dispensed Refills Start Date [...] she has physical therpy 81 Tablet 06/13/2024 Active documented as of this encounter (statuses as of 06/15/2024) Active Problems Problem Noted Date Diagnosed Date Abdominal aortic ectasia 03/16/2023 Atherosclerosis of aorta 03/16/2023 HTN, goal below 130/80 11/16/2021 History of kidney stones 09/14/2021 Sacroiliitis, not elsewhere classified 0 H/O laminectomy 06/23/2018 Lumbar degenerative disc disease 06/23/2018 Controlled substance agreement signed 09/06/2017 History of renal carcinoma 09/06/2017 documented as of this encounter (statuses as of 06/15/2024) Resolved Problems Problem Noted Date Diagnosed Date Resolved Date Nephrolithiasis 09/29/2021 10/12/2023 Cancer of right kidney 03/12/201902/04 Low back pain radiating to left leg 09/06/2017 11/16/2021 Renal cell cancer 09/03/2015 09/06/2017 Renal mass 02/11/2015 09/06/2017 documented as of this encounter (statuses as of 06/15/2024) Immunizations Name Administration Dates Next Due COVID-19 [...] 07/04/2024 8:00 AM EDT Office Visit Pharmacy, [facility] [address] [facility] [place] [address] Pharmacist2, [facility] [address] [facility] [place] [address] 02/04/2025 9:45 AM EDT Imaging Radiology [facility] 2nd [facility] [address] [facility] [place] [address] Scheduled Procedures Name Priority Associated Diagnoses Date/Ti me COLONOSCOPY FLEXIBLE PROXIMAL DIAGNOSTIC Recall History of colon polyps Health Maintenance Due Date Last Done Comments Pap Smear 01/28/1984 Cervical Cancer Screening 1993 HPV/Co-Test 1993 Fecal Occult Blood Test 01/28/2008 Sigmoidoscopy 01/28/2008 Depression Screening 02/04/2022 02/04/2021 Mammogram 01/01/2023 01/01/2022, 12/15, 12/01/2021, Additional history exists Cologuard 06/27/2023 06/27/2020, 03/2020, 06/18/2020 COVID-19 Vaccine (2022- season) 2023 08/08/2022, 11/02/2021, 02/12/2021, Additional history [...] and were consensually agreed upon. Care Teams Club Room Attendant Relationship Specialty Start Date End Date Wagner Thompson III, MD [address] [facility] [place] [address] PCP - General Family Medicine 07/13/23 documented as of this encounter
--- OUTSIDE RECORDS SUMMARY | 2024-09-19 13:21 | External Medical Summary | Summary of Care ---
Author Name Unknown Organization [facility] Address [address] [place] [address] Phone [phone] Care Team Providers Care Database Reporting Consultant Name Role Phone Jay KAMARA MD, Noemi Goldman Primary Care Provider [phone] Reason for Referral * Medication Prior Authorization - Closed Specialty Diagnoses / Procedures Referred By Contac t Referred To Contact Diagnoses Lumbar degenerative disc disease Lumbar radiculopathy Noemi Mondragon III, MD [address] [facility] [place], [place] [address] Referral ID Status Reason Start Date Expiration Date Visits Re quested Visits Authorized [id number] Closed 999 999 Reason for Visit * Reason Onset Date Comments Medication Refill 06/26/2024 Encounter Details Date Type Department Care Team (Late st Contact Info) Description 06/26/2024 Refill Family Practice [facility] [address] [place] [address] Noemi Mondragon III, MD [address] [facility] [place] [address] Lumbar degenerative disc disease; Lumbar radiculopathy Allergies Active Allergy Reactions Criticality Noted Date Comments Carisoprodol Seizure High 03/12/2019 documented as of this encounter (statuses as of 06/27/2024) Medications Medication Sig Dispensed Refills Start Date [...] has physical therpy 81 Tablet 06/27/2024 Active oxyCODONE-Acetamin ophen 5-325 MG Oral Tablet (Endocet)Indicatio ns:Lumbar degenerative disc disease,Lumbar radiculopathy Take 1-2 Tablets by mouth every 8 hours as needed for Pain, Moderate or Pain, Severe. max 5 per day- may take extra tablet(6) 3 days per week when she has physical therpy 81 Tablet 06/13/2024 4 Discontinue d(Refill) documented as of this encounter (statuses as of 06/27/2024) Active Problems Problem Noted Date Diagnosed Date Abdominal aortic ectasia 03/16/2023 Atherosclerosis of aorta 03/16/2023 HTN, goal below 130/80 11/16/2021 History of kidney stones 09/14/2021 Sacroiliitis, not elsewhere classified 0 H/O laminectomy 06/23/2018 Lumbar degenerative disc disease 06/23/2018 Controlled substance agreement signed 09/06/2017 History of renal carcinoma 09/06/2017 documented as of this encounter (statuses as of 06/27/2024) Resolved Problems Problem Noted Date Diagnosed Date Resolved Date Nephrolithiasis 09/29/2021 10/12/2023 Cancer of right kidney 03/12/201902/04 Low back pain radiating to left leg 09/06/2017 11/16/2021 Renal cell cancer 09/03/2015 09/06/2017 Renal mass 02/11/2015 09/06/2017 documented as of this encounter (statuses as of 06/27/2024) Immunizations Name Administration Dates Next Due COVID-19 mRNA, LNP-s, No Pre serve, 2-Dose Series ([employer]) 02/12/2021,01/22/2021 COVID-19, mRNA, LNP-s, PF, B ooster, [...] encounter Miscellaneous Notes * Telephone Encounter - Lyle Ramirez RPh - 06/27/2024 7:49 AM EDT Signed Prescriptions: Disp Refills oxyCODONE-Acetaminophen 5-325 MG Oral Tabl*81 Tab*0 Sig: Take 1-2 Tablets by mouth every 8 hours as needed for Pain, Moderate or Pain, Severe. max 5 per day- may take extra tablet(6) 3 days per week when she has physical therpyAuthorizing Provider: NOEMI MONDRAGON III * Telephone Encounter - Noemi Mondragon III, MD - 06/27/2024 7:43 AM EDTSigned Prescriptions: Disp Refills oxyCODONE-Acetaminophen 5-325 MG Oral Tabl*81 Tab*0 Sig: Take 1-2 Tablets by mouth every 8 hours as needed for Pain, Moderate or Pain, Severe. max 5 per day- may take extra tablet(6) 3 days per week when she has physical therpyAuthorizing Provider: NOEMI MONDRAGON III * Telephone Encounter - Ana Grijalva [facility] - 06/26/2024 5:04 PM EDT Pending Prescriptions: Disp Refills oxyCODONE-Acetaminophen 5-325 MG Oral Tabl*81 Tab*0 Sig: Take 1-2 Tablets by mouth every 8 hours as needed for Pain, Moderate or Pain, Severe. max 5 per day- may take extra tablet(6) 3 days per week when she has physical therpy * Telephone Encounter - Ana Grijalva [facility] - 06/26/2024 5:03 PM EDT I have reviewed the patients controlled substance dispensing history in the Prescription Drug Monitoring Program in compliance with the [facility] regulations before prescribing a controlled substance. PDMP checked on 06/26/2024. Pending Prescriptions: Disp Refills oxyCODONE-Acetaminophen 5-325 MG Oral Tab*81 Tab*0 Sig: Take 1-2 Tablets by mouth every 8 hours as needed for Pain, Moderate or Pain, Severe. max 5 per day- may take extra tablet(6) 3 days per week when she has physical therpy Last Visit: 10/31/2023 (in office), 11/06/2020 (telemedicine) Next Visit: Visit date not found Date medication was last filled: 06/14/24 Date medication is due for refill: 06/26/24 Pharmacy: [id number] [address] [facility] Is this request for a [...] testing. Please approve if appropriate. Thank you, Ana Grijalva, PharmD Clinical Pharmacist [facility] ([facility]) 06/26/24 5:03 PM [phone] * Telephone Encounter - Emanuel Cagle granite installer - 06/26/2024 4:35 PM EDT Advised pt that RX is being worked. Pt says she will call back tomorrow. Thank You, Emanuel Cagle [facility] Wire Basket Maker II [facility] 06/26/2024, 4:36 PM * Telephone Encounter - Enrique Alvarez granite installer - 06/26/2024 10:48 AM EDT Pt requesting high priority refill- hoping to hot die picker today. Pt will be leaving early tomorrow morning due to child and inlaw havingstating she will be leaving Did you pend patient's preferred pharmacy and medication before forwarding?yes Pharmacy: [id number] [address] [place] [address] Pending Prescriptions: Disp Refills oxyCODONE-Acetaminophen 5-325 MG [...] appointment Last date the medication was ordered: 06/13/2024 Is this request for a controlled substance?Yes, What was the last refill date 06/14/2024 w/ quantity 81 and dosage 5-325 and Urine Drug Screen was completed Urine [...] reflexed to confirmatory testing. Patient Phone Numbers Slide [phone] Labs: Lab Results Component Value Date/Time CREAT [...] 07/04/2024 8:00 AM EDT Office Visit Pharmacy, [facility] [address] [facility] [place] [address] Pharmacist2, [facility] [address] [facility] [place] [address] 02/04/2025 9:45 AM EDT Imaging Radiology [facility] 2nd [facility] [address] [facility] [place] [address] Scheduled Procedures Name Priority Associated Diagnoses Date/Ti [...] and were consensually agreed upon. Care Teams Database Reporting Consultant Relationship Specialty Start Date End Date Noemi Mondragon III, MD [address] [place] [address], [place] [address] PCP - General Family Medicine 07/13/23 documented as of this encounter
--- OUTSIDE RECORDS SUMMARY | 2024-09-19 13:21 | External Medical Summary | Summary of Care ---
Author Name Unknown Organization [facility] Address [address] [place] [address] Phone [phone] Care Team Providers Care Coil Strapper Name Role Phone Jay KAMARA MD, Noemi Goldman Primary Care Provider [phone] Reason for Referral * Medication Prior Authorization - Closed Specialty Diagnoses / Procedures Referred By Contcrow t Referred To Contact Diagnoses Lumbar degenerative disc disease Lumbar radiculopathy Noemi Mondragno III, MD 200 [facility] [place], [place] [address] Referral ID Status Reason Start Date Expiration Date Visits Re quested Visits Authorized [id number] Closed 999 999 Reason for Visit * Reason Onset Date Comments Medication Refill 06/13/2024 Encounter Details Date Type Department Care Team (Late st Contact Info) Description 06/13/2024 Refill Family Practice [facility] [address] [place] [address] Noemi Mondragon III, MD 200 [facility] [place] [address] Lumbar degenerative disc disease; Lumbar radiculopathy Allergies Active Allergy Reactions Criticality Noted Date Comments Carisoprodol Seizure High 03/12/2019 documented as of this encounter (statuses as of 06/14/2024) Medications Medication Sig Dispensed Refills Start Date [...] has physical therpy 81 Tablet 06/13/2024 Active oxyCODONE-Acetamin ophen 5-325 MG Oral Tablet (Endocet)Indicatio ns:Lumbar degenerative disc disease,Lumbar radiculopathy Take 1-2 Tablets by mouth every 8 hours as needed for Pain, Moderate or Pain, Severe. max 5 per day- may take extra tablet(6) 3 days per week when she has physical therpy 81 Tablet 05/31/2024 4 Discontinue d(Refill) documented as of this encounter (statuses as of 06/14/2024) Active Problems Problem Noted Date Diagnosed Date Abdominal aortic ectasia 03/16/2023 Atherosclerosis of aorta 03/16/2023 HTN, goal below 130/80 11/16/2021 History of kidney stones 09/14/2021 Sacroiliitis, not elsewhere classified 0 H/O laminectomy 06/23/2018 Lumbar degenerative disc disease 06/23/2018 Controlled substance agreement signed 09/06/2017 History of renal carcinoma 09/06/2017 documented as of this encounter (statuses as of 06/14/2024) Resolved Problems Problem Noted Date Diagnosed Date Resolved Date Nephrolithiasis 09/29/2021 10/12/2023 Cancer of right kidney 03/12/201902/04 Low back pain radiating to left leg 09/06/2017 11/16/2021 Renal cell cancer 09/03/2015 09/06/2017 Renal mass 02/11/2015 09/06/2017 documented as of this encounter (statuses as of 06/14/2024) Immunizations Name Administration Dates Next Due COVID-19 mRNA, LNP-s, No Pre serve, 2-Dose Series ([employer]) 02/12/2021,01/22/2021 COVID-19, mRNA, LNP-s, PF, B ooster, [...] encounter Miscellaneous Notes * Telephone Encounter - Mynor Dyer electrical wiring lineman - 06/14/2024 8:37 AM EDT Pt calling to request oxyCODONE-Acetaminophen 5-325 MG Oral Tablet (Endocet) . Informed pt that RX is available at their pharmacy. Pt verbalized understanding and stated they will check with their pharmacy regarding this medication. Thank you, Hayes Dyer, Middle [employer] Combination Teacher Independent Crop Consultant 1 [facility] ([facility]) (Formerly Telepharmacy) 06/14/2024,8:37 AM * Telephone Encounter - Noemi Mondragon III, MD - 06/13/2024 9:08 AM EDTSigned Prescriptions: Disp Refills oxyCODONE-Acetaminophen 5-325 MG Oral Tabl*81 Tab*0 Sig: Take 1-2 Tablets by mouth every 8 hours as needed for Pain, Moderate or Pain, Severe. max 5 per day- may take extra tablet(6) 3 days per week when she has physical therpyAuthorizing Provider: NOEMI MONDRAGON III * Telephone Encounter - Delia Alvarez [facility] - 06/13/2024 7:53 AM EDT Pending Prescriptions: Disp Refills oxyCODONE-Acetaminophen 5-325 MG Oral Tabl*81 Tab*0 Sig: Take 1-2 Tablets by mouth every 8 hours as needed for Pain, Moderate or Pain, Severe. max 5 per day- may take extra tablet(6) 3 days per week when she has physical therpy * Telephone Encounter - Delia Alvarez [facility] - 06/13/2024 7:52 AM EDT I have reviewed the patients controlled substance dispensing history in the Prescription Drug Monitoring Program in compliance with the [facility] regulations before prescribing a controlled substance. PDMP checked on 06/13/2024. Pending Prescriptions: Disp Refills oxyCODONE-Acetaminophen 5-325 MG Oral Tab*81 Tab*0 Sig: Take 1-2 Tablets by mouth every 8 hours as needed for Pain, Moderate or Pain, Severe. max 5 per day- may take extra tablet(6) 3 days per week when she has physical therpy Last Visit: 10/31/2023 (in office), 11/06/2020 (telemedicine) Next Visit: Visit date not found Date medication was last filled: 06/01 Date medication is due for refill: 06/15 Pharmacy: [id number] [facility] Is this request for a controlled substance? [...] Clinical Pharmacist [facility] Services ([facility]) 06/13/2024, 7:52 AM * Telephone Encounter - Marybel Daniels PHARM Tech - 06/13/2024 7:39 AM EDT Pt is leaving for vacation Tuesday morning at 6am and will need to pickler helper meds either today or tomorrow so have for while away Did you pend patient's preferred pharmacy and medication before forwarding?yes Pharmacy: [id number] [address] [facility] Pending Prescriptions: Disp Refills oxyCODONE-Acetaminophen 5-325 MG [...] appointment Last date the medication was ordered: 05/31/24 Is this request for a controlled substance?Yes, What was the last refill date 05/31/24 w/ quantity 81 and dosage 1 to 2 tabs every 8 hours and Urine Drug Screen was completed [...] reflexed to confirmatory testing. Patient Phone Numbers [employer] Angel [phone] Labs: Lab Results Component Value Date/Time CREAT [...] 07/04/2024 8:00 AM EDT Office Visit Pharmacy, [place] [facility] [address] [place] [address] [address] Pharmacist2, [facility] [address] [place] [address] [address] 02/04/2025 9:45 AM EDT Imaging Radiology [facility] [address] [place] [address] Scheduled Procedures Name Priority Associated Diagnoses Date/Ti [...] and were consensually agreed upon. Care Teams Coil Strapper Relationship Specialty Start Date End Date Noemi Mondragon III, MD 200 [facility] [place] [place] [address] PCP - General Family Medicine 07/13/23 documented as of this encounter
--- OUTSIDE RECORDS SUMMARY | 2024-09-19 13:21 | External Medical Summary | Summary of Care ---
Author Name Unknown Organization [facility] Address [address] [place] [address] Phone [phone] Care Team Providers Care Back Wedger Name Role Phone Jay KAMARA MD, John E Primary Care Provider [phone] Reason for Visit * Reason Onset Date Comments Medication Refill 05/04/2024 Encounter Details Date Type Department Care Team (Late st Contact Info) Description 05/04/2024 Refill Family Practice [facility] 200 [facility] [place] [address] Wagner Thompson III, MD [address] [place] [address] Lumbar degenerative disc disease; Sacroiliitis, not elsewhere classified (HCC) Allergies Active Allergy Reactions Criticality Noted Date Comments Carisoprodol Seizure High 03/12/2019 documented as of this encounter (statuses as of 05/04/2024) Medications Medication Sig Dispensed Refills Start Date [...] before bedtime. 30 Tablet 1 05/04/2024 Active Cyclobenzaprine HCl 10 MG Oral Tablet (Flexeril)Indicati ons:Lumbar degenerative disc disease,Sacroiliit is, not elsewhere classified (HCC) TAKE 1 TABLET BY MOUTH IN THE MORNING AND 1 TABLET AT AT NOON AND 1 TABLET AT BEDTIME 30 Tablet 1 02/06/2024 4 Discontinue d(Refill) oxyCODONE-Acetamin ophen 5-325 MG Oral Tablet (Endocet)Indicatio ns:Lumbar degenerative disc disease,Lumbar radiculopathy Take 1-2 Tablets by mouth every 8 hours as needed for Pain, Moderate or Pain, Severe. max 5 per day- may take extra tablet(6) 3 days per week when she has physical therpy 81 Tablet 04/23/2024 4 Discontinue d(Refill) documented as of this encounter (statuses as of 05/04/2024) Active Problems Problem Noted Date Diagnosed Date Abdominal aortic ectasia 03/16/2023 Atherosclerosis of aorta 03/16/2023 HTN, goal below 130/80 11/16/2021 History of kidney stones 09/14/2021 Sacroiliitis, not elsewhere classified 0 H/O laminectomy 06/23/2018 Lumbar degenerative disc disease 06/23/2018 Controlled substance agreement signed 09/06/2017 History of renal carcinoma 09/06/2017 documented as of this encounter (statuses as of 05/04/2024) Resolved Problems Problem Noted Date Diagnosed Date Resolved Date Nephrolithiasis 09/29/2021 10/12/2023 Cancer of right kidney 03/12/201902/04 Low back pain radiating to left leg 09/06/2017 11/16/2021 Renal cell cancer 09/03/2015 09/06/2017 Renal mass 02/11/2015 09/06/2017 documented as of this encounter (statuses as of 05/04/2024) Immunizations Name Administration Dates Next Due COVID-19 mRNA, LNP-s, No Pre serve, 2-Dose Series ([employer]) 02/12/2021,01/22/2021 COVID-19, mRNA, LNP-s, PF, B ooster, [...] y our heating, water, or electric bill? No 06/06/2023 Is your family able to pay t he heat, water, or electric bill? (Household - for ages 0-17 years) Not on file 06/06/2023 Does your family have access to good internet? (Household - for ages 0-17 years) Not on file 06/06/2023 Employment Status Answer Date Recorded Are you unemployed or without regular income? No 06/06/2023 Does the household have a re gular source of income? (Household - for ages 0-17 years) Not on file 06/06/2023 Social Connections Answer Date Recorded How often do you feel lonely or isolated from th ose around you? Rarely 06/06/2023 Financial Resource Strain Answer Date R ecorded [...] Telephone Encounter - Vania Pereira MD - 05/04/2024 9:27 AM EDTSigned Prescriptions: Disp Refills Cyclobenzaprine HCl 10 MG Oral Tablet (Fle*30 Tab*1 Sig: Take 1 Tablet by mouth in the morning and 1 Tablet at noon and 1 Tablet before bedtime. Authorizing Provider: VANIA PEREIRA * Telephone Encounter - Kristen Gibson CPhT - 05/04/2024 8:01 AM EDT Pt requesting HIGH PRIORITY due to going out of town on Tuesday Did you pend patient's preferred pharmacy and medication before forwarding?yes Pharmacy: [facility][id number] [address] [facility] Pending Prescriptions: Disp Refills Cyclobenzaprine [...] appointment Last date the medication was ordered: 02/06/24 Is this request for a controlled substance?No [...] to confirmatory testing. Patient Phone Numbers mobile [phone] Labs: Lab Results Component Value Date/Time CREAT [...] Upcoming Encounters Date Type Department Care Team (Latest Contact Info) Description 05/30/2024 1:30 PM EDT Hospital Encounter ENDO [facility], Endoscopy Room [facility] [address] [place] [phone] Chase Law MD [address] [place] [address] 05/30/2024 1:30 PM EDT - 05/30/2024 2:00 PM EDT Surgery ENDO [facility], Endoscopy Room [facility] [address] [place] [address] Chase Law MD [address] [place] [address] COLONOSCOPY FLEXIBLE PROXIMAL DIAGNOSTIC 07/04/2024 8:00 AM EDT Office Visit Pharmacy, [facility] 200 [facility] [place] [address] Pharmacist2, [facility] 200 [facility] [place] [address] 02/04/2025 9:45 AM EDT Imaging Radiology [facility] 2nd [facility] [address] [place] [address] Scheduled Procedures Name Priority Associated Diagnoses Date/Ti me COLONOSCOPY FLEXIBLE PROXIMAL DIAGNOSTIC Recall History of colon polyps 05/30/2024 1:30 PM EDT Health Maintenance Due Date Last Done Comments Pap Smear 01/28/1984 Cervical Cancer Screening 1993 HPV/Co-Test 1993 Fecal Occult Blood Test 01/28/2008 Sigmoidoscopy 01/28/2008 Depression Screening 02/04/2022 02/04/2021 Mammogram 01/01/2023 01/01/2022, 12/15, 12/01/2021, Additional history exists Cologuard 06/27/2023 06/27/2020, 08/0 03/2020, 06/18/2020 COVID-19 Vaccine ( season) 2023 08/08/2022, 11/02/2021, 02/12/2021, Additional history exists Colonoscopy 07/17/2023 07/17/2020, 07/17/2020 Colorectal Cancer Screening 07/17/2023 Influenza Vaccine (FLU shot) (Season Ended) 2024 09/12/2022, 08/23/2021, 08/14/2020 GFR 09/01/2024 09/01/2023, 11/16, 11/16/2021, Additional history exists Albumin/Creatinine Ratio 08/10/2025 08/10/2022 Diabetes Screening 09/01/2026 09/01/2023, 0 12/14/2022, 09/30/2021, Additional history exists DTaP,Tdap,and Td Vaccines (3 - Td or Tdap) 09/06/2027 09/06/2017, 01/21/2015 (Done elsewhere) Zoster Vaccines Completed 12/19/2021, 03/28/2021 Pneumococcal Vaccine: Pediatrics (0 to 5 Years) and At-Risk Patients (6 to 64 Years) Completed 12/14/2022 GARDASIL-HPV IMMUNIZATION SERIES Aged Out No longer eligible based on patient's age to complete this topic Hepatitis B Aged Out No longer eligi ble based on patient's age to complete this topic MENINGOCOCCAL (MENACTRA/MENVEO) Aged Out No longer eligible based on patient's age to complete this topic documented as of this encounter Medical Devices Not on filedocumented as of this encounter Visit Diagnoses Diagnosis Lumbar degenerative disc disease Degeneration of lumbar or lumbosacral intervertebral disc Sacroiliitis, not elsewhere classified (HCC) Sacroiliitis, not elsewhere classified History of colon polyps Personal history of colonic polyps documented in this encounter Advance Directives * [...] and were consensually agreed upon. Care Teams Back Wedger Relationship Specialty Start Date End Date Wagner Thompson III, MD 200 [facility] [place] [address] PCP - General Family Medicine 07/13/23 documented as of this encounter
--- OUTSIDE RECORDS SUMMARY | 2024-09-19 13:21 | External Medical Summary | Summary of Care ---
Author Name Unknown Organization [facility] Address [address] [place] [address] Phone [phone] Care Team Providers Care Brand Activation Manager Name Role Phone Jay KAMARA MD, Noemi Goldman Primary Care Provider [phone] Reason for Referral * Medication Prior Authorization - Closed Specialty Diagnoses / Procedures Referred By Contcrow t Referred To Contact Diagnoses Lumbar degenerative disc disease Lumbar radiculopathy Noemi Mondragon III, MD [address] [place] [address] Referral ID Status Reason Start Date Expiration Date Visits Re quested Visits Authorized [id number] Closed 999 999 Reason for Visit * Reason Onset Date Comments Medication Refill 06/26/2024 Status Check 06/26/2024 Encounter Details Date Type Department Care Team (Late st Contact Info) Description 06/26/2024 Refill Family Practice [place] [facility] [address] [place] [address] [address] Noemi Mondragon III, MD [address] [place] [address] [address] Lumbar degenerative disc disease; Lumbar radiculopathy Allergies [...] mRNA, LNP-s, No Pre serve, 2-Dose Series ([email or web address]) 02/12/2021,01/22/2021 COVID-19, mRNA, LNP-s, PF, B ooster, [...] Encounter - Tiny De Luna CPhT - 06/27/2024 8:05 AM EDT Pt calling to request oxyCODONE-Acetaminophen 5-325 MG Oral Tablet (Endocet) . Informed pt that RX is available at their pharmacy. Pt verbalized understanding and stated they will check with their pharmacy regarding this medication. Thank you, Cyn De Luna CPhT [facility] II [facility] ([facility]) [address] [place] [address], [address] [phone] * Telephone Encounter - Lyle Ramirez, [facility] - 06/27/2024 7:49 AM EDT Signed Prescriptions: [...] III * Telephone Encounter - Ana Grijalva [facility] - 06/26/2024 5:04 PM EDT Pending Prescriptions: Disp Refills oxyCODONE-Acetaminophen 5-325 MG Oral Tabl*81 Tab*0 Sig: Take 1-2 Tablets by mouth every 8 hours as needed for Pain, Moderate or Pain, Severe. max 5 per day- may take extra tablet(6) 3 days per week when she has physical therpy * Telephone Encounter - Ana Grijalva RPh - 06/26/2024 5:03 PM EDT I have reviewed the patients controlled substance dispensing history in the Prescription Drug Monitoring Program in compliance with the [facility] regulations before prescribing a controlled substance. PDMP [...] is due for refill: 06/26/24 [facility]: [id number] Is this request for a controlled [...] Please approve if appropriate. Thank you, Ana Grijalva PharmD Clinical Pharmacist [facility] Clinical [facility] Services ([facility]PS) 06/26/24 5:03 PM [phone] * Telephone Encounter - Emanuel Cagle PHARM Tech - 06/26/2024 4:35 PM EDT Advised pt that RX is being worked. Pt says she will call back tomorrow. Thank You, Emanuel Cagle [facility] Director Of Academic Support II [facility] Pharm[facility] Services 06/26/2024, 4:36 PM * Telephone Encounter - Enrique Alvarez PHARM Tech - 06/26/2024 10:48 AM EDT Pt requesting high priority refill- hoping to strip picker today. Pt will be leaving early tomorrow morning due to child and inlaw havingstating she will be leaving Did you pend patient's preferred pharmacy and medication before forwarding?yes Pharmacy: [id number] [address] [place] [address] Pending Prescriptions: Disp Refills oxyCODONE-Acetaminophen 5-325 MG [...] 07/04/2024 8:00 AM EDT Office Visit Pharmacy, [facility] 200 [facility] [place] [address] Pharmacist2, [facility] 200 [facility] [place] [address] 02/04/2025 9:45 AM EDT Imaging Radiology [facility]nd [facility] [address] [facility] [place] [address] Scheduled Procedures Name Priority Associated Diagnoses Date/Ti [...] and were consensually agreed upon. Care Teams Brand Activation Manager Relationship Specialty Start Date End Date Noemi Mondragon III, MD 200 [facility] [place] [address] PCP - General Family Medicine 07/13/23 documented as of this encounter
--- OUTSIDE RECORDS SUMMARY | 2024-09-19 13:21 | External Medical Summary | Summary of Care ---
Author Name Unknown Organization [facility] Address [address] [place] [address] Phone [phone] Care Team Providers Care Java Portal Developer Name Role Phone Jay KAMARA MD, Wagner Goldman Primary Care Provider [phone] Reason for Referral * Medication Prior Authorization - Closed Specialty Diagnoses / Procedures Referred By Jeronimo t Referred To Contact Diagnoses Lumbar degenerative disc disease Lumbar radiculopathy Guille Colin DO [address] [place] [address] Referral ID Status Reason Start Date Expiration Date Visits Re quested Visits Authorized [id number] Closed 999 999 Reason for Visit * Reason Onset Date Comments Medication Refill 05/18/2024 Encounter Details Date Type Department Care Team (Late st Contact Info) Description 05/18/2024 Refill Family Practice [facility] [address] [place] [address] Wagner Thompson III, MD [address] [place] [address] Lumbar degenerative disc disease; Lumbar radiculopathy Allergies Active Allergy Reactions Criticality Noted Date Comments Carisoprodol Seizure High 03/12/2019 documented as of this encounter (statuses as of 05/18/2024) Medications Medication Sig Dispensed Refills Start Date [...] she has physical therpy 81 Tablet 05/18/2024 Active oxyCODONE-Acetamin ophen 5-325 MG Oral Tablet (Endocet)Indicatio ns:Lumbar degenerative disc disease,Lumbar radiculopathy Take 1-2 Tablets by mouth every 8 hours as needed for Pain, Moderate or Pain, Severe. max 5 per day- may take extra tablet(6) 3 days per week when she has physical therpy 81 Tablet 05/04/2024 4 Discontinue d(Refill) documented as of this encounter (statuses as of 05/18/2024) Active Problems Problem Noted Date Diagnosed Date Abdominal aortic ectasia 03/16/2023 Atherosclerosis of aorta 03/16/2023 HTN, goal below 130/80 11/16/2021 History of kidney stones 09/14/2021 Sacroiliitis, not elsewhere classified 0 H/O laminectomy 06/23/2018 Lumbar degenerative disc disease 06/23/2018 Controlled substance agreement signed 09/06/2017 History of renal carcinoma 09/06/2017 documented as of this encounter (statuses as of 05/18/2024) Resolved Problems Problem Noted Date Diagnosed Date Resolved Date Nephrolithiasis 09/29/2021 10/12/2023 Cancer of right kidney 03/12/201902/04 Low back pain radiating to left leg 09/06/2017 11/16/2021 Renal cell cancer 09/03/2015 09/06/2017 Renal mass 02/11/2015 09/06/2017 documented as of this encounter (statuses as of 05/18/2024) Immunizations Name Administration Dates Next Due COVID-19 mRNA, LNP-s, No Pre serve, 2-Dose Series (Kwicr) 02/12/2021,01/22/2021 COVID-19, mRNA, LNP-s, PF, B ooster, [...] encounter Miscellaneous Notes * Telephone Encounter - Guille Colin DO - 05/18/2024 1:42 PM EDTSigned Prescriptions: Disp Refills oxyCODONE-Acetaminophen 5-325 MG Oral Tabl*81 Tab*0 Sig: Take 1-2 Tablets by mouth every 8 hours as needed for Pain, Moderate or Pain, Severe. max 5 per day- may take extra tablet(6) 3 days per week when she has physical therpy Authorizing Provider: GUILLE COLIN * Telephone Encounter - Shabbir Smith [facility] - 05/18/2024 7:57 AM EDT Pending Prescriptions: Disp Refills oxyCODONE-Acetaminophen 5-325 MG Oral Tabl*81 Tab*0 Sig: Take 1-2 Tablets by mouth every 8 hours as needed for Pain, Moderate or Pain, Severe. max 5 per day- may take extra tablet(6) 3 days per week when she has physical therpy * Telephone Encounter - Shabbir Smith [facility] - 05/18/2024 7:50 AM EDT I have reviewed the patients controlled substance dispensing history in the Prescription Drug Monitoring Program in compliance with the [facility] regulations before prescribing a controlled substance. PDMP checked on 05/18/2024. Pending Prescriptions: Disp Refills oxyCODONE-Acetaminophen 5-325 MG Oral Tab*81 Tab*0 Sig: Take 1-2 Tablets by mouth every 8 hours as needed for Pain, Moderate or Pain, Severe. max 5 per day- may take extra tablet(6) 3 days per week when she has physical therpy Last Visit: 10/31/2023 (in office), 11/06/2020 (telemedicine) Next Visit: Visit date not found Date medication was last filled: 05/06/2024 Date medication is due for refill: 05/21/2024 [facility]acy: [id number] [address] [place] [place] [address] Is this request for a controlled substance? [...] testing. Please approve if appropriate. Thank You, Shabbir Smith, Pharm-D Clinical Pharmacist [facility] ([facility]PS) [phone] 05/18/2024, 7:51 AM * Telephone Encounter - Kristen Gibson CPhT - 05/18/2024 7:41 AM EDT Pt requesting HIGH PRIORITY due to out of med Did you pend patient's preferred pharmacy and medication before forwarding?yes Pharmacy: [facility][id number] [address] [facility] Pending Prescriptions: Disp Refills oxyCODONE-Acetaminophen 5-325 [...] appointment Last date the medication was ordered: 05-04-24 Is this request for a controlled substance?Yes, What was the last refill date 05-04-24 w/ quantity 81 and dosage 5-325 and [...] EDT Hospital Encounter ENDO OSSC, Endoscopy Room [facility] [address] [place] [phone] Chase Law MD [address] [place] [address] 05/30/2024 1:30 PM EDT - 05/30/2024 2:00 PM EDT Surgery ENDO [facility], Endoscopy Room [facility] [address] [place] [phone] Chase Law MD [address] [place] [address] COLONOSCOPY FLEXIBLE PROXIMAL DIAGNOSTIC 07/04/2024 8:00 AM EDT Office Visit Pharmacy, [facility] [address] [place] [address] Pharmacist2, [facility] [address] [place] [address] 02/04/2025 9:45 AM EDT Imaging Radiology [facility] 2nd [facility] [address] [place] [address] Scheduled Procedures Name Priority Associated Diagnoses Date/Ti [...] Thoracic or lumbosacral neuritis or radiculitis, unspecified History of colon polyps Personal history of [...] and were consensually agreed upon. Care Teams Java Portal Developer Relationship Specialty Start Date End Date Wagner Thompson III, MD [address] [place] [address] PCP - General Family Medicine 07/13/23 documented as of this encounter
--- OUTSIDE RECORDS SUMMARY | 2024-09-19 13:21 | External Medical Summary | Summary of Care ---
Author Name Unknown Organization [facility] Address [address] [place] [address] Phone [phone] Care Team Providers Care Research Soil Scientist Name Role Phone Jay KAMARA MD, John E Primary Care Provider [phone] Reason for Visit * Reason Onset Date Comments Medication Refill 05/30/2024 Encounter Details Date Type Department Care Team (Late st Contact Info) Description 05/30/2024 Refill Family Practice [facility] 200 [facility] [address] Wagner Thompson III, MD [address] [place] [address] Lumbar degenerative disc disease; Lumbar radiculopathy Allergies Active Allergy Reactions Criticality Noted Date Comments Carisoprodol Seizure High 03/12/2019 documented as of this encounter (statuses as of 05/31/2024) Medications Medication Sig Dispensed Refills Start Date [...] she has physical therpy 81 Tablet 05/31/2024 Active oxyCODONE-Acetamin ophen 5-325 MG Oral Tablet (Endocet)Indicatio ns:Lumbar degenerative disc disease,Lumbar radiculopathy Take 1-2 Tablets by mouth every 8 hours as needed for Pain, Moderate or Pain, Severe. max 5 per day- may take extra tablet(6) 3 days per week when she has physical therpy 81 Tablet 05/18/2024 4 Discontinue d(Refill) documented as of this encounter (statuses as of 05/31/2024) Active Problems Problem Noted Date Diagnosed Date Abdominal aortic ectasia 03/16/2023 Atherosclerosis of aorta 03/16/2023 HTN, goal below 130/80 11/16/2021 History of kidney stones 09/14/2021 Sacroiliitis, not elsewhere classified 0 H/O laminectomy 06/23/2018 Lumbar degenerative disc disease 06/23/2018 Controlled substance agreement signed 09/06/2017 History of renal carcinoma 09/06/2017 documented as of this encounter (statuses as of 05/31/2024) Resolved Problems Problem Noted Date Diagnosed Date Resolved Date Nephrolithiasis 09/29/2021 10/12/2023 Cancer of right kidney 03/12/201902/04 Low back pain radiating to left leg 09/06/2017 11/16/2021 Renal cell cancer 09/03/2015 09/06/2017 Renal mass 02/11/2015 09/06/2017 documented as of this encounter (statuses as of 05/31/2024) Immunizations Name Administration Dates Next Due COVID-19 mRNA, LNP-s, No Pre serve, 2-Dose Series (AvidBiotics) 02/12/2021,01/22/2021 COVID-19, mRNA, LNP-s, PF, B ooster, [...] Miscellaneous Notes * Telephone Encounter - Guille Benitez DO - 05/31/2024 4:56 PM EDTSigned Prescriptions: Disp Refills oxyCODONE-Acetaminophen 5-325 MG Oral Tabl*81 Tab*0 Sig: Take 1-2 Tablets by mouth every 8 hours as needed for Pain, Moderate or Pain, Severe. max 5 per day- may take extra tablet(6) 3 days per week when she has physical therpy Authorizing Provider: GUILLE BENITEZ * Telephone Encounter - Edith Newberry PHARM Tech - 05/31/2024 4:51 PM EDT Pt calling asking to have another provider sign as Dr Thompson is not in the office. Asking to be sent by Guille Benitez Pt will be out over the weekend. Thank You, Edith Newberry [facility] Religious Educator III [facility] Pharmacy Services ([facility]PS) 05/31/2024, 4:53 PM * Telephone Encounter - Jolene Kulkarni [facility] - 05/31/2024 9:58 AM EDT Pending Prescriptions: Disp Refills oxyCODONE-Acetaminophen 5-325 MG Oral Tabl*81 Tab*0 Sig: Take 1-2 Tablets by mouth every 8 hours as needed for Pain, Moderate or Pain, Severe. max 5 per day- may take extra tablet(6) 3 days per week when she has physical therpy * Telephone Encounter - Jolene Kulkarni [facility] - 05/31/2024 9:56 AM EDT I have reviewed the patients controlled substance dispensing history in the Prescription Drug Monitoring Program in compliance with the [facility] regulations before prescribing a controlled substance. PDMP checked on 05/31/2024. Pending Prescriptions: Disp Refills oxyCODONE-Acetaminophen 5-325 MG Oral Tab*81 Tab*0 Sig: Take 1-2 Tablets by mouth every 8 hours as needed for Pain, Moderate or Pain, Severe. max 5 per day- may take extra tablet(6) 3 days per week when she has physical therpy Last Visit: 10/31/2023 (in office), 11/06/2020 (telemedicine) Next Visit: Visit date not found Date medication was last filled: 05/19/24 Date medication is due for refill: 06/03/24 Pharmacy: [id number] Is this request for a controlled [...] Clinical Pharmacist [facility]acy Services ([facility]PS) 05/31/24 9:56 AM [phone] * Telephone Encounter - Rufus Reed CPhT - 05/30/2024 10:40 AM EDT Pt will be out of medication on Tuesday, just wants to get request in prior to weekend. Did you pend patient's preferred pharmacy and medication before forwarding?yes Pharmacy: [id number] [address] [facility] Pending Prescriptions: Disp Refills oxyCODONE-Acetaminophen [...] appointment Last date the medication was ordered: 05/18/2024 Is this request for a controlled substance?Yes, What was the last refill date 05/18/2024 w/ quantity 81 and dosage 5-325 mg [...] 07/04/2024 8:00 AM EDT Office Visit Pharmacy, [facility] 200 [facility] [address] Pharmacist2, [facility] 200 [facility] [place] [address] 02/04/2025 9:45 AM EDT Imaging Radiology [facility] 2nd [facility] [address] [place] [address] Scheduled Procedures Name Priority Associated Diagnoses Date/Ti [...] Scientist Relationship Specialty Start Date End Date Wagner Thompson III, MD [address] [facility] [place] [address] PCP - General Family Medicine 07/13/23 documented as of this encounter
--- OUTSIDE RECORDS SUMMARY | 2024-09-19 13:21 | External Medical Summary | Summary of Care ---
Author Name Unknown Organization [facility] Address [address] [place] [address] Phone [phone] Care Team Providers Care Aoc Airspace Control Officer Name Role Phone Jay KAMARA MD, Noemi Goldman Primary Care Provider [phone] Reason for Referral * Medication Prior Authorization - Closed Specialty Diagnoses / Procedures Referred By Contcrow t Referred To Contact Diagnoses Lumbar degenerative disc disease Lumbar radiculopathy Noemi Mondragon III, MD [address] [facility] [place], [place] [address] Referral ID Status Reason Start Date Expiration Date Visits Re quested Visits Authorized [id number] Closed [phone] Reason for Visit * Reason Onset Date Comments Medication Refill 06/13/2024 Encounter Details Date Type Department Care Team (Late st Contact Info) Description 06/13/2024 Refill Family Practice [facility] [address] [place] [address] Noemi Mondragon III, MD [address] [facility] [place] [address] Lumbar degenerative disc disease; Lumbar radiculopathy Allergies Active Allergy Reactions Criticality Noted Date Comments Carisoprodol Seizure High 03/12/2019 documented as of this encounter (statuses as of 06/13/2024) Medications Medication Sig Dispensed Refills Start Date [...] as of this encounter (statuses as of 06/13/2024) Active Problems Problem Noted Date Diagnosed Date Abdominal aortic ectasia 03/16/2023 Atherosclerosis of aorta 03/16/2023 HTN, goal below 130/80 11/16/2021 History of kidney stones 09/14/2021 Sacroiliitis, not elsewhere classified 0 H/O laminectomy 06/23/2018 Lumbar degenerative disc disease 06/23/2018 Controlled substance agreement signed 09/06/2017 History of renal carcinoma 09/06/2017 documented as of this encounter (statuses as of 06/13/2024) Resolved Problems Problem Noted Date Diagnosed Date Resolved Date Nephrolithiasis 09/29/2021 10/12/2023 Cancer of right kidney 03/12/201902/04 Low back pain radiating to left leg 09/06/2017 11/16/2021 Renal cell cancer 09/03/2015 09/06/2017 Renal mass 02/11/2015 09/06/2017 documented as of this encounter (statuses as of 06/13/2024) Immunizations Name Administration Dates Next Due COVID-19 mRNA, LNP-s, No Pre serve, 2-Dose Series (finalsite) 02/12/2021,01/22/2021 COVID-19, mRNA, LNP-s, PF, B ooster, [...] III * Telephone Encounter - Delia Alvarez [facility] - 06/13/2024 7:53 AM EDT Pending Prescriptions: Disp Refills oxyCODONE-Acetaminophen 5-325 MG Oral Tabl*81 Tab*0 Sig: Take 1-2 Tablets by mouth every 8 hours as needed for Pain, Moderate or Pain, Severe. max 5 per day- may take extra tablet(6) 3 days per week when she has physical therpy * Telephone Encounter - Delia Alvarez [facility] - 06/13/2024 7:52 AM EDT I have reviewed the patients controlled substance dispensing history in the Prescription Drug Monitoring Program in compliance with the [facility] regulations before prescribing a controlled substance. [...] is due for refill: 06/15 Pharmacy: [id number] Is this request for a controlled [...] morning at 6am and will need to picker and packer meds either today or tomorrow so have for while away Did you pend patient's preferred pharmacy and medication before forwarding?yes Pharmacy[id number] [address] [facility] Pending Prescriptions: Disp Refills oxyCODONE-Acetaminophen [...] 07/04/2024 8:00 AM EDT Office Visit Pharmacy, [facility] [address] [facility] [place] [address] Pharmacist2, [facility] [address] [facility] [place] [address] 02/04/2025 9:45 AM EDT Imaging Radiology [facility] [address] [place] [address] Scheduled Procedures Name Priority Associated Diagnoses Date/Ti me COLONOSCOPY FLEXIBLE PROXIMAL DIAGNOSTIC Recall History of colon polyps Health Maintenance Due Date Last Done Comments Pap Smear 01/28/1984 Cervical Cancer Screening 1993 HPV/Co-Test 1993 Fecal Occult Blood Test 01/28/2008 Sigmoidoscopy 01/28/2008 Depression Screening 02/04/2022 02/04/2021 Mammogram 01/01/2023 01/01/2022, 12/15, 12/01/2021, Additional history exists Cologuard 06/27/2023 06/27/2020, 0803/2020, 06/18/2020 COVID-19 Vaccine ( season) 2023 08/08/2022, [...] or Tdap) 09/06/2027 09/06/2017, 01/21/2015 (Done elsewhere) Hepatitis C Screening Completed 11/04/2017 Zoster Vaccines Completed 12/19/2021, 03/28/2021 Pneumococcal Vaccine: [...] and were consensually agreed upon. Care Teams Aoc Airspace Control Officer Relationship Specialty Start Date End Date Noemi Mondragon III, MD 200 [place] [address] PCP - General Family Medicine 07/13/23 documented as of this encounter
--- OUTSIDE RECORDS SUMMARY | 2024-09-19 13:21 | External Medical Summary | Summary of Care ---
Author Name Unknown Organization [facility] Address [address] [place] [address] Phone [phone] Care Team Providers Care Electric Distribution Checker Name Role Phone Jay KAMARA MD, Wanger Goldman Primary Care Provider [phone] Reason for Referral * Medication Prior Authorization - Closed Specialty Diagnoses / Procedures Referred By Jeronimo t Referred To Contact Diagnoses Lumbar degenerative disc disease Lumbar radiculopathy Guille Benitez DO [address] [place] [address] Referral ID Status Reason Start Date Expiration Date Visits Re quested Visits Authorized [id number] Closed [phone] Reason for Visit * Reason Onset Date Comments Medication Refill 05/04/2024 Encounter Details Date Type Department Care Team (Late st Contact Info) Description 05/04/2024 Refill Family Practice [facility] [address] [place] [address] Wagner Thompson III, MD [address] [place] [address] Lumbar degenerative disc disease; Lumbar radiculopathy Allergies [...] she has physical therpy 81 Tablet 05/04/2024 Active oxyCODONE-Acetamin ophen 5-325 MG Oral [...] mRNA, LNP-s, No Pre serve, 2-Dose Series ([employer]) 02/12/2021,01/22/2021 COVID-19, mRNA, LNP-s, PF, B ooster, [...] Telephone Encounter - Guille Benitez DO - 05/04/2024 9:33 AM EDTSigned Prescriptions: Disp Refills oxyCODONE-Acetaminophen 5-325 MG Oral Tabl*81 Tab*0 Sig: Take 1-2 Tablets by mouth every 8 hours as needed for Pain, Moderate or Pain, Severe. max 5 per day- may take extra tablet(6) 3 days per week when she has physical therpy Authorizing Provider: GUILLE BENITEZ * Telephone Encounter - Delia Alvarez [facility] - 05/04/2024 8:27 AM EDT Pending Prescriptions: Disp Refills oxyCODONE-Acetaminophen 5-325 MG Oral Tabl*81 Tab*0 Sig: Take 1-2 Tablets by mouth every 8 hours as needed for Pain, Moderate or Pain, Severe. max 5 per day- may take extra tablet(6) 3 days per week when she has physical therpy * Telephone Encounter - Delia Alvarez [facility] - 05/04/2024 8:27 AM EDT I have reviewed the patients controlled substance dispensing history in the Prescription Drug Monitoring Program in compliance with the [facility] regulations before prescribing a controlled substance. PDMP checked on 05/04/2024. Pending Prescriptions: Disp Refills oxyCODONE-Acetaminophen 5-325 MG Oral Tab*81 Tab*0 Sig: Take 1-2 Tablets by mouth every 8 hours as needed for Pain, Moderate or Pain, Severe. max 5 per day- may take extra tablet(6) 3 days per week when she has physical therpy Last Visit: 10/31/2023 (in office), 11/06/2020 (telemedicine) Next Visit: Visit date not found Date medication was last filled: 04/23 Date medication is due for refill: 05/08 [id number] [address] [place] [address] Is this request for a controlled substance? [...] Clinical Pharmacist Centralized Clinical Pharmacy Services ([facility]PS) 05/04/2024, 8:27 AM * Telephone Encounter - Kristen Gibson CPhT - 05/04/2024 7:59 AM EDT Pt requesting HIGH PRIORITY due to going out of town on Tuesday Did you pend patient's preferred pharmacy and medication before forwarding?yes Pharmacy: [id number] [address] [facility] Pending Prescriptions: Disp Refills oxyCODONE-Acetaminophen [...] appointment Last date the medication was ordered: 04/23/24 Is this request for a controlled substance?Yes, What was the last refill date 04/23/24 w/ quantity 81 and dosage 5-325 and [...] EDT Hospital Encounter ENDO OSSC, Endoscopy Room [facility] [address] [place] [phone] Chase Law MD [address] [place] [address] 05/30/2024 1:30 PM EDT - 05/30/2024 2:00 PM EDT Surgery ENDO [facility], Endoscopy Room [facility] [address] [place] [phone] Chase Law MD [address] [place] [address] COLONOSCOPY FLEXIBLE PROXIMAL DIAGNOSTIC 07/04/2024 8:00 AM EDT Office Visit Pharmacy, [facility] 200 [facility] [place] [address] Pharmacist2, [facility] 200 [facility] [place] [address] 02/04/2025 9:45 AM EDT Imaging Radiology [facility] 2nd [facility] [address] [place] [address] Scheduled Procedures Name Priority Associated Diagnoses Date/Ti [...] and were consensually agreed upon. Care Teams Electric Distribution Checker Relationship Specialty Start Date End Date Wagner Thompson III, MD [address] [place] [address] PCP - General Family Medicine 07/13/23 documented as of this encounter
--- OUTSIDE RECORDS SUMMARY | 2024-09-19 13:21 | External Medical Summary | Summary of Care ---
Author Name Unknown Organization [facility] Address [address] [place] [address] Phone [phone] Care Team Providers Care Reefer Truck Driver Name Role Phone Jay KAMARA MD, Wagner Goldman Primary Care Provider [phone] Reason for Referral * Medication Prior Authorization - Closed Specialty Diagnoses / Procedures Referred By Jeronimo t Referred To Contact Diagnoses Lumbar degenerative disc disease Lumbar radiculopathy Guille Colin DO [address] [place] [address] Referral ID Status Reason Start Date Expiration Date Visits Re quested Visits Authorized [id number] Closed 999 999 Reason for Visit * Reason Onset Date Comments Medication Refill 05/04/2024 Encounter Details Date Type Department Care Team (Late st Contact Info) Description 05/04/2024 Refill Family Practice [facility] [address] [place] [address] Wagner Thompson III, MD [address] [place] [address] Lumbar degenerative disc disease; Lumbar radiculopathy Allergies Active Allergy Reactions Criticality Noted Date Comments Carisoprodol Seizure High 03/12/2019 documented as of this encounter (statuses as of 05/05/2024) Medications Medication Sig Dispensed Refills Start Date [...] as of this encounter (statuses as of 05/05/2024) Active Problems Problem Noted Date Diagnosed Date Abdominal aortic ectasia 03/16/2023 Atherosclerosis of aorta 03/16/2023 HTN, goal below 130/80 11/16/2021 History of kidney stones 09/14/2021 Sacroiliitis, not elsewhere classified 0 H/O laminectomy 06/23/2018 Lumbar degenerative disc disease 06/23/2018 Controlled substance agreement signed 09/06/2017 History of renal carcinoma 09/06/2017 documented as of this encounter (statuses as of 05/05/2024) Resolved Problems Problem Noted Date Diagnosed Date Resolved Date Nephrolithiasis 09/29/2021 10/12/2023 Cancer of right kidney 03/12/201902/04 Low back pain radiating to left leg 09/06/2017 11/16/2021 Renal cell cancer 09/03/2015 09/06/2017 Renal mass 02/11/2015 09/06/2017 documented as of this encounter (statuses as of 05/05/2024) Immunizations Name Administration Dates Next Due COVID-19 mRNA, LNP-s, No Pre serve, 2-Dose Series ([place]) 02/12/2021,01/22/2021 COVID-19, mRNA, LNP-s, PF, B ooster, [...] Telephone Encounter - Ceci Pickett CPhT - 05/05/2024 9:00 AM EDT Pt calling to request oxyCODONE-Acetaminophen 5-325 MG Oral Tablet (Endocet) . Informed pt that RX is available at their pharmacy. Pt verbalized understanding and stated they will check with their pharmacy regarding this medication. Thank you, Nan Pickett Loss Prevention Officer I [facility] 05/05/2024,9:00 AM * Telephone Encounter - Guille Colin DO - 05/04/2024 9:33 AM EDTSigned Prescriptions: Disp Refills oxyCODONE-Acetaminophen 5-325 MG Oral Tabl*81 Tab*0 Sig: Take 1-2 Tablets by mouth every 8 hours as needed for Pain, Moderate or Pain, Severe. max 5 per day- may take extra tablet(6) 3 days per week when she has physical therpy Authorizing Provider: GUILLE COLIN * Telephone Encounter - Delia Alvarez [facility] - 05/04/2024 8:27 AM EDT Pending Prescriptions: Disp Refills oxyCODONE-Acetaminophen 5-325 MG Oral Tabl*81 Tab*0 Sig: Take 1-2 Tablets by mouth every 8 hours as needed for Pain, Moderate or Pain, Severe. max 5 per day- may take extra tablet(6) 3 days per week when she has physical therpy * Telephone Encounter - Delia Alvarez [facility] - 05/04/2024 8:27 AM EDT I have reviewed the patients controlled substance dispensing history in the Prescription Drug Monitoring Program in compliance with the [facility] regulations before prescribing a controlled substance. PDMP [...] due for refill: 05/08 Pharmacy: [id number] Is this request for a controlled [...] pharmacy and medication before forwarding?yes Pharmacy: [id number] [address] [place] [address] Pending Prescriptions: Disp Refills oxyCODONE-Acetaminophen 5-325 MG [...] EDT Hospital Encounter [facility]O [facility], Endoscopy Room [facility] [address] [phone] Chase Law MD [address] [place] [place] [address] 05/30/2024 1:30 PM EDT - 05/30/2024 2:00 PM EDT Surgery ENDO [facility], Endoscopy Room [facility] [address] [phone] Chase Law MD [address] [place] [address] COLONOSCOPY FLEXIBLE PROXIMAL DIAGNOSTIC 07/04/2024 8:00 AM EDT Office Visit Pharmacy, [address] [address] Pharmacist2, [facility] [address] [place] [address] 02/04/2025 9:45 AM EDT Imaging Radiology [facility] 2nd [facility] [place] [address] [facility] [place] [address] Scheduled Procedures Name Priority Associated Diagnoses Date/Ti [...] and were consensually agreed upon. Care Teams Reefer Truck Driver Relationship Specialty Start Date End Date Wagner Thompson III, MD 200 [facility] [place] [address] PCP - General Family Medicine 07/13/23 documented as of this encounter
--- OUTSIDE RECORDS SUMMARY | 2024-09-19 13:22 | External Medical Summary | Summary of Care ---
Author Name Unknown Organization [facility] Address [address] [place] [address] Phone [phone] Care Team Providers Care Warehouse Laborer Name Role Phone Jay KAMARA MD, Wagner Goldman Primary Care Provider [phone] Reason for Visit * Reason Onset Date Comments Med Request 04/06/2024 Encounter Details Date Type Department Care Team (Late st Contact Info) Description 04/06/2024 Telephone Family Practice [facility] 200 [place] [address] Wagner Thompson III, MD [address] [place] [address] Med Request Allergies Active Allergy Reactions Criticality Noted Date Comments Carisoprodol Seizure High 03/12/2019 documented as of this encounter (statuses as of 04/10/2024) Medications Medication Sig Dispensed Refills Start Date [...] Additional Information Patient not taking.Reported on 12/26/2023 amLODIPine Besylate 5 MG Oral Tablet (Norvasc) TAKE 1 TABLET BY MOUTH EVERY DAY 90 Tablet 3 07/05/2023 Active DULoxetine HCl 30 MG Oral Capsule Delayed Release Particles (Cymbalta)Indication s:Lumbar degenerative disc disease Take 1 Capsule by mouth in the morning. Take in addition to 60mg dose for 90mg total.. 30 Capsule 11 01/11/2024 Active Cyclobenzaprine HCl 10 MG Oral Tablet (Flexeril)Indication s:Lumbar degenerative disc disease,Sacroiliitis , not elsewhere classified (HCC) TAKE 1 TABLET BY MOUTH IN THE MORNING AND 1 TABLET AT AT NOON AND 1 TABLET AT BEDTIME 30 Tablet 1 02/06/2024 Active DULoxetine HCl 60 MG Oral Capsule Delayed Release Particles (Cymbalta)Indication s:Lumbar degenerative disc disease Take 1 Capsule by mouth in the morning. Take in addition to 30mg dose for 90mg total.. 30 Capsule 11 02/08/2024 Active oxyCODONE-Acetaminop hen 5-325 MG Oral Tablet (Endocet)Indications :Lumbar degenerative disc disease,Lumbar radiculopathy Take 1-2 Tablets by mouth every 8 hours as needed for Pain, Moderate or Pain, Severe. max 5 per day- may take extra tablet(6) 3 days per week when she has physical therpy 81 Tablet 03/27/2024 Active Lisinopril 5 MG Oral Tablet (Prinivil) TAKE 1 TABLET BY MOUTH EVERY DAY IN THE MORNING 90 Tablet 3 04/03/2024 Active documented as of this encounter (statuses as of 04/10/2024) Active Problems Problem Noted Date Diagnosed Date Abdominal aortic ectasia 03/16/2023 Atherosclerosis of aorta 03/16/2023 HTN, goal below 130/80 11/16/2021 History of kidney stones 09/14/2021 Sacroiliitis, not elsewhere classified 0 H/O laminectomy 06/23/2018 Lumbar degenerative disc disease 06/23/2018 Controlled substance agreement signed 09/06/2017 History of renal carcinoma 09/06/2017 documented as of this encounter (statuses as of 04/10/2024) Resolved Problems Problem Noted Date Diagnosed Date Resolved Date Nephrolithiasis 09/29/2021 10/12/2023 Cancer of right kidney 03/12/201902/04 Low back pain radiating to left leg 09/06/2017 11/16/2021 Renal cell cancer 09/03/2015 09/06/2017 Renal mass 02/11/2015 09/06/2017 documented as of this encounter (statuses as of 04/10/2024) Immunizations Name Administration Dates Next Due COVID-19 [...] money to get more. Never true 06/06/2023 Sex and Gender Information Value Date [...] Notes * Telephone Encounter - Enrique Alvarez PHARM Tech - 04/10/2024 9:10 AM EDT Patient calling to check on status of refill request. Caller can be reached at [phone]. Thank you, Enrique Alvarez Manager Maintenance I [facility] ([facility]PS)(formerly Telepharmacy) 04/10/2024,9:10 AM * Telephone Encounter - Charis Cheek PA-C - 04/10/2024 8:44 AM EDT Controlled substances on out of office providers to be filled by one of the doctors. * Telephone Encounter - Nya Rivera [facility] - 04/10/2024 7:51 AM EDT PDMP reviewed to include state [facility]: I have reviewed the patients controlled substance dispensing history in the Prescription Drug Monitoring Program in compliance with the [facility] regulations before prescribing a controlled substance. PDMP checked on 04/10/2024. Pending Prescriptions: Disp Refills oxyCODONE-Acetaminophen 5-325 MG Oral Tab*81 Tab*0 Sig: Take 1-2 Tablets by mouth every 8 hours as needed for Pain, Moderate or Pain, Severe. max 5 per day- may take extra tablet(6) 3 days per week when she has physical therpy Last Visit: 10/31/2023 (in office), 11/06/2020 (telemedicine) Next Visit: Visit date not found Date medication was last filled: 03/27/2024 Date medication is due for refill: 04/10/2024 Pharmacy: [facility] #[id number] Is this request for a controlled substance? Yes and Urine Drug Screen Not completed Toxicology results: Results for orders placed [...] testing. Please approve if appropriate. Thank you, Nya Rivera [facility] Clinical Pharmacist Central[facility] Clinical Pharmacy Services (CCPS) (formerly Telepharmacy) 04/10/24 7:51 AM [phone] * Addendum Note - Shana Miller PHARM Tech - 04/10/2024 7:45 AM EDTAddended by: SHANA MILLER on: 04/10/2024 07:45 AM Modules accepted: Orders * Telephone Encounter - Shana Miller PHARM Tech - 04/10/2024 7:43 AM EDT Pt requesting early as she is going to [place] today. Did you pend patient's preferred pharmacy and medication before forwarding?yes Pharmacy: [id number] [address] [facility] Pending Prescriptions: Disp Refills oxyCODONE-Acetaminophen 5-325 MG [...] appointment Last date the medication was ordered: 03/27/2024 Is this request for a controlled substance?Yes, What was the last refill date 03/27/2024 w/ [id number] and dosage 5-325 mg and Urine Drug Screen Not completed Urine [...] reflexed to confirmatory testing. Patient Phone Numbers [facility] [phone] Labs: Lab Results Component Value Date/Time CREAT [...] 11/04/2017 11:21 AM * Telephone Encounter - Shana Miller PHARM Tech - 04/10/2024 7:33 AM EDT Routed in error * Telephone Encounter - Kyle Pillai MED ASSIST - 04/06/2024 3:[address] Thompson is going to be out for a couple of weeks and as stated, next Tuesday is a holiday. I will float this message to another provider that the patient has been scheduled with before. * Telephone Encounter - Tiny De Luna CPhT - 04/06/2024 11:22 AM EDT Pt is calling regarding oxyCODONE-Acetaminophen 5-325 MG Oral Tablet (Endocet) . Caller states she is going away on Tuesday, and she will be out of the medication on and since Tuesday is a holidayshe won't be able to call and request the medication. Caller is asking if the script can be sent pre-dated and sent to the pharmacy. Please send if appropriate to [facility] #[id number][facility] [address] [facility] Thank you, Cyn De Luna CPhT Manager Maintenance II Central[facility] Clinical Pharmacy Services (CCPS) (Formerly Telepharmacy) 04/06/2024,11:25 AM documented in this encounter Plan of Treatment Upcoming Encounters Date Type Department Care Team (Latest Contact Info) Description 04/18/2024 9:00 AM EDT Office Visit Pharmacy, [address] [place] [address] [place] [address] Pharmacist2, [facility] [address] [place], [place] [address] 05/30/2024 1:30 PM EDT Hospital Encounter ENDO [facility], Endoscopy Room [facility] [address] [place] [phone] Chase Law MD [address] [place] [address] 05/30/2024 1:30 PM EDT - 05/30/2024 2:00 PM EDT Surgery ENDO [facility], Endoscopy Room [facility] [address] [place] [phone] Chase Law MD [address] [place] [address] COLONOSCOPY FLEXIBLE PROXIMAL DIAGNOSTIC 02/04/2025 9:45 AM EDT Imaging Radiology [facility] 2nd [facility] [address] [facility] [place] [address] Scheduled Procedures Name Priority Associated Diagnoses Date/Ti [...] and were consensually agreed upon. Care Teams Warehouse Laborer Relationship Specialty Start Date End Date Wagner Thompson III, MD [address] [place] [address], [place] [address] PCP - General Family Medicine 07/13/23 documented as of this encounter
--- OUTSIDE RECORDS SUMMARY | 2024-09-19 13:22 | External Medical Summary | Summary of Care ---
Author Name Unknown Organization [facility] Address [address] [place] [address] Phone [phone] Care Team Providers Care Screen Stretcher Name Role Phone Jay KAMARA MD, Wagner Goldman Primary Care Provider [phone] Reason for Visit * Reason Onset Date Comments Med Request 04/06/2024 Status Check 04/06/2024 Encounter Details Date Type Department Care Team (Late st Contact Info) Description 04/06/2024 Telephone Family Practice [facility] 200 [place] [address] Wagner Thompson III, MD [address] [place] [address] Med Request; Status Check Allergies Active Allergy Reactions Criticality Noted Date [...] encounter Miscellaneous Notes * Telephone Encounter - Ariel Aguero OSA - 04/10/2024 12:42 PM EDT Patient calling in requesting a return call regarding the medication. Please advise. * Telephone Encounter - Tiny De Luna CPhT - 04/10/2024 12:08 PM EDT Pt calling to check on status of oxyCODONE-Acetaminophen 5-325 MG Oral Tablet (Endocet) . Caller can be reached at [phone]. Thank you, Cyn De Luna CPhT [employer]ilet Products Molder II [facility] Services ([facility]PS) (Formerly Telepharmacy) 04/10/2024,12:08 PM * Telephone Encounter - Shruthi Alvarado PHARM Tech - 04/10/2024 10:35 AM EDT Pt requesting HIGH PRIORITY due to Pt is leaving for [place] today, as soon as meds are available Please contact pt when approved pt calling to check on status of oxycodone 5-325. Caller can be reached at [phone]. Thank you, Shruthi Alvarado, [facility] Bedspread Folder II Central[facility] Pharmacy Services(CCPS)(Formerly Telepharmacy) 04/10/2024,10:35 AM * Telephone Encounter - Enrique Alvarez PHARM Tech - 04/10/2024 9:10 AM EDT Patient calling to check on status of refill request. Caller can be reached at [phone]. Thank you, Enrique Alvarez Toilet Products Molder I [facility] ([facility]PS)(formerly Telepharmacy) 04/10/2024,9:10 AM * Telephone Encounter - Charis Cheek PA-C - 04/10/2024 8:44 AM EDT Controlled substances on out of office providers to be filled by one of the doctors. * Telephone Encounter - Nya Rivera RP - 04/10/2024 7:51 AM EDT PDMP reviewed to include [facility]: I have reviewed the patients controlled [...] is due for refill: 04/10/2024 Pharmacy: [facility] #[id number][facility] [address] [facility] Is this request for a [...] approve if appropriate. Thank you, Nya Rivera [facility] Clinical Pharmacist Centralized Clinical Pharmacy Services (CCPS) (formerly Telepharmacy) 04/10/24 7:51 AM [phone] * Addendum Note - Shana Gutierrez PHARM Tech - 04/10/2024 7:45 AM EDTAddended by: SHANA GUTIERREZ on: 04/10/2024 07:45 AM Modules accepted: Orders * Telephone Encounter - Shana Gutierrez PHARM Tech - 04/10/2024 7:43 AM EDT Pt requesting early as she is going to [place] today. Did you pend patient's preferred pharmacy and medication before forwarding?yes Pharmacy: [id number] Pending Prescriptions: Disp Refills oxyCODONE-Acetaminophen [...] was the last refill date 03/27/2024 w/ [id number] and dosage 5-325 mg and Urine Drug [...] reflexed to confirmatory testing. Patient Phone Numbers [employer] [phone] Labs: Lab Results Component Value Date/Time CREAT [...] 11:21 AM * Telephone Encounter - Shana Gutierrez marking room supervisor - 04/10/2024 7:33 AM EDT Routed in [...] pharmacy. Please send if appropriate to E [facility] #[id number][facility] [address] [facility] Thank you, Cyn De Luna CPhT Toilet Products Molder II [facility] Pharmacy Services ([facility]PS) (Formerly Telepharmacy) 04/06/2024,11:25 AM documented in this encounter Plan of Treatment Upcoming Encounters Date Type Department Care Team (Latest Contact Info) Description 04/18/2024 9:00 AM EDT [facility] [address] [facility] [place] [address] Pharmacist2, [facility] [address] [facility] [place] [address] 05/30/2024 1:30 PM EDT Hospital Encounter ENDO [facility], Endoscopy Room [facility] [address] [phone] Chase Law MD [address] [place] [address] 05/30/2024 1:30 PM EDT - 05/30/2024 2:00 PM EDT Surgery ENDO [facility], Endoscopy Room [facility] [address] [place] [phone] Chase Law MD [address] [place] [address] COLONOSCOPY FLEXIBLE PROXIMAL DIAGNOSTIC 02/04/2025 9:45 AM EDT Imaging Radiology [address] [place] [address] Scheduled Procedures Name Priority Associated Diagnoses Date/Ti [...] and were consensually agreed upon. Care Teams Screen Stretcher Relationship Specialty Start Date End Date Wagner Thompson III, MD 200 [place] [address] PCP - General Family Medicine 07/13/23 documented as of this encounter
--- OUTSIDE RECORDS SUMMARY | 2024-09-19 13:22 | External Medical Summary | Summary of Care ---
Author Name Unknown Organization [facility] Address [address] [place] [address] Phone [phone] Care Team Providers Care Telephonic Nurse Name Role Phone Jay KAMARA MD, Wagner Goldman Primary Care Provider Reason for Visit * Reason Comments Dosage Adjustment In Person (Anticoag Cl inic) Pain Encounter Details Date Type Department Care Team (Late st Contact Info) Description 05/02/2024 8:00 AM EDT Office Visit Pharmacy, [facility] [address] [facility] [place] [address] Pharmacist2, [facility] [address] [facility] [place] [address] Lumbar degenerative disc disease*; Controlled substance agreement signed Allergies Active Allergy Reactions Criticality Noted Date Comments Carisoprodol Seizure High 03/12/2019 documented as of this encounter (statuses as of 05/02/2024) Medications Medication Sig Dispensed Refills Start Date [...] THE MORNING 90 Tablet 1 04/13/2024 Active oxyCODONE-Acetaminop hen 5-325 MG Oral Tablet (Endocet)Indications :Lumbar degenerative disc disease,Lumbar radiculopathy Take 1-2 Tablets by mouth every 8 hours as needed for Pain, Moderate or Pain, Severe. max 5 per day- may take extra tablet(6) 3 days per week when she has physical therpy 81 Tablet 04/23/2024 Active documented as of this encounter (statuses as of 05/02/2024) Active Problems Problem Noted Date Diagnosed Date Abdominal aortic ectasia 03/16/2023 Atherosclerosis of aorta 03/16/2023 HTN, goal below 130/80 11/16/2021 History of kidney stones 09/14/2021 Sacroiliitis, not elsewhere classified 0 H/O laminectomy 06/23/2018 Lumbar degenerative disc disease 06/23/2018 Controlled substance agreement signed 09/06/2017 History of renal carcinoma 09/06/2017 documented as of this encounter (statuses as of 05/02/2024) Resolved Problems Problem Noted Date Diagnosed Date Resolved Date Nephrolithiasis 09/29/2021 10/12/2023 Cancer of right kidney 03/12/201902/04 Low back pain radiating to left leg 09/06/2017 11/16/2021 Renal cell cancer 09/03/2015 09/06/2017 Renal mass 02/11/2015 09/06/2017 documented as of this encounter (statuses as of 05/02/2024) Immunizations Name Administration Dates Next Due COVID-19 [...] as of this encounter Progress Notes * TeraJustinrachelrosanne Chase, [facility] - 05/02/2024 7:57 AM EDT Images from the original note were not included. Medication Therapy Disease Management Clinic - Chronic Pain Management Progress Note 05/02/2024 Jaz Gross, identified by name and date of , is a 59 year old female being seen for chronic pain management/education. Patient presents to pain [place] clinic for return visit. Referring Physician: Wagner Thompson III, MD Medication Use Agreement: On file (02/04/21) Patient's Pharmacy: [facility] CHIEF COMPLAINT: Left sided mid-back pain and left leg pain HPI: Today: Pt reports pain isn't necessarily better during [...] unlikely) Daily MME: 37.5 MME PDMP Reviewed (05/02/2024): Urine Toxicology Screens: Passed 12-14-22 Pill Count: [...] 1-2 tabs Q8H prn Max 5 tabs/day INC: Cymbalta 90mg once daily Creatinine Clearance: Creatinine [...] visit is Medication Optimization. Current concerns: Pt reports pain worse during the day but better at night. Adherence: Reviewed current regimen, patient is adherent to regimen. Treatment options: offered to increase cymbalta but pt would like to hold off for now. Treatment concerns: n/a Education provided: n/a I have evaluated the patient for the appropriateness and necessity of opioid pain medications. Patient has been educated towards the benefits and risks of opioid medications, including dependence, addiction, and overdose. Patient is aware of the requirements set out in the medication use agreement,including the need for routine urine drug screening. No red flags for abuse or misuse have been exhibited. PLAN: No changes Medication changes: no change Pain Medications: Flexeril 10mg TID prn Percocet 5/325, 1-2 tabs Q8H prn Max 5 tabs/day Cymbalta 90mg once daily Patient verbalized understanding of the plan. Contact clinic with any issues. FOLLOW UP: Return to clinic in 8 weeks 07/04/2024 Demarco Haley [facility] Clinical Pharmacist - Database Programmer Analyst Medication Therapy Management Clinic 05/02/2024, 7:58 AM documented in this encounter Plan of Treatment Upcoming Encounters Date Type Department Care Team (Latest Contact Info) Description 05/30/2024 1:30 PM EDT Hospital Encounter ENDO [facility], Endoscopy Room [facility] [address] [place] [phone] Chase Law MD [address] [place] [address] 05/30/2024 1:30 PM EDT - 05/30/2024 2:00 PM EDT Surgery ENDO [facility], Endoscopy Room [facility] [address] [place] [phone] Chase Law MD [address] [place] [address] COLONOSCOPY FLEXIBLE PROXIMAL DIAGNOSTIC 07/04/2024 8:00 AM EDT Office Visit Pharmacy, [facility] [address] [facility] [place] [address] Pharmacist2, [facility] [address] [facility] [place] [address] 02/04/2025 9:45 AM EDT Imaging Radiology [facility] 2nd [facility] [address] [place] [address] Pending Results Name Type Priority Associated Diagnoses Date /Time PAIN MANAGEMENT DRUG PANEL, URINE W/ INTERPRETATION Lab Routine Lumbar degenerative disc disease 05/02/2024 8:13 AM EDT Scheduled Orders Name Type Priority Associated Diagnoses Orde r Schedule PAIN MANAGEMENT DRUG PANEL, URINE W/ INTERPRETATION Lab Routine Lumbar degenerative disc disease Expected: 05/02/2024, Expires: 05/02/2025 URINE TEMPERATURE Lab Routine Lumbar degenerative disc disease Expected: 05/02/2024, Expires: 05/02/2025 Scheduled Procedures Name Priority Associated Diagnoses Date/Ti [...] for long-term (current) use of other medications History of colon polyps Personal history of [...] and were consensually agreed upon. Care Teams Telephonic Nurse Relationship Specialty Start Date End Date Wagner Thompson III, MD [address] [place] [address] PCP - General Family Medicine 07/13/23 documented as of this encounter
--- OUTSIDE RECORDS SUMMARY | 2024-09-19 13:22 | External Medical Summary ---
Author Name Unknown Address Unknown Organization [id number]:[facility] [facility] [address] [facility] [address] Laboratory Report Ordering Provider Test Date Status TANA DAVIS 05/02/2024 08:13:50 Final Drugs that require complianc e testing:

Opioids:
Oxycodone: Quantity 5-10mg Date/Time of last Dose Q8H (max of 5 5mg tabs/day)

Cutoff Concentrations:
Drug Level
Amphetamines 500 ng/mL
Benzodiazepines 100 ng/mL
Cannabinoids 50 ng/mL
Cocaine Metabolite 150 ng/mL
Fentanyl 1 ng/mL
Hydrocodone / Hydromorphone 300 ng/mL
Methadone Metabolite 100 ng/mL
Morphine / Codeine 300 ng/mL
Oxycodone / Oxymorphone 100 ng/mL

Screening results are presumptive and can only be used for medical purposes. Confirmatory testing is available upon request. Observation Date Value Abnormality Reference (Units) Status COMPLIANCE INTERPRETATION 05/02/2024 08:13:50 Based on the medication information provided: Final COMPLIANCE INTERPRETATION 05/02/2024 08:13:50 The positive oxycodone screening result is CONSISTENT with oxycodone use. Confirmatory testing is available upon request. Final Changed Report: Previously r eported on 05/03/2024 at 1355 EDT. See Results History in EPIC for previous versions of the report. Amphetamines, Urine screen 05/02/2024 08:13:50 Negative Negative Final Benzodiazepines, Urine screen 05/02/2024 08:13:50 Negative Negative Final Cannabinoids, Urine screen 05/02/2024 08:13:50 Negative Negative Final Cocaine Metabolite, Urine screen 05/02/2024 08:13:50 Negativ e Negative Final fentaNYL [Presence] in Urine by Screen method 05/02/2024 08:13:50 Negative Negative Final HYDROcodone [Presence] in Ur ine by Screen method 05/02/2024 08:13:50 Negative Negative Ana l 9-Hopdaicvhx-8,6-Szhmwqqz-6, 3-Di phenylpyrrolidine (EDDP) [Presence] in Urine 05/02/2024 08:13:50 Negative Negative F inal Opiates, Urine screen 05/02/2024 08:13:50 Negative Negative Final oxyCODONE [Presence] in Urin e by Screen method 05/02/2024 08:13:50 Positive Abnormal Negative Final FORENSIC VALID INTERPRETATION 05/02/2024 08:13:50 Normal Final Creatinine, Urine 05/02/2024 08:13:50 117 (m g/dL) Final Performing Location [facility] [facility] [address]. [facility] [address]
--- OUTSIDE RECORDS SUMMARY | 2024-09-19 13:22 | External Medical Summary | Summary of Care ---
Author Name Unknown Organization [facility] Address [address] [place] [address] Phone [phone] Care Team Providers Care Public Relations Supervisor Name Role Phone Jay KAMARA MD, Wagner Goldman Primary Care Provider [phone] Reason for Visit * Reason Onset Date Comments Med Request 04/06/2024 Encounter Details Date Type Department Care Team (Late st Contact Info) Description 04/06/2024 Telephone Family Practice [facility] [address] [facility] [place] [address] Wagner Thompson III, MD [address] [place] [address] Med Request Allergies Active Allergy Reactions Criticality [...] * Telephone Encounter - Nya Rivera [facility] - 04/10/2024 7:51 AM EDT PDMP reviewed to include [facility]: I have reviewed the patients controlled substance dispensing history in the Prescription Drug Monitoring Program in compliance with the [facility] regulations before prescribing a controlled [...] medication is due for refill: 04/10/2024 Pharmacy: [id number] [address] [place] [address] Is this request for a controlled substance? [...] testing. Please approve if appropriate. Thank you, Nay Rivera [facility] Clinical Pharmacist Centralized Clinical Pharmacy Services (CCPS) (formerly Telepharmacy) 04/10/24 7:51 AM [phone] * Addendum Note - Shana Miller, dry wall finisher - 04/10/2024 7:45 AM EDTAddended by: SHANA MILLER on: 04/10/2024 07:45 AM Modules accepted: Orders * Telephone Encounter - Shana Miller PHARM Tech - 04/10/2024 7:43 AM EDT Pt requesting early as she is going to [place] today. Did you pend patient's preferred pharmacy and medication before forwarding?yes [id number] [address] [facility] Pending Prescriptions: Disp Refills oxyCODONE-Acetaminophen 5-325 [...] was the last refill date 03/27/2024 w/ [id number] and dosage 5-325 mg and Urine Drug [...] reflexed to confirmatory testing. Patient Phone Numbers [employer] [phone] Labs: Lab Results Component Value Date/Time CREAT [...] AM * Telephone Encounter - Shana Miller dry wall finisher - 04/10/2024 7:33 AM EDT Routed in error * Telephone Encounter - Kyle Pillai, MED [employer] - 04/06/2024 3:[address] Thompson [...] send if appropriate to [id number] [address] [facility] Thank you, Cyn De Luna CPhT Arcgis Developer II Centralized Clinical Pharmacy Services (CCPS) (Formerly Telepharmacy) 04/06/2024,11:25 AM documented in this encounter Plan of Treatment Upcoming Encounters Date Type Department Care Team (Latest Contact Info) Description 04/18/2024 9:00 AM EDT Office Visit Pharmacy, [facility] [place] [address] [facility] [place] [address] Pharmacist2, [facility] [address] [facility] [address] 05/30/2024 1:30 PM EDT Hospital Encounter ENDO [facility], Endoscopy Room [facility] [address] [place] [phone] Chase Law MD [address] [place] [address] 05/30/2024 1:30 PM EDT - 05/30/2024 2:00 PM EDT Surgery ENDO [facility], Endoscopy Room [facility] [address] [place] [phone] Chase Law MD [address] [place] [address] COLONOSCOPY FLEXIBLE PROXIMAL DIAGNOSTIC 02/04/2025 9:45 AM EDT Imaging Radiology [address] [place] [address] Scheduled Procedures Name Priority Associated Diagnoses Date/Ti [...] and were consensually agreed upon. Care Teams Public Relations Supervisor Relationship Specialty Start Date End Date Wagner Thompson III, MD [address] [place] [address] PCP - General Family Medicine 07/13/23 documented as of this encounter
--- OUTSIDE RECORDS SUMMARY | 2024-09-19 13:22 | External Medical Summary | Summary of Care ---
Author Name Unknown Organization [facility] Address [address] [place] [address] Phone [phone] Care Team Providers Care Retail Services Professional Name Role Phone Jay KAMARA MD, Wagner Goldman Primary Care Provider [phone] Reason for Visit * Reason Onset Date Comments Med Request 04/06/2024 Encounter Details Date Type Department Care Team (Late st Contact Info) Description 04/06/2024 Telephone Family Practice [facility] 200 [facility] [place] [address] Wagner Thompson III, MD [address] [place] [address] Med Request Allergies Active Allergy Reactions Criticality [...] encounter Miscellaneous Notes * Telephone Encounter - Nya Rivera [facility] - 04/10/2024 7:51 AM EDT PDMP reviewed to include [facility]: I have reviewed the patients controlled substance dispensing history in the Prescription Drug Monitoring Program in compliance with the [facility] regulations before prescribing a controlled substance. PDMP [...] is due for refill: 04/10/2024 Pharmacy: [id number] [address] [facility] Is this request for a controlled [...] if appropriate. Thank you, Nya Rivera [facility] Clinical Pharmacist Centralized Clinical Pharmacy Services (CCPS) (formerly Telepharmacy) 04/10/24 7:51 AM [phone] * Addendum Note - Shana Miller ship design teacher - 04/10/2024 7:45 AM EDTAddended by: SHANA MILLER on: 04/10/2024 07:45 AM Modules accepted: Orders * Telephone Encounter - Shana Miller ship design teacher - 04/10/2024 7:43 AM EDT Pt requesting early as she is going to [place] today. Did you pend patient's preferred pharmacy and medication before forwarding?yes Pharmacy: [id number] Pending Prescriptions: Disp Refills oxyCODONE-Acetaminophen 5-325 [...] was the last refill date 03/27/2024 w/ [id number] and dosage 5-325 mg and Urine Drug [...] pharmacy. Please send if appropriate to [id number] [address] [facility] Thank you, Cyn De Luna CPhT Activities Officer II Centralized Clinical Pharmacy Services (CCPS) (Formerly Telepharmacy) 04/06/2024,11:25 AM documented in this encounter Plan of Treatment Upcoming Encounters Date Type Department Care Team (Latest Contact Info) Description 04/18/2024 9:00 AM EDT Office Visit Pharmacy, [facility] 200 [facility] [place] [address] Pharmacist2, [facility] 200 [facility] [place] [address] 05/30/2024 1:30 PM EDT Hospital Encounter ENDO [facility], Endoscopy Room [facility] [address] [place] [phone] Chase Law MD [address] [place] [address] 05/30/2024 1:30 PM EDT - 05/30/2024 2:00 PM EDT Surgery ENDO [facility], Endoscopy Room [facility] [address] [place] [phone] Chase Law MD [address] [place] [address] COLONOSCOPY FLEXIBLE PROXIMAL DIAGNOSTIC 02/04/2025 9:45 AM EDT Imaging Radiology [facility] 2nd [facility] [address] [place] [address] Scheduled Procedures Name Priority [...] and were consensually agreed upon. Care Teams Retail Services Professional Relationship Specialty Start Date End Date Wagner Thompson III, MD [address] [facility] [place] [address] PCP - General Family Medicine 07/13/23 documented as of this encounter
--- OUTSIDE RECORDS SUMMARY | 2024-09-19 13:22 | External Medical Summary | Summary of Care ---
Author Name Unknown Organization [facility] Address [address] [place] [address] Phone [phone] Care Team Providers Care Underwear Cutter Name Role Phone Jay KAMARA MD, Wagner Goldman Primary Care Provider [phone] Reason for Visit * Reason Onset Date Comments Med Request 04/06/2024 Encounter Details Date Type Department Care Team (Late st Contact Info) Description 04/06/2024 Telephone Family Practice [facility] 200 [facility] [place] [address] Wagner Thompson III, MD [address] [place] [address] Med Request Allergies Active Allergy Reactions Criticality [...] encounter Miscellaneous Notes * Addendum Note - Shana Miller PHARM Tech - 04/10/2024 7:45 AM EDTAddended by: SHANA MLILER on: 04/10/2024 07:45 AM Modules accepted: Orders * Telephone Encounter - Shana Miller PHARM Tech - 04/10/2024 7:43 AM EDT Pt requesting early as she is going to [place] today. Did you pend patient's preferred pharmacy and medication before forwarding?yes Pharmacy: [id number] [address] [facility] Pending Prescriptions: Disp Refills oxyCODONE-Acetaminophen 5-325 [...] was the last refill date 03/27/2024 w/ [id number] and dosage 5-325 mg and Urine Drug [...] to confirmatory testing. Patient Phone Numbers mobile [phone] Labs: Lab Results Component Value Date/Time CREAT [...] pharmacy. Please send if appropriate to E [id number] [address] [facility] Thank you, Cyn De Luna CPhT Account Development Manager II Centralized Clinical Pharmacy Services (CCPS) (Formerly Telepharmacy) 04/06/2024,11:25 AM documented in this encounter Plan of Treatment Upcoming Encounters Date Type Department Care Team (Latest Contact Info) Description 04/18/2024 9:00 AM EDT Office Visit Pharmacy, [facility] [place] 200 [facility] [place] [address] Pharmacist2, [facility] [address] [place] [address] 05/30/2024 1:30 PM EDT Hospital Encounter ENDO [facility], Endoscopy Room [facility] [address] [place] [phone] Chase Law MD [address] [place] [address] 05/30/2024 1:30 PM EDT - 05/30/2024 2:00 PM EDT Surgery ENDO [facility], Endoscopy Room [facility] [address] [place] [phone] Chase Law MD [address] [place] [address] COLONOSCOPY FLEXIBLE PROXIMAL DIAGNOSTIC 02/04/2025 9:45 AM EDT Imaging Radiology [address] [place] [address] Scheduled Procedures Name Priority Associated Diagnoses Date/Ti [...] and were consensually agreed upon. Care Teams Underwear Cutter Relationship Specialty Start Date End Date Wagner Thompson III, MD 200 [place] [address] PCP - General Family Medicine 07/13/23 documented as of this encounter
--- OUTSIDE RECORDS SUMMARY | 2024-09-19 13:22 | External Medical Summary | Summary of Care ---
Author Name Unknown Organization [facility] Address [address] [place] [address] Phone [phone] Care Team Providers Care Heel Scorer Name Role Phone Jay KAMARA MD, Wagner Goldman Primary Care Provider [phone] Reason for Visit * Reason Onset Date Comments Med Request 04/06/2024 Encounter Details Date Type Department Care Team (Late st Contact Info) Description 04/06/2024 Telephone Family Practice [facility] 200 [facility] [place] [address] Wagner Thompson III, MD 200 [place] [address] Med Request Allergies Active Allergy Reactions Criticality [...] PHARM Tech - 04/10/2024 7:33 AM EDT Pt requesting HIGH PRIORITY due to being out of medication. Pt waiting for medication to be filled as she is going out of town. Pt calling to check on status of oxyCODONE-Acetaminophen 5-325 MG Oral Tablet . Caller can be reached at [phone] Thank you, Shana Miller Goods Layer I Centralized Clinical Pharmacy Services (CCPS) (Formerly Telepharmacy) 04/10/2024,7:33 AM * Telephone Encounter - Kyle Pillai MED [...] pharmacy. Please send if appropriate to E [id number] [address] [facility] Thank you, Cyn De Luna CPhT Professor Of Public Administration II Centralized Clinical Pharmacy Services (CCPS) (Formerly Telepharmacy) 04/06/2024,11:25 AM documented in this encounter Plan of Treatment Upcoming Encounters Date Type Department Care Team (Latest Contact Info) Description 04/18/2024 9:00 AM EDT Office Visit Pharmacy, [facility] 200 [facility] [place] [address] Pharmacist2, [facility] 200 [facility] [place] [address] 05/30/2024 1:30 PM EDT Hospital Encounter ENDO [facility], Endoscopy Room [facility] [address] [place] [phone] Chase Law MD [address] [place] [address] 05/30/2024 1:30 PM EDT - 05/30/2024 2:00 PM EDT Surgery ENDO [facility], Endoscopy Room [facility] [address] [place] [phone] Chase Law MD [address] [place] [address] COLONOSCOPY FLEXIBLE PROXIMAL DIAGNOSTIC 02/04/2025 9:45 AM EDT Imaging Radiology [address] [place] [address] Scheduled Procedures Name Priority Associated Diagnoses Date/Ti [...] and were consensually agreed upon. Care Teams Heel Scorer Relationship Specialty Start Date End Date Jay KAMARA, Wagner Goldman MD 200 [place] [address] PCP - General Family Medicine 07/13/23 documented as of this encounter
--- OUTSIDE RECORDS SUMMARY | 2024-09-19 13:22 | External Medical Summary | Summary of Care ---
Author Name Unknown Organization [facility] Address [address] [place] [address] Phone [phone] Care Team Providers Care Lamp Cleaner Street Light Name Role Phone Jay KAMARA MD, Wagner Goldman Primary Care Provider [phone] Reason for Visit * Reason Comments eRx-Medication Refill Encounter Details Date Type Department Care Team (Late st Contact Info) Description 04/23/2024 Refill Family Practice [facility] [address] [place] [address] Wagner Thompson III, MD [address] [place] [place] [address] Allergies Active Allergy Reactions Criticality Noted Date Comments Carisoprodol Seizure High 03/12/2019 documented as of this encounter (statuses as of 04/24/2024) Medications Medication Sig Dispensed Refills Start Date [...] as of this encounter (statuses as of 04/24/2024) Active Problems Problem Noted Date Diagnosed Date Abdominal aortic ectasia 03/16/2023 Atherosclerosis of aorta 03/16/2023 HTN, goal below 130/80 11/16/2021 History of kidney stones 09/14/2021 Sacroiliitis, not elsewhere classified 0 H/O laminectomy 06/23/2018 Lumbar degenerative disc disease 06/23/2018 Controlled substance agreement signed 09/06/2017 History of renal carcinoma 09/06/2017 documented as of this encounter (statuses as of 04/24/2024) Resolved Problems Problem Noted Date Diagnosed Date Resolved Date Nephrolithiasis 09/29/2021 10/12/2023 Cancer of right kidney 03/12/201902/04 Low back pain radiating to left leg 09/06/2017 11/16/2021 Renal cell cancer 09/03/2015 09/06/2017 Renal mass 02/11/2015 09/06/2017 documented as of this encounter (statuses as of 04/24/2024) Immunizations Name Administration Dates Next Due COVID-19 [...] encounter Miscellaneous Notes * Telephone Encounter - Jorge Rooney [facility] - 04/24/2024 11:22 AM EDTRefused Prescriptions: Disp Refills Lisinopril 5 MG Oral Tablet (Prinivil) 90 Tab*3 Sig: TAKE 1 TABLET BY MOUTH EVERY DAYRefused By: JORGE ROONEY for Refusal: Too soonReason for Refusal Comment: 90 day with 3 refills sent 04/03/24 documented in this encounter Plan of Treatment Upcoming Encounters Date Type Department Care Team (Latest Contact Info) Description 05/02/2024 8:00 AM EDT Office Visit Pharmacy, [place] [facility] [address] [place] [address] Pharmacist2, [facility] [address] [place] [address] 05/30/2024 1:30 PM EDT Hospital Encounter ENDO [facility], Endoscopy Room [facility] [address] [facility] [place] [address] Chase Law MD [address] [place] [address] 05/30/2024 1:30 PM EDT - 05/30/2024 2:00 PM EDT Surgery ENDO [facility], Endoscopy Room [facility] [address] [place] [phone] Chase Law MD [address] [place] [address] COLONOSCOPY FLEXIBLE PROXIMAL DIAGNOSTIC 02/04/2025 9:45 AM EDT Imaging Radiology [address] [place] [address] Scheduled Procedures Name Priority Associated Diagnoses Date/Ti [...] and were consensually agreed upon. Care Teams Lamp Cleaner Street Light Relationship Specialty Start Date End Date Wagner Thompson III, MD [address] [place] [address] PCP - General Family Medicine 07/13/23 documented as of this encounter
--- OUTSIDE RECORDS SUMMARY | 2024-09-19 13:22 | External Medical Summary | Summary of Care ---
Author Name Unknown Organization [facility] Address [address] [place] [address] Phone [phone] Care Team Providers Care Ferry Hand Name Role Phone Jay KAMARA MD, Wagner Goldman Primary Care Provider [phone] Reason for Visit * Reason Onset Date Comments Med Request 04/06/2024 Status Check 04/06/2024 Encounter Details Date Type Department Care Team (Late st Contact Info) Description 04/06/2024 Telephone Family Practice [facility] [address] [place] [address] Wagner Thompson III, MD [address] [place] [address] Med Request; Status Check Allergies Active Allergy [...] Telephone Encounter - Tanya Aragon CPhT - 04/10/2024 2:34 PM EDT Patient calling to check on status of med request Thank you, Tanya Aragon Firestop/Containment Worker II [facility] ([facility]) (formerly Telepharmacy) 04/10/2024 2:34 PM . * Telephone Encounter - Ariel Aguero OSA - 04/10/2024 12:42 PM EDT Patient calling in requesting a return call regarding the medication. Please advise. * Telephone Encounter - Tiny De Luna CPhT - 04/10/2024 12:08 PM EDT Pt calling to check on status of oxyCODONE-Acetaminophen 5-325 MG Oral Tablet (Endocet) . Caller can be reached at [phone]. Thank you, Cyn De Luna CPhT Multimedia Programmer II [facility] ([facility]) (Formerly Telepharmacy) 04/10/2024,12:08 PM * Telephone Encounter - Shruthi Alvarado PHARM Tech - 04/10/2024 10:35 AM EDT Pt requesting HIGH PRIORITY due to Pt is leaving for [place] today, as soon as meds are available Please contact pt when approved pt calling to check on status of oxycodone 5-325. Caller can be reached at [phone]. Thank you, Shruthi Alvarado CPhT Firestop/Containment Worker II [facility])(Formerly Telepharmacy) 04/10/2024,10:35 AM * Telephone Encounter - Enrique Alvarez PHARM Tech - 04/10/2024 9:10 AM EDT Patient calling to check on status of refill request. Caller can be reached at [phone]. Thank you, Enrique Alvarez Multimedia Programmer I [facility] ([facility])(formerly Telepharmacy) 04/10/2024,9:10 AM * Telephone Encounter - Charis Cheek PA-C - 04/10/2024 8:44 AM EDT Controlled substances on out of office providers to be filled by one of the doctors. * Telephone Encounter - Nya Rivera [facility] - 04/10/2024 7:51 AM EDT PDMP reviewed to include state [facility]: I have reviewed the patients controlled [...] is due for refill: 04/10/2024 Pharmacy: [id number] Is this request for a controlled [...] approve if appropriate. Thank you, Nya Rivera [facility] Clinical Pharmacist [facility] Clinical Pharmacy Services ([facility]) (formerly Telepharmacy) 04/10/24 7:51 AM [phone] * Addendum Note - Shana Gutierrez PHARM Tech - 04/10/2024 7:45 AM EDTAddended by: SHANA GUTIERREZ on: 04/10/2024 07:45 AM Modules accepted: Orders * Telephone Encounter - Shana Gutierrez PHARM Tech - 04/10/2024 7:43 AM EDT Pt requesting early as she is going to [place] today. Did you pend patient's preferred pharmacy and medication before forwarding?yes Pharmacy: [id number] [address] [facility] Pending Prescriptions: Disp Refills oxyCODONE-Acetaminophen 5-325 [...] was the last refill date 03/27/2024 w/ [id number] and dosage 5-325 mg and Urine Drug [...] reflexed to confirmatory testing. Patient Phone Numbers [employer] [phone] Labs: Lab Results Component Value Date/Time CREAT [...] AM * Telephone Encounter - Shana Gutierrez PHARM Tech - 04/10/2024 7:33 AM EDT [...] pharmacy. Please send if appropriate to E [id number] [address] [facility] Thank you, Cyn De Luna CPhT Multimedia Programmer II [facility] Clinical Pharmacy Services ([facility]) (Formerly Telepharmacy) 04/06/2024,11:25 AM documented in this encounter Plan of Treatment Upcoming Encounters Date Type Department Care Team (Latest Contact Info) Description 04/18/2024 9:00 AM EDT Office Visit Pharmacy, [facility] [place] [address] [place] [address] Pharmacist2, [facility] [address] [place], [place] [address] 05/30/2024 1:30 PM EDT Hospital Encounter ENDO [facility], Endoscopy Room [facility] [address] [place] [phone] Chase Law MD [address] [place] [address] 05/30/2024 1:30 PM EDT - 05/30/2024 2:00 PM EDT Surgery ENDO [facility], Endoscopy Room [facility] [address] [place] [phone] Chase Law MD [address] [place] [address] COLONOSCOPY FLEXIBLE PROXIMAL DIAGNOSTIC 02/04/2025 9:45 AM EDT Imaging Radiology [facility] 2nd [facility] [address] [facility] [place] [address] Scheduled Procedures Name Priority Associated Diagnoses Date/Ti [...] and were consensually agreed upon. Care Teams Ferry Hand Relationship Specialty Start Date End Date Wagner Thompson III, MD [address] [place] [address], [place] [address] PCP - General Family Medicine 07/13/23 documented as of this encounter
--- OUTSIDE RECORDS SUMMARY | 2024-09-19 13:22 | External Medical Summary | Summary of Care ---
Author Name Unknown Organization [facility] Address [address] [place] [address] Phone [phone] Care Team Providers Care Logistics Vice President Name Role Phone Jay KAMARA MD, Wagner Goldman Primary Care Provider [phone] Reason for Visit * Reason Onset Date Comments Med Request 04/06/2024 Status Check 04/06/2024 Encounter Details Date Type Department Care Team (Late st Contact Info) Description 04/06/2024 Telephone Family Practice [facility] 200 [facility] [place] [address] Wagner Thompson III, MD [address] [place] [address] Med Request; Status Check Allergies Active Allergy [...] (Endocet) . Caller can be reached at [phone]. Thank you, Cyn De Luna CPhT Volunteer Fire Fighter II [facility] ([facility]) (Formerly Telepharmacy) 04/10/2024,12:08 PM * Telephone Encounter - Shruthi Alvarado PHARM Tech - 04/10/2024 10:35 AM EDT Pt requesting HIGH PRIORITY due to Pt is leaving for [place] today, as soon as meds are available Please contact pt when approved pt calling to check on status of oxycodone 5-325. Caller can be reached at [phone]. Thank you, Shruthi Alvarado CPhT Bike Technician II [facility])(Formerly Telepharmacy) 04/10/2024,10:35 AM * Telephone Encounter - Enrique Alvarez sales lead generator - 04/10/2024 9:10 AM EDT Patient calling to check on status of refill request. Caller can be reached at [phone]. Thank you, Enrique Alvarez Volunteer Fire Fighter I [facility] ([facility])(formerly Telepharmacy) 04/10/2024,9:10 AM * Telephone Encounter - Charis Cheek PA-C - 04/10/2024 8:44 AM EDT Controlled substances on out of office providers to be filled by one of the doctors. * Telephone Encounter - Nya Rivera [facility] - 04/10/2024 7:51 AM EDT PDMP reviewed to include [facility]: I have reviewed the patients controlled substance dispensing history in the Prescription Drug Monitoring Program in compliance with the [facility] regulations before prescribing a controlled substance. [...] is due for refill: 04/10/2024 Pharm[id number] Is this request for a [...] approve if appropriate. Thank you, Nya Rivera [facility] Clinical Pharmacist Centralized Clinical Pharmacy Services ([facility]) (formerly Telepharmacy) 04/10/24 7:51 AM [phone] * Addendum Note - Shana Miller sales lead generator - 04/10/2024 7:45 AM EDTAddended by: SHANA MILLER on: 04/10/2024 07:45 AM Modules accepted: Orders * Telephone Encounter - Shana Miller PHARM Tech - 04/10/2024 7:43 AM EDT Pt requesting early as she is going to [place] today. Did you pend patient's preferred pharmacy and medication before forwarding?yes Pharmacy: [id number] 127 [facility] Pending Prescriptions: Disp Refills [...] was the last refill date 03/27/2024 w/ [id number] and dosage 5-325 mg and Urine Drug [...] reflexed to confirmatory testing. Patient Phone Numbers [employer] [phone] Labs: Lab Results Component Value Date/Time CREAT [...] AM * Telephone Encounter - Shana Miller sales lead generator - 04/10/2024 7:33 AM EDT Routed in error * Telephone Encounter - Kyle Pillai, MED ASSIST - 04/06/2024 3:48 PM EDT [...] pharmacy. Please send if appropriate to E [id number] [address] [facility] Thank you, Cyn De Luna CPhT Volunteer Fire Fighter II Centralized Clinical Pharmacy Services ([facility]) (Formerly Telepharmacy) 04/06/2024,11:25 AM documented in this encounter Plan of Treatment Upcoming Encounters Date Type Department Care Team (Latest Contact Info) Description 04/18/2024 9:00 AM EDT Office Visit Pharmacy, [facility] 200 [facility] [place] [address] Pharmacist2, [facility] 200 [facility] [place] [address] 05/30/2024 1:30 PM EDT Hospital Encounter ENDO [facility], Endoscopy Room [facility] [address] [place] [phone] Chase Law MD [address] [place] [address] 05/30/2024 1:30 PM EDT - 05/30/2024 2:00 PM EDT Surgery ENDO [facility], Endoscopy Room [facility] [address] [place] [phone] Chase Law MD [address] [place] [address] COLONOSCOPY FLEXIBLE PROXIMAL DIAGNOSTIC 02/04/2025 9:45 AM EDT Imaging Radiology [facility] 2nd [facility] [place] 132 [facility] [place] [address] Scheduled Procedures Name Priority Associated Diagnoses Date/Ti [...] and were consensually agreed upon. Care Teams Logistics Vice President Relationship Specialty Start Date End Date Wagner Thompson III, MD 200 [place] [address] PCP - General Family Medicine 07/13/23 documented as of this encounter
--- OUTSIDE RECORDS SUMMARY | 2024-09-19 13:22 | External Medical Summary | Summary of Care ---
Author Name Unknown Organization [facility] Address [address] [facility] [place] [address] Phone [phone] Care Team Providers Care Water Treatment Plant Mechanic Name Role Phone Jay KAMARA MD, Wagner Goldman Primary Care Provider [phone] Reason for Referral * Medication Prior Authorization - Pending Review Specialty Diagnoses / Procedures Referred By Jeronimo mcguire Referred To Contact Diagnoses Lumbar degenerative disc disease Lumbar radiculopathy Guille Colin DO [address] [place] [address] Referral ID Status Reason Start Date Expiration Date V isits Requested Visits Authorized [id number] Pending Review 999 999 Reason for Visit * Reason Onset Date Comments Med Request 04/06/2024 Status Check 04/06/2024 Encounter Details Date Type Department Care Team (Late st Contact Info) Description 04/06/2024 Telephone Family Practice [facility] [address] [place] [address] Wagner Thompson III, MD [address] [place] [address] Med Request; Status Check Allergies Active Allergy [...] THE MORNING 90 Tablet 3 04/03/2024 Active oxyCODONE-Acetamin ophen 5-325 MG Oral Tablet (Endocet)Indicatio ns:Lumbar degenerative disc disease,Lumbar radiculopathy Take 1-2 Tablets by mouth every 8 hours as needed for Pain, Moderate or Pain, Severe. max 5 per day- may take extra tablet(6) 3 days per week when she has physical therpy 81 Tablet 04/10/2024 Active oxyCODONE-Acetamin ophen 5-325 MG Oral Tablet (Endocet)Indicatio ns:Lumbar degenerative disc disease,Lumbar radiculopathy Take 1-2 Tablets by mouth every 8 hours as needed for Pain, Moderate or Pain, Severe. max 5 per day- may take extra tablet(6) 3 days per week when she has physical therpy 81 Tablet 03/27/2024 4 Discontinue d(Refill) documented as of this [...] mRNA, LNP-s, No Pre serve, 2-Dose Series (Novalact) 02/12/2021,01/22/2021 COVID-19, mRNA, LNP-s, PF, B ooster, [...] encounter Miscellaneous Notes * Addendum Note - Guille Colin DO - 04/10/2024 2:43 PM EDTAddended by: GUILLE COLIN on: 04/10/2024 02:43 PM Modules accepted: Orders * Telephone Encounter - Guille Colin DO - 04/10/2024 2:42 PM EDT Script signed * Telephone Encounter - Tanya Aragon CPhT - 04/10/2024 2:34 PM EDT Patient calling to check on status of med request Thank you, Tanya Aragon Distance Learning Program Coordinator II Centralized Clinical Pharmacy Services ([facility]) (formerly Telepharmacy) 04/10/2024 2:34 PM . * Telephone Encounter - Ariel Aguero OSA - 04/10/2024 12:42 PM EDT Patient calling in requesting a return call regarding the medication. Please advise. * Telephone Encounter - Tiny De Luna CPhT - 04/10/2024 12:08 PM EDT Pt calling to check on status of oxyCODONE-Acetaminophen 5-325 MG Oral Tablet (Endocet) . Caller can be reached at [phone]. Thank you, Cyn De Luna CPhT Teaching Associate II Centralized Clinical Pharmacy Services ([facility]) (Formerly Telepharmacy) 04/10/2024,12:08 PM * Telephone Encounter - Shruthi Alvarado PHARM Tech - 04/10/2024 10:35 AM EDT Pt requesting HIGH PRIORITY due to Pt is leaving for [place] today, as soon as meds are available Please contact pt when approved pt calling to check on status of oxycodone 5-325. Caller can be reached at [phone]. Thank you, Shruthi Alvarado CPhT Distance Learning Program Coordinator II Central[facility] Clinical Pharmacy Services([facility])(Formerly Telepharmacy) 04/10/2024,10:35 AM * Telephone Encounter - Enrique [place]varez PHARM Tech - 04/10/2024 9:10 AM EDT Patient calling to check on status of refill request. Caller can be reached at [phone]. Thank you, Enrique Alvarez Teaching Associate I Centralized Clinical Pharmacy Services ([facility])(formerly Telepharmacy) 04/10/2024,9:10 AM * Telephone Encounter - Charis Cheek PA-C - 04/10/2024 8:44 AM EDT Controlled substances on out of office providers to be filled by one of the doctors. * Telephone Encounter - Nya Rivera [facility] - 04/10/2024 7:51 AM EDT [...] is due for refill: 04/10/2024 Pharmacy: [id number] [address] [place] [address] Is this request for a controlled substance? [...] approve if appropriate. Thank you, Nya Rivera [facility] Clinical Pharmacist Centralized Clinical Pharmacy Services ([facility]) (formerly Telepharmacy) 04/10/24 7:51 AM [phone] * Addendum Note - Shana Gutierrez, grade setter - 04/10/2024 7:45 AM EDTAddended by: SHANA GUTIERREZ on: 04/10/2024 07:45 AM Modules accepted: Orders * Telephone Encounter - Shana Gutierrez PHARM Tech - 04/10/2024 7:43 AM EDT Pt requesting early as she is going to [place] today. Did you pend patient's preferred pharmacy and medication before forwarding?yes Pharmacy: [id number] [address] [facility] Pending Prescriptions: Disp Refills oxyCODONE-Acetaminophen 5-325 [...] was the last refill date 03/27/2024 w/ [id number] and dosage 5-325 mg and Urine Drug [...] reflexed to confirmatory testing. Patient Phone Numbers [employer] [phone] Labs: Lab Results Component Value Date/Time CREAT [...] AM * Telephone Encounter - Shana Gutierrez grade setter - 04/10/2024 7:33 AM EDT Routed in [...] pharmacy. Please send if appropriate to E [id number] [address] [facility] Thank you, Cyn De Luna CPhT Teaching Associate II Centralized Clinical Pharmacy Services ([facility]) (Formerly Telepharmacy) 04/06/2024,11:25 AM documented in this encounter Plan of Treatment Upcoming Encounters Date Type Department Care Team (Latest Contact Info) Description 04/18/2024 9:00 AM EDT Office Visit Pharmacy, [facility] [place] [address] [facility] [place] [address] Pharmacist2, [facility] 200 [facility] [place] [address] 05/30/2024 1:30 PM EDT Hospital Encounter ENDO [facility], Endoscopy Room [facility] [address] [place] [phone] Chase Law MD [address] [place] [address] 05/30/2024 1:30 PM EDT - 05/30/2024 2:00 PM EDT Surgery ENDO [facility], Endoscopy Room [facility] [address] [place] [phone] Chase Law MD [address] [place] [address] COLONOSCOPY FLEXIBLE PROXIMAL DIAGNOSTIC 02/04/2025 9:45 AM EDT Imaging Radiology [address] [place] [address] Scheduled Procedures Name Priority Associated Diagnoses Date/Ti [...] and were consensually agreed upon. Care Teams Water Treatment Plant Mechanic Relationship Specialty Start Date End Date Wagner Thompson III, MD 200 [place] [address] PCP - General Family Medicine 07/13/23 documented as of this encounter
--- OUTSIDE RECORDS SUMMARY | 2024-09-19 13:22 | External Medical Summary | Summary of Care ---
Author Name Unknown Organization [facility] Address [address] [place] [address] Phone [phone] Care Team Providers Care Referral Agent Name Role Phone Jay KAMARA MD, Noemi Goldman Primary Care Provider [phone] Reason for Visit * Reason Comments eRx-Medication Refill Encounter Details Date Type Department Care Team (Late st Contact Info) Description 04/12/2024 Refill Family Practice [facility] [address] [place] [address] Noemi Mondragon III, MD [address] [place] [address] Allergies Active Allergy Reactions Criticality Noted Date Comments Carisoprodol Seizure High 03/12/2019 documented as of this encounter (statuses as of 04/13/2024) Medications Medication Sig Dispensed Refills Start Date [...] 90mg total.. 30 Capsule 11 4 Active Cyclobenzaprine HCl 10 MG Oral Tablet (Flexeril)Indicati ons:Lumbar degenerative disc disease,Sacroiliit is, not elsewhere classified (HCC) TAKE 1 TABLET BY MOUTH IN THE MORNING AND 1 TABLET AT AT NOON AND 1 TABLET AT BEDTIME 30 Tablet 1 4 Active DULoxetine HCl 60 MG Oral Capsule Delayed Release Particles (Cymbalta)Indicati ons:Lumbar degenerative disc disease Take 1 Capsule by mouth in the morning. Take in addition to 30mg dose for 90mg total.. 30 Capsule 11 4 Active Lisinopril 5 MG Oral Tablet (Prinivil) TAKE 1 TABLET BY MOUTH EVERY DAY IN THE MORNING 90 Tablet 3 4 Active oxyCODONE-Acetamin ophen 5-325 MG Oral Tablet (Endocet)Indicatio ns:Lumbar degenerative disc disease,Lumbar radiculopathy Take 1-2 Tablets by mouth every 8 hours as needed for Pain, Moderate or Pain, Severe. max 5 per day- may take extra tablet(6) 3 days per week when she has physical therpy 81 Tablet 4 Active amLODIPine Besylate 5 MG Oral Tablet (Norvasc) TAKE 1 TABLET BY MOUTH EVERY DAY IN THE MORNING 90 Tablet 1 4 Active amLODIPine Besylate 5 MG Oral Tablet (Norvasc) TAKE 1 TABLET BY MOUTH EVERY DAY 90 Tablet 3 3 04/13/20 24 Discontinued documented as of this encounter (statuses as of 04/13/2024) Active Problems Problem Noted Date Diagnosed Date Abdominal aortic ectasia 03/16/2023 Atherosclerosis of aorta 03/16/2023 HTN, goal below 130/80 11/16/2021 History of kidney stones 09/14/2021 Sacroiliitis, not elsewhere classified 0 H/O laminectomy 06/23/2018 Lumbar degenerative disc disease 06/23/2018 Controlled substance agreement signed 09/06/2017 History of renal carcinoma 09/06/2017 documented as of this encounter (statuses as of 04/13/2024) Resolved Problems Problem Noted Date Diagnosed Date Resolved Date Nephrolithiasis 09/29/2021 10/12/2023 Cancer of right kidney 03/12/201902/04 Low back pain radiating to left leg 09/06/2017 11/16/2021 Renal cell cancer 09/03/2015 09/06/2017 Renal mass 02/11/2015 09/06/2017 documented as of this encounter (statuses as of 04/13/2024) Immunizations Name Administration Dates Next Due COVID-19 [...] encounter Miscellaneous Notes * Telephone Encounter - Matty Sam RPh - 04/13/2024 10:02 AM EDTSigned Prescriptions: Disp Refills amLODIPine Besylate 5 MG Oral Tablet (Norv*90 Tab*1 Sig: TAKE 1 TABLET BY MOUTH EVERY DAY IN THE MORNINGAuthorizing Provider: NOEMI MONDRAGON III User: MATTY SAM documented in this encounter Plan of Treatment Upcoming Encounters Date Type Department Care Team (Latest Contact Info) Description 04/18/2024 9:00 AM EDT Office Visit Pharmacy, [place] [facility] [address] [place] [address] Pharmacist2, [facility] [address] [place] [address] [address] 05/30/2024 1:30 PM EDT Hospital Encounter ENDO [facility], Endoscopy Room [facility] [address] [place] [phone] Chase Law MD [address] [place] [address] 05/30/2024 1:30 PM EDT - 05/30/2024 2:00 PM EDT Surgery ENDO [facility], Endoscopy Room [facility] [address] [place] [phone] Chase Law MD [address] [place] [address] COLONOSCOPY FLEXIBLE PROXIMAL DIAGNOSTIC 02/04/2025 9:45 AM EDT Imaging Radiology [address] [place] [address] Scheduled Procedures Name Priority Associated Diagnoses Date/Ti [...] and were consensually agreed upon. Care Teams Referral Agent Relationship Specialty Start Date End Date Noemi Mondragon III, MD [address] [place] [address] PCP - General Family Medicine 07/13/23 documented as of this encounter
--- OUTSIDE RECORDS SUMMARY | 2024-09-19 13:22 | External Medical Summary | Summary of Care ---
Author Name Unknown Organization [facility] Address [address] [place] [address] Phone [phone] Care Team Providers Care Radio Director Name Role Phone Jay KAMARA MD, Wagner Goldman Primary Care Provider [phone] Reason for Visit * Reason Onset Date Comments Med Request 04/06/2024 Encounter Details Date Type Department Care Team (Late st Contact Info) Description 04/06/2024 Telephone Family Practice [facility] 200 [facility] [place] [address] Wagner Thompson III, MD [address] [place] [address] Med Request Allergies Active Allergy Reactions Criticality [...] encounter Miscellaneous Notes * Telephone Encounter - Shruthi Alvarado PHARM Tech - 04/10/2024 10:35 AM EDT Pt requesting HIGH PRIORITY due to Pt is leaving for [place] today, as soon as meds are available Please contact pt when approved pt calling to check on status of oxycodone 5-325. Caller can be reached at [phone]. Thank you, Shruthi Alvarado, [facility] Automatic Quilling Machine Operator II Centralized Clinical Pharmacy Services(CCPS)(Formerly Telepharmacy) 04/10/2024,10:35 AM * Telephone Encounter - Enrique [place] PHARM Tech - 04/10/2024 9:10 AM EDT Patient calling to check on status of refill request. Caller can be reached at [phone]. Thank you, Enrique [place] Finisher [employer] I Centralized Clinical Pharmacy Services (CCPS)(formerly Telepharmacy) 04/10/2024,9:10 AM * Telephone Encounter - Charis Cheek PA-C - 04/10/2024 8:44 AM EDT Controlled substances on out of office providers to be filled by one of the doctors. * Telephone Encounter - Nya Rivera, [facility] - 04/10/2024 7:51 AM EDT PDMP reviewed to include [facility]: I have reviewed the patients controlled substance dispensing history in the Prescription Drug Monitoring Program in compliance with the [facility] regulations before prescribing a controlled [...] is due for refill: 04/10/2024 Pharmacy: [facility][id number] [facility] Is this request for a [...] approve if appropriate. Thank you, Nya Rivera [facility] Clinical Pharmacist Centralized Clinical Pharmacy Services (CCPS) (formerly Telepharmacy) 04/10/24 7:51 AM [phone] Electronically signed by Nya Rivera [facility] at 04/10/2024 7:56 AM EDT * Addendum Note - Shana Miller PHARM Tech - 04/10/2024 7:45 AM EDTAddended by: SHANA MILLER on: 04/10/2024 07:45 AM Modules accepted: Orders * Telephone Encounter - Shana Miller PHARM Tech - 04/10/2024 7:43 AM EDT Pt requesting early as she is going to [place] today. Did you pend patient's preferred pharmacy and medication before forwarding?yes Pharmacy: [id number] [address] [place] [address] Pending Prescriptions: Disp Refills oxyCODONE-Acetaminophen 5-325 MG [...] was the last refill date 03/27/2024 w/ [id number] and dosage 5-325 mg and Urine Drug [...] pharmacy. Please send if appropriate to [id number] [address] [facility] Thank you, Cyn De Luna CPhT [employer]isher [employer] II Centralized Clinical Pharmacy Services (CCPS) (Formerly Telepharmacy) 04/06/2024,11:25 AM documented in this encounter Plan of Treatment Upcoming Encounters Date Type Department Care Team (Latest Contact Info) Description 04/18/2024 9:00 AM EDT Office Visit Pharmacy, [facility] [place] [address] [facility] [place] [address] Pharmacist2, [facility] [address] [facility] [place] [address] 05/30/2024 1:30 PM EDT Hospital Encounter ENDO [facility], Endoscopy Room [facility] [address] [place] [phone] Chase Law MD [address] [place] [address] 05/30/2024 1:30 PM EDT - 05/30/2024 2:00 PM EDT Surgery ENDO [facility], Endoscopy Room [facility] [address] [place] [phone] Chase Law MD [address] [place] [address] COLONOSCOPY FLEXIBLE PROXIMAL DIAGNOSTIC 02/04/2025 9:45 AM EDT Imaging Radiology [address] [place] [address] Scheduled Procedures Name Priority Associated Diagnoses Date/Ti [...] and were consensually agreed upon. Care Teams Radio Director Relationship Specialty Start Date End Date Wagner Thompson III, MD 200 [facility] [place] [address] PCP - General Family Medicine 07/13/23 documented as of this encounter
--- OUTSIDE RECORDS SUMMARY | 2024-09-19 13:23 | External Medical Summary | Summary of Care ---
Author Name Unknown Organization [facility] Address [address] [place] [address] Phone [phone] Care Team Providers Care Drapery Examiner Name Role Phone Jay KAMARA MD, Noemi Goldman Primary Care Provider [phone] Reason for Visit * Reason Comments eRx-Medication Refill Encounter Details Date Type Department Care Team (Late st Contact Info) Description 04/02/2024 Refill Family Practice [facility] 200 [facility] [place] [address] Noemi Mondragon III, MD [address] [facility] [place] [address] Allergies Active Allergy Reactions Criticality Noted Date Comments Carisoprodol Seizure High 03/12/2019 documented as of this encounter (statuses as of 04/03/2024) Medications Medication Sig Dispensed Refills Start Date [...] MOUTH EVERY DAY 90 Tablet 3 3 Active DULoxetine HCl 30 MG Oral Capsule [...] 90mg total.. 30 Capsule 11 4 Active oxyCODONE-Acetamin ophen 5-325 MG Oral Tablet (Endocet)Indicatio ns:Lumbar degenerative disc disease,Lumbar radiculopathy Take 1-2 Tablets by mouth every 8 hours as needed for Pain, Moderate or Pain, Severe. max 5 per day- may take extra tablet(6) 3 days per week when she has physical therpy 81 Tablet 4 Active Lisinopril 5 MG Oral Tablet (Prinivil) TAKE 1 TABLET BY MOUTH EVERY DAY IN THE MORNING 90 Tablet 3 4 Active Lisinopril 5 MG Oral Tablet (Prinivil) Take 1 Tablet by mouth in the morning. 90 Tablet 3 3 04/03/20 24 Discontinued documented as of this encounter (statuses as of 04/03/2024) Active Problems Problem Noted Date Diagnosed Date Abdominal aortic ectasia 03/16/2023 Atherosclerosis of aorta 03/16/2023 HTN, goal below 130/80 11/16/2021 History of kidney stones 09/14/2021 Sacroiliitis, not elsewhere classified 0 H/O laminectomy 06/23/2018 Lumbar degenerative disc disease 06/23/2018 Controlled substance agreement signed 09/06/2017 History of renal carcinoma 09/06/2017 documented as of this encounter (statuses as of 04/03/2024) Resolved Problems Problem Noted Date Diagnosed Date Resolved Date Nephrolithiasis 09/29/2021 10/12/2023 Cancer of right kidney 03/12/201902/04 Low back pain radiating to left leg 09/06/2017 11/16/2021 Renal cell cancer 09/03/2015 09/06/2017 Renal mass 02/11/2015 09/06/2017 documented as of this encounter (statuses as of 04/03/2024) Immunizations Name Administration Dates Next Due COVID-19 [...] encounter Miscellaneous Notes * Telephone Encounter - Jose Meza [facility] - 04/03/2024 9:59 AM EDTSigned Prescriptions: Disp Refills Lisinopril 5 MG Oral Tablet (Prinivil) 90 Tab*3 Sig: TAKE 1 TABLET BY MOUTH EVERY DAY IN THE MORNINGAuthorizing Provider: NOEMI MONDRAGON III User: JOSE MEZA documented in this encounter Plan of Treatment Upcoming Encounters Date Type Department Care Team (Latest Contact Info) Description 04/18/2024 9:00 AM EDT Office Visit Pharmacy, [place] [facility] [address] [place] [address] [address] Pharmacist2, [facility] [address] [place] [place] [address] 05/30/2024 1:30 PM EDT Hospital Encounter ENDO [facility], Endoscopy Room [facility] [address] [place] [phone] Chase Law MD [address] [place] [address] 05/30/2024 1:30 PM EDT - 05/30/2024 2:00 PM EDT Surgery ENDO [facility], Endoscopy Room [facility] [address] [place] [phone] Chase Law MD [address] [place] [address] COLONOSCOPY FLEXIBLE PROXIMAL DIAGNOSTIC 02/04/2025 9:45 AM EDT Imaging Radiology [address] [place] [address] Scheduled Procedures Name Priority Associated Diagnoses Date/Ti [...] and were consensually agreed upon. Care Teams Drapery Examiner Relationship Specialty Start Date End Date Noemi Mondragon III, MD 200 [facility] [place] [address] PCP - General Family Medicine 07/13/23 documented as of this encounter
--- OUTSIDE RECORDS SUMMARY | 2024-09-19 13:23 | External Medical Summary | Summary of Care ---
Author Name Unknown Organization [facility] Address [address] [place] [address] Phone [phone] Care Team Providers Care Batteryman Name Role Phone Jay KAMARA MD, Wagner Goldman Primary Care Provider [phone] Reason for Visit * Reason Onset Date Comments Medication Refill 03/26/2024 Encounter Created in Error 03/26/2024 Encounter Details Date Type Department Care Team (Late st Contact Info) Description 03/26/2024 Refill Family Practice [facility] 200 [facility] [place] [address] Wagner Thompson III, MD 200 [place] [address] Lumbar degenerative disc disease; Lumbar radiculopathy Allergies Active Allergy Reactions Criticality Noted Date Comments Carisoprodol Seizure High 03/12/2019 documented as of this encounter (statuses as of 03/26/2024) Medications Medication Sig Dispensed Refills Start Date End Date Status Acetaminophen 325 MG Oral Tablet 2 tablets as needed for pain 0 Active Multiple Vitamins-Minerals (MULTIVITAMIN WOMENS 50+ ADV) TABS Take by mouth daily. 0 Active Aspirin Low Dose 81 MG Oral Tablet Delayed Release (aspirin enteric coated) TAKE 1 TABLET BY MOUTH EVERY DAY 100 Tab 3 07/15/2021 Active Additional Information Patient not taking.Reported on 12/26/2023 Lisinopril 5 MG Oral Tablet (Prinivil) Take 1 Tablet by mouth in the morning. 90 Tablet 3 02/03/2023 Active amLODIPine Besylate 5 MG Oral Tablet [...] when she has physical therpy 81 Tablet 0 03/13/2024 Active documented as of this encounter (statuses as of 03/26/2024) Active Problems Problem Noted Date Diagnosed Date Abdominal aortic ectasia 03/16/2023 Atherosclerosis of aorta 03/16/2023 HTN, goal below 130/80 11/16/2021 History of kidney stones 09/14/2021 Sacroiliitis, not elsewhere classified 0 H/O laminectomy 06/23/2018 Lumbar degenerative disc disease 06/23/2018 Controlled substance agreement signed 09/06/2017 History of renal carcinoma 09/06/2017 documented as of this encounter (statuses as of 03/26/2024) Resolved Problems Problem Noted Date Diagnosed Date Resolved Date Nephrolithiasis 09/29/2021 10/12/2023 Cancer of right kidney 03/12/201902/04 Low back pain radiating to left leg 09/06/2017 11/16/2021 Renal cell cancer 09/03/2015 09/06/2017 Renal mass 02/11/2015 09/06/2017 documented as of this encounter (statuses as of 03/26/2024) Immunizations Name Administration Dates Next Due COVID-19 [...] encounter Miscellaneous Notes * Telephone Encounter - Be Colin DO - 03/26/2024 4:51 PM EDT Pt getting 15 day supplies every 12-13 days for awhile now. Can wait til tomorrow for Wagner to return. * Telephone Encounter - Jessica Weems, radio interference investigator - 03/26/2024 4:11 PM EDT Pt is traveling and needs this now. Please send [facility] Thank you for your assistance Jessica Weems Convention Services Director II Centralized Clinical Pharmacy Services (CCPS) (Formerly Telepharmacy) 03/26/2024,4:12 PM * Telephone Encounter - Jolene Kulkarni [facility] - 03/26/2024 12:10 PM EDT Pending Prescriptions: Disp Refills oxyCODONE-Acetaminophen 5-325 MG Oral Tabl*81 Tab*0 Sig: Take 1-2 Tablets by mouth every 8 hours as needed for Pain, Moderate or Pain, Severe. max 5 per day- may take extra tablet(6) 3 days per week when she has physical therpy * Telephone Encounter - Jolene Kulkarni [facility] - 03/26/2024 12:08 PM EDT I have reviewed the patients controlled substance dispensing history in the Prescription Drug Monitoring Program in compliance with the [facility] regulations before prescribing a controlled substance. PDMP checked on 03/26/2024. Pending Prescriptions: Disp Refills oxyCODONE-Acetaminophen 5-325 MG Oral Tab*81 Tab*0 Sig: Take 1-2 Tablets by mouth every 8 hours as needed for Pain, Moderate or Pain, Severe. max 5 per day- may take extra tablet(6) 3 days per week when she has physical therpy Last Visit: 10/31/2023 (in office), 11/06/2020 (telemedicine) Next Visit: Visit date not found Date medication was last filled: 03/14/24 Date medication is due for refill: 03/29/24 Pharmacy: [id number] [place] Is this request for a controlled substance? [...] approve if appropriate. Thank you, Jolene Kulkarni, Maria IsabelD, HIRO Clinical Pharmacist Centralized Clinical Pharmacy Services (CCPS) 03/26/24 12:08 PM [phone] * Addendum Note - Taylor English CPhT - 03/26/2024 12:00 PM EDTAddended by: TAYLOR ENGLISH on: 03/26/2024 12:00 PM Modules accepted: Orders * Telephone Encounter - Taylor English CPhT - 03/26/2024 11:54 AM EDT Patient is concerned with it being out of [place] that something is going to go wrong and asking for high priority, Did you pend patient's preferred pharmacy and medication before forwarding?no Pharmacy: [facility][id number] [address] [place] Pending Prescriptions: Disp Refills oxyCODONE-Acetaminophen 5-325 MG [...] appointment Last date the medication was ordered: 03/13/2024 Is this request for a controlled substance?Yes, What was the last refill date 03/13/2024 w/ quantity 81 and dosage 5-325mg and Urine Drug Screen was completed Urine [...] 11/04/2017 11:21 AM * Telephone Encounter - Eugenie Camilo CPhT - 03/26/2024 11:31 AM EDT Error Thank you, Eugenie Camilo Teacher Of Family And Consumer Science [employer] 03/26/2024, 11:43 AM documented in this encounter Plan of Treatment Upcoming Encounters Date Type Department Care Team (Latest Contact Info) Description 04/18/2024 9:00 AM EDT Office Visit Pharmacy, [place] [facility] [place] [address] [place] [address] Pharmacist2, [facility] [address] [place] [address] 05/30/2024 1:30 PM EDT Hospital Encounter ENDO [facility], Endoscopy Room [facility] [address] [place] [phone] Chase Law MD [address] [place] [address] 05/30/2024 1:30 PM EDT - 05/30/2024 2:00 PM EDT Surgery ENDO [facility], Endoscopy Room [facility] [address] [place] [phone] Chase Law MD [address] [place] [address] COLONOSCOPY FLEXIBLE PROXIMAL DIAGNOSTIC 02/04/2025 9:45 AM EDT Imaging Radiology [address] [place] [address] Scheduled Procedures Name Priority Associated Diagnoses Date/Ti [...] polyps documented in this encounter Advance Directives Latest Code Status on File Code Status Date Activated Date Inactivated Comments Full Code 10/12/2021 12:12 PM 10/12/2021 5:23 PM Th is order reflects the patients wishes and were consensually agreed upon. Code Status History Code Status Date Activated Date Inactivated Comments Full Code 10/12/2021 9:45 AM 10/12/2021 12:12 PM Th is order reflects the patients wishes and were consensually agreed upon. Full Code 02/11/2015 1:14 PM 02/14/2015 4:36 PM This o rder reflects the patients wishes and were consensually agreed upon. Care Teams Batteryman Relationship Specialty Start Date End Date Wagner Thompson III, MD 200 [place] [address] PCP - General Family Medicine 07/13/23 documented as of this encounter
--- OUTSIDE RECORDS SUMMARY | 2024-09-19 13:23 | External Medical Summary | Summary of Care ---
Author Name Unknown Organization [facility] Address [address] [place] [address] Phone [phone] Care Team Providers Care Framing Consultant Name Role Phone Jay KAMARA MD, Wagner Goldman Primary Care Provider [phone] Reason for Visit * Reason Onset Date Comments Medication Refill 03/26/2024 Encounter Created in Error 03/26/2024 Encounter Details Date Type Department Care Team (Late st Contact Info) Description 03/26/2024 Refill Family Practice [facility] 200 [facility] [place] [address] Wagner Thompson III, MD 200 [place] [address] Lumbar degenerative disc disease; Lumbar radiculopathy Allergies Active Allergy Reactions Criticality Noted Date Comments Carisoprodol Seizure High 03/12/2019 documented as of this encounter (statuses as of 03/27/2024) Medications Medication Sig Dispensed Refills Start Date [...] as of this encounter (statuses as of 03/27/2024) Active Problems Problem Noted Date Diagnosed Date Abdominal aortic ectasia 03/16/2023 Atherosclerosis of aorta 03/16/2023 HTN, goal below 130/80 11/16/2021 History of kidney stones 09/14/2021 Sacroiliitis, not elsewhere classified 0 H/O laminectomy 06/23/2018 Lumbar degenerative disc disease 06/23/2018 Controlled substance agreement signed 09/06/2017 History of renal carcinoma 09/06/2017 documented as of this encounter (statuses as of 03/27/2024) Resolved Problems Problem Noted Date Diagnosed Date Resolved Date Nephrolithiasis 09/29/2021 10/12/2023 Cancer of right kidney 03/12/201902/04 Low back pain radiating to left leg 09/06/2017 11/16/2021 Renal cell cancer 09/03/2015 09/06/2017 Renal mass 02/11/2015 09/06/2017 documented as of this encounter (statuses as of 03/27/2024) Immunizations Name Administration Dates Next Due COVID-19 [...] Notes * Telephone Encounter - Shana Miller fire prevention research engineer - 03/27/2024 7:47 AM EDT Pt requesting HIGH PRIORITY due to being out of medication. Pt calling to check on status of oxyCODONE-Acetaminophen 5-325 MG Oral Tabl*81 . Caller can be reached at [phone]. Thank you, Shana Miller Burling And Joining Supervisor I Centralized Clinical Pharmacy Services (CCPS) (Formerly Telepharmacy) 03/27/2024,7:47 AM * Telephone Encounter - Be Colin DO - 03/26/2024 4:51 PM EDT Pt getting 15 day supplies every 12-13 days for awhile now. Can wait til tomorrow for Wagner to return. * Telephone Encounter - Jessica Weems fire prevention research engineer - 03/26/2024 4:11 PM EDT Pt is traveling and needs this now. Please send jess Thank you for your assistance Jessica Weems Roofing Superintendent II Centralized Clinical Pharmacy Services (CCPS) (Formerly Telepharmacy) 03/26/2024,4:12 PM * Telephone Encounter - Jolene Kulkarni [facility] - 03/26/2024 12:10 PM EDT Pending Prescriptions: Disp Refills oxyCODONE-Acetaminophen 5-325 MG Oral Tabl*81 Tab*0 Sig: Take 1-2 Tablets by mouth every 8 hours as needed for Pain, Moderate or Pain, Severe. max 5 per day- may take extra tablet(6) 3 days per week when she has physical therpy * Telephone Encounter - Jolene Kulkarni [facility] - 03/26/2024 12:08 PM EDT I have reviewed the patients controlled substance dispensing history in the Prescription Drug Monitoring Program in compliance with the [facility] regulations before prescribing a controlled substance. [...] due for refill: 03/29/24 Pharmacy: [id number] [address] [facility] [place] [place] Is this request for a controlled substance? [...] Clinical Pharmacy Services (CCPS) 03/26/24 12:08 PM [phone] * Addendum Note - Taylor English CPhT [...] pharmacy and medication before forwarding?no Pharmacy: [facility] #[id number][facility] [address] [facility]- [place] Pending Prescriptions: Disp Refills oxyCODONE-Acetaminophen 5-325 MG [...] reflexed to confirmatory testing. Patient Phone Numbers [employer] [phone] Labs: Lab Results Component Value Date/Time CREAT [...] AM EDT Error Thank you, Eugenie Camilo Burling And Joining Supervisor [employer] 03/26/2024, 11:43 AM documented in this encounter Plan of Treatment Upcoming Encounters Date Type Department Care Team (Latest Contact Info) Description 04/18/2024 9:00 AM EDT Office Visit Pharmacy, [facility] [address] [facility] [place] [address] Pharmacist2, [facility] 200 [facility] [place] [address] 05/30/2024 1:30 PM EDT Hospital Encounter ENDO [facility], Endoscopy Room [facility] [address] [place] [phone] Chase Law MD [address] [place] [address] 05/30/2024 1:30 PM EDT - 05/30/2024 2:00 PM EDT Surgery ENDO [facility], Endoscopy Room [facility] [address] [place] [phone] Chase Law MD [address] [place] [address] COLONOSCOPY FLEXIBLE PROXIMAL DIAGNOSTIC 02/04/2025 9:45 AM EDT Imaging Radiology [address] [place] [address] Scheduled Procedures Name Priority Associated Diagnoses Date/Ti [...] and were consensually agreed upon. Care Teams Framing Consultant Relationship Specialty Start Date End Date Wagner Thompson III, MD 200 [place] [address] PCP - General Family Medicine 07/13/23 documented as of this encounter
--- OUTSIDE RECORDS SUMMARY | 2024-09-19 13:23 | External Medical Summary | Summary of Care ---
Author Name Unknown Organization [facility] Address [address] [place] [address] Phone [phone] Care Team Providers Care Staffing Branch Manager Name Role Phone Jay KAMARA MD, Wagner Goldman Primary Care Provider [phone] Reason for Visit * Reason Onset Date Comments Med Request 04/06/2024 Encounter Details Date Type Department Care Team (Late st Contact Info) Description 04/06/2024 Telephone Family Practice [facility] 200 [facility] [place] [address] Wagner Thompson III, MD 200 [place] [address] Med Request Allergies Active Allergy Reactions Criticality Noted Date Comments Carisoprodol Seizure High 03/12/2019 documented as of this encounter (statuses as of 04/06/2024) Medications Medication Sig Dispensed Refills Start Date [...] as of this encounter (statuses as of 04/06/2024) Active Problems Problem Noted Date Diagnosed Date Abdominal aortic ectasia 03/16/2023 Atherosclerosis of aorta 03/16/2023 HTN, goal below 130/80 11/16/2021 History of kidney stones 09/14/2021 Sacroiliitis, not elsewhere classified 0 H/O laminectomy 06/23/2018 Lumbar degenerative disc disease 06/23/2018 Controlled substance agreement signed 09/06/2017 History of renal carcinoma 09/06/2017 documented as of this encounter (statuses as of 04/06/2024) Resolved Problems Problem Noted Date Diagnosed Date Resolved Date Nephrolithiasis 09/29/2021 10/12/2023 Cancer of right kidney 03/12/201902/04 Low back pain radiating to left leg 09/06/2017 11/16/2021 Renal cell cancer 09/03/2015 09/06/2017 Renal mass 02/11/2015 09/06/2017 documented as of this encounter (statuses as of 04/06/2024) Immunizations Name Administration Dates Next Due COVID-19 [...] encounter Miscellaneous Notes * Telephone Encounter - Kyle Pillai MED [...] pharmacy. Please send if appropriate to E [facility][id number] [address] [facility] Thank you, Cyn De Luna CPhT Material Requirements Worker II Centralized Clinical Pharmacy Services (CCPS) (Formerly Telepharmacy) 04/06/2024,11:25 AM documented in this encounter Plan of Treatment Upcoming Encounters Date Type Department Care Team (Latest Contact Info) Description 04/18/2024 9:00 AM EDT Office Visit Pharmacy, [facility] 200 [facility] [place] [address] Pharmacist2, [facility] 200 [facility] [place] [address] 05/30/2024 1:30 PM EDT Hospital Encounter ENDO [facility], Endoscopy Room [facility] [address] [place] [phone] Chase Law MD [address] [place] [address] 05/30/2024 1:30 PM EDT - 05/30/2024 2:00 PM EDT Surgery ENDO [facility], Endoscopy Room [facility] [address] [place] [phone] Chase Law MD [address] [place] [address] COLONOSCOPY FLEXIBLE PROXIMAL DIAGNOSTIC 02/04/2025 9:45 AM EDT Imaging Radiology [address] [place] [address] Scheduled Procedures Name Priority Associated Diagnoses Date/Ti [...] and were consensually agreed upon. Care Teams Staffing Branch Manager Relationship Specialty Start Date End Date Wagner Thompson III, MD 200 [facility] [place] [address] PCP - General Family Medicine 07/13/23 documented as of this encounter
--- OUTSIDE RECORDS SUMMARY | 2024-09-19 13:23 | External Medical Summary | Summary of Care ---
Author Name Unknown Organization [facility] Address [address] [place] [address] Phone [phone] Care Team Providers Care Sample Case Porter Name Role Phone Jay KAMARA MD, Wagner Goldman Primary Care Provider [phone] Reason for Visit * Reason Onset Date Comments Med Request 04/06/2024 Encounter Details Date Type Department Care Team (Late st Contact Info) Description 04/06/2024 Telephone Family Practice [facility] 200 [place] [address] Wagner Thompson III, MD 200 [place] [address] Med Request Allergies Active Allergy Reactions Criticality [...] pharmacy. Please send if appropriate to E [id number] [address] [facility] Thank you, Cyn De Luna CPhT Traffic Analysis Technician II Centralized Clinical Pharmacy Services (CCPS) (Formerly Telepharmacy) 04/06/2024,11:25 AM documented in this encounter Plan of Treatment Upcoming Encounters Date Type Department Care Team (Latest Contact Info) Description 04/18/2024 9:00 AM EDT Office Visit Pharmacy, [facility] [address] [place] [address] Pharmacist2, [facility] [address] [place] [address] 05/30/2024 1:30 PM EDT Hospital Encounter ENDO [facility], Endoscopy Room [facility] [address] [place] [phone] Chase Law MD [address] [place] [address] 05/30/2024 1:30 PM EDT - 05/30/2024 2:00 PM EDT Surgery ENDO [facility], Endoscopy Room [facility] [address] [place] [phone] Chase Law MD [address] [place] [address] COLONOSCOPY FLEXIBLE PROXIMAL DIAGNOSTIC 02/04/2025 9:45 AM EDT Imaging Radiology [address] [place] [address] Scheduled Procedures Name Priority Associated Diagnoses Date/Ti [...] and were consensually agreed upon. Care Teams Sample Case Porter Relationship Specialty Start Date End Date Wagner Thompson III, MD 200 [place] [address] PCP - General Family Medicine 07/13/23 documented as of this encounter
--- OUTSIDE RECORDS SUMMARY | 2024-09-19 13:23 | External Medical Summary | Summary of Care ---
Author Name Unknown Organization [facility] Address [address] [place] [address] Phone [phone] Care Team Providers Care Senior Ux Designer Name Role Phone Jay KAMARA MD, Wagner Goldman Primary Care Provider [phone] Reason for Visit * Reason Onset Date Comments Medication Refill 03/26/2024 Encounter Created in Error 03/26/2024 Encounter Details Date Type Department Care Team (Late st Contact Info) Description 03/26/2024 Refill Family Practice [facility] [address] [facility] [place] [address] Wagner Thompson III, MD 200 [facility] [place] [address] Lumbar degenerative disc disease; Lumbar radiculopathy Allergies [...] encounter Miscellaneous Notes * Addendum Note - Taylor English CPhT [...] pharmacy and medication before forwarding?no Pharmacy: E [facility][id number][facility] [facility] [place] Pending Prescriptions: Disp Refills oxyCODONE-Acetaminophen 5-325 [...] reflexed to confirmatory testing. Patient Phone Numbers [employer] [phone] Labs: Lab Results Component Value Date/Time CREAT [...] AM EDT Error Thank you, Eugenie Camilo Boat Tender [employer] 03/26/2024, 11:43 AM documented in this encounter Plan of Treatment Upcoming Encounters Date Type Department Care Team (Latest Contact Info) Description 04/18/2024 9:00 AM EDT Office Visit Pharmacy, [facility] [address] [facility] [place] [address] Pharmacist2, [facility] [address] [facility] [place] [address] 05/30/2024 1:30 PM EDT Hospital Encounter ENDO [facility], Endoscopy Room [facility] [address] [place] [phone] Chase Law MD [address] [place] [address] 05/30/2024 1:30 PM EDT - 05/30/2024 2:00 PM EDT Surgery ENDO [facility], Endoscopy Room [facility] [address] [place] [phone] Chase Law MD [address] [place] [address] COLONOSCOPY FLEXIBLE PROXIMAL DIAGNOSTIC 02/04/2025 9:45 AM EDT Imaging Radiology [facility] [address] [facility] [place] 132 [facility] [place] [address] Scheduled Procedures Name Priority Associated Diagnoses Date/Ti [...] were consensually agreed upon. Care Teams Senior Ux Designer Relationship Specialty Start Date End Date Wagner Thompson III, MD 200 [facility] [place], [place] [address] PCP - General Family Medicine 07/13/23 documented as of this encounter
--- OUTSIDE RECORDS SUMMARY | 2024-09-19 13:23 | External Medical Summary | Summary of Care ---
Author Name Unknown Organization [facility] Address [address] [place] [address] Phone [phone] Care Team Providers Care Supervisor Telephone Clerks Name Role Phone Jay KAMARA MD, Wagner Goldman Primary Care Provider [phone] Reason for Visit * Reason Onset Date Comments Medication Refill 03/26/2024 Encounter Created in Error 03/26/2024 Encounter Details Date Type Department Care Team (Late st Contact Info) Description 03/26/2024 Refill Family Practice [facility] 200 [facility] [address] Wagner Thompson III, MD 200 [place] [address] Lumbar degenerative disc disease; Lumbar radiculopathy Allergies [...] encounter Miscellaneous Notes * Telephone Encounter - Jessica Weems PHARM Tech - 03/26/2024 4:11 PM EDT Pt is traveling and needs this now. Please send [facility] Thank you for your assistance Jessica Weems Management Intern II Centralized Clinical Pharmacy Services (CCPS) (Formerly Telepharmacy) 03/26/2024,4:12 PM * Telephone Encounter - Jolene Kulkarni RP - 03/26/2024 12:10 PM EDT Pending Prescriptions: Disp Refills oxyCODONE-Acetaminophen 5-325 MG Oral Tabl*81 Tab*0 Sig: Take 1-2 Tablets by mouth every 8 hours as needed for Pain, Moderate or Pain, Severe. max 5 per day- may take extra tablet(6) 3 days per week when she has physical therpy * Telephone Encounter - Jolene Kulkarni, [facility] - 03/26/2024 12:08 PM EDT I have reviewed the patients controlled substance dispensing history in the Prescription Drug Monitoring Program in compliance with the [facility] regulations before prescribing a controlled [...] is due for refill: 03/29/24 Pharmacy: [id number] [place] Is this request for a controlled substance? [...] Clinical Pharmacy Services (CCPS) 03/26/24 12:08 PM [phone] * Addendum Note - Taylor English CPhT [...] pharmacy and medication before forwarding?no Pharmacy: E [facility][id number][facility] [address] [facility] [place] Pending Prescriptions: Disp Refills oxyCODONE-Acetaminophen 5-325 [...] reflexed to confirmatory testing. Patient Phone Numbers [employer] [phone] Labs: Lab Results Component Value Date/Time CREAT [...] 03/26/2024 11:31 AM EDT Error Thank you, uEgenie Camilo Clinical Informatics Specialist [email or web address] 03/26/2024, 11:43 AM documented in this encounter Plan of Treatment Upcoming Encounters Date Type Department Care Team (Latest Contact Info) Description 04/18/2024 9:00 AM EDT Office Visit Pharmacy, [facility] [place] 200 [facility] [place] [address] Pharmacist2, [facility] 200 [facility] [place] [address] 05/30/2024 1:30 PM EDT Hospital Encounter ENDO [facility], Endoscopy Room [facility] [address] [place] [phone] Chase Law MD [address] [place] [address] 05/30/2024 1:30 PM EDT - 05/30/2024 2:00 PM EDT Surgery ENDO [facility], Endoscopy Room [facility] [address] [place] [address] Chase Law MD [address] [place] [address] COLONOSCOPY FLEXIBLE PROXIMAL DIAGNOSTIC 02/04/2025 9:45 AM EDT Imaging Radiology [address] [place] [address] Scheduled Procedures Name Priority Associated Diagnoses Date/Ti [...] were consensually agreed upon. Care Teams Supervisor Telephone Clerks Relationship Specialty Start Date End Date Wagner Thompson III, MD 200 [facility] [address] PCP - General Family Medicine 07/13/23 documented as of this encounter
--- OUTSIDE RECORDS SUMMARY | 2024-09-19 13:23 | External Medical Summary | Summary of Care ---
Author Name Unknown Organization [facility] Address [address] [place] [address] Phone [phone] Care Team Providers Care State Attorney Name Role Phone Jay KAMAAR MD, Wagner Goldman Primary Care Provider [phone] Reason for Visit * Reason Onset Date Comments Medication Refill 03/26/2024 Encounter Created in Error 03/26/2024 Encounter Details Date Type Department Care Team (Late st Contact Info) Description 03/26/2024 Refill Family Practice [facility] 200 [facility] [place] [address] Wagner Thompson III, MD 200 [facility] [place] [address] Lumbar degenerative disc disease; Lumbar radiculopathy Allergies [...] return. * Telephone Encounter - Jessica Weems, facilities and grounds director - 03/26/2024 4:11 PM EDT Pt is traveling and needs this now. Please send [facility] Thank you for your assistance Jessica Weems Shipping Clerk II Centralized Clinical Pharmacy Services (CCPS) (Formerly Telepharmacy) 03/26/2024,4:12 PM * Telephone Encounter - Jolene Kulkarni [facility] - 03/26/2024 12:10 PM EDT Pending Prescriptions: Disp Refills oxyCODONE-Acetaminophen 5-325 MG Oral Tabl*81 Tab*0 Sig: Take 1-2 Tablets by mouth every 8 hours as needed for Pain, Moderate or Pain, Severe. max 5 per day- may take extra tablet(6) 3 days per week when she has physical therpy * Telephone Encounter - Jolene Kulkarni [facility] - 03/26/2024 12:08 PM EDT I have reviewed the patients controlled substance dispensing history in the Prescription Drug Monitoring Program in compliance with the [facility] regulations before prescribing a controlled substance. [...] due for refill: 03/29/24 Pharmacy: [id number] [place] Is this request for a controlled substance? [...] Clinical Pharmacy Services (CCPS) 03/26/24 12:08 PM [phone] * Addendum Note - Taylor English CPhT [...] pharmacy and medication before forwarding?no Pharmacy: E [facility] #[id number][facility] [address] [facility] [place] Pending Prescriptions: Disp Refills oxyCODONE-Acetaminophen [...] AM EDT Error Thank you, Eugenie Camilo Claim Clerk [employer] 03/26/2024, 11:43 AM documented in this encounter Plan of Treatment Upcoming Encounters Date Type Department Care Team (Latest Contact Info) Description 04/18/2024 9:00 AM EDT Office Visit Pharmacy, [facility] [address] [place] [address] Pharmacist2, [facility] [address] [place] [address] [address] 05/30/2024 1:30 PM EDT Hospital Encounter ENDO [facility], Endoscopy Room [facility] [address] [place] [phone] Chase Law MD [address] [place] [address] 05/30/2024 1:30 PM EDT - 05/30/2024 2:00 PM EDT Surgery ENDO [facility], Endoscopy Room [facility] [address] [place] [phone] Chase Law MD [address] [place] [address] COLONOSCOPY FLEXIBLE PROXIMAL DIAGNOSTIC 02/04/2025 9:45 AM EDT Imaging Radiology [address] [place] [address] Scheduled Procedures Name Priority Associated Diagnoses Date/Ti [...] and were consensually agreed upon. Care Teams State Attorney Relationship Specialty Start Date End Date Wagner Thompson III, MD 200 [facility] [place] [address] PCP - General Family Medicine 07/13/23 documented as of this encounter
--- OUTSIDE RECORDS SUMMARY | 2024-09-19 13:23 | External Medical Summary | Summary of Care ---
Author Name Unknown Organization [facility] Address [address] [place] [address] Phone [phone] Care Team Providers Care Provider Enrollment Specialist Name Role Phone Jay KAMARA MD, Wagner Goldman Primary Care Provider [phone] Reason for Visit * Reason Onset Date Comments Medication Refill 03/26/2024 Encounter Created in Error 03/26/2024 Encounter Details Date Type Department Care Team (Late st Contact Info) Description 03/26/2024 Refill Family Practice [facility] [address] [place] [address] Wagner Thompson III, MD 200 [place] [address] Lumbar degenerative disc disease; Lumbar radiculopathy Allergies [...] encounter Miscellaneous Notes * Telephone Encounter - Jolene Kulkarni [facility] - 03/26/2024 12:10 PM EDT Pending Prescriptions: Disp Refills oxyCODONE-Acetaminophen 5-325 MG Oral Tabl*81 Tab*0 Sig: Take 1-2 Tablets by mouth every 8 hours as needed for Pain, Moderate or Pain, Severe. max 5 per day- may take extra tablet(6) 3 days per week when she has physical therpy * Telephone Encounter - Jolene Kulkarni [facility] - 03/26/2024 12:08 PM EDT I have reviewed the patients controlled substance dispensing history in the Prescription Drug Monitoring Program in compliance with the [facility] regulations before prescribing a controlled substance. [...] is due for refill: 03/29/24 Pharmacy: [facility] #[id number] [place] Is this request for a [...] Clinical Pharmacy Services (CCPS) 03/26/24 12:08 PM [phone] * Addendum Note - Taylor English CPhT [...] pharmacy and medication before forwarding?no Pharmacy: [facility] #[id number] [address] [place] Pending Prescriptions: Disp Refills oxyCODONE-Acetaminophen [...] reflexed to confirmatory testing. Patient Phone Numbers [employer] [phone] Labs: Lab Results Component Value Date/Time CREAT [...] AM EDT Error Thank you, Eugenie Camilo Assistant Paralegal [facility] 03/26/2024, 11:43 AM documented in this encounter Plan of Treatment Upcoming Encounters Date Type Department Care Team (Latest Contact Info) Description 04/18/2024 9:00 AM EDT Office Visit Pharmacy, [facility] 200 [facility] [place] [address] Pharmacist2, [facility] [address] [facility] [place] [address] 05/30/2024 1:30 PM EDT Hospital Encounter ENDO [facility], Endoscopy Room [facility] [address] [place] [phone] Chase Law MD [address] [place] [address] 05/30/2024 1:30 PM EDT - 05/30/2024 2:00 PM EDT Surgery ENDO [facility], Endoscopy Room [facility] [address] [place] [phone] Chase Law MD [address] [place] [address] COLONOSCOPY FLEXIBLE PROXIMAL DIAGNOSTIC 02/04/2025 9:45 AM EDT Imaging Radiology [address] [place] [address] Scheduled Procedures Name Priority Associated Diagnoses Date/Ti [...] and were consensually agreed upon. Care Teams Provider Enrollment Specialist Relationship Specialty Start Date End Date Wagner Thopmson III, MD [address] [place] [address] PCP - General Family Medicine 07/13/23 documented as of this encounter
--- OUTSIDE RECORDS SUMMARY | 2024-09-19 13:23 | External Medical Summary | Summary of Care ---
Author Name Unknown Organization [facility] Address [address] [place] [address] Phone [phone] Care Team Providers Care Gathering Worker Name Role Phone Jay KAMARA MD, Noemi Goldman Primary Care Provider [phone] Reason for Referral * Medication Prior Authorization - Pending Review Specialty Diagnoses / Procedures Referred By Jeronimo mcguire Referred To Contact Diagnoses Lumbar degenerative disc disease Lumbar radiculopathy Noemi Mondragon III, MD [address] [place] [address] Referral ID Status Reason Start Date Expiration Date V isits Requested Visits Authorized [id number] Pending Review 999 999 Reason for Visit * Reason Onset Date Comments Medication Refill 03/26/2024 Encounter Created in Error 03/26/2024 Encounter Details Date Type Department Care Team (Late st Contact Info) Description 03/26/2024 Refill Family Practice [facility] [address] [place] [address] Noemi Mondragon III, MD [address] [place] [address] Lumbar degenerative disc disease; Lumbar radiculopathy Allergies [...] 90mg total.. 30 Capsule 11 02/08/2024 Active oxyCODONE-Acetamin ophen 5-325 MG Oral Tablet (Endocet)Indicatio ns:Lumbar degenerative disc disease,Lumbar radiculopathy Take 1-2 Tablets by mouth every 8 hours as needed for Pain, Moderate or Pain, Severe. max 5 per day- may take extra tablet(6) 3 days per week when she has physical therpy 81 Tablet 0 03/27/2024 Active oxyCODONE-Acetamin ophen 5-325 MG Oral Tablet (Endocet)Indicatio ns:Lumbar degenerative disc disease,Lumbar radiculopathy Take 1-2 Tablets by mouth every 8 hours as needed for Pain, Moderate or Pain, Severe. max 5 per day- may take extra tablet(6) 3 days per week when she has physical therpy 81 Tablet 0 03/13/2024 4 Discontinue d(Refill) documented as of this [...] mRNA, LNP-s, No Pre serve, 2-Dose Series (Iencuentra) 02/12/2021,01/22/2021 COVID-19, mRNA, LNP-s, PF, B ooster, [...] Encounter - Noemi Mondragon III, MD - 03/27/2024 9:09 AM EDTSigned Prescriptions: Disp Refills oxyCODONE-Acetaminophen 5-325 MG Oral Tabl*81 Tab*0 Sig: Take 1-2 Tablets by mouth every 8 hours as needed for Pain, Moderate or Pain, Severe. max 5 per day- may take extra tablet(6) 3 days per week when she has physical therpyAuthorizing Provider: NOEMI MONDRAGON III * Telephone Encounter - Noemi Mondragon III, MD - 03/27/2024 9:09 AM EDTSigned Prescriptions: Disp Refills oxyCODONE-Acetaminophen 5-325 MG Oral Tabl*81 Tab*0 Sig: Take 1-2 Tablets by mouth every 8 hours as needed for Pain, Moderate or Pain, Severe. max 5 per day- may take extra tablet(6) 3 days per week when she has physical therpyAuthorizing Provider: NOEMI MONDRAGON III * Addendum Note - Noemi Mondragon III, MD - 03/27/2024 9:09 AM EDTAddended by: NOEMI MONDRAGON on: 03/27/2024 09:09 AM Modules accepted: Orders * Telephone Encounter - Shana Miller PHARM Tech - 03/27/2024 7:47 AM EDT Pt requesting HIGH PRIORITY due to being out of medication. Pt calling to check on status of oxyCODONE-Acetaminophen 5-325 MG Oral Tabl*81 . Caller can be reached at [phone]. Thank you, Shana Miller Corporate General Manager I Centralized Clinical Pharmacy Services (CCPS) (Formerly Telepharmacy) 03/27/2024,7:47 AM * Telephone Encounter - Be Colin DO - 03/26/2024 4:51 PM EDT Pt getting 15 day supplies every 12-13 days for awhile now. Can wait til tomorrow for Noemi to return. * Telephone Encounter - Jessica Weems PHARM Tech - 03/26/2024 4:11 PM EDT Pt is traveling and needs this now. Please send [facility] Thank you for your assistance Jessica Weems Per Assessment Nurse II Centralized Clinical Pharmacy Services (CCPS) (Formerly [...] therpy * Telephone Encounter - Jolene Kulkarni RPh - 03/26/2024 12:08 PM EDT I have [...] medication is due for refill: 03/29/24 Pharmacy: [facility] #[id number][facility] [address] [place] Is this request for a [...] approve if appropriate. Thank you, Jolene Kulkarni, Stephanie, HIRO Clinical Pharmacist Centralized Clinical Pharmacy Services ([facility]PS) 03/26/24 12:08 PM [phone] * Addendum Note - Taylor English CPhT [...] pharmacy and medication before forwarding?no Pharmacy: [facility] #[id number]-[place] [address] [place] Pending Prescriptions: Disp Refills oxyCODONE-Acetaminophen [...] reflexed to confirmatory testing. Patient Phone Numbers [employer] [phone] Labs: Lab Results Component Value Date/Time CREAT [...] AM EDT Error Thank you, Eugenie Camilo Corporate General Manager [facility] 03/26/2024, 11:43 AM documented in this encounter Plan of Treatment Upcoming Encounters Date Type Department Care Team (Latest Contact Info) Description 04/18/2024 9:00 AM EDT Office Visit Pharmacy, [facility] [address] [facility] [place] [address] Pharmacist2, [facility] [address] [facility] [place] [address] 05/30/2024 1:30 PM EDT Hospital Encounter ENDO OSS[facility], Endoscopy Room [facility] [address] [place] [phone] Chase Law MD [address] [place] [address] 05/30/2024 1:30 PM EDT - 05/30/2024 2:00 PM EDT Surgery ENDO [facility], Endoscopy Room [facility] [address] [place] [phone] Chase Law MD [address] [place] [address] COLONOSCOPY FLEXIBLE PROXIMAL DIAGNOSTIC 02/04/2025 9:45 AM EDT Imaging Radiology [address] [address] Scheduled Procedures Name Priority Associated Diagnoses Date/Ti [...] and were consensually agreed upon. Care Teams Gathering Worker Relationship Specialty Start Date End Date Noemi Mondragon III, MD [address] [facility] [place] [place] [address] PCP - General Family Medicine 07/13/23 documented as of this encounter
--- OUTSIDE RECORDS SUMMARY | 2024-09-19 13:23 | External Medical Summary | Summary of Care ---
Author Name Unknown Organization [facility] Address [address] [place] [address] Phone [phone] Care Team Providers Care Front Office Medical Assistant Name Role Phone Jay KAMARA MD, Noemi Goldman Primary Care Provider [phone] Reason for Referral * Medication Prior Authorization - Closed Specialty Diagnoses / Procedures Referred By Contcrow t Referred To Contact Diagnoses Lumbar degenerative disc disease Lumbar radiculopathy Noemi Mondragon III, MD [address] [place] [address] Referral ID Status Reason Start Date Expiration Date Visits Re quested Visits Authorized [id number] Closed 999 999 Reason for Visit * Reason Onset Date Comments Medication Refill 03/26/2024 Encounter Created in Error 03/26/2024 Encounter Details Date Type Department Care Team (Late st Contact Info) Description 03/26/2024 Refill Family Practice [facility] [address] [place] [address] Noemi Mondragon III, MD [address] [place] [address] [address] Lumbar degenerative disc disease; Lumbar radiculopathy Allergies [...] mRNA, LNP-s, No Pre serve, 2-Dose Series (Revolucionadolabs) 02/12/2021,01/22/2021 COVID-19, mRNA, LNP-s, PF, B ooster, [...] - Noemi Mondragon III, MD - 03/27/2024 9:11 AM EDTSigned Prescriptions: Disp Refills oxyCODONE-Acetaminophen 5-325 [...] Orders * Telephone Encounter - Shana Miller metal products fabricator assembler - 03/27/2024 7:47 AM EDT Pt requesting HIGH PRIORITY due to being out of medication. Pt calling to check on status of oxyCODONE-Acetaminophen 5-325 MG Oral Tabl*81 . Caller can be reached at [phone]. Thank you, Shana Miller Trapeze Artist I [facility] Clinical Pharmacy Services (CCPS) (Formerly Telepharmacy) 03/27/2024,7:47 AM * Telephone Encounter - Be Colin DO - 03/26/2024 4:51 PM EDT Pt getting 15 day supplies every 12-13 days for awhile now. Can wait til tomorrow for Noemi to return. * Telephone Encounter - Jessica Weems metal products fabricator assembler - 03/26/2024 4:11 PM EDT Pt is traveling and needs this now. Please send [facility] Thank you for your assistance Jessica Weems [employer] Leak Tester II Centralized Clinical Pharmacy Services (CCPS) (Formerly Telepharmacy) 03/26/2024,4:12 PM * Telephone Encounter - Jolene Kulkarni [facility] - 03/26/2024 12:10 PM EDT Pending Prescriptions: Disp Refills oxyCODONE-Acetaminophen 5-325 MG Oral Tabl*81 Tab*0 Sig: Take 1-2 Tablets by mouth every 8 hours as needed for Pain, Moderate or Pain, Severe. max 5 per day- may take extra tablet(6) 3 days per week when she has physical therpy * Telephone Encounter - Jolene Kulkarni [facility] - 03/26/2024 12:08 PM EDT I have [...] is due for refill: 03/29/24 Pharmacy: [facility]ARM[facility]Y #[id number] [address] [place] Is this request for a [...] Clinical Pharmacy Services (CCPS) 03/26/24 12:08 PM [phone] * Addendum Note - Taylor English CPhT [...] pharmacy and medication before forwarding?no Pharmacy: [facility] #[id number] [address] [place] Pending Prescriptions: Disp Refills oxyCODONE-Acetaminophen [...] reflexed to confirmatory testing. Patient Phone Numbers [employer] [phone] Labs: Lab Results Component Value Date/Time CREAT [...] AM EDT Error Thank you, Eugenie Camilo Trapeze Artist [facility] 03/26/2024, 11:43 AM documented in this encounter Plan of Treatment Upcoming Encounters Date Type Department Care Team (Latest Contact Info) Description 04/18/2024 9:00 AM EDT Office Visit Pharmacy, [facility] 200 [facility] [place] [address] Pharmacist2, [facility] 200 [facility] [place] [address] 05/30/2024 1:30 PM EDT Hospital Encounter ENDO [facility], Endoscopy Room [facility] [address] [place] [phone] Chase Law MD [address] [place] [address] 05/30/2024 1:30 PM EDT - 05/30/2024 2:00 PM EDT Surgery ENDO [facility], Endoscopy Room [facility] [address] [place] [phone] Chase Law MD [address] [place] [address] COLONOSCOPY FLEXIBLE PROXIMAL DIAGNOSTIC 02/04/2025 9:45 AM EDT Imaging Radiology [address] [place] [address] Scheduled Procedures Name Priority Associated Diagnoses Date/Ti [...] and were consensually agreed upon. Care Teams Front Office Medical Assistant Relationship Specialty Start Date End Date Noemi Mondragon III, MD 200 [facility] [place] [address] PCP - General Family Medicine 07/13/23 documented as of this encounter
--- OUTSIDE RECORDS SUMMARY | 2024-09-19 13:24 | External Medical Summary | Summary of Care ---
Author Name Unknown Organization [facility] Address [address] [place] [address] Phone [phone] Care Team Providers Care Computer Recycling Worker Name Role Phone Jay KAMARA MD, Wagner Goldman Primary Care Provider [phone] Reason for Visit * Reason Onset Date Comments Medication Refill 03/26/2024 Encounter Created in Error 03/26/2024 Encounter Details Date Type Department Care Team (Late st Contact Info) Description 03/26/2024 Refill Family Practice [facility] 200 [facility] [place] [address] Wagner Thompson III, MD 200 [place] [address] Lumbar degenerative disc disease; Lumbar radiculopathy Allergies [...] encounter Miscellaneous Notes * Telephone Encounter - Eugenie Camilo CPhT - 03/26/2024 11:31 AM EDT Error Thank you, Eugenie Camilo Russian Language Professor [facility] 03/26/2024, 11:43 AM documented in this encounter Plan of Treatment Upcoming Encounters Date Type Department Care Team (Latest Contact Info) Description 04/18/2024 9:00 AM EDT [facility] Visit Pharm[facility] [address] [facility] [place] [address] Pharmacist2, [facility] 200 [facility] [place] [address] 05/30/2024 1:30 PM EDT Hospital Encounter ENDO [facility], Endoscopy Room [facility] [address] [place] [phone] Chase Law MD [address] [place] [address] 05/30/2024 1:30 PM EDT - 05/30/2024 2:00 PM EDT Surgery ENDO [facility], Endoscopy Room [facility] [address] [place] [phone] Chase Law MD [address] [place] [address] COLONOSCOPY FLEXIBLE PROXIMAL DIAGNOSTIC 02/04/2025 9:45 AM EDT Imaging Radiology [address] [place] [address] Scheduled Procedures Name Priority Associated Diagnoses Date/Ti [...] and were consensually agreed upon. Care Teams Computer Recycling Worker Relationship Specialty Start Date End Date Wagner Thompson III, MD 200 [place] [address] PCP - General Family Medicine 07/13/23 documented as of this encounter
[2024-09-19] MEDS: LEVALBUTEROL HCL 0.63 MG/3 ML NEB NEB SCH (13:38)
[2024-09-19] MEDS: CYCLOBENZAPRINE HCL 10 MG TAB PO SCH (14:14)
[2024-09-19] MEDS: guaiFENesin/DEXTROM SYRUP 200MG/20MG 10ML UDC PO SCH (14:14)
[2024-09-19] MEDS: oxyCODONE/ACETAMINOPHEN 5mg/325mg TAB PO PRN ×2 (14:19→19:53)
--- NOTE | 2024-09-19 15:36 | Electrocardiogram Report ---
Test Reason : Blood Pressure : */* mmHG Vent. Rate : 118 BPM Atrial Rate : 118 BPM P-R Int : 148 ms QRS Dur : 64 ms QT Int : 292 ms P-R-T Axes : 45 42 57 degrees QTcB Int : 409 ms Sinus tachycardia Possible Left atrial enlargement Septal infarct , age undetermined Abnormal ECG When compared with ECG of 14-Apr-2017 07:30, Vent. rate has increased by 42 bpm Septal infarct is now Present Nonspecific T wave abnormality now evident in Anterior leads Confirmed by Luis Stewart ([id number]) on 09/19/2024 3:35:57 PM Referred By: Confirmed By: Luis Stewart
[2024-09-19] MEDS: ENOXAPARIN INJ 40 MG/0.4 ML SYR SQ SCH (19:54)
[2024-09-19] MEDS ORDERED: MELATONIN 3 MG TAB PO PRN (21:00)
[2024-09-20 07:24] LABS: Albumin Globulin Ratio 1.2 (0.9-2); Albumin Level 3.3 gm/dl (3.4-5.0); BUN Creatinine Ratio 19.6 (10-20); Bilirubin,Total 0.4 mg/dl (0.2-1.0); Calcium 8.8 mg/dl (8.6-10.3); Globulin 2.8 gm/dl (2.5-4.0); Magnesium 2.2 mg/dl (1.7-2.4); Potassium 3.7 mmol/L (3.5-5.1); Total Protein 6.1 gm/dl (6.0-8.3)
[2024-09-20] MEDS: SODIUM CHLOR 7% 4 ML NEB NEB SCH (07:42)
[2024-09-20 07:52] LABS: Hematocrit (blood only) 32.8 % (37.0-47.0); Hemoglobin 11.9 g/dl (12.0-16.0); Mean Corpuscular Hemoglobin 37.7 pg (25.0-34.0); Mean Corpuscular Hgb Conc 36.3 g/dL (32.0-36.0); Mean Corpuscular Volume 103.8 fL (80.0-100.0); Mean Platelet Volume 8.9 fL (9.4-12.4); Platelet Count 542 K/uL (130-400); RDW Coefficient of Variation 15.2 % (11.5-14.5); RDW Standard Deviation 46.7 fL (36.4-46.3); Red Blood Count 3.16 M/uL (4.20-5.40); White Blood Count 19.19 K/ul (4.8-10.8)
[2024-09-20 07:54] LABS: Rouleaux 1+
[2024-09-20 07:57] LABS: ALC (manual) 3.26 K/uL (1.2-3.4); ANC (manual) 15.16 K/uL (1.4-6.5); Lymphocytes # (manual) 3.26 K/uL (1.2-3.4); Lymphocytes % (manual) 17 %; Monocytes # (manual) 0.77 K/uL (0.11-0.59); Monocytes % (manual) 4 %; Neutrophils # (manual) 15.16 K/uL (1.40-6.50); Neutrophils % (manual) 79 %
[2024-09-20] MEDS: MULTIVITAMIN TAB PO SCH (08:22)
[2024-09-20] MEDS: ADVANCED PROBIOTIC 625 MG CAPSULE PO SCH (08:22)
[2024-09-20] MEDS: AZITHROMYCIN 250 MG TAB PO SCH (08:23)
[2024-09-20] MEDS: DULoxetine HCL 60 MG CAP PO SCH (08:24)
[2024-09-20] MEDS: cefTRIAXone SODIUM 2,000 MG/50 ML BAG IV SCH (08:24)
[2024-09-20] MEDS: DULoxetine HCL 30 MG CAP PO SCH (08:24)
[2024-09-20] MEDS: amLODIPine BESYLATE 5 MG TAB PO SCH (08:24)
[2024-09-20] MEDS ORDERED: methylPREDNISolone 40 MG in SYRINGE 0 ML IV SCH (09:00)
[2024-09-20] MEDS: methylPREDNISolone 40 MG in SYRINGE 0 ML IV SCH (09:23)
--- NOTE | 2024-09-20 10:27 | Electrocardiogram Report ---
Test Reason : Blood Pressure : */* mmHG Vent. Rate : 66 BPM Atrial Rate : 66 BPM P-R Int : 152 ms QRS Dur : 82 ms QT Int : 394 ms P-R-T Axes : 50 51 41 degrees QTcB Int : 413 ms Normal sinus rhythm with sinus arrhythmia Normal ECG When compared with ECG of 19-Sep-2024 08:15, Vent. rate has decreased by 52 bpm Criteria for Septal infarct are no longer Present Nonspecific T wave abnormality no longer evident in Anterior leads Confirmed by Luis Stewart ([id number]) on 09/20/2024 10:27:03 AM Referred By: REFERRED SELF Confirmed By: Luis Stewart
[2024-09-20] MEDS: FORMOTEROL 20 MCG/2 ML VIAL NEB SCH (10:45)
[2024-09-20] MEDS: BUDESONIDE 0.5 MG/2 ML VIAL (PULMICORT) NEB SCH (10:45)
--- NOTE | 2024-09-20 10:50 | Pulmonary Consultation ---
Date of Consultation September 20, 2024 Assessment & Plan (1) Multifocal pneumonia: (2) Acute hypoxic respiratory failure: (3) Acute bronchitis: (4) Bronchiectasis: (5) Tobacco abuse: Plan CT chest 09/19/2024 personally reviewed: Minimal bilateral apical pleural scarring Focal bronchiectasis appreciated in the left upper lobe and lingula as well as left lower lobe Tree-in-bud opacities appreciated in the lingula as well as left lower lobe Minimal mediastinal lymphadenopathy There were no bronchiectatic changes on the CT abdominal pelvis done 01/12/2015 -- Multilobar pneumonia with bronchiectasis with acute exacerbation of bronchitis Respiratory BioFire was negative for everything on 09/19/2024 Procalcitonin negative --Acute respiratory failure with hypoxia Secondary to above -- Chronic bronchitis > 22-csdk-ckoo smoking history Not on any inhalers at home but I would recommend the patient to be discharged on Anoro or Stiolto to be used on a daily basis Plan: Follow-up immunoglobulin levels I will order KEMI with reflex Sputum culture along with AFB culture Complete the course of antibiotics for total of 5-7 days Recommend repeating a CAT scan of the chest in 8 weeks without contrast Please note the above document was generated using voice recognition software. It may contain grammatical, syntax or spelling errors.Any formal questions or concerns about the content, text or information contained within the body of this dictation should be directly addressed to the provider for clarification. History of Present Illness Attending Physician: Vidal Brasher MD History of Present Illness 59-year-old female present to the hospital for shortness of breath and cough Past medical history: Ovarian cancer s/p radiation 1987, renal cell cancer s/p right nephrectomy 2014, hypertension, chronic low back pain with lumbar radiculopathy Pulmonary consulted for hypoxia At the time of examination patient was saturating 93-94% on 2 L nasal cannula She was still coughing but stated that she is feeling better compared to when she came to the hospital. She has been having issues with her breathing for approximately 2 months. She has finished 2 courses of antibiotics last 1 being yesterday She has also completed a course of prednisone. Denies any recurrent infections while growing up She does state care or spent time around grandchildren lately. Subjective fevers and chills No dysuria, diarrhea No unusual headache or blurry vision Social history: Approximately 86-unme-ohrh smoking history, currently smoking half a pack a day. 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 No birds or poultry nearby Seasonal allergies Asthma: Strong family of history of asthma and son No history of lung cancer in the family Allergies Allergy/AdvReac Type Severity Reaction Status Date / Time carisoprodol Allergy Unknown Seizure Verified 09/22/21 02:08 Home Medications Medication Instructions Recorded Confirmed Type amlodipine 5 mg tablet 5 mg PO DAILY 09/22/21 09/19/24 History cyclobenzaprine 10 mg tablet 10 mg PO TID 09/22/21 09/19/24 History lisinopril 5 mg tablet 5 mg PO DAILY 09/22/21 09/19/24 History qcqjgjqg-jtxu-obfq 8 mg-folic 400 1 tab PO DAILY 09/22/21 09/19/24 History mcg-K 50 mcg-lutein 300 mcg tablet (Multivitamin Women 50 Plus) oxycodone-acetaminophen 5 mg-325 1 - 2 tab PO Q8 PRN Pain 09/22/21 09/19/24 History mg tablet duloxetine 30 mg capsule,delayed 30 mg PO QAM 09/19/24 09/19/24 History release duloxetine 60 mg capsule,delayed 60 mg PO QAM 09/19/24 09/19/24 History release Patient History Medical History Hydronephrosis with obstructing calculus Right ureteral calculus Nephrolithiasis Social History Smoking Status: Current every day smoker Tobacco Type: Cigarettes Cigarettes Per Day: pack a day; Do You Dip or Chew Tobacco: No; Hx Alcohol Use: Yes Alcohol type: hard liquor Hx Substance Use: No Preferred Language: Sri Lankan Communication Ability: Effective Drupal Programmer Required: No Beliefs That Will Affect Care: None Current Living Situation: Spouse Other Information That Helps Us Care for You: Yes (Chronic pain D/T prior multiple surgeries) Feels Safe at Home: Yes Safety Concerns: Feels Safe At This Time Assistive Devices: Cane Review of Systems 2 Review of Systems: All systems reviewed & are unremarkable except as noted in HPI & below Physical Exam 2 Physical Exam: Constitutional: No acute distress HEENT: EOMI, PERRLA Respiratory system: Decreased air entry bilaterally, positive expiratory wheeze, positive crackles bilaterally more on the left side even anteriorly, no rhonchi CVS: S1-S2 positive, no murmurs or gallops Abdomen: Soft, nontender, nondistended, positive bowel sounds x4 Extremities: +2 pulses bilaterally radialis/ dorsalis pedis, no cyanosis, no edema Neuro: Awake alert oriented x3 Psych: Normal mood and affect G/U: No Aguilar Skin: no rashes, warm and dry Lymphatic: no cervical or axillary lymphadenopathy Results & Data Results & Data Vital Signs (Past 12 Hours) Vital Signs Temp Pulse Pulse Resp BP Pulse Ox O2 Del Method 09/20/24 08:28 36.2 C L 100 H 20 94 Nasal Cannula 09/20/24 08:20 Nasal Cannula 09/20/24 08:19 122/81 09/20/24 06:59 103 H 22 97 Nasal Cannula 09/20/24 03:32 36.4 C L 70 20 129/71 97 Nasal Cannula 09/20/24 00:57 68 25 H 92 Nasal Cannula 09/19/24 23:16 76 O2 Flow Rate 09/20/24 08:28 4 09/20/24 08:20 4 09/20/24 08:19 09/20/24 06:59 5 09/20/24 03:32 6 09/20/24 00:57 6 09/19/24 23:16 Laboratory Results 09/20/24 06:38 09/20/24 06:38 PG Care Time/CCT Total # of Minutes Spent Total Time Spent with Patient: Total time spent is greater than 50% in coordination of care (as documented) at patient's floor/unit and/or counseling patient: Coding Level of Care Code 71628 INT INP/OBS CARE 375MIN Diagnoses Multifocal pneumonia J18.9 Acute hypoxic respiratory failure J96.01 Acute bronchitis J20.9 Bronchiectasis J47.9 Tobacco abuse Z72.0
[2024-09-20] MEDS: LEVALBUTEROL 1.25 MG/3 ML NEB NEB SCH (10:55)
--- NOTE | 2024-09-20 11:34 | Hospitalist Progress Note ---
Date of Service September 20, 2024 Assessment & Plan (1) Acute hypoxic respiratory failure: (2) Bilateral pneumonia: (3) Acute bronchitis: (4) Tobacco abuse: Plan This is a 59-year-old female who has significant past medical history of hypertension, abdominal aortic ectasia, history of renal cell carcinoma status post right nephrectomy in 2014, history of ovarian cancer status post radiation in 1987, chronic pain in setting of multiple chronic injuries on long-term opiates and tobacco abuse who presents to ED secondary to respiratory symptoms x 2 weeks. Pt meets Sepsis criteria 2/2 leukocytosis, tachycardia and evidence of PNA on CXR. Leukocytosis likely exac due to taking oral prednisone. HR elevated likely in setting of respiratory failure Acute hypoxic respiratory failure Possible Sepsis Bilateral pneumonia Acute bronchitis Tobacco abuse Patient presents with 2 weeks history of shortness of breath and cough CT chest on admission shows multifocal airspace opacities bilaterally and enlarged lymph nodes. Bronchial wall thickening present. Leukocytosis present on admission Respiratory viral panel negative Continue on IV antibiotics with ceftriaxone and azithromycin [id number] DuoNebs, hypertonic saline, flutter valve for airway clearance. Also started on Budesonide and formoterol nebs. Continue on IV steroids; Solu-Medrol increased to 3 times a day Pulmonology consulted for comanagement for concern of multifocal pneumonia. Recommended to follow-up on immunolgobin level and KEMI along with sputum culture and AFB culture. Will need CT chest in 8 weeks to ensure resolution. HTN: chronic, stable, hold amlodipine/lisinopril for now as BP adequate Thrombocytosis: repeat in a.m., likely reactive,monitor Chronic pain 2/2 multiple injuries: continue pain regimen, duloxetine, flexeril Hx of RCC s/p R nephrectomy in 2014, hx of Ovarian ca in 1987 s/p XRT DVT ppx: SQ Lovenox FULL CODE PCP: Jay Dispo: admit to PCU Time spent evaluating patient, direct bedside care, chart review, placing orders, interpretation of diagnostic studies, discussion with consultants, patient, and family members, as well as other required patient management activities is 50 minutes Please note the above document was generated using voice recognition software. It may contain grammatical, syntax or spelling errors. Any formal questions or concerns about the content, text or information contained within the body of this dictation should be directly addressed to the provider for clarification Admission and Anticipated Discharge Date Admission Date: September 19, 2024 Subjective Patient seen and examined at bedside She continues to report feeling short of breath. Continues to require supplemental oxygen No significant events overnight Review of Systems Review of Systems: All systems reviewed & are unremarkable except as noted in Subjective Physical Exam Physical Exam: Constitutional: WD/WN, vitals as above, NAD, sitting up in bed, pleasant, conversing easily Respiratory: b/l exp wheeze with b/l rhonchi throughout. no accessory muscle use Cardiovascular: RR, no murmur, no edema Vessels: no JVD or carotid bruit Chest: normal inspection of chest Abdomen: normal bowel sounds, soft, nontender, no hepatosplenomegaly Musculoskeletal: no cyanosis or clubbing, extremities motor strength 5/5 Skin: no rashes, warm and dry normal turgor Neurologic: PERRL, EOMI, accommodation nl, no face palsy, no dysarthria CN's II-XI intact bilaterally and moves all extremities Results & Data Results & Data Vital Signs (Past 12 Hours) Vital Signs Temp Pulse Pulse Resp BP Pulse Ox O2 Del Method 09/20/24 10:48 79 20 95 Nasal Cannula 09/20/24 08:28 36.2 C L 100 H 20 94 Nasal Cannula 09/20/24 08:20 Nasal Cannula 09/20/24 08:19 122/81 09/20/24 07:00 70 09/20/24 06:59 103 H 22 97 Nasal Cannula 09/20/24 03:32 36.4 C L 70 20 129/71 97 Nasal Cannula 09/20/24 00:57 68 25 H 92 Nasal Cannula O2 Flow Rate 09/20/24 10:48 3 09/20/24 08:28 4 09/20/24 08:20 4 09/20/24 08:19 09/20/24 07:00 09/20/24 06:59 5 09/20/24 03:32 6 09/20/24 00:57 6
[2024-09-20] MEDS: oxyCODONE/ACETAMINOPHEN 5mg/325mg TAB PO PRN (11:56)
[2024-09-21 06:44] LABS: BUN Creatinine Ratio 20.6 (10-20); Calcium 9.3 mg/dl (8.6-10.3); Creatinine Clr Calc Pharmacy 95.1 ml/min; Immunoglobulin A 170.7 mg/dl (70-400); Immunoglobulin G 983.2 mg/dl (635-1741); Immunoglobulin M 98.3 mg/dl (45-281); Potassium 3.8 mmol/L (3.5-5.1)
[2024-09-21 07:28] LABS: Agglutinated RBC 1+; Hematocrit (blood only) 38.1 % (37.0-47.0); Hemoglobin 12.9 g/dl (12.0-16.0); Mean Corpuscular Hemoglobin 34.8 pg (25.0-34.0); Mean Corpuscular Hgb Conc 33.9 g/dL (32.0-36.0); Mean Corpuscular Volume 102.7 fL (80.0-100.0); Mean Platelet Volume 9.2 fL (9.4-12.4); Platelet Count 610 K/uL (130-400); RDW Coefficient of Variation 13.5 % (11.5-14.5); RDW Standard Deviation 48.8 fL (36.4-46.3); Red Blood Count 3.71 M/uL (4.20-5.40); White Blood Count 21.37 K/ul (4.8-10.8)
[2024-09-21 07:29] LABS: Basophils # (auto) 0.03 K/uL (0.00-0.20); Basophils % (auto) 0.1 %; Eosinophils # (auto) 0.01 K/uL (0.00-0.50); Immature Granulocytes # (auto) 0.16 K/uL (0.01-0.20); Immature Granulocytes % (auto) 0.7 %; Lymphocytes # (auto) 1.97 K/uL (1.20-3.40); Lymphocytes % (auto) 9.2 %; Monocytes # (auto) 0.72 K/uL (0.11-0.59); Monocytes % (auto) 3.4 %; Neutrophils # (auto) 18.48 K/uL (1.40-6.50); Neutrophils % (auto) 86.6 %
--- NOTE | 2024-09-21 11:45 | Hospitalist Progress Note ---
Date of Service September 21, 2024 Assessment & Plan (1) Acute hypoxic respiratory failure: (2) Bilateral pneumonia: (3) Acute bronchitis: (4) Tobacco abuse: Plan This is a 59-year-old female who has significant past medical history of hypertension, abdominal aortic ectasia, history of renal cell carcinoma status post right nephrectomy in 2014, history of ovarian cancer status post radiation in 1987, chronic pain in setting of multiple chronic injuries on long-term opiates and tobacco abuse who presents to ED secondary to respiratory symptoms x 2 weeks. Pt meets Sepsis criteria 2/2 leukocytosis, tachycardia and evidence of PNA on CXR. Leukocytosis likely exac due to taking oral prednisone. HR elevated likely in setting of respiratory failure Acute hypoxic respiratory failure Possible Sepsis Bilateral pneumonia Acute bronchitis Tobacco abuse Patient presents with 2 weeks history of shortness of breath and cough CT chest on admission shows multifocal airspace opacities bilaterally and enlarged lymph nodes. Bronchial wall thickening present. Leukocytosis present Respiratory viral panel negative Sputum Culture- moderate normal nara AFB smear- negative Blood cx- NGTD Continue on IV antibiotics with ceftriaxone and azithromycin [id number] DuoNebs, hypertonic saline, flutter valve for airway clearance. Also started on Budesonide and formoterol nebs. Continue on IV steroids at current dose. Pulmonology consulted for comanagement for concern of multifocal pneumonia. Recommended to follow-up on immunolgobin level ( IgA, IgM and IgG wnl) and KEMI( pending) . Will need CT chest in 8 weeks to ensure resolution. HTN: chronic, stable, hold amlodipine/lisinopril for now as BP adequate Thrombocytosis: repeat in a.m., likely reactive,monitor Chronic pain 2/2 multiple injuries: continue pain regimen, duloxetine, flexeril Hx of RCC s/p R nephrectomy in 2014, hx of Ovarian ca in 1987 s/p XRT DVT ppx: SQ Lovenox FULL CODE PCP: Jay Dispo: admit to PCU. Patient continues to be hospitalized for acute hypoxic respiratory failure requiring close monitoring inpatient. Time spent evaluating patient, direct bedside care, chart review, placing orders, interpretation of diagnostic studies, discussion with consultants, patient, and family members, as well as other required patient management activities is 50 minutes Please note the above document was generated using voice recognition software. It may contain grammatical, syntax or spelling errors. Any formal questions or concerns about the content, text or information contained within the body of this dictation should be directly addressed to the provider for clarification Admission and Anticipated Discharge Date Admission Date: September 19, 2024 Subjective Patient seen and examined at bedside. She is comfortable; not in distress. She reports that her shortness of breath has slightly improved compared to yesterday Reports that her sputum is clearing up. Review of Systems Review of Systems: All systems reviewed & are unremarkable except as noted in Subjective Physical Exam Physical Exam: Constitutional: WD/WN, vitals as above, NAD, sitting up in bed, pleasant, conversing easily Respiratory: b/l exp wheeze with b/l rhonchi throughout. no accessory muscle use Cardiovascular: RR, no murmur, no edema Vessels: no JVD or carotid bruit Chest: normal inspection of chest Abdomen: normal bowel sounds, soft, nontender, no hepatosplenomegaly Musculoskeletal: no cyanosis or clubbing, extremities motor strength 5/5 Skin: no rashes, warm and dry normal turgor Neurologic: PERRL, EOMI, accommodation nl, no face palsy, no dysarthria CN's II-XI intact bilaterally and moves all extremities Results & Data Results & Data Vital Signs (Past 12 Hours) Vital Signs Temp Pulse Pulse Resp BP Pulse Ox Pulse Ox 09/21/24 11:40 36.8 C 88 20 117/69 91 09/21/24 10:33 86 20 94 09/21/24 09:00 09/21/24 08:13 36.4 C L 92 H 18 121/69 95 09/21/24 07:25 78 22 94 09/21/24 07:00 88 09/21/24 05:57 92 09/21/24 05:23 95 09/21/24 04:11 36.5 C 82 18 121/76 96 09/21/24 03:29 87 21 97 O2 Del Method O2 Del Method O2 Flow Rate O2 Flow Rate 09/21/24 11:40 Nasal Cannula 1 09/21/24 10:33 Nasal Cannula 1 09/21/24 09:00 Nasal Cannula 1 09/21/24 08:13 Room Air 09/21/24 07:25 Nasal Cannula 1 09/21/24 07:00 09/21/24 05:57 Room Air 09/21/24 05:23 Nasal Cannula 1 09/21/24 04:11 Nasal Cannula 2 09/21/24 03:29 Nasal Cannula 2
--- NOTE | 2024-09-21 12:15 | Pulmonology Progress Note ---
Date of Service September 21, 2024 Assessment & Plan (1) Multifocal pneumonia: (2) Acute hypoxic respiratory failure: (3) Acute bronchitis: (4) Bronchiectasis: (5) Tobacco abuse: Plan CT chest 09/19/2024 personally reviewed: Minimal bilateral apical pleural scarring Focal bronchiectasis appreciated in the left upper lobe and lingula as well as left lower lobe Tree-in-bud opacities appreciated in the lingula as well as left lower lobe Minimal mediastinal lymphadenopathy There were no bronchiectatic changes on the CT abdominal pelvis done 01/12/2015 -- Multilobar pneumonia with bronchiectasis with acute exacerbation of bronchitis Respiratory BioFire was negative for everything on 09/19/2024 Procalcitonin negative Labs 09/21/2024: Immunoglobulins within normal limit --Acute respiratory failure with hypoxia Secondary to above -- Chronic bronchitis > [id number] smoking history Not on any inhalers at home but I would recommend the patient to be discharged on Anoro or Stiolto to be used on a daily basis Plan: Sputum culture negative to date Follow-up AFB Continue with hypertonic saline, add Mucomyst to the regimen Complete the course of antibiotics for total of 7 days especially given that she failed antibiotics as an outpatient Decree Solu-Medrol to 40 mg 3 times daily Recommend repeating a CAT scan of the chest in 8 weeks without contrast Please note the above document was generated using voice recognition software. It may contain grammatical, syntax or spelling errors.Any formal questions or concerns about the content, text or information contained within the body of this dictation should be directly addressed to the provider for clarification. Admission and Anticipated Discharge Date Admission Date: September 19, 2024 Subjective Patient seen and bedside. No acute distress, notable symptoms overnight She was saturating 92-93% on 1 L nasal cannula She stated that overall she is feeling little bit better compared to coming to the hospital Still coughing and bringing up clear phlegm. Denies any hemoptysis No chest pain No headache or blurry vision Fair appetite Review of Systems 2 Review of Systems: All systems reviewed & are unremarkable except as noted in Subjective Physical Exam 2 Physical Exam: Constitutional: No acute distress HEENT: EOMI, PERRLA Respiratory system: Decreased air entry bilaterally, minimal expiratory wheeze bilaterally, positive crackles bilaterally more on the left side even anteriorly, no rhonchi CVS: S1-S2 positive, no murmurs or gallops Abdomen: Soft, nontender, nondistended, positive bowel sounds x4 Extremities: +2 pulses bilaterally radialis/ dorsalis pedis, no cyanosis, no edema Neuro: Awake alert oriented x3 Psych: Normal mood and affect G/U: No Aguilar Skin: no rashes, warm and dry Lymphatic: no cervical or axillary lymphadenopathy Results & Data Results & Data Vital Signs (Past 12 Hours) Vital Signs Temp Pulse Pulse Resp BP Pulse Ox Pulse Ox 09/21/24 11:40 36.8 C 88 20 117/69 91 09/21/24 10:33 86 20 94 09/21/24 09:00 09/21/24 08:13 36.4 C L 92 H 18 121/69 95 09/21/24 07:25 78 22 94 09/21/24 07:00 88 09/21/24 05:57 92 09/21/24 05:23 95 09/21/24 04:11 36.5 C 82 18 121/76 96 09/21/24 03:29 87 21 97 O2 Del Method O2 Del Method O2 Flow Rate O2 Flow Rate 09/21/24 11:40 Nasal Cannula 1 09/21/24 10:33 Nasal Cannula 1 09/21/24 09:00 Nasal Cannula 1 09/21/24 08:13 Room Air 09/21/24 07:25 Nasal Cannula 1 09/21/24 07:00 09/21/24 05:57 Room Air 09/21/24 05:23 Nasal Cannula 1 09/21/24 04:11 Nasal Cannula 2 09/21/24 03:29 Nasal Cannula 2 Laboratory Results 09/21/24 05:35 09/21/24 05:35 PG Care Time/CCT Total # of Minutes Spent Total Time Spent with Patient: Total time spent is greater than 50% in coordination of care (as documented) at patient's floor/unit and/or counseling patient: Coding Level of Care Code 42386 SUB INP/OBS CARE 3/50MIN Diagnoses Multifocal pneumonia J18.9 Acute hypoxic respiratory failure J96.01 Acute bronchitis J20.9 Bronchiectasis J47.9 Tobacco abuse Z72.0
[2024-09-21] MEDS: ACETYLCYSTEINE 20% INHAL SOLN 4ML ***DISPENSED BY RESP. INH SCH (15:18)
[2024-09-21] MEDS: methylPREDNISolone 40 MG in SYRINGE 0 ML IV SCH (21:49)
[2024-09-22 07:38] LABS: BUN Creatinine Ratio 20.9 (10-20); Calcium 9.4 mg/dl (8.6-10.3); Creatinine Clr Calc Pharmacy 96.7 ml/min; Potassium 4.2 mmol/L (3.5-5.1)
[2024-09-22 08:25] LABS: Basophils # (auto) 0.02 K/uL (0.00-0.20); Basophils % (auto) 0.1 %; Hematocrit (blood only) 37.2 % (37.0-47.0); Hemoglobin 12.7 g/dl (12.0-16.0); Immature Granulocytes % (auto) 2.4 %; Lymphocytes # (auto) 2.46 K/uL (1.20-3.40); Lymphocytes % (auto) 14.5 %; Mean Corpuscular Hemoglobin 33.8 pg (25.0-34.0); Mean Corpuscular Hgb Conc 34.1 g/dL (32.0-36.0); Mean Corpuscular Volume 98.9 fL (80.0-100.0); Mean Platelet Volume 9.3 fL (9.4-12.4); Monocytes # (auto) 0.76 K/uL (0.11-0.59); Monocytes % (auto) 4.5 %; Neutrophils # (auto) 13.36 K/uL (1.40-6.50); Neutrophils % (auto) 78.5 %; Platelet Count 618 K/uL (130-400); RDW Coefficient of Variation 13.4 % (11.5-14.5); RDW Standard Deviation 47.8 fL (36.4-46.3); Red Blood Count 3.76 M/uL (4.20-5.40)
--- NOTE | 2024-09-22 08:41 | Pulmonology Progress Note ---
Date of Service September 22, 2024 Assessment & Plan (1) Multifocal pneumonia: (2) Acute hypoxic respiratory failure: (3) Acute bronchitis: (4) Bronchiectasis: (5) Tobacco abuse: Plan CT chest 09/19/2024 personally reviewed: Minimal bilateral apical pleural scarring Focal bronchiectasis appreciated in the left upper lobe and lingula as well as left lower lobe Tree-in-bud opacities appreciated in the lingula as well as left lower lobe Minimal mediastinal lymphadenopathy There were no bronchiectatic changes on the CT abdominal pelvis done 01/12/2015 -- Multilobar pneumonia with bronchiectasis with acute exacerbation of bronchitis Respiratory BioFire was negative for everything on 09/19/2024 Procalcitonin negative Labs 09/21/2024: Immunoglobulins within normal limit --Acute respiratory failure with hypoxia Secondary to above -- Chronic bronchitis > 50-qobz-fykh smoking history Not on any inhalers at home but I would recommend the patient to be discharged on Anoro or Stiolto to be used on a daily basis Plan: Sputum culture negative to date Sputum AFB negative to date Continue with hypertonic saline and Mucomyst Complete the course of antibiotics for total of 7 days especially given that she failed antibiotics as an outpatient Decree Solu-Medrol to 40 mg twice daily Recommend repeating a CAT scan of the chest in 8 weeks without contrast Please note the above document was generated using voice recognition software. It may contain grammatical, syntax or spelling errors.Any formal questions or concerns about the content, text or information contained within the body of this dictation should be directly addressed to the provider for clarification. Admission and Anticipated Discharge Date Admission Date: September 19, 2024 Subjective Patient seen and examined at bedside. No acute distress, no adverse events overnight Patient said that she is feeling better compared to yesterday She was off oxygen, saturating 92-93% on room air Still coughing and bringing up phlegm. No hemoptysis Fair appetite No nausea vomiting Patient's was also in the room at the time of examination Review of Systems 2 Review of Systems: All systems reviewed & are unremarkable except as noted in Subjective Physical Exam 2 Physical Exam: Constitutional: No acute distress HEENT: EOMI, PERRLA Respiratory system: Decreased air entry bilaterally, positive expiratory wheeze expiratory wheeze bilaterally, positive crackles bilaterally more on the left side even anteriorly, no rhonchi CVS: S1-S2 positive, no murmurs or gallops Abdomen: Soft, nontender, nondistended, positive bowel sounds x4 Extremities: +2 pulses bilaterally radialis/ dorsalis pedis, no cyanosis, no edema Neuro: Awake alert oriented x3 Psych: Normal mood and affect G/U: No Aguilar Skin: no rashes, warm and dry Lymphatic: no cervical or axillary lymphadenopathy Results & Data Results & Data Vital Signs (Past 12 Hours) Vital Signs Temp Pulse Pulse Resp BP Pulse Ox Pulse Ox 09/22/24 08:35 09/22/24 08:29 36.7 C 95 H 20 136/75 90 09/22/24 07:19 72 18 95 09/22/24 03:34 84 18 93 09/22/24 02:59 36.4 C L 75 16 128/76 93 09/22/24 01:02 90 09/22/24 01:00 85 L 09/22/24 00:27 36.6 C 86 19 140/68 96 09/22/24 00:26 76 17 91 09/22/24 00:15 93 H 09/21/24 21:35 09/21/24 20:55 37.6 C H 77 20 125/77 93 O2 Del Method O2 Del Method O2 Flow Rate O2 Flow Rate 09/22/24 08:35 Room Air 09/22/24 08:29 Room Air 09/22/24 07:19 Nasal Cannula 1 09/22/24 03:34 Nasal Cannula 1 09/22/24 02:59 Nasal Cannula 1 09/22/24 01:02 Nasal Cannula 1 09/22/24 01:00 Nasal Cannula 1 09/22/24 00:27 Nasal Cannula 1.0 09/22/24 00:26 Nasal Cannula 1 09/22/24 00:15 09/21/24 21:35 Nasal Cannula 1 09/21/24 20:55 Room Air Laboratory Results 09/22/24 06:51 09/22/24 06:51 PG Care Time/CCT Total # of Minutes Spent Total Time Spent with Patient: Total time spent is greater than 50% in coordination of care (as documented) at patient's floor/unit and/or counseling patient: Coding Level of Care Code 03263 SUB INP/OBS CARE 2/35MIN Diagnoses Multifocal pneumonia J18.9 Acute hypoxic respiratory failure J96.01 Acute bronchitis J20.9 Bronchiectasis J47.9 Tobacco abuse Z72.0
--- NOTE | 2024-09-22 11:30 | Hospitalist Progress Note ---
Date of Service September 22, 2024 Assessment & Plan (1) Acute hypoxic respiratory failure: (2) Bilateral pneumonia: (3) Acute bronchitis: (4) Tobacco abuse: Plan This is a 59-year-old female who has significant past medical history of hypertension, abdominal aortic ectasia, history of renal cell carcinoma status post right nephrectomy in 2014, history of ovarian cancer status post radiation in 1987, chronic pain in setting of multiple chronic injuries on long-term opiates and tobacco abuse who presents to ED secondary to respiratory symptoms x 2 weeks. Pt meets Sepsis criteria 2/2 leukocytosis, tachycardia and evidence of PNA on CXR. Leukocytosis likely exac due to taking oral prednisone. HR elevated likely in setting of respiratory failure Acute hypoxic respiratory failure Bilateral pneumonia Acute bronchitis Tobacco abuse Patient presents with 2 weeks history of shortness of breath and cough CT chest on admission shows multifocal airspace opacities bilaterally and enlarged lymph nodes. Bronchial wall thickening present. Leukocytosis present Respiratory viral panel negative Sputum Culture- moderate normal nara AFB smear- negative Blood cx- NGTD Continue on IV antibiotics with ceftriaxone and azithromycin [id number] DuoNebs, hypertonic saline, flutter valve for airway clearance. Also started on Budesonide and formoterol nebs. Continue steroids. Pulmonology consulted for comanagement for concern of multifocal pneumonia. Recommended to follow-up on immunolgobin level ( IgA, IgM and IgG wnl) and KEMI( pending) . Will need CT chest in 8 weeks to ensure resolution. HTN: chronic, stable, hold amlodipine/lisinopril for now as BP adequate Thrombocytosis: repeat in a.m., likely reactive,monitor Chronic pain 2/2 multiple injuries: continue pain regimen, duloxetine, flexeril Hx of RCC s/p R nephrectomy in 2014, hx of Ovarian ca in 1987 s/p XRT DVT ppx: SQ Lovenox FULL CODE PCP: Jay Dispo: admit to PCU. Patient continues to be hospitalized for acute hypoxic respiratory failure requiring close monitoring inpatient. Possible dc in am. Time spent evaluating patient, direct bedside care, chart review, placing orders, interpretation of diagnostic studies, discussion with consultants, patient, and family members, as well as other required patient management activities is 50 minutes Please note the above document was generated using voice recognition software. It may contain grammatical, syntax or spelling errors. Any formal questions or concerns about the content, text or information contained within the body of this dictation should be directly addressed to the provider for clarification Admission and Anticipated Discharge Date Admission Date: September 19, 2024 Subjective Patient seen and examined at bedside. She reports that her breathing is much better compared to previous days. She reports that she is coughing up more mucus; clear. She is saturating well on room air. Review of Systems Review of Systems: All systems reviewed & are unremarkable except as noted in Subjective Physical Exam Physical Exam: Constitutional: WD/WN, vitals as above, NAD, sitting up in bed, pleasant, conversing easily Respiratory: Bilateral occasional wheeze heard. Cardiovascular: RRR, no murmur, no edema Vessels: no JVD or carotid bruit Chest: normal inspection of chest Abdomen: normal bowel sounds, soft, nontender, no hepatosplenomegaly Musculoskeletal: no cyanosis or clubbing, extremities motor strength 5/5 Skin: no rashes, warm and dry normal turgor Neurologic: PERRL, EOMI, accommodation nl, no face palsy, no dysarthria CN's II- XI intact bilaterally and moves all extremities Psychiatric: A+Ox3, euthymic affect Results & Data Results & Data Vital Signs (Past 12 Hours) Vital Signs Temp Pulse Pulse Resp BP Pulse Ox Pulse Ox 09/22/24 10:51 76 18 93 09/22/24 08:35 09/22/24 08:29 36.7 C 95 H 20 136/75 90 09/22/24 07:19 72 18 95 09/22/24 03:34 84 18 93 09/22/24 02:59 36.4 C L 75 16 128/76 93 09/22/24 01:02 90 09/22/24 01:00 85 L 09/22/24 00:27 36.6 C 86 19 140/68 96 09/22/24 00:26 76 17 91 09/22/24 00:15 93 H O2 Del Method O2 Del Method O2 Flow Rate O2 Flow Rate 09/22/24 10:51 Room Air 09/22/24 08:35 Room Air 09/22/24 08:29 Room Air 09/22/24 07:19 Nasal Cannula 1 09/22/24 03:34 Nasal Cannula 1 09/22/24 02:59 Nasal Cannula 1 09/22/24 01:02 Nasal Cannula 1 09/22/24 01:00 Nasal Cannula 1 09/22/24 00:27 Nasal Cannula 1.0 09/22/24 00:26 Nasal Cannula 1 09/22/24 00:15
[2024-09-23 07:31] LABS: BUN Creatinine Ratio 21.3 (10-20); Calcium 9.3 mg/dl (8.6-10.3); Potassium 4.2 mmol/L (3.5-5.1)
[2024-09-23 07:35] LABS: Basophils # (auto) 0.03 K/uL (0.00-0.20); Basophils % (auto) 0.2 %; Hematocrit (blood only) 36.6 % (37.0-47.0); Hemoglobin 12.4 g/dl (12.0-16.0); Immature Granulocytes # (auto) 0.42 K/uL (0.01-0.20); Immature Granulocytes % (auto) 2.6 %; Lymphocytes # (auto) 2.93 K/uL (1.20-3.40); Mean Corpuscular Hemoglobin 33.6 pg (25.0-34.0); Mean Corpuscular Hgb Conc 33.9 g/dL (32.0-36.0); Mean Corpuscular Volume 99.2 fL (80.0-100.0); Mean Platelet Volume 9.1 fL (9.4-12.4); Monocytes # (auto) 0.91 K/uL (0.11-0.59); Monocytes % (auto) 5.6 %; Neutrophils # (auto) 11.97 K/uL (1.40-6.50); Neutrophils % (auto) 73.6 %; Platelet Count 638 K/uL (130-400); RDW Coefficient of Variation 13.4 % (11.5-14.5); RDW Standard Deviation 47.9 fL (36.4-46.3); Red Blood Count 3.69 M/uL (4.20-5.40); White Blood Count 16.26 K/ul (4.8-10.8)
--- NOTE | 2024-09-23 08:57 | Pulmonology Progress Note ---
Date of Service September 23, 2024 Assessment & Plan (1) Multifocal pneumonia: (2) Acute hypoxic respiratory failure: (3) Acute bronchitis: (4) Bronchiectasis: (5) Tobacco abuse: Plan CT chest 09/19/2024 personally reviewed: Minimal bilateral apical pleural scarring Focal bronchiectasis appreciated in the left upper lobe and lingula as well as left lower lobe Tree-in-bud opacities appreciated in the lingula as well as left lower lobe Minimal mediastinal lymphadenopathy There were no bronchiectatic changes on the CT abdominal pelvis done 01/12/2015 -- Multilobar pneumonia with bronchiectasis with acute exacerbation of bronchitis Respiratory BioFire was negative for everything on 09/19/2024 Procalcitonin negative Labs 09/21/2024: Immunoglobulins within normal limit --Acute respiratory failure with hypoxia --> resolved Secondary to above -- Chronic bronchitis > 06-mogg-hjof smoking history Not on any inhalers at home but I would recommend the patient to be discharged on Anoro or Stiolto to be used on a daily basis Plan: Sputum culture negative to date Sputum AFB negative to date Continue with hypertonic saline and DuoNebs. Would recommend the same even on discharge Would give a trial of Mucomyst again tonight. If the patient still complains of significant chest tightness following that then would discontinue with Can consider decreasing Solu-Medrol to 40 mg daily. Recommend repeating a CAT scan of the chest in 8 weeks without contrast Case was discussed with primary team No further recommendation from pulmonary perspective, will sign off Please call directly with any questions Please note the above document was generated using voice recognition software. It may contain grammatical, syntax or spelling errors.Any formal questions or concerns about the content, text or information contained within the body of this dictation should be directly addressed to the provider for clarification. Admission and Anticipated Discharge Date Admission Date: September 19, 2024 Subjective Patient seen and bedside. No acute distress, no adverse events overnight She stated that after the Mucomyst treatment today she felt some chest tightness which went away with subsequent nebulizers Is able to bring up the phlegm with the help of Mucomyst better than before No chest pain No headache, no blurry vision She was saturating well on room air Fair appetite Review of Systems 2 Review of Systems: All systems reviewed & are unremarkable except as noted in Subjective Physical Exam 2 Physical Exam: Constitutional: No acute distress HEENT: EOMI, PERRLA Respiratory system: Decreased air entry bilaterally, positive expiratory wheeze bilaterally, positive crackles bilaterally more on the left side even anteriorly, no rhonchi CVS: S1-S2 positive, no murmurs or gallops Abdomen: Soft, nontender, nondistended, positive bowel sounds x4 Extremities: +2 pulses bilaterally radialis/ dorsalis pedis, no cyanosis, no edema Neuro: Awake alert oriented x3 Psych: Normal mood and affect G/U: No [place] Skin: no rashes, warm and dry Lymphatic: no cervical or axillary lymphadenopathy Results & Data Results & Data Vital Signs (Past 12 Hours) Vital Signs Temp Pulse Pulse Resp BP Pulse Ox O2 Del Method 09/23/24 08:29 36.9 C 94 H 20 118/77 89 L Room Air 09/23/24 07:36 Room Air 09/23/24 07:29 75 15 93 Room Air 09/23/24 04:43 36.4 C L 90 18 127/78 90 Room Air 09/23/24 03:05 89 18 92 Room Air 09/23/24 00:12 36.7 C 85 18 116/66 92 Room Air 09/22/24 23:32 86 09/22/24 22:25 86 18 92 Room Air FiO2 09/23/24 08:29 09/23/24 07:36 09/23/24 07:29 21 09/23/24 04:43 09/23/24 03:05 09/23/24 00:12 09/22/24 23:32 09/22/24 22:25 Laboratory Results 09/23/24 06:23 09/23/24 06:23 PG Care Time/CCT Total # of Minutes Spent Total Time Spent with Patient: Total time spent is greater than 50% in coordination of care (as documented) at patient's floor/unit and/or counseling patient: Coding Level of Care Code 62731 SUB INP/OBS CARE 2/35MIN Diagnoses Multifocal pneumonia J18.9 Acute hypoxic respiratory failure J96.01 Acute bronchitis J20.9 Bronchiectasis J47.9 Tobacco abuse Z72.0
--- NOTE | 2024-09-23 11:04 | Hospitalist Progress Note ---
Date of Service September 23, 2024 Assessment & Plan (1) Acute hypoxic respiratory failure: (2) Bilateral pneumonia: (3) Acute bronchitis: (4) Tobacco abuse: Plan This is a 59-year-old female who has significant past medical history of hypertension, abdominal aortic ectasia, history of renal cell carcinoma status post right nephrectomy in 2014, history of ovarian cancer status post radiation in 1987, chronic pain in setting of multiple chronic injuries on long-term opiates and tobacco abuse who presents to ED secondary to respiratory symptoms x 2 weeks. Acute hypoxic respiratory failure Bilateral pneumonia Acute bronchitis Tobacco abuse Patient presents with 2 weeks history of shortness of breath and cough CT chest on admission shows multifocal airspace opacities bilaterally and enlarged lymph nodes. Bronchial wall thickening present. Respiratory viral panel negative Sputum Culture- moderate normal nara AFB smear- negative Blood cx- NGTD Continue on IV antibiotics with ceftriaxone. Completed 3 days of azithromycin. [id number] DuoNebs, hypertonic saline, flutter valve, for airway clearance. Also started on Budesonide and formoterol nebs. Continue steroids. Started on Anoro inhaler Pulmonology consulted for comanagement for concern of multifocal pneumonia. Will need CT chest in 8 weeks to ensure resolution. Needs pulmonology referral as outpatient. HTN: chronic, stable, hold amlodipine/lisinopril for now as BP adequate Thrombocytosis: repeat in a.m., likely reactive,monitor Chronic pain 2/2 multiple injuries: continue pain regimen, duloxetine, flexeril Hx of RCC s/p R nephrectomy in 2014, hx of Ovarian ca in 1987 s/p XRT DVT ppx: SQ Lovenox FULL CODE PCP: Jay Dispo: admit to PCU. Patient continues to be hospitalized for acute hypoxic respiratory failure requiring close monitoring inpatient. Time spent evaluating patient, direct bedside care, chart review, placing orders, interpretation of diagnostic studies, discussion with consultants, patient, and family members, as well as other required patient management activities is 50 minutes Please note the above document was generated using voice recognition software. It may contain grammatical, syntax or spelling errors. Any formal questions or concerns about the content, text or information contained within the body of this dictation should be directly addressed to the provider for clarification Admission and Anticipated Discharge Date Admission Date: September 19, 2024 Subjective Patient seen and examined at bedside. She reports she had some bronchospasm earlier in the morning during nebulizer treatment. She reports that her breathing is similar to yesterday's. No significant events overnight Review of Systems Review of Systems: All systems reviewed & are unremarkable except as noted in Subjective Physical Exam Physical Exam: Constitutional: WD/WN, vitals as above, NAD, sitting up in bed, pleasant, conversing easily Respiratory: Bilateral wheeze heard all over the chest Cardiovascular: RRR, no murmur, no edema Vessels: no JVD or carotid bruit Chest: normal inspection of chest Abdomen: normal bowel sounds, soft, nontender, no hepatosplenomegaly Musculoskeletal: no cyanosis or clubbing, extremities motor strength 5/5 Skin: no rashes, warm and dry normal turgor Neurologic: PERRL, EOMI, accommodation nl, no face palsy, no dysarthria CN's II- XI intact bilaterally and moves all extremities Psychiatric: A+Ox3, euthymic affect Results & Data Results & Data Vital Signs (Past 12 Hours) Vital Signs Temp Pulse Pulse Resp BP Pulse Ox O2 Del Method 09/23/24 10:16 77 18 94 Room Air 09/23/24 08:29 36.9 C 94 H 20 118/77 89 L Room Air 09/23/24 07:36 Room Air 09/23/24 07:29 75 15 93 Room Air 09/23/24 04:43 36.4 C L 90 18 127/78 90 Room Air 09/23/24 03:05 89 18 92 Room Air 09/23/24 00:12 36.7 C 85 18 116/66 92 Room Air 09/22/24 23:32 86 FiO2 09/23/24 10:16 21 09/23/24 08:29 09/23/24 07:36 09/23/24 07:29 21 09/23/24 04:43 09/23/24 03:05 09/23/24 00:12 09/22/24 23:32
[2024-09-23] MEDS: UMECLIDINIUM/VILANTEROL 62.5/25MCG 7 PUFFS/INHALER INH SCH (11:58)
[2024-09-24] MEDS: methylPREDNISolone 40 MG in SYRINGE 0 ML IV SCH (08:30)
--- NOTE | 2024-09-24 11:09 | Hospitalist Progress Note ---
Date of Service September 24, 2024 Assessment & Plan (1) Acute hypoxic respiratory failure: (2) Bilateral pneumonia: (3) Acute bronchitis: (4) Tobacco abuse: Plan This is a 59-year-old female who has significant past medical history of hypertension, abdominal aortic ectasia, history of renal cell carcinoma status post right nephrectomy in 2014, history of ovarian cancer status post radiation in 1987, chronic pain in setting of multiple chronic injuries on long-term opiates and tobacco abuse who presents to ED secondary to respiratory symptoms x 2 weeks. Acute hypoxic respiratory failure Bilateral pneumonia Acute bronchitis Tobacco abuse Patient presents with 2 weeks history of shortness of breath and cough CT chest on admission shows multifocal airspace opacities bilaterally and enlarged lymph nodes. Bronchial wall thickening present. Respiratory viral panel negative Sputum Culture- moderate normal nara AFB smear- negative Blood cx- NGTD Continue on IV antibiotics with ceftriaxone; plan to treat for 7 days. Completed 3 days of azithromycin. [id number] DuoNebs, hypertonic saline, flutter valve, for airway clearance. Continue steroids. Started on Anoro inhaler Pulmonology consulted for comanagement for concern of multifocal pneumonia. Will need CT chest in 8 weeks to ensure resolution. Needs pulmonology referral as outpatient. Plan to arrange for nebulizer at home. HTN: chronic, stable, hold amlodipine/lisinopril for now as BP adequate Thrombocytosis: repeat in a.m., likely reactive,monitor Chronic pain 2/2 multiple injuries: continue pain regimen, duloxetine, flexeril Hx of RCC s/p R nephrectomy in 2014, hx of Ovarian ca in 1987 s/p XRT DVT ppx: SQ Lovenox FULL CODE PCP: Jay Dispo: admit to PCU. Patient continues to be hospitalized for acute hypoxic respiratory failure requiring close monitoring inpatient. Possible dc in am. Time spent evaluating patient, direct bedside care, chart review, placing orders, interpretation of diagnostic studies, discussion with consultants, patient, and family members, as well as other required patient management activi ties is 50 minutes Please note the above document was generated using voice recognition software. It may contain grammatical, syntax or spelling errors. Any formal questions or concerns about the content, text or information contained within the body of this dictation should be directly addressed to the provider for clarification Admission and Anticipated Discharge Date Admission Date: September 19, 2024 Subjective Patient seen and examined at bedside. Patient continues to report continues wheeze. Two-step oxygen evaluation was done; patient reports getting increasing shortness of breath on exertion. Oxygen saturation was remained normal throughout the walk. No significant events overnight Review of Systems Review of Systems: All systems reviewed & are unremarkable except as noted in Subjective Physical Exam Physical Exam: Constitutional: WD/WN, vitals as above, NAD, sitting up in bed, pleasant, conversing easily Respiratory: Bilateral wheeze heard all over the chest Cardiovascular: RRR, no murmur, no edema Vessels: no JVD or carotid bruit Chest: normal inspection of chest Abdomen: normal bowel sounds, soft, nontender, no hepatosplenomegaly Musculoskeletal: no cyanosis or clubbing, extremities motor strength 5/5 Skin: no rashes, warm and dry normal turgor Neurologic: PERRL, EOMI, accommodation nl, no face palsy, no dysarthria CN's II- XI intact bilaterally and moves all extremities Psychiatric: A+Ox3, euthymic affect Results & Data Results & Data Vital Signs (Past 12 Hours) Vital Signs Temp Pulse Pulse Pulse Pulse Resp Resp 09/24/24 10:07 88 22 09/24/24 09:58 98 H 90 26 H 09/24/24 09:23 80 09/24/24 08:13 36.9 C 94 H 18 09/24/24 07:49 09/24/24 07:04 90 20 09/24/24 03:57 37.0 C 73 19 09/24/24 03:34 76 18 09/24/24 00:02 36.8 C 73 18 09/24/24 00:00 85 09/23/24 23:34 86 18 Resp BP Pulse Ox Pulse Ox Pulse Ox O2 Del Method 09/24/24 10:07 91 Room Air 09/24/24 09:58 20 90 93 09/24/24 09:23 09/24/24 08:13 121/68 91 Room Air 09/24/24 07:49 Room Air 09/24/24 07:04 95 Room Air 09/24/24 03:57 112/70 09/24/24 03:34 92 Room Air 09/24/24 00:02 112/70 92 Room Air 09/24/24 00:00 09/23/24 23:34 90 Room Air
[2024-09-24 15:47] LABS: Anti Nuclear Antibody Screen NEGATIVE (NEGATIVE); Immunoglobulin IgE 74 kU/L (<OR=114)
[2024-09-25 11:30] VITALS: BP 101/48; TEMP 98.2
--- NOTE | 2024-09-25 12:39 | Discharge Summary ---
Date of Service September 25, 2024 Admission HPI Per Admitting Provider This is a 59-year-old female who has significant past medical history of hypertension, abdominal aortic ectasia, history of renal cell carcinoma status post right nephrectomy in 2014, history of ovarian cancer status post radiation in 1987, chronic pain in setting of multiple chronic injuries on long-term opiates and tobacco abuse who presents to ED secondary to respiratory symptoms x 2 weeks. Approximately 2 weeks ago she started with a scratchy throat and postnasal drip. They progressed into feeling feverish, chills and then a cough. Her cough has been persistent resulting in wheezing, productive purulent sputum and shortness of breath with chest heaviness while coughing. On 09/10 she went to see her primary care provider who prescribed her oral cefdinir as well as prednisone taper. She has been taking this as prescribed which is to finish in 2 days. Her symptoms have been progressively worsening without any improvement. She denies ever having anything like this in the past. She reports having a bronchitis as a child. She denies being diagnosed with any history of asthma or COPD. She is a lifelong smoker. She reports staying in a hotel 1 month ago, but other than that no recent travel. She denies sick contacts. Admission Exam Per Admitting Provider Constitutional: WD/WN, vitals as above, NAD, sitting up in bed, pleasant, conversing easily Head: Normocephalic, Atraumatic Eyes: PERRL, conjunctivae normal, anicteric sclerae ENMT: external ear and nose normal, oropharynx normal Neck: trachea midline, no thyromegaly normal visual inspection Respiratory: normal respiratory effort on 6L O2 via NC, b/l exp wheeze with b/l rhonchi throughout. no accessory muscle use Cardiovascular: Tachycardic rate, RR, no murmur, no edema Vessels: no JVD or carotid bruit Chest: normal inspection of chest Abdomen: normal bowel sounds, soft, nontender, no hepatosplenomegaly Musculoskeletal: no cyanosis or clubbing, extremities motor strength 5/5 Skin: no rashes, warm and dry normal turgor Neurologic: PERRL, EOMI, accommodation nl, no face palsy, no dysarthria CN's II-XI intact bilaterally and moves all extremities Psychiatric: A+Ox3, euthymic affect Lymphatic: no cervical or axillary lymphadenopathy : deferred Principal Diagnosis Acute hypoxic respiratory failure Bilateral pneumonia Acute bronchitis Tobacco abuse Discharge Exam Constitutional: WD/WN, vitals as above, NAD, sitting up in bed, pleasant, conversing easily Respiratory: occasional wheeze Cardiovascular: RRR, no murmur, no edema Vessels: no JVD or carotid bruit Chest: normal inspection of chest Abdomen: normal bowel sounds, soft, nontender, no hepatosplenomegaly Musculoskeletal: no cyanosis or clubbing, extremities motor strength 5/5 Skin: no rashes, warm and dry normal turgor Neurologic: PERRL, EOMI, accommodation nl, no face palsy, no dysarthria CN's II- XI intact bilaterally and moves all extremities Psychiatric: A+Ox3, euthymic affect Discharge Data Allergies Allergy/AdvReac Type Severity Reaction Status Date / Time carisoprodol Allergy Unknown Seizure Verified 09/22/21 02:08 Consultations 09/19/24 09:34 ED Decision to Admit Stat 09/20/24 09:20 Consult Pulmonology Routine Ordered Studies 09/19/24 10:03 CT chest diagnostic wo con Stat Hospital Course (1) Acute hypoxic respiratory failure: (2) Bilateral pneumonia: (3) Acute bronchitis: (4) Tobacco abuse: Plan This is a 59-year-old female who has significant past medical history of hypertension, abdominal aortic ectasia, history of renal cell carcinoma status post right nephrectomy in 2014, history of ovarian cancer status post radiation in 1987, chronic pain in setting of multiple chronic injuries on long-term opiates and tobacco abuse who presents to ED secondary to respiratory symptoms x 2 weeks. Acute hypoxic respiratory failure Bilateral pneumonia Acute bronchitis Tobacco abuse Patient presents with 2 weeks history of shortness of breath and cough CT chest on admission shows multifocal airspace opacities bilaterally and enlarged lymph nodes. Bronchial wall thickening present. Respiratory viral panel negative Sputum Culture- moderate normal nara AFB smear- negative Blood cx- NGTD During the hospitalization, Patient was treated with IV antibiotics, [id number]-[id number] DuoNebs, hypertonic saline, flutter valve and steroids. Pulmonology was also consulted for comanagement; pulmonary recommended patient to be started on Anoro inhaler, repeat CT chest in 8 weeks to ensure resolution. Discussed with patient at discharge of importance of follow-up with her primary care doctor, obtaining pulmonology referral for long-term management of COPD/bronchiectasis. She was also prescribed nebulizer at the time of the discharge. She was also prescribed hypertonic saline, antibiotics and steroid taper as well. Patient verbalized understanding of the instructions provided. Please note the above document was generated using voice recognition software. It may contain grammatical, syntax or spelling errors. Any formal questions or concerns about the content, text or information contained within the body of this dictation should be directly addressed to the provider for clarification Total Time Total Time Spent Total Time Spent (In Minutes): 45 Total Time Includes: Examination of the Patient, Discharge Planning, Medication Reconciliation, Communication With Other Providers and Other Discharge Plan Discharge Items Patient Disposition: Home - Self-Care Reason For Visit: BRONCHITIS, SOB, COUGH Discharge Diagnosis: Acute hypoxic respiratory failure Bilateral pneumonia Acute bronchitis Tobacco abuse Activity: Resume your previous activity Non-emergency contact: Primary Care Provider Call non-emergency contact if: you have any medication questions and your sy mptoms worsen Follow-up/Referrals: Wagner Thompson MD [Primary Care Provider] - (Date & Time 10/01/2024 11:00 AM Provider Wagner Thompson III, MD Department [facility] ) Diet: Regular Addtl Attending Provider Instructions: You were admitted to the hospital due to pneumonia. You are also found to have possible emphysema/COPD as well as bronchiectasis. Your evaluated by pulmonology during the hospitalization. They recommend following medications 1) Take Augmentin(antibiotic) twice a day for 2 more days 2) Anoro inhaler daily. This is for long-term management of COPD/emphysema. If this inhaler is not covered by your insurance; please discuss with your primary care doctor during her follow-up appointment for alternative medication. 3) prednisone(steroids): Take 40 mg once a day for 2 days, 20 mg once a day for 2 days and 10 mg once a day for 2 days You are also prescribed 2 different type of nebulizer solutions. 1) Sodium chloride solution is for clearing your airway. Use it twice a day for next 5 days or until your secretions start to clear up. 2) You need to use DuoNeb(ipratropiumalbuterol) right after sodium chloride nebulization. Please follow-up with your primary care doctor as scheduled. You will need pulmonology referral for long-term management of COPD/emphysema/bronchiectasis. Please obtain CT chest without contrast with your primary care doctor to follow- up on infiltrates/lymph node enlargement seen on the CAT scan here Pending Studies at Discharge: No Stand-Alone Forms: My [facility], Smoking Cessation Medications and DC Order Prescriptions: New Anoro Ellipta 62.5-25 mcg/actuation Blister With Device 1 inh inhalation DAILY Qty: 60 0RF amoxicillin-pot clavulanate 875-125 mg tablet 1 tab PO BID 2 Days Qty: 4 0RF prednisone 10 mg tablet See Taper PO DAILY Qty: 14 0RF Taper: Taper, Blank 40 mg DAILY for 2 Days 20 mg DAILY for 2 Days 10 mg DAILY for 2 Days ipratropium-albuterol 0.5 mg-3 mg(2.5 mg base)/3 mL solution for nebulization 3 ml inhalation Q8H PRN (Reason: wheezing) Qty: 180 0RF sodium chloride 7 % Solution For Nebulization 4 ml NEB BIDR Qty: 240 0RF Continued lisinopril 5 mg tablet 5 mg PO DAILY cyclobenzaprine 10 mg tablet 10 mg PO TID Rx Instructions: 0600, 1200, 1800 Multivitamin Women 50 Plus 8 mg iron-400 mcg-300 mcg Tablet 1 tab PO DAILY amlodipine 5 mg tablet 5 mg PO DAILY oxycodone-acetaminophen 5-325 mg tablet 1 - 2 tab PO Q8 MDD 5 tabs PRN (Reason: Pain) Rx Instructions: may take extra tablet (6) 3 days per week when she has physical therapy duloxetine 30 mg capsule,delayed release(DR/EC) 30 mg PO QAM Rx Instructions: take with 60 mg to equal 90 mg dose duloxetine 60 mg capsule,delayed release(DR/EC) 60 mg PO QAM Rx Instructions: take with 30 mg to equal 90 mg dose Discharge Orders: Discharge Order (Routine); Ordered 09/25/24 Ordered By: Vidal Brasher Admission Data Admit Date/Time: 09/19/24 10:02 Attending Provider: Vidal Brasher Admit Provider: Antonino Lloyd Primary Care Provider: Wagner Thompson Other Providers: Antonino Lloyd; John Carmen
[2024-09-25 14:51] VITALS: PULSE 108; RESP 20; O2SAT 93
--- NOTE | 2024-09-26 15:53 | Coding Query ---
To promote full compliance with coding requirements relating to patient care, provider participation is requested in all cases of toddler caregiver uncertainty. Please assist us with the question(s) below: HP AND PNs up to 09/21-Pt meets Sepsis criteria 2/2 leukocytosis, tachycardia and evidence of PNA on CXR. Leukocytosis likely exac due to taking oral prednisone. HR elevated likely in setting of respiratory failure Acute hypoxic respiratory failure Possible Sepsis DISCHARGE SUMMARY-Acute hypoxic respiratory failure Bilateral pneumonia Acute bronchitis Coding Question(s): The diagnosis(es) below was documented in the (toddler caregiver fill out source document ie H&P, progress notes, etc.) then subsequently fell off all further documentation. Please indicate if it is still a possible diagnosis or ruled out. 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
== END 2024-09-25 15:49 | disposition home or self-care (01) | DRG 871 ==
LOC: ED 07:50 → 2E 10:02 → SUATTDRO 10:02 → 2E 12:06